=== PATIENT | male | born 1945 | race Caucasian/White ===

== ENCOUNTER → 2016-09-04 | Outpatient (CLI) | payer BC ==
[~2016-09-04] MED LIST: ALBUAER2 INH; ASCO100061 PO; ASCO500T16 PO; ASPEC81 PO; ASPI81TA28 PO; ATOR-24 PO; AZEL0.15 NAE; AZIT250T PO; CHOL200027 PO; COEN100C11 PO; EPP3/2 IM; FEXO1TAB46 PO; FEXO1TAB49 PO; FLAXPOW2 PO; LPT/40 PO; MECL1TAB40 PO; MONT1TAB5 PO; MULT-618 PO; NAPR500T3 PO; NSNN50 NAE; OMEP20CA9 PO; OXYC-57 PO; PRED10TA PO; QUIN20TA30 PO; TRMCR515 TOP; ZNTT/150 PO; [UNRECOGNIZED DRUG - CODE] PO; triamcinolone TD
--- NOTE | 2016-09-04 14:37 | DIAGNOSTIC IMAGING REPORT ---
CHEST 2 VIEWS ROUTINE CLINICAL HISTORY: COUGH dyspnea COMPARISON STUDY: No previous studies for comparison. FINDINGS: The bones soft tissues and hemidiaphragms are normal. The cardiomediastinal silhouette is normal. The lungs are clear. The pulmonary vasculature is normal. IMPRESSION: Negative chest. Electronically signed by: Vic Swartz M.D. 09/04/2016 2:35 PM Dictated Date/Time: 09/04/2016 2:35 PM
== END | disposition home or self-care (01) ==
LOC: C.RAD1850 14:21
PROVIDERS: ATTEND Physician Assistant Medical
DX: R05 Cough (principal)

== ENCOUNTER → 2016-09-27 | Outpatient (CLI) | payer BC ==
[2016-09-27 09:26] LABS: BASO % 0.1 %; BASO ABS # 0.01 K/uL (0-0.2); COMPLETE YES; HEMATOCRIT 45.2 % (42-52); IG% 0.3 %; LYMPH % 15.7 %; LYMPH ABS # 1.21 K/uL (1.2-3.4); MEAN CELL VOLUME 91.7 fL (80-100); MEAN CORPUSCULAR HEMOGLOBIN 30.2 pg (25-34); MEAN PLATELET VOLUME 10.3 fL (7.4-10.4); MONO % 3.5 %; NEUT % 80.4 %; PLATELET COUNT 262 K/uL (130-400); RED BLOOD COUNT 4.93 M/uL (4.7-6.1); WHITE BLOOD COUNT 7.73 K/uL (4.8-10.8)
[2016-09-27 09:40] LABS: URINE APPEARANCE CLOUDY (CLEAR); URINE BILIRUBIN NEG (NEG); URINE COLOR DK YELLOW; URINE EPITHELIAL CELL AUTO 20-30 /lpf (0-5); URINE NITRITE NEG (NEG); URINE PH 5.5 (4.5-7.5); URINE SPECIFIC GRAVITY 1.025 (1.000-1.030); UROBILINOGEN NEG (NEG)
[2016-09-27 09:42] LABS: MANUAL MICROSCOPIC REQUIRED? NO; REVIEW REQ? NO
[2016-09-27 09:50] LABS: ALT/SGPT 27 U/L (12-78); AST/SGOT 13 U/L (15-37); BLOOD UREA NITROGEN 16 mg/dl (7-18); BUN/CREATININE RATIO 14.5 (10-20); CARBON DIOXIDE 29 mmol/L (21-32); CHLORIDE 106 mmol/L (98-107); CHOLESTEROL 204 mg/dl (0-200); GLUCOSE 120 mg/dl (70-99); SODIUM 143 mmol/L (136-145); TRIGLYCERIDES 50 mg/dl (0-150); VERY LOW DENSITY LIPOPROT CALC 10 mg/dl
[2016-09-27 10:00] LABS: ALB/GLOB RATIO 1.2 (0.9-2); ALKALINE PHOSPHATASE 106 U/L (45-117); CHOLESTEROL/HDL RATIO 3.6; HDL CHOLESTEROL 57 mg/dl; LDL CHOLESTEROL CALCULATED 137 mg/dl; THYROID STIMULATING HORMONE 0.829 uIu/ml (0.300-4.500)
== END | disposition home or self-care (01) ==
LOC: C.LAB1850 07:45
PROVIDERS: ATTEND Internal Medicine Pulmonary Disease
DX: Z00.00 Encounter for general adult medical examination without abnormal findings (principal); J30.9 Allergic rhinitis, unspecified; M51.36 Other intervertebral disc degeneration, lumbar region; I10 Essential (primary) hypertension; J45.909 Unspecified asthma, uncomplicated; K21.9 Gastro-esophageal reflux disease without esophagitis; R05 Cough; N40.1 Benign prostatic hyperplasia with lower urinary tract symptoms

== ENCOUNTER → 2016-10-25 | Outpatient (CLI) | payer BC ==
--- NOTE | 2016-10-25 12:59 | DIAGNOSTIC IMAGING REPORT ---
BILATERAL CAROTID DOPPLER STUDY HISTORY: Carotid Doppler CAROTID BRUIT, DIZZINESS COMPARISON: None. TECHNIQUE: Real-time, grayscale, and color Doppler sonography of the carotid arteries was performed. Imaging reviewed in the transverse and longitudinal planes. All measurements were calculated based on NASCET criteria. FINDINGS: Antegrade flow is seen in the bilateral vertebral arteries. The brachial pressures are hemodynamically similar. Significant plaque formation bilaterally The peak systolic velocity within the right ICA is 218. The right systolic ratio is 1.9. The peak systolic velocity within the left ICA is 296. The left systolic ratio is 3.3. IMPRESSION: 1. 80/90% stenosis left internal carotid artery 2. 70/80% stenosis right internal carotid artery. 3. High-grade stenosis right external carotid artery. Electronically signed by: Vic Swartz M.D. 10/25/2016 12:58 PM Dictated Date/Time: 10/25/2016 12:54 PM
== END | disposition home or self-care (01) ==
LOC: C.ULTR 10:28
PROVIDERS: ATTEND Physician Assistant Medical
DX: R42 Dizziness and giddiness (principal); R09.89 Other specified symptoms and signs involving the circulatory and respiratory systems

== ENCOUNTER 2016-10-30 15:59 | Inpatient (IN) | payer BC, OTHER ==
[~2016-10-30] VITALS: Ht 177.8 cm; Wt 68.5 kg
[~2016-10-30 15:59] MED LIST changes: -ASCO100061 PO; -ASPEC81 PO; -ASPI81TA28 PO; -ATOR-24 PO; -AZEL0.15 NAE; -FEXO1TAB49 PO; -LPT/40 PO; -MECL1TAB40 PO; -OXYC-57 PO; -PRED10TA PO; -TRMCR515 TOP; -ZNTT/150 PO; -[UNRECOGNIZED DRUG - CODE] PO
[2016-10-30] MEDS ORDERED: SODIUM CHLORIDE 0.9% 1000ML 1,000 ML IV STA (18:08)
--- NOTE | 2016-10-30 18:55 | DIAGNOSTIC IMAGING REPORT ---
SINGLE VIEW CHEST CLINICAL HISTORY: Generalized weakness. FINDINGS: An AP, portable, upright chest radiograph is compared to study dated 09/04/2016. The examination is degraded by portable technique and patient rotation. The cardiomediastinal silhouette is unremarkable. Chronic interstitial thickening is unchanged. A calcified hilar lymph nodes are suspected. There is no airspace consolidation or large pleural effusion. Apical scarring is noted. No pneumothorax is seen. The skeletal structures are osteopenic. The bony thorax is grossly intact. IMPRESSION: No acute cardiopulmonary abnormality. Electronically signed by: Rony Lane M.D. 10/30/2016 6:54 PM Dictated Date/Time: 10/30/2016 6:53 PM
[2016-10-30 19:06] LABS: BASO % 0.4 %; BASO ABS # 0.02 K/uL (0-0.2); COMPLETE YES; EOS % 3.1 %; HEMATOCRIT 42.1 % (42-52); IG% 0.2 %; LYMPH % 29.6 %; LYMPH ABS # 1.33 K/uL (1.2-3.4); MEAN CELL VOLUME 90.9 fL (80-100); MEAN PLATELET VOLUME 9.9 fL (7.4-10.4); MONO % 8.9 %; NEUT % 57.8 %; PLATELET COUNT 241 K/uL (130-400); RED BLOOD COUNT 4.63 M/uL (4.7-6.1)
[2016-10-30] MEDS ORDERED: TRMCR515 TOP (19:07)
[2016-10-30] MEDS ORDERED: ASCO100061 PO (19:08)
[2016-10-30] MEDS ORDERED: ZNTT/150 PO (19:12)
[2016-10-30] MEDS ORDERED: AZEL0.15 NAE (19:13)
[2016-10-30] MEDS ORDERED: MECL1TAB40 PO (19:15)
[2016-10-30 19:17] LABS: PARTIAL THROMBOPLASTIN RATIO 1.1; PROTHROMBIN TIME (PATIENT) 10.8 SECONDS (9.0-12.0)
[2016-10-30 19:27] LABS: ALT/SGPT 28 U/L (12-78); BLOOD UREA NITROGEN 14 mg/dl (7-18); BUN/CREATININE RATIO 14.5 (10-20); CALCIUM 9.9 mg/dl (8.5-10.1); CARBON DIOXIDE 30 mmol/L (21-32); CHLORIDE 108 mmol/L (98-107); CREATININE 0.97 mg/dl (0.60-1.40); GLUCOSE 80 mg/dl (70-99); MAGNESIUM 2.3 mg/dl (1.8-2.4); POTASSIUM 3.9 mmol/L (3.5-5.1); SODIUM 144 mmol/L (136-145)
[2016-10-30 19:38] LABS: ALKALINE PHOSPHATASE 89 U/L (45-117); AST/SGOT 12 U/L (15-37); CKMB/CK RATIO 3.3 (0-3.0)
[2016-10-30 19:51] LABS: URINE APPEARANCE CLOUDY (CLEAR); URINE BILIRUBIN NEG (NEG); URINE COLOR YELLOW; URINE NITRITE NEG (NEG); URINE PH 6.5 (4.5-7.5); URINE SPECIFIC GRAVITY 1.017 (1.000-1.030); UROBILINOGEN NEG (NEG)
[2016-10-30 19:52] LABS: MANUAL MICROSCOPIC REQUIRED? NO; REVIEW REQ? YES
[2016-10-30] MEDS ORDERED: ASPIRIN 81 MG CHEW PO STA (20:54)
--- NOTE | 2016-10-30 23:28 | EMERGENCY ROOM VISIT NOTE ---
History Report prepared by Dominicibopal: Kelly Garcia Under the Supervision of: Dr. Glenn Chung M.D. First contact with patient: 18:05 Chief Complaint: REFERRED BY DOCTOR Stated Complaint: LIGHT HEADED - BLOCKED CAROTID ARTERIES History of Present Illness The patient is a 71 year old male who presents to the Emergency Room with complaints of persistent dizziness for the past 1 week. He reports he underwent an ultrasound of the carotid arteries on October 25. A blockage was seen on ultrasound, so when the patient saw Dr. Farmer at [facility] earlier today, he underwent an EKG and was referred to the ED for further evaluation. The patient admits he has not been breathing normally since July 2016, when his asthma was exacerbated while he was in [place], and his breathing has not returned to normal yet. He also notes he has been experiencing lightheadedness and blurry vision recently. Pt denies LOC, headache , fevers, chills, diaphoresis, chest pain, nausea, vomiting, abdominal pain, back pain, melena, hematochezia, urinary symptoms, numbness, weakness, lymphadenopathy, rash, or other complaints. 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 A total of ten systems were reviewed and were otherwise negative. Past Medical & Surgical Medical Problems: (1) ASTHMA, UNSPECIFIED (2) Bronchitis (3) History of repair of inguinal hernia (4) HYPERTENSION NOS (5) Pneumonia Family History Cancer Social History Smoking Status: Former Smoker Drug Use: none Marital Status: single Housing Status: lives alone Occupation Status: retired Current/Historical Medications Scheduled Ascorbic Acid (Ascorbic Acid), 1,000 MG PO DAILY Azelastine Hcl (Astepro), 2 SPRY [place] DAILY Cholecalciferol (Vitamin D-3), 2,000 UNITS PO NOON Coenzyme Q10 (Ubidecarenone) (Coq-10), 100 MG PO DAILY@NOON Epinephrine (Epipen), 0.3 MG IM UD Fexofenadine Hcl (Ramila), 180 MG PO HS Flaxseed (Linseed) (Flax Seeds), 2 TBS PO QAM Mometasone Furoate (Nasal) (Nasonex), 1 SPRAY [place] BID Montelukast Sodium (Montelukast Sodium), 10 MG PO HS Multiple Vitamins W/ Minerals (Centrum Silver Ultra Mens), 1 TAB PO NOON Omeprazole (Prilosec), 20 MG PO QAM Quinapril Hcl (Quinapril Hcl), 30 MG PO QAM Ranitidine (Zantac), 150 MG PO HS Scheduled PRN Albuterol (Ventolin), 2 PUFFS INH QID PRN for Shortness of Breath Azithromycin (Zithromax), 250 MG PO DIRECTED PRN for SINUS INFECTION Meclizine Hcl (Meclizine Hcl), 12.5 MG PO TID PRN for Dizziness or Vertigo Naproxen (Naproxen), 500 MG PO BID PRN for Pain Triamcinolone Acet (Triamcinolone Acetonide), 1 APPLN TOP BID PRN for UNDECIDED Allergies Coded Allergies: No Known Allergies (Verified , 10/12/15) Physical Exam Vital Signs Date Time Temp Pulse Resp B/P (MAP) Pulse Ox O2 Delivery O2 Flow Rate FiO2 10/30/16 23:06 52 15 96 10/30/16 23:01 164/98 10/30/16 22:51 51 19 94 10/30/16 22:36 49 15 95 10/30/16 22:31 167/72 10/30/16 22:21 53 17 94 10/30/16 22:17 53 10/30/16 22:06 54 20 95 10/30/16 22:01 147/83 10/30/16 21:51 50 17 94 10/30/16 21:46 53 153/81 97 Room Air 10/30/16 21:36 57 21 95 10/30/16 21:31 153/81 10/30/16 21:21 53 19 95 10/30/16 21:06 55 22 96 10/30/16 21:01 177/93 10/30/16 20:56 51 17 96 10/30/16 20:43 159/74 10/30/16 20:41 54 19 95 10/30/16 20:36 50 13 96 10/30/16 20:31 159/74 10/30/16 20:21 49 18 95 10/30/16 20:11 51 95 10/30/16 20:06 48 15 95 10/30/16 20:01 154/82 10/30/16 19:59 50 16 96 10/30/16 19:44 56 18 96 10/30/16 19:31 174/80 10/30/16 19:29 54 20 98 10/30/16 19:14 53 15 170/88 97 10/30/16 18:59 49 18 97 10/30/16 18:44 51 17 99 10/30/16 18:43 97 Room Air 10/30/16 18:43 97 Room Air 10/30/16 18:39 49 20 97 10/30/16 18:34 48 21 99 10/30/16 18:29 51 20 99 10/30/16 18:24 52 17 100 10/30/16 18:19 52 17 100 10/30/16 18:15 49 10/30/16 18:14 49 15 100 10/30/16 18:05 168/68 10/30/16 16:04 36.6 60 16 145/79 98 Room Air Physical Exam GENERAL: Awake, alert, well-appearing, in no distress HENT: Normocephalic, atraumatic. Oropharynx unremarkable. EYES: Normal conjunctiva. Sclera non-icteric. NECK: Faint bruit in left neck. Supple. No nuchal rigidity. FROM. No JVD. RESPIRATORY: Clear to auscultation. CARDIAC: Regular rate, normal rhythm. Extremities warm and well perfused. Pulses equal. ABDOMEN: Soft, non-distended. No tenderness to palpation. No rebound or guarding. No masses. RECTAL: Deferred. MUSCULOSKELETAL: Chest examination reveals no tenderness. The back is symmetrical on inspection without obvious abnormality. There is no CVA tenderness to palpation. No joint edema. LOWER EXTREMITIES: Calves are equal size bilaterally and non-tender. No edema. No discoloration. NEURO: Normal sensorium. No sensory or motor deficits noted. SKIN: No rash or jaundice noted. Medical Decision & Procedures ER Provider Diagnostic Interpretation: Radiology results as stated below per my review and radiologist interpretation: SINGLE VIEW CHEST CLINICAL HISTORY: Generalized weakness. FINDINGS: An AP, portable, upright chest radiograph is compared to study dated 09/04/2016. The examination is degraded by portable technique and patient rotation. The cardiomediastinal silhouette is unremarkable. Chronic interstitial thickening is unchanged. A calcified hilar lymph nodes are suspected. There is no airspace consolidation or large pleural effusion. Apical scarring is noted. No pneumothorax is seen. The skeletal structures are osteopenic. The bony thorax is grossly intact. IMPRESSION: No acute cardiopulmonary abnormality. Electronically signed by: Rony Lane M.D. 10/30/2016 6:54 PM Laboratory Results 10/30/16 18:30 Red Blood Count 4.63, Mean Corpuscular Volume 90.9, Mean Corpuscular Hemoglobin 30.0, Mean Corpuscular Hemoglobin Concent 33.0, Mean Platelet Volume 9.9, Neutrophils (%) (Auto) 57.8, Lymphocytes (%) (Auto) 29.6, Monocytes (%) (Auto) 8.9, Eosinophils (%) (Auto) 3.1, Basophils (%) (Auto) 0.4, Neutrophils # (Auto) 2.60, Lymphocytes # (Auto) 1.33, Monocytes # (Auto) 0.40, Eosinophils # (Auto) 0.14, Basophils # (Auto) 0.02 10/30/16 18:30 Test 10/30/16 18:30 10/30/16 19:30 White Blood Count 4.50 K/uL (4.8-10.8) Red Blood Count 4.63 M/uL (4.7-6.1) Hemoglobin 13.9 g/dL (14.0-18.0) Hematocrit 42.1 % (42-52) Mean Corpuscular Volume 90.9 fL (80-100) Mean Corpuscular Hemoglobin 30.0 pg (25-34) Mean Corpuscular Hemoglobin Concent 33.0 g/dl (32-36) Platelet Count 241 K/uL (130-400) Mean Platelet Volume 9.9 fL (7.4-10.4) Neutrophils (%) (Auto) 57.8 % Lymphocytes (%) (Auto) 29.6 % Monocytes (%) (Auto) 8.9 % Eosinophils (%) (Auto) 3.1 % Basophils (%) (Auto) 0.4 % Neutrophils # (Auto) 2.60 K/uL (1.4-6.5) Lymphocytes # (Auto) 1.33 K/uL (1.2-3.4) Monocytes # (Auto) 0.40 K/uL (0.11-0.59) Eosinophils # (Auto) 0.14 K/uL (0-0.5) Basophils # (Auto) 0.02 K/uL (0-0.2) RDW Standard Deviation 43.0 fL (36.4-46.3) RDW Coefficient of Variation 13.0 % (11.5-14.5) Immature Granulocyte % (Auto) 0.2 % Immature Granulocyte # (Auto) 0.01 K/uL (0.00-0.02) Prothrombin Time 10.8 SECONDS (9.0-12.0) Prothromb Time International Ratio 1.0 (0.9-1.1) Activated Partial Thromboplast Time 29.8 SECONDS (21.0-31.0) Partial Thromboplastin Ratio 1.1 Anion Gap 6.0 mmol/L (3-11) Est Creatinine Clear Calc Drug Dose 65.7 ml/min Estimated GFR () 89.4 Estimated GFR (Non- 77.1 BUN/Creatinine Ratio 14.5 (10-20) Calcium Level 9.9 mg/dl (8.5-10.1) Magnesium Level 2.3 mg/dl (1.8-2.4) Total Bilirubin 0.3 mg/dl (0.2-1) Direct Bilirubin < 0.1 mg/dl (0-0.2) Aspartate Amino Transf (AST/SGOT) 12 U/L (15-37) Alanine Aminotransferase (ALT/SGPT) 28 U/L (12-78) Alkaline Phosphatase 89 U/L (45-117) Total Creatine Kinase 58 U/L (39-308) Creatine Kinase MB 1.9 ng/ml (0.5-3.6) Creatine Kinase MB Ratio 3.3 (0-3.0) Troponin I < 0.015 ng/ml (0-0.045) Total Protein 6.6 gm/dl (6.4-8.2) Albumin 3.6 gm/dl (3.4-5.0) Thyroid Stimulating Hormone (TSH) 1.400 uIu/ml (0.300-4.500) Urine Color YELLOW Urine Appearance CLOUDY (CLEAR) Urine pH 6.5 (4.5-7.5) Urine Specific [place] 1.017 (1.000-1.030) Urine Protein NEG (NEG) Urine Glucose (UA) NEG (NEG) Urine Ketones NEG (NEG) Urine Occult Blood NEG (NEG) Urine Nitrite NEG (NEG) Urine Bilirubin NEG (NEG) Urine Urobilinogen NEG (NEG) Urine Leukocyte Esterase SMALL (NEG) Urine WBC (Auto) 1-5 /hpf (0-5) Urine RBC (Auto) 0-4 /hpf (0-4) Urine Hyaline Casts (Auto) 0 /lpf (0-5) Urine Epithelial Cells (Auto) 5-10 /lpf (0-5) Urine Bacteria (Auto) NEG (NEG) Urine Crystals CALCIUM OXALATE (NONE Laboratory results reviewed by me Medications Administered Medications (Trade) Dose Ordered Sig/Myrna Route Start Time Stop Time Status Last Admin Dose Admin Sodium Chloride 1,000 ml @ 125 mls/hr Q8H STAT IV 10/30/16 18:08 10/31/16 02:07 10/30/16 18:43 125 MLS/HR Aspirin (Aspirin Chew) 324 mg NOW STAT PO 10/30/16 20:54 10/30/16 20:55 DC 10/30/16 21:03 324 MG ECG Indication: weakness (dizziness) Rate (beats per minute): 47 Rhythm: sinus bradycardia Findings: LBBB, other (LVH) Change: no significant change (When compared to outpatient EKG, there is no significant change) ED Course 1815: The patient was evaluated in room C11. A complete history and physical exam was performed. 1819: An outpatient US of the carotid arteries showed 80% to 90% stenosis of the left internal carotid artery, 70% to 80% stenosis of the right internal carotid artery and high grade stenosis of the right external carotid. An EKG performed outpatient today showed a Sinus Rhythm, rate of 60, LBBB. A previous outpatient EKG showed Sinus Bradycardia, LVH and comparing the 2 EKG's, the LBBB is new. 1807: NSS 1000 ml @ 125 mls/hr IV. 2037: I discussed the patients case with Dr. Kellogg, [facility]. He recommends an evaluation by Cardiology. 2041: I discussed the patients case with Dr. Beaver, [facility]. He recommends an echocardiogram and close monitoring. 2053: Aspirin 324 mg PO. 2049: I discussed the patients case with Dr. Lord, [facility] Hospitalist. The patient will be further evaluated. Medical Decision Medication Reconciliation: I attest that I have personally reviewed the patient' s current medication list. Blood pressure screening: Patient was found to have an elevated blood pressure and was referred to their primary doctor for recheck and further treatment. Triage Nursing notes reviewed. The patient's presentation and history were concerning for dizziness. Etiologies such as cardiac sources, vascular issues, benign positional vertigo, tumor, infection, hypoglycemia, electrolyte abnormalities, intracerebral event , toxicologic, neurologic, as well as others were entertained. The patient was evaluated. He did have a bruit noted. Vascular ultrasound was reviewed. The patient has a left bundle branch block but the onset is not obvious. The patient has no chest pain at this time. After discussion with the patient's family and patient is noted a prior Issues with asthma. I question if he had a cardiac event at that time. The daughter does note there was one day where he looked very ill and was ashen. I did discuss his vascular findings with Dr. Kellogg who recommended a cardiac evaluation prior to intervention. I discussed the case with Dr. Beaver who recommended observation in the hospital, blood work, and an ultrasound. This was discussed with Dr. Hemal Lord who evaluated the patient for further management. Patient and family felt comfortable with the plan and were pleased with the treatment. Consults Time Called: 2034 Consulting Physician: Dr. Kellogg [facility] Returned Call: 2037 I discussed the patients case with Dr. Kellogg [facility]. He recommends an evaluation by Cardiology. Additional Consults: Time Called: 2039 Consulted Physician: [facility] Beaver [facility] Returned Call: 2041 Additional Comments: I discussed the patients case with Dr[facility] Beaver [facility]. He recommends an echocardiogram and close monitoring. Time Called: 2044 Consulted Physician: Dr. Lord [facility] Hospitalist Returned Call: 2049 Additional Comments: I discussed the patients case with Dr. Lord [facility] Hospitalist. The patient will be further evaluated. Impression Primary Impression: Dizziness Additional Impressions: Left bundle branch block (LBBB) Carotid stenosis Scribe Attestation The scribe's documentation has been prepared under my direction and personally reviewed by me in its entirety. I confirm that the note above accurately reflects all work, treatment, procedures, and medical decision making performed by me. Departure Information Dispostion Being Evaluated By Hospitalist Referrals Solic, Glenn,M.D. (PCP) Patient Instructions [facility] Problem Qualifiers
[2016-10-30] MEDS ORDERED: ALBUTEROL HFA 8 GM INHALER INH PRN (23:30)
[2016-10-30] MEDS ORDERED: POLYETHYLENE (MIRALAX) 17 GM PACK PO PRN (23:30)
[2016-10-30] MEDS ORDERED: EPINEPHRINE ADULT AUTO-INJECT 0.3 MG SYR IM PRN (23:30)
[2016-10-30] MEDS ORDERED: NITROGLYCERIN 0.4 MG SL PER TAB CHARGE SL PRN (23:30)
[2016-10-30] MEDS ORDERED: ACETAMINOPHEN 325 MG TAB PO PRN (23:30)
[2016-10-30] MEDS ORDERED: ONDANSETRON INJ 2 MG/ML 2 ML VIAL IV PRN (23:30)
--- NOTE | 2016-10-30 23:30 | History and Physical ---
History & Physical Date & Time of Service: Oct 30, 2016 at 23:30 Chief Complaint: Light Headed - Blocked Carotid Arteries Primary Care Physician: Glenn Hidalgo M.D. History of Present Illness Source: patient, family 71-year-old male with a past medical history of hypertension, asthma presented to the ER with complaints of persistent dizziness which started about a week ago. The patient had seen his PCP at that time who recommended a carotid ultrasound which was done on 10/25/2016 and was found to have bilateral carotid artery stenosis. His dizziness persisted and he went to see his PCP again today. An EKG done in the office revealed left bundle branch block which was new compared to his old EKGs and he was referred to the ER. The patient denies any chest pain, shortness of breath, palpitations but complains of intermittent dizziness on and off which started about a week ago. He thinks that dizziness is postural, worse when he stands from a seated position and also looking up extending his neck. He denied any headache, near syncope or syncopal episodes. Complains of blurriness of vision today. Denies any nausea or vomiting, numbness or tingling or motor weakness. Denies any fevers with chills, coughing, diaphoresis. Past Medical/Surgical History Medical Problems: (1) ASTHMA, UNSPECIFIED Status: Chronic (2) History of repair of inguinal hernia Status: Resolved (3) HYPERTENSION NOS Status: Chronic Family History Cancer Social History Smoking Status: Former Smoker Drug Use: none Marital Status: single Occupational Status: retired Multi-Drug Resistant Organisms History of MDRO: No Allergies Coded Allergies: No Known Allergies (Verified , 10/12/15) Home Medications Scheduled Ascorbic Acid (Ascorbic Acid), 1,000 MG PO DAILY Aspirin (Aspirin EC Low Dose), 81 MG PO QAM Atorvastatin (Lipitor), 40 MG PO DAILY Azelastine Hcl (Astepro), 2 SPRY [place] DAILY Cholecalciferol (Vitamin D-3), 2,000 UNITS PO NOON Coenzyme Q10 (Ubidecarenone) (Coq-10), 100 MG PO DAILY@NOON Epinephrine (Epipen), 0.3 MG IM UD Fexofenadine Hcl (Ramila), 180 MG PO HS Flaxseed (Linseed) (Flax Seeds), 2 TBS PO QAM Mometasone Furoate (Nasal) (Nasonex), 1 SPRAY [place] BID Montelukast Sodium (Montelukast Sodium), 10 MG PO HS Multiple Vitamins W/ Minerals (Centrum Silver Ultra Mens), 1 TAB PO NOON Omeprazole (Prilosec), 20 MG PO QAM Quinapril Hcl (Quinapril Hcl), 30 MG PO QAM Ranitidine (Zantac), 150 MG PO HS Scheduled PRN Albuterol (Ventolin), 2 PUFFS INH QID PRN for Shortness of Breath Azithromycin (Zithromax), 250 MG PO DIRECTED PRN for SINUS INFECTION Meclizine Hcl (Meclizine Hcl), 12.5 MG PO TID PRN for Dizziness or Vertigo Naproxen (Naproxen), 500 MG PO BID PRN for Pain Triamcinolone Acet (Triamcinolone Acetonide), 1 APPLN TOP BID PRN for UNDECIDED Review of Systems Constitutional: No fever, No chills, No sweats Eyes: No worsening of vision ENT: No hearing loss Respiratory: No cough, No sputum, No shortness of breath, No dyspnea on exertion Cardiovascular: No chest pain, No palpitations Abdomen: No pain, No nausea, No vomiting, No diarrhea Musculoskeletal: No joint pain Genitourinary - Male: No hematuria, No dysuria, No urinary frequency Neurologic: + problem reported (dizziness) Psychiatric: No depression symptoms Endocrine: No fatigue Hematologic / Lymphatic: No abnormal bleeding/bruising Integumentary: No rash Physical Exam Vital Signs Date Time Temp Pulse Resp B/P (MAP) Pulse Ox O2 Delivery O2 Flow Rate FiO2 10/30/16 23:06 52 15 96 10/30/16 23:01 164/98 10/30/16 22:51 51 19 94 10/30/16 22:36 49 15 95 10/30/16 22:31 167/72 10/30/16 22:21 53 17 94 10/30/16 22:17 53 10/30/16 22:06 54 20 95 10/30/16 22:01 147/83 10/30/16 21:51 50 17 94 10/30/16 21:46 53 153/81 97 Room Air 10/30/16 21:36 57 21 95 10/30/16 21:31 153/81 10/30/16 21:21 53 19 95 10/30/16 21:06 55 22 96 10/30/16 21:01 177/93 10/30/16 20:56 51 17 96 10/30/16 20:43 159/74 10/30/16 20:41 54 19 95 10/30/16 20:36 50 13 96 10/30/16 20:31 159/74 10/30/16 20:21 49 18 95 10/30/16 20:11 51 95 10/30/16 20:06 48 15 95 10/30/16 20:01 154/82 10/30/16 19:59 50 16 96 10/30/16 19:44 56 18 96 10/30/16 19:31 174/80 10/30/16 19:29 54 20 98 10/30/16 19:14 53 15 170/88 97 10/30/16 18:59 49 18 97 10/30/16 18:44 51 17 99 10/30/16 18:43 97 Room Air 10/30/16 18:43 97 Room Air 10/30/16 18:39 49 20 97 10/30/16 18:34 48 21 99 10/30/16 18:29 51 20 99 10/30/16 18:24 52 17 100 10/30/16 18:19 52 17 100 10/30/16 18:15 49 10/30/16 18:14 49 15 100 10/30/16 18:05 168/68 10/30/16 16:04 36.6 60 16 145/79 98 Room Air General Appearance: WD/WN, no apparent distress Head: normocephalic Eyes: normal inspection ENT: hearing grossly normal Neck: supple Respiratory/Chest: chest non-tender, lungs clear, normal breath sounds, no respiratory distress, no accessory muscle use Cardiovascular: regular rate, rhythm Abdomen/GI: normal bowel sounds, non tender, soft Extremities/Musculoskelatal: no pedal edema Neurologic/Psych: no motor/sensory deficits, alert, normal mood/affect, oriented x 3 Skin: normal color Diagnostics Laboratory Results Results Past 24 Hours Test 10/30/16 18:30 10/30/16 19:30 Range/Units White Blood Count 4.50 4.8-10.8 K/uL Red Blood Count 4.63 4.7-6.1 M/uL Hemoglobin 13.9 14.0-18.0 g/dL Hematocrit 42.1 42-52 % Mean Corpuscular Volume 90.9 80-100 fL Mean Corpuscular Hemoglobin 30.0 25-34 pg Mean Corpuscular Hemoglobin Concent 33.0 32-36 g/dl Platelet Count 241 130-400 K/uL Mean Platelet Volume 9.9 7.4-10.4 fL Neutrophils (%) (Auto) 57.8 % Lymphocytes (%) (Auto) 29.6 % Monocytes (%) (Auto) 8.9 % Eosinophils (%) (Auto) 3.1 % Basophils (%) (Auto) 0.4 % Neutrophils # (Auto) 2.60 1.4-6.5 K/uL Lymphocytes # (Auto) 1.33 1.2-3.4 K/uL Monocytes # (Auto) 0.40 0.11-0.59 K/uL Eosinophils # (Auto) 0.14 0-0.5 K/uL Basophils # (Auto) 0.02 0-0.2 K/uL RDW Standard Deviation 43.0 36.4-46.3 fL RDW Coefficient of Variation 13.0 11.5-14.5 % Immature Granulocyte % (Auto) 0.2 % Immature Granulocyte # (Auto) 0.01 0.00-0.02 K/uL Prothrombin Time 10.8 9.0-12.0 SECONDS Prothromb Time International Ratio 1.0 0.9-1.1 Activated Partial Thromboplast Time 29.8 21.0-31.0 SECONDS Partial Thromboplastin Ratio 1.1 Sodium Level 144 136-145 mmol/L Potassium Level 3.9 3.5-5.1 mmol/L Chloride Level 108 98-107 mmol/L Carbon Dioxide Level 30 21-32 mmol/L Anion Gap 6.0 3-11 mmol/L Blood Urea Nitrogen 14 7-18 mg/dl Creatinine 0.97 0.60-1.40 mg/dl Est Creatinine Clear Calc Drug Dose 65.7 ml/min Estimated GFR () 89.4 Estimated GFR (Non- 77.1 BUN/Creatinine Ratio 14.5 10-20 Random Glucose 80 70-99 mg/dl Calcium Level 9.9 8.5-10.1 mg/dl Magnesium Level 2.3 1.8-2.4 mg/dl Total Bilirubin 0.3 0.2-1 mg/dl Direct Bilirubin < 0.1 0-0.2 mg/dl Aspartate Amino Transf (AST/SGOT) 12 15-37 U/L Alanine Aminotransferase (ALT/SGPT) 28 12-78 U/L Alkaline Phosphatase 89 45-117 U/L Total Creatine Kinase 58 39-308 U/L Creatine Kinase MB 1.9 0.5-3.6 ng/ml Creatine Kinase MB Ratio 3.3 0-3.0 Troponin I < 0.015 0-0.045 ng/ml Total Protein 6.6 6.4-8.2 gm/dl Albumin 3.6 3.4-5.0 gm/dl Thyroid Stimulating Hormone (TSH) 1.400 0.300-4.500 uIu/ml Urine Color YELLOW Urine Appearance CLOUDY CLEAR Urine pH 6.5 4.5-7.5 Urine Specific [place] 1.017 1.000-1.030 Urine Protein NEG NEG Urine Glucose (UA) NEG NEG Urine Ketones NEG NEG Urine Occult Blood NEG NEG Urine Nitrite NEG NEG Urine Bilirubin NEG NEG Urine Urobilinogen NEG NEG Urine Leukocyte Esterase SMALL NEG Urine WBC (Auto) 1-5 0-5 /hpf Urine RBC (Auto) 0-4 0-4 /hpf Urine Hyaline Casts (Auto) 0 0-5 /lpf Urine Epithelial Cells (Auto) 5-10 0-5 /lpf Urine Bacteria (Auto) NEG NEG Urine Crystals CALCIUM OXALATE NONE PRSENT Diagnostic Radiology [~ rep ct add3]] SINGLE VIEW CHEST CLINICAL HISTORY: Generalized weakness. FINDINGS: An AP, portable, upright chest radiograph is compared to study dated 09/04/2016. The examination is degraded by portable technique and patient rotation. The cardiomediastinal silhouette is unremarkable. Chronic interstitial thickening is unchanged. A calcified hilar lymph nodes are suspected. There is no airspace consolidation or large pleural effusion. Apical scarring is noted. No pneumothorax is seen. The skeletal structures are osteopenic. The bony thorax is grossly intact. IMPRESSION: No acute cardiopulmonary abnormality. Electronically signed by: Rony Lane M.D. 10/30/2016 6:54 PM Dictated Date/Time: 10/30/2016 6:53 PM EKG Sinus bradycardia Left bundle branch block Abnormal ECG When compared with ECG of 18-SEP-2012 09:21, Left bundle branch block is now Present Impression Assessment and Plan 71-year-old male with a past medical history of hypertension, asthma presented to the ER with complaints of persistent dizziness which started about a week ago. Was recently diagnosed with bilateral carotid stenosis after ultrasound Doppler of carotids. Was referred to the ER by his PCP after his EKG in the office revealed a new left bundle branch block. He currently denies any cardiac symptoms like chest pain, shortness of breath or palpitations and only has dizziness with blurry vision. Dizziness: TIA vs Vertebrobasilar insufficiency versus orthostatic hypotension - Carotid Dopplers 10/25: 1. 80/90% stenosis left internal carotid artery 2. 70/80% stenosis right internal carotid artery. 3. High-grade stenosis right external carotid artery. - Head CT ordered to rule out hemorrhage - MRI brain, MRA head , MRA neck ordered - Received 325 mg aspirin in the ER - Continue aspirin, start atorvastatin in a.m. - Lipid profile , hemoglobin A1c in a.m. - Consult neurology - orthostatic vitals ?New onset LBBB: No h/o CAD but has vascular disease as evidenced by bilateral carotid stenosis Currently asymptomatic - EKG: Sinus bradycardia, Left bundle branch block - Initial troponin negative, trended every 8 hours - Received 324 mg of aspirin in the ER - No heparin drip per ED phone consultation with cardiology - Echo ordered - Cardiology consult - Start statin. Beta te not started considering bradycardia, continue quinapril Bilateral carotid artery stenosis: As evidenced by carotid Dopplers on 10/25 as above - Consult vascular surgery Hypertension: - Continue quinapril Asthma/allergies - Continue Ventolin when necessary - Continue other allergy medications DVT prophylaxis: SCDs DO NOT RESUSCITATE Disposition: Admitted to telemetry Level of Care Telemetry Advanced Directives Existing Power of Bead Forming Machine Set Up Operator: Yes Resuscitation Status DO NOT RESUSCITATE VTE Prophylaxis VTE Risk Assessment Done? Y/N: Yes Risk Level: Moderate Given or contraindicated: SCD's Resident Tracking Resident Involvement: Resident Care Provided Care Provided: Adult Hospital Medicine Assessment and Plan Attending Addendum: I physically seen and examined this patient, have supervised the medical residents activities, and agree with the H&P as noted above with the following exceptions: NONE The patient is awake, well-developed and adequately nourished, alert and oriented 3, normocephalic and atraumatic, lying in bed and in no acute distress. HEENT--PERRL, EOMI, mucous membranes and oropharynx dry. Neck--supple, no JVD. Bilateral carotid bruits bruits are present. Thyroid normal, trachea midline, no adenopathy. Heart--normal S1 and S2, no extra beats, no murmurs, rubs or gallops. Lungs--clear bilaterally with good air movement, no respiratory distress, no accessory muscle use. Abdomen--normal bowel sounds and soft, nontender and nondistended, no hernias or masses, no organomegaly. Extremities--no cyanosis, clubbing or edema. There are good distal pulses b/l. Dermatologic--normal skin turgor, normal color, warm and dry, no abnormal lymph nodes, no rash. Neurologic--cranial nerves II through XII grossly intact, motor and sensory examination normal. Rheumatologic--normal range of motion, nontender, muscles and joints. Psychiatric--normal affect. Assessment and Plan: 1. Dizziness--patient be referred to the emergency department due to a knowledge of bilateral carotid stenosis any concerns regarding the left bundle- branch block Carotid Dopplers on October 25 showed the following: LICA 80-90%. RUSSELL 70-80%. CT of the head in the ED is negative for acute findings. Order an MRI of the brain combo, MRA of the neck combo, an MRA head without contrast. We will not order CT angiography due to potential for cardiac catheterization. Patient did receive 324 mg of aspirin in the emergency department. Continue aspirin 81 mg by mouth every morning, start atorvastatin 80 mg by mouth every morning. Order a fasting lipid profile and hemoglobin A1c. EKG shows sinus bradycardia with left bundle branch block. Cardiology telephone consult recommended no heparin drip. Initial troponin is negative he'll follow every 8 hours. Order a 2-D echocardiogram with Dopplers. Consult both cardiology and neurology.
[2016-10-31] VITALS (7 sets, daily range): BP systolic 149–191; BP diastolic 64–86; PULSE 54–82; TEMP 36.3–36.7; O2SAT 92–99; Ht 177.8 cm; Wt 68.5 kg
[2016-10-31] MEDS ORDERED: PHARMACIST DISCHARGE MED REC CONSULT PRN (00:45)
--- NOTE | 2016-10-31 06:36 | DIAGNOSTIC IMAGING REPORT ---
HEAD CT NONCONTRAST CT DOSE: 537.48 mGy.cm HISTORY: Mental status change dizziness TECHNIQUE: Multiaxial CT images of the head were performed without the use of intravenous contrast. Comparison: None. Findings: The paranasal sinuses and mastoid air cells are clear. The calvarium and skull base are intact. The ventricles and sulci are within normal limits. There is no mass, hematoma, midline shift, or acute infarct. Mild chronic small vessel change of aging Impression: No acute intracranial abnormality. Age-related chronic small vessel change Electronically signed by: Vic Swartz M.D. 10/31/2016 6:34 AM Dictated Date/Time: 10/31/2016 6:29 AM
[2016-10-31 06:49] LABS: ESTIMATED AVERAGE GLUCOSE 120 mg/dl; HA1C FLAG Normal (Normal)
--- NOTE | 2016-10-31 08:02 | DIAGNOSTIC IMAGING REPORT ---
ORBIT RADIOGRAPHS 3 VIEWS HISTORY: Pre-MRI pre-MRI screening. COMPARISON: None. FINDINGS: There are no radiopaque foreign bodies identified within the orbits. IMPRESSION: No radiopaque foreign bodies identified within the orbits. Electronically signed by: Vic Swartz M.D. 10/31/2016 8:00 AM Dictated Date/Time: 10/31/2016 8:00 AM
[2016-10-31] MEDS ORDERED: OPTIRAY 320 IV PRN (08:45)
[2016-10-31] MEDS ORDERED: ASCORBIC ACID 500 MG TAB PO SCH (09:00)
[2016-10-31] MEDS ORDERED: ASPIRIN 81 MG ECTAB PO SCH (09:00)
[2016-10-31] MEDS ORDERED: ATORVASTATIN 40 MG TAB PO SCH (09:00)
[2016-10-31] MEDS ORDERED: PANTOprazole SOD 40 MG TAB PO SCH (09:00)
[2016-10-31] MEDS ORDERED: FLUTICASONE PROPIONATE NA SPR 16 GM BTL NAE SCH (09:00)
--- NOTE | 2016-10-31 09:11 | DIAGNOSTIC IMAGING REPORT ---
MRI OF THE BRAIN WITHOUT AND WITH IV CONTRAST CLINICAL HISTORY: Stroke mental status change COMPARISON STUDY: No previous studies for comparison. TECHNIQUE: Utilizing a 1.5 Kirstin magnet and dedicated coil, multiplanar, multiecho imaging of the brain was performed pre and postcontrast administration. IV administration of 6.8 mL of Gadavist contrast was uneventful. FINDINGS: Diffusion-weighted images show no evidence for an acute ischemic insult. Mild age-related cerebral atrophy and chronic small vessel change. No evidence for abnormal postcontrast enhancement. Ventricular system is midline. IMPRESSION: 1. No evidence for an acute ischemic insult. 2. Age-related change. 3. Otherwise negative study. Electronically signed by: Vic Swartz M.D. 10/31/2016 9:10 AM Dictated Date/Time: 10/31/2016 9:06 AM
[2016-10-31] MEDS: ENALAPRIL MALEATE 10 MG TAB PO SCH ×2 (09:37→12:22)
--- NOTE | 2016-10-31 09:54 | DIAGNOSTIC IMAGING REPORT ---
HEAD CTA HISTORY: Mental status change dizziness TECHNIQUE: Multiaxial CT images of the head were performed both before and after the intravenous administration of contrast to evaluate the major cerebral vessels. Maximum intensity projection images were also obtained. COMPARISON: None. FINDINGS: There is no mass, hematoma, midline shift, or acute infarct. Visualized intracranial internal carotid arteries, distal vertebral arteries, and basilar artery are widely patent. There is no significant stenosis, occlusion, or aneurysm seen within the bilateral ACAs, MCAs, or bush regenerator. IMPRESSION: No significant stenosis, occlusion, or aneurysm within the [place]. Negative unenhanced CT scan of the brain. Electronically signed by: Vic Swartz M.D. 10/31/2016 9:53 AM Dictated Date/Time: 10/31/2016 9:51 AM
--- NOTE | 2016-10-31 10:28 | DIAGNOSTIC IMAGING REPORT ---
CT ANGIOGRAM OF THE NECK CLINICAL HISTORY: Carotid artery stenosis. Vertebrobasilar insufficiency. COMPARISON STUDY: Carotid artery ultrasound dated 10/25/2016. TECHNIQUE: Following the IV administration of 120 of Optiray 320, CT angiogram of the neck was performed from the aortic arch to the skull base. Images are reviewed in the axial, sagittal, and coronal planes. 3-D MIPS images are created and assessed. IV contrast was administered without complication. All measurements were calculated based on NASCET criteria. CT DOSE: 1018.34 mGy.cm FINDINGS: Thoracic aorta: There is atherosclerotic calcification of the imaged thoracic aorta. Visualized portions of the thoracic aorta are normal in caliber and the arch demonstrates standard 3-vessel anatomy. Subclavian arteries: Widely patent bilaterally. Right carotid arterial system: The right common carotid artery is widely patent. There is atherosclerotic plaque and irregularity seen in the distal common carotid artery and the carotid bulb. There is approximately 50% focal stenosis at the origin of the right internal carotid artery seen on axial image #148. The remainder of the right internal carotid artery as well as the external carotid artery are widely patent. Left carotid arterial system: The left common carotid artery is patent. There is atherosclerotic plaque and irregularity seen in the distal common carotid artery with less than 50% luminal narrowing. Extensive atherosclerotic plaque is seen in the carotid bulb. There is between 50 and 75% stenosis at the origin of the left internal carotid artery. The remainder of the left internal carotid artery is widely patent. Vertebral arteries: Widely patent and codominant. Intracranial vasculature: The visualized intracranial vessels at the skull base are patent. See report of CT angiogram of the brain performed concurrently for detailed intracranial findings. Jugular veins: Widely patent bilaterally. Brain parenchyma: The visualized brain parenchyma the skull base is within normal limits. Lung apices: Emphysema is suggested. Apical lung parenchyma is otherwise clear as imaged. Soft tissues: There is abnormal soft tissue suggested at the right base of the tongue on axial image #140 which partially effaces the right piriform sinus. An 8 mm cystic structure suggested in this region on image #140. The visualized pharyngeal soft tissues are otherwise normal as visualized noting angiographic phase technique. The airway appears widely patent. The salivary and thyroid glands are normal in appearance. No cervical lymphadenopathy is seen. Skeletal structures: The skeletal structures are osteopenic. The visualized calvarium at the skull base appears intact. The imaged cervical spine appears preserved noting mild spondylosis. There is a small left mastoid effusion. The right mastoid air cells are clear. IMPRESSION: 1. Atherosclerotic plaque is identified, greatest in the distal carotid arteries and carotid bulbs. 2. There is evidence of approximately 50% stenosis at the origin of the right internal carotid artery. The remainder of the right internal carotid artery is widely patent. 3. There is between 50-75% stenosis at the origin of the left internal carotid artery. The remainder of the left internal carotid artery is widely patent. 4. The vertebral arteries are widely patent and codominant. 5. There is abnormal soft tissue questioned at the right base of the tongue with suspected effacement of the right piriform sinus, and a small cystic structure is noted. ENT consultation and correlation with direct association is recommended. Neoplasm is to be excluded. Electronically signed by: Rony Lane M.D. 10/31/2016 10:26 AM Dictated Date/Time: 10/31/2016 9:52 AM
--- NOTE | 2016-10-31 11:23 | Neurology Consultation ---
Neurology Consultation Date of Consultation: Oct 31, 2016. Attending Physician: Benito Freeman D.O. Primary Care Physician: Glenn Hidalgo M.D. Reason for Consultation: Patient is a 71-year-old, who was asked to see at the request of Drs. Davis and Pop, for neurologic consultation regarding new onset lightheadedness and blurry vision with carotid stenosis. History of Present Illness Source: patient, family, caregiver, clinic records, hospital records Patient has a history of hypertension for many years. About 10-12 years ago, he was on a roof on a hot day (likely dehydrated) and that the onset of vertigo with head movement. This resolved and he's had no real vertigo until recently. About a week ago, he noted that if he stood up he might get dizzy. That would be spinning or whirling lasting a minute or 2 and it have to sit down. The first time he had some blurry vision but he never had any nausea, vomiting, headache, or confusion. He would have no weakness or numbness of the limbs and he wouldn't pass out. The first time he had some near syncope feelings however. This would occur intermittently over the last week with some vertiginous sensations lasting seconds to a minute if he would change position or stand up. Once when he looked up at the abebe and came back down, he had the vertigo. He can get blurry vision intermittently with or without the dizziness. He denies loss of vision or double vision. He has no balance problems, incontinence, or pain. Interestingly, he had a 30 pound weight loss over the last 4 months. He is not eating well because he hasn't felt well since July. He has been having some breathing issues chest pain and was diagnosed with bronchitis and pneumonia. He is receiving steroids and antibiotics. He is breathing better now. Over the last year he's been slightly forgetful according to his daughters were present at the bedside today. He believes that his feet have been somewhat numb over the last few years. On October 25, as an outpatient, carotid ultrasound showed 80-90% stenosis in the left and 70-80% stenosis on the right. There was a high-grade right external carotid artery stenosis. On October 30, [id number] hours, blood pressure was 145/79, pulse 60 and regular, respiratory rate 16 and comfortable, temperature 36.6, and O2 saturation 98%. In the emergency room he had normal mental status, no focal signs, no real vertigo or shortness of breath. Chest x-ray was unremarkable. EKG showed left bundle branch block. CT scan of the head showed no acute changes. CBC and chem profile were unremarkable. Hemoglobin A1c was 5.8. He has not had any vertigo this morning. Overnight he did well with no new events. He has had no lightheadedness or blurry vision this morning. MRI of the brain showed a very small amount of old small vessel ischemic changes (white matter spots), slightly more on the left than the right. There is no significant atrophy and there is no enhancement with contrast. There are actually no acute changes or other abnormalities. CT angiography of the head was unremarkable with no significant stenosis. CT end her therapy the neck, preliminary report, reveals approximately 50% stenosis on the right with calcification, high up near the bifurcation. On the left, high up near the bifurcation it is very calcified an irregular with probable 75-80% stenosis. Vertebral arteries have some plaque but no significant stenosis in the basilar artery is unremarkable. Past Medical/Surgical History Medical Problems: (1) Carotid stenosis Status: Acute (2) Left bundle branch block (LBBB) Status: Acute Hypertension Benign prostatic hypertrophy History of asthma with bronchitis and pneumonia this spring. Post right carpal tunnel syndrome repair with trigger thumb repair and ganglion cyst removal by Dr. Harper in September 2013. Post left inguinal hernia repair September [address] Campos Post appendectomy, elbow cyst removal, and laser surgery of one eye. He has a history of some increased pressure of the eyes. Family History Father in his early 80s of heart disease with colon cancer in the past. Mother age 84 of renal disease and had a history of asthma and congestive heart failure Social History Patient quit cigarette smoking in his 20s. He would have a few beers several times a week in the past but he has had no alcohol the last 2 years. 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 He's been doing a lot of fishing. The patient mendoza in [place] for 6 months and [place] 6 months in the summer. He lives with his who is ill and he helps care for her. Smoking Status: Former smoker Smokeless Tobacco Use: No Alcohol Use: none Drug Use: none Marital Status: single Housing Status: lives with significant other Occupation Status: retired Allergies Coded Allergies: No Known Allergies (Verified , 10/12/15) Current Inpatient Medications Current Inpatient Medications Medications (Trade) Dose Ordered Sig/Myrna Route Start Time Stop Time Status Last Admin Dose Admin Acetaminophen (Tylenol Tab) 650 mg Q4H PRN PO 10/30/16 23:30 11/29/16 23:29 Ondansetron HCl (Zofran Inj) 4 mg Q6H PRN IV 10/30/16 23:30 11/29/16 23:29 Nitroglycerin (Nitrostat Tab) 0.4 mg UD PRN SL 10/30/16 23:30 11/29/16 23:29 Polyethylene (Miralax Powder Packet) 17 gm DAILY PRN PO 10/30/16 23:30 11/29/16 23:29 Albuterol (Ventolin Hfa Inhaler) 2 puffs QID PRN INH 10/30/16 23:30 11/29/16 23:29 Epinephrine (Epipen) 0.3 mg UD PRN IM 10/30/16 23:30 11/29/16 23:29 Fexofenadine HCl (Ramila Tab) 180 mg HS PO 10/31/16 21:00 11/30/16 20:59 Montelukast Sodium (Singulair Tab) 10 mg HS PO 10/31/16 21:00 11/30/16 20:59 Ranitidine HCl (zANTac TAB) 150 mg HS PO 10/31/16 21:00 11/30/16 20:59 Ascorbic Acid (Vitamin C Tab) 1,000 mg DAILY PO 10/31/16 09:00 11/30/16 08:59 Miscellaneous Information (Order Awaiting Action) 1 ea QS N/A 10/31/16 08:00 11/30/16 07:59 Cholecalciferol (Vitamin D Tab) 2,000 inter.unit DAILY@1200 PO 10/31/16 12:00 11/30/16 11:59 Fluticasone Propionate (Flonase Nasal [place]) 1 sprays BID [facility] 10/31/16 09:00 11/30/16 08:59 Pantoprazole Sodium (Protonix Tab) 40 mg QAM PO 10/31/16 09:00 11/30/16 08:59 Enalapril Maleate (Vasotec Tab) 30 mg QAM PO 10/31/16 09:00 11/30/16 08:59 Atorvastatin Calcium (Lipitor Tab) 40 mg QAM PO 10/31/16 09:00 11/30/16 08:59 Aspirin (Ecotrin Tab) 81 mg QAM PO 10/31/16 09:00 11/30/16 08:59 Miscellaneous Information (Pharmacist Discharge Med Rec Consult) 1 ea UD PRN N/A 10/31/16 00:45 11/30/16 00:44 Ioversol (Optiray 320) 125 ml UD PRN IV 10/31/16 08:45 11/04/16 08:44 Review of Systems Constitutional: + weight loss, + fatigue, No weakness Eyes: No worsening of vision, No diplopia ENT: No sore throat, No trouble swallowing Respiratory: No cough, No shortness of breath Cardiovascular: No chest pain, No palpitations Abdomen: No pain, No nausea Musculoskeletal: No joint pain, No muscle pain Genitourinary - Male: No dysuria, No urinary incontinence Neurologic: + memory loss, No weakness, No numbness/tingling, No vertigo, No balance problems Psychiatric: No depression symptoms, No anxiety Endocrine: No fatigue Hematologic / Lymphatic: No abnormal bleeding/bruising Integumentary: No rash Allergic / Immunologic: No hives Physical Exam Vital Signs (Past 24 Hrs): Date Time Temp Pulse Resp B/P (MAP) Pulse Ox O2 Delivery O2 Flow Rate FiO2 10/31/16 08:00 Room Air 10/31/16 07:42 36.5 54 16 152/75 (100) 97 Room Air 10/31/16 04:00 Room Air 10/31/16 01:09 36.3 56 16 168/66 Room Air 10/31/16 00:56 49 12 137/72 92 10/31/16 00:46 49 16 91 10/30/16 23:36 48 15 10/30/16 23:31 180/82 10/30/16 23:26 49 18 10/30/16 23:11 73 16 10/30/16 23:06 52 15 96 10/30/16 23:01 164/98 10/30/16 22:51 51 19 94 10/30/16 22:36 49 15 95 10/30/16 22:31 167/72 10/30/16 22:21 53 17 94 10/30/16 22:17 53 10/30/16 22:06 54 20 95 10/30/16 22:01 147/83 10/30/16 21:51 50 17 94 10/30/16 21:46 53 153/81 97 Room Air 10/30/16 21:36 57 21 95 10/30/16 21:31 153/81 10/30/16 21:21 53 19 95 10/30/16 21:06 55 22 96 10/30/16 21:01 177/93 10/30/16 20:56 51 17 96 10/30/16 20:43 159/74 10/30/16 20:41 54 19 95 10/30/16 20:36 50 13 96 10/30/16 20:31 159/74 10/30/16 20:21 49 18 95 10/30/16 20:11 51 95 10/30/16 20:06 48 15 95 10/30/16 20:01 154/82 10/30/16 19:59 50 16 96 10/30/16 19:44 56 18 96 10/30/16 19:31 174/80 10/30/16 19:29 54 20 98 10/30/16 19:14 53 15 170/88 97 10/30/16 18:59 49 18 97 10/30/16 18:44 51 17 99 10/30/16 18:43 97 Room Air 10/30/16 18:43 97 Room Air 10/30/16 18:39 49 20 97 10/30/16 18:34 48 21 99 10/30/16 18:29 51 20 99 10/30/16 18:24 52 17 100 10/30/16 18:19 52 17 100 10/30/16 18:15 49 10/30/16 18:14 49 15 100 10/30/16 18:05 168/68 10/30/16 16:04 36.6 60 16 145/79 98 Room Air Patient is right-handed. The patient is awake and alert. Speech is normal without aphasia or dysarthria. Mentation and thought processes are intact with orientation and normal fund of knowledge. Mood and affect are normal and appropriate. Appearance and grooming are normal. The discs are sharp with positive venous pulsations. There are no exudates, hemorrhages, or blood vessel changes seen. Pupils are 3mm bilaterally and reactive to light. Extraocular eye muscles are intact without nystagmus. Visual acuity and visual yen seem normal grossly to confrontation. There are no deficits to sensation of the face bilaterally. Corneal reflexes are positive bilaterally. Facial strength and symmetry is normal bilaterally. Hearing seems intact grossly to voice and finger rub. Palate moves well without asymmetry. There is normal sternocleidomastoid and trapezius strength bilaterally. Tongue is midline with good strength bilaterally. Neck is with full range of motion without discomfort. There are no cervical bruits. There are no cranial or ocular bruits. Heart is without murmur. Cervical, thoracic, and lumbar spine are nontender to palpation. Gait is normal. There is good are swing, turn, stance, and balance. Stance is normal eyes open or closed. With outstretched arms there is no drift. There are no resting, postural, or action tremors. There is no ataxia with [id number] testing. There is good facility in the hands. There are no abnormal involuntary movements noted. Motor strength is 5/5 diffusely in the arms bilaterally including deltoids, biceps, brachioradialis, wrist flexors and extensors, web development manager, and intrinsic hand muscles. Motor strength is 5/5 diffusely in the legs bilaterally including hip flexors, quadriceps, hamstring, gastrocnemius, tibialis anterior, tibialis posterior, and peroneii muscles bilaterally. Toe extensors are normal and there is good bulk in the extensor digitorum brevis muscle bilaterally. The limbs have good tone without rigidity or spasticity, and there is no atrophy noted. Muscle bulk is normal, there is no tenderness, no myotonia noted to percussion, and no fasciculations seen. Sensory examination is intact to pin and touch throughout all four limbs, although there may be some decreased sensation to pin and touch in the feet bilaterally. Reflexes are 2/4 in the biceps, triceps, brachioradialis, quadriceps, and Achilles tendons bilaterally. Toes are downgoing with plantar stimulation bilaterally. Peripheral pulses are present and of normal quality distally in all four limbs. There is no peripheral edema noted. Laboratory Results Past 24 Hours: 10/30/16 18:30 Red Blood Count 4.63, Mean Corpuscular Volume 90.9, Mean Corpuscular Hemoglobin 30.0, Mean Corpuscular Hemoglobin Concent 33.0, Mean Platelet Volume 9.9, Neutrophils (%) (Auto) 57.8, Lymphocytes (%) (Auto) 29.6, Monocytes (%) (Auto) 8.9, Eosinophils (%) (Auto) 3.1, Basophils (%) (Auto) 0.4, Neutrophils # (Auto) 2.60, Lymphocytes # (Auto) 1.33, Monocytes # (Auto) 0.40, Eosinophils # (Auto) 0.14, Basophils # (Auto) 0.02 10/30/16 18:30 Test 10/30/16 18:30 10/30/16 19:30 10/31/16 05:23 White Blood Count 4.50 K/uL (4.8-10.8) Red Blood Count 4.63 M/uL (4.7-6.1) Hemoglobin 13.9 g/dL (14.0-18.0) Hematocrit 42.1 % (42-52) Mean Corpuscular Volume 90.9 fL (80-100) Mean Corpuscular Hemoglobin 30.0 pg (25-34) Mean Corpuscular Hemoglobin Concent 33.0 g/dl (32-36) Platelet Count 241 K/uL (130-400) Mean Platelet Volume 9.9 fL (7.4-10.4) Neutrophils (%) (Auto) 57.8 % Lymphocytes (%) (Auto) 29.6 % Monocytes (%) (Auto) 8.9 % Eosinophils (%) (Auto) 3.1 % Basophils (%) (Auto) 0.4 % Neutrophils # (Auto) 2.60 K/uL (1.4-6.5) Lymphocytes # (Auto) 1.33 K/uL (1.2-3.4) Monocytes # (Auto) 0.40 K/uL (0.11-0.59) Eosinophils # (Auto) 0.14 K/uL (0-0.5) Basophils # (Auto) 0.02 K/uL (0-0.2) RDW Standard Deviation 43.0 fL (36.4-46.3) RDW Coefficient of Variation 13.0 % (11.5-14.5) Immature Granulocyte % (Auto) 0.2 % Immature Granulocyte # (Auto) 0.01 K/uL (0.00-0.02) Prothrombin Time 10.8 SECONDS (9.0-12.0) Prothromb Time International Ratio 1.0 (0.9-1.1) Activated Partial Thromboplast Time 29.8 SECONDS (21.0-31.0) Partial Thromboplastin Ratio 1.1 Anion Gap 6.0 mmol/L (3-11) Est Creatinine Clear Calc Drug Dose 65.7 ml/min Estimated GFR () 89.4 Estimated GFR (Non- 77.1 BUN/Creatinine Ratio 14.5 (10-20) Estimated Average Glucose 120 mg/dl Hemoglobin A1c 5.8 % (4.5-5.6) Calcium Level 9.9 mg/dl (8.5-10.1) Magnesium Level 2.3 mg/dl (1.8-2.4) Total Bilirubin 0.3 mg/dl (0.2-1) Direct Bilirubin < 0.1 mg/dl (0-0.2) Aspartate Amino Transf (AST/SGOT) 12 U/L (15-37) Alanine Aminotransferase (ALT/SGPT) 28 U/L (12-78) Alkaline Phosphatase 89 U/L (45-117) Total Creatine Kinase 58 U/L (39-308) Creatine Kinase MB 1.9 ng/ml (0.5-3.6) Creatine Kinase MB Ratio 3.3 (0-3.0) Total Protein 6.6 gm/dl (6.4-8.2) Albumin 3.6 gm/dl (3.4-5.0) Thyroid Stimulating Hormone (TSH) 1.400 uIu/ml (0.300-4.500) Urine Color YELLOW Urine Appearance CLOUDY (CLEAR) Urine pH 6.5 (4.5-7.5) Urine Specific [place] 1.017 (1.000-1.030) Urine Protein NEG (NEG) Urine Glucose (UA) NEG (NEG) Urine Ketones NEG (NEG) Urine Occult Blood NEG (NEG) Urine Nitrite NEG (NEG) Urine Bilirubin NEG (NEG) Urine Urobilinogen NEG (NEG) Urine Leukocyte Esterase SMALL (NEG) Urine WBC (Auto) 1-5 /hpf (0-5) Urine RBC (Auto) 0-4 /hpf (0-4) Urine Hyaline Casts (Auto) 0 /lpf (0-5) Urine Epithelial Cells (Auto) 5-10 /lpf (0-5) Urine Bacteria (Auto) NEG (NEG) Urine Crystals CALCIUM OXALATE (NONE Troponin I 0.018 ng/ml (0-0.045) Imaging MRI OF THE BRAIN WITHOUT AND WITH IV CONTRAST CLINICAL HISTORY: Stroke mental status change COMPARISON STUDY: No previous studies for comparison. TECHNIQUE: Utilizing a 1.5 Kirstin magnet and dedicated coil, multiplanar, multiecho imaging of the brain was performed pre and postcontrast administration. IV administration of 6.8 mL of Gadavist contrast was uneventful. FINDINGS: Diffusion-weighted images show no evidence for an acute ischemic insult. Mild age-related cerebral atrophy and chronic small vessel change. No evidence for abnormal postcontrast enhancement. Ventricular system is midline. IMPRESSION: 1. No evidence for an acute ischemic insult. 2. Age-related change. 3. Otherwise negative study. Electronically signed by: Vic Swartz Impression 1. New onset lightheadedness and vertigo. This may be inner ear in origin, but there really are no neurologic deficits on examination including no nystagmus and does not have any vertiginous symptoms with head turned, change position, or any other maneuvers. I suspect this is more of a lightheadedness/vertebrobasilar insufficiency related to position change, dehydration, etc. Although he has no vertebrobasilar stenosis I CT angiography, he does have carotid stenosis left greater than right side. There is no evidence of stroke and the symptoms do not represent a TIA today. MRI of the brain shows no acute or other significant findings, although there is some mild left greater than right old small vessel ischemic changes. Clinically, he is symptoms seem resolved and he has no lightheadedness or vertiginous symptomatology today even with position change and maneuvers to elicit symptoms. 2. Bilateral, left greater than right carotid stenosis. CT angiography reveals approximately 50% stenosis higher up on the right and 75- 80% stenosis higher up on the left. They're heavily calcified particularly on the left. There is increased. Vertebrobasilar system seems unremarkable. Currently this is a preliminary report and final report is pending. 3. Chronic cerebral ischemia, mild 4. Hypertension, fairly well controlled 5. Thirty pound weight loss over 4 months, of uncertain etiology Plan 1. Awaiting final CTA neck results 2. Depending on the results, I may recommend surgery on the left, however, I am not convinced that surgery is inevitable. I do not believe that the right requires surgery 3. Recommend 81 mg aspirin otherwise, for carotid stenosis and small vessel ischemic disease prevention. I see no reason for clopidogrel. 4. Increase activity. consider outpatient physical therapy for conditioning 5. Investigate weight loss. I spoke with Dr. Irby in our regarding this case including differential diagnosis and treatment options. I can follow-up as an outpatient depending on clinical decision making of surgery versus antiplatelet medication
[2016-10-31] MEDS ORDERED: CHOLECALCIFEROL 1000 INTER.UNIT TAB PO SCH (12:00)
--- NOTE | 2016-10-31 14:39 | Cardiology Consultation ---
Cardiology Consultation Date of Consultation: Oct 31, 2016. Requesting Physician: Dr. Davis Attending Physician: Dr. Freeman Reason for Consultation: LBBB Pt evaluation today including: conversation w/ patient, conversation w/ family , physical exam, chart review, lab review, review of studies, review of inpatient medication list, conversation w/ attending History of Present Illness Mr. Salamanca is a very pleasant 71-year-old gentleman who was admitted to the [facility] with lightheadedness and carotid artery stenosis. He also has a history of hypertension, dyslipidemia, and hyperglycemia. Approximately 2 weeks ago he had 1 episode of dizziness that lasted only a few minutes. It occurred 1-2 hours after receiving his medications in the morning. It spontaneously resolved and he felt well again until yesterday when he had lightheadedness/dizziness when he went from a seated to standing position at approximately 6:00 a.m.. It apparently intermittently occur throughout the day and appeared to be worse with any change in movement. Once walking however , he stated that he felt rather well. He has described the symptoms as a spinning sensation at times, and also a lightheadedness/wooziness. The symptoms can be worsened by looking upward with his head. He was found have carotid artery stenosis on ultrasound done as an outpatient on 10/25/2016 by when he had an ECG done that his PCPs office yesterday he was found have a left bundle-branch block which was reportedly new. He was sent to the emergency department for further evaluation, and was later admitted. He denies chest pain at any time. He denies shortness of breath, syncope, palpitations, edema, or bleeding. He denies current fever, chills, nausea, vomiting, abdominal pain. He does not participate in any dedicated exercise and overall has been less active over the last few months after being treated for pneumonia a few months ago. While here, he has intermittently had a left bundle-branch block noted on telemetry and ECG. Consultations have been placed for neurology and vascular surgery by the primary service. Neurology has recommended anti-platelet therapy in the form of aspirin 81 mg daily. Review of systems: As above. Review of systems otherwise unremarkable. Family History Cancer Family history of CAD and CHF. Social History Smoking Status: Never Smoker History of Alcohol Use: No No alcohol. He is . He is accompanied at the bedside by his , daughters, and other family. Allergies Coded Allergies: No Known Allergies (Verified , 10/12/15) Medications Current Inpatient Medications Medications (Trade) Dose Ordered Sig/Myrna Route Start Time Stop Time Status Last Admin Dose Admin Acetaminophen (Tylenol Tab) 650 mg Q4H PRN PO 10/30/16 23:30 11/29/16 23:29 Ondansetron HCl (Zofran Inj) 4 mg Q6H PRN IV 10/30/16 23:30 11/29/16 23:29 Nitroglycerin (Nitrostat Tab) 0.4 mg UD PRN SL 10/30/16 23:30 11/29/16 23:29 Polyethylene (Miralax Powder Packet) 17 gm DAILY PRN PO 10/30/16 23:30 11/29/16 23:29 Albuterol (Ventolin Hfa Inhaler) 2 puffs QID PRN INH 10/30/16 23:30 11/29/16 23:29 Epinephrine (Epipen) 0.3 mg UD PRN IM 10/30/16 23:30 11/29/16 23:29 Fexofenadine HCl (Ramila Tab) 180 mg HS PO 10/31/16 21:00 11/30/16 20:59 Montelukast Sodium (Singulair Tab) 10 mg HS PO 10/31/16 21:00 11/30/16 20:59 Ranitidine HCl (zANTac TAB) 150 mg HS PO 10/31/16 21:00 11/30/16 20:59 Ascorbic Acid (Vitamin C Tab) 1,000 mg DAILY PO 10/31/16 09:00 11/30/16 08:59 Miscellaneous Information (Order Awaiting Action) 1 ea QS N/A 10/31/16 08:00 11/30/16 07:59 Cholecalciferol (Vitamin D Tab) 2,000 inter.unit DAILY@1200 PO 10/31/16 12:00 11/30/16 11:59 10/31/16 12:20 2,000 INTER.UNIT Fluticasone Propionate (Flonase Nasal [place]) 1 sprays BID [place] 10/31/16 09:00 11/30/16 08:59 Pantoprazole Sodium (Protonix Tab) 40 mg QAM PO 10/31/16 09:00 11/30/16 08:59 Enalapril Maleate (Vasotec Tab) 30 mg QAM PO 10/31/16 09:00 11/30/16 08:59 10/31/16 12:22 30 MG Atorvastatin Calcium (Lipitor Tab) 40 mg QAM PO 10/31/16 09:00 11/30/16 08:59 Aspirin (Ecotrin Tab) 81 mg QAM PO 10/31/16 09:00 11/30/16 08:59 Miscellaneous Information (Pharmacist Discharge Med Rec Consult) 1 ea UD PRN N/A 10/31/16 00:45 11/30/16 00:44 Ioversol (Optiray 320) 125 ml UD PRN IV 10/31/16 08:45 11/04/16 08:44 Physical Exam Vital Signs Past 12 Hours Date Time Temp Pulse Resp B/P (MAP) Pulse Ox O2 Delivery O2 Flow Rate FiO2 10/31/16 13:15 191/78 (115) 189/64 (105) 160/69 (99) 10/31/16 12:00 Room Air 10/31/16 11:27 36.6 60 16 149/78 (101) 99 Room Air 10/31/16 08:00 Room Air 10/31/16 07:42 36.5 54 16 152/75 (100) 97 Room Air 10/31/16 04:00 Room Air Gen.: No acute distress. Alert. HEENT: Anicteric sclera. Neck: No JVD. Bilateral carotid bruits. Normal carotid upstrokes bilaterally. Cardiac: PMI was nondisplaced. No ventricular heave. Regular rate and rhythm. Normal S1-S2. 2/6 systolic murmur best heard at the left lower sternal border. No rubs, or gallops. Pulmonary: Decreased breath sounds bilaterally, otherwise clear to auscultation bilaterally without wheezes, rales, or rhonchi. Abdomen: Soft, nontender, nondistended, with normoactive bowel sounds. No bruits noted. Extremities: 2+ radial pulses bilaterally. 2+ posterior tibialis pulses bilaterally. No edema or cyanosis. Psychiatric: Affect appears appropriate. Data Laboratory Results: Last 24 Hours Test 10/30/16 18:30 10/30/16 19:30 10/31/16 05:23 10/31/16 13:23 White Blood Count 4.50 K/uL Red Blood Count 4.63 M/uL Hemoglobin 13.9 g/dL Hematocrit 42.1 % Mean Corpuscular Volume 90.9 fL Mean Corpuscular Hemoglobin 30.0 pg Mean Corpuscular Hemoglobin Concent 33.0 g/dl Platelet Count 241 K/uL Mean Platelet Volume 9.9 fL Neutrophils (%) (Auto) 57.8 % Lymphocytes (%) (Auto) 29.6 % Monocytes (%) (Auto) 8.9 % Eosinophils (%) (Auto) 3.1 % Basophils (%) (Auto) 0.4 % Neutrophils # (Auto) 2.60 K/uL Lymphocytes # (Auto) 1.33 K/uL Monocytes # (Auto) 0.40 K/uL Eosinophils # (Auto) 0.14 K/uL Basophils # (Auto) 0.02 K/uL RDW Standard Deviation 43.0 fL RDW Coefficient of Variation 13.0 % Immature Granulocyte % (Auto) 0.2 % Immature Granulocyte # (Auto) 0.01 K/uL Prothrombin Time 10.8 SECONDS Prothromb Time International Ratio 1.0 Activated Partial Thromboplast Time 29.8 SECONDS Partial Thromboplastin Ratio 1.1 Sodium Level 144 mmol/L Potassium Level 3.9 mmol/L Chloride Level 108 mmol/L Carbon Dioxide Level 30 mmol/L Anion Gap 6.0 mmol/L Blood Urea Nitrogen 14 mg/dl Creatinine 0.97 mg/dl Est Creatinine Clear Calc Drug Dose 65.7 ml/min Estimated GFR () 89.4 Estimated GFR (Non- 77.1 BUN/Creatinine Ratio 14.5 Random Glucose 80 mg/dl Estimated Average Glucose 120 mg/dl Hemoglobin A1c 5.8 % Calcium Level 9.9 mg/dl Magnesium Level 2.3 mg/dl Total Bilirubin 0.3 mg/dl Direct Bilirubin < 0.1 mg/dl Aspartate Amino Transf (AST/SGOT) 12 U/L Alanine Aminotransferase (ALT/SGPT) 28 U/L Alkaline Phosphatase 89 U/L Total Creatine Kinase 58 U/L Creatine Kinase MB 1.9 ng/ml Creatine Kinase MB Ratio 3.3 Troponin I < 0.015 ng/ml 0.018 ng/ml Total Protein 6.6 gm/dl Albumin 3.6 gm/dl Thyroid Stimulating Hormone (TSH) 1.400 uIu/ml Urine Color YELLOW Urine Appearance CLOUDY Urine pH 6.5 Urine Specific Ramona 1.017 Urine Protein NEG Urine Glucose (UA) NEG Urine Ketones NEG Urine Occult Blood NEG Urine Nitrite NEG Urine Bilirubin NEG Urine Urobilinogen NEG Urine Leukocyte Esterase SMALL Urine WBC (Auto) 1-5 /hpf Urine RBC (Auto) 0-4 /hpf Urine Hyaline Casts (Auto) 0 /lpf Urine Epithelial Cells (Auto) 5-10 /lpf Urine Bacteria (Auto) NEG Urine Crystals CALCIUM OXALATE Imaging: CT angiogram neck 10/31/2016: Origin right ICA 50%. Origin left ICA 50-75%. Vertebral artery is widely patent and codominant. ENT consultation recommended by Radiology for abnormal soft tissue at the right base of the tongue. ECGs personally reviewed. ECG 10/31/2016 at 7:05 a.m.: Sinus bradycardia 48 bpm. Narrow complex QRS. ECG 10/30/2016 at 6:38 p.m.: Sinus bradycardia 47 bpm. LBBB. Telemetry reviewed: No arrhythmia or high grade block. Sinus rhythm. Intermittent left bundle-branch block, which appears to be rate related at times. Assessment & Plan ASSESSMENT/PLAN: 1. Left bundle-branch block: We discussed the diagnosis. It appears to be transient, sometimes it appears rate-related on telemetry but ECGs it occurred independent of rate. Recommend outpatient 30 day event monitor to see if there is any transient heart block which could account for his symptoms of lightheadedness/dizziness, however it is not clear that the symptoms are cardiac in etiology. Echocardiogram ordered and pending to evaluate for structural heart disease. A myocardial perfusion study has been recommended by another provider, which can be done as an outpatient. He does not have any angina, but does have some vague symptoms as noted and has been less active with decreased exercise tolerance since his pneumonia. 2. Carotid artery stenosis: This is being evaluated further by Neurology. They recommended anti-platelet therapy. Recommend high-intensity statin therapy if no contraindications. 3. Lightheadedness/dizziness: Etiology uncertain. Event monitor ordered. Orthostatics were ordered and he was found to be orthostatic, but not hypotensive. Change positions slowly. Consider support stockings. Echo pending. 4. Hypertension: He has been hypertensive throughout most of this hospitalization. Will defer treatment to primary service. Certainly he could be symptomatic with severely hypertensive but also was found to be orthostatic and therefore would adjust medications slowly. 5. Disposition: Echocardiogram is pending today. Other cardiac evaluation can be done as an outpatient if no significant findings throughout remainder of his hospitalization. Patient care has been discussed with primary service, Dr. Freeman. Thank you for allowing me to participate in the care of your patient. Please call for any other questions or concerns. Sincerely, Sanchez Awan M.D.
--- NOTE | 2016-10-31 15:37 | Surgery Consultation ---
Consultation Date of Service Oct 31, 2016. Chief Complaint bilateral ICA stenosis History of Present Illness The patient is a 71 year old male with hx of asthma, HTN, admitted d/t dizziness , seen in consultation for BL ICA stenosis noted on US. Pt recently had severe case of thrush which caused edema of his neck/throat and still has residual area of swelling R side of neck. Pt denies any hx of previous CVA. Denies amaurosis, unilateral weakness numbness or tingling, facial droop, difficulty speaking or swallowing, [place]. Denies fever, chills, chest pain, SOB, abd pain, N/ V, rest pain, claudication, other complaints. Previous smoker, quit in his 20' s. US demonstrated R ICA stenosis 60-70% and LICA 80%. CTA demonstrates approx 50% stenosis R ICA and 75-80% L ICA with ulcerative plaque. Vitals Vital Signs Past 12 Hours Date Time Temp Pulse Resp B/P (MAP) Pulse Ox O2 Delivery O2 Flow Rate FiO2 10/31/16 13:15 191/78 (115) 189/64 (105) 160/69 (99) 10/31/16 12:00 Room Air 10/31/16 11:27 36.6 60 16 149/78 (101) 99 Room Air 10/31/16 08:00 Room Air 10/31/16 07:42 36.5 54 16 152/75 (100) 97 Room Air 10/31/16 04:00 Room Air Allergies Coded Allergies: No Known Allergies (Verified , 10/12/15) Home Medications Scheduled Ascorbic Acid (Ascorbic Acid), 1,000 MG PO DAILY Azelastine Hcl (Astepro), 2 SPRY [place] DAILY Cholecalciferol (Vitamin D-3), 2,000 UNITS PO NOON Coenzyme Q10 (Ubidecarenone) (Coq-10), 100 MG PO DAILY@NOON Epinephrine (Epipen), 0.3 MG IM UD Fexofenadine Hcl (Ramila), 180 MG PO HS Flaxseed (Linseed) (Flax Seeds), 2 TBS PO QAM Mometasone Furoate (Nasal) (Nasonex), 1 SPRAY [place] BID Montelukast Sodium (Montelukast Sodium), 10 MG PO HS Multiple Vitamins W/ Minerals (Centrum Silver Ultra Mens), 1 TAB PO NOON Omeprazole (Prilosec), 20 MG PO QAM Quinapril Hcl (Quinapril Hcl), 30 MG PO QAM Ranitidine (Zantac), 150 MG PO HS Scheduled PRN Albuterol (Ventolin), 2 PUFFS INH QID PRN for Shortness of Breath Azithromycin (Zithromax), 250 MG PO DIRECTED PRN for SINUS INFECTION Meclizine Hcl (Meclizine Hcl), 12.5 MG PO TID PRN for Dizziness or Vertigo Naproxen (Naproxen), 500 MG PO BID PRN for Pain Triamcinolone Acet (Triamcinolone Acetonide), 1 APPLN TOP BID PRN for UNDECIDED Problem List Medical Problems: (1) ASTHMA, UNSPECIFIED (2) Bronchitis (3) Dizziness (4) History of repair of inguinal hernia (5) HYPERTENSION NOS (6) LBBB (left bundle branch block) (7) Pneumonia Surgical / Medical History Hx Cardiac Surgery: No Hx Abdominal Surgery: No Hx Cancer Surgery: No Hx Thoracic Surgery: No Hx Orthopedic: No Hx Urinary Tract Surgery: No HX Other Surgery: Yes Past Medical/Surgical History: Asthma, Hypertension Family History Cancer Social History Smoking Status: Never Smoker Hx Tobacco Use In Past Year?: No Hx Alcohol Use - Type & Amnt: No Hx Substance Use -Type & Amnt: No Review of Systems Constitutional: No chills, No fever, No malaise Skin: No change in color Eyes: No visual changes ENMT: No sore throat Respiratory: No cough, No MALONE, No hemoptysis, No short of breath Cardiovascular: No chest pain, No syncope, No edema, No intermittent claudication Gastrointestinal: No abdominal pain, No nausea, No vomiting Neurologic: + dizziness (resolved today), No lethargy, No numbness, No tingling Physical Exam Constitutional: General Apperance: heathly-appearing, well-nourished Level of Distress: NAD Psychiatric: Mental Status: active & alert, normal mood, normal affect Orientation: oriented except where noted, to time, to place, to person Memory: recent memory normal, remote memory normal Head: normocephalic, atraumatic Eyes: EOM: EOMI ENMT: normal ENT inspection, hearing grossly normal Neck: trachea midline, pertinent finding (R neck with soft, moveable mass, nontender) Lungs: Respiratory effort: no dyspnea Auscultation: no rales/crackles, no rhonchi Cardiovascular: Apical Impulse: not displaced Heart Auscultation: RRR, no rubs, no gallops Peripheral Pulses: Pulses: full and equal, in all extremities except if noted Bruits: none appreciated Carotid Pulse: normal on the left, normal on the right Brachial Pulses: normal on the left, normal on the right Radial Pulse: normal on the left, normal on the right Femoral Pulse: normal on the left, normal on the right Posterior Tibialis Pulse: decreased on the left, decreased on the right Dorsalis Pedis Pulse: decreased on the left, decreased on the right Abdomen: Bowel Sounds: normal Inspection & Palpation: soft, non-distended, no tenderness, guarding & rebound Musculoskeletal: normal strength (5/5 throughout), normal tone Extremities: Upper Right: no cyanosis, no edema, no varicosities Upper Left: no cyanosis, no edema, no varicosities Lower Right: no cyanosis, no edema, no varicosities Lower Left: no cyanosis, no edema, no varicosities Neurologic: Cranial Nerves: grossly intact Sensation: grossly intact Assessment and Plan ASSESSMENT and PLAN: LICAS 75-80% asymptomatic RICAS 50%Asymptomatic Pt's CTA reviewed by Dr Nickerson, does not recommend urgent vascular intervention at this time. ICA stenosis not contributing to pt's dizziness. Pt is asymptomatic and already scheduled to see Dr Nickerson as outpt in 2-3 weeks, advised to keep that appt to discuss options. Family present, also agreeable. Please call if needed.
[2016-10-31] MEDS ORDERED: ASPEC81 PO (17:53)
--- NOTE | 2016-10-31 18:12 | Discharge Instructions ---
Discharge Instructions Date of Service Oct 31, 2016. Admission Reason for Admission: Dizziness, Lbbb Discharge Discharge Diagnosis / Problem: Carotid artery stenosis Discharge Goals Goal(s): Improve disease control, Prevent Disease Progression Activity Recommendations Activity Limitations: per Instructions/Follow-up section . Instructions / Follow-Up Instructions / Follow-Up During this visit, you were investigated for dizziness. You were found to have a partial blockage in two of the arteries that travel from your body to your head. Your physicians did not believe it is necessary to perform a surgical intervention on these plaques at this time. You should remain on a daily Aspirin tablet, 81mg, once daily. Keep your appointment with Dr. Kellogg as an outpatient in 2-3 weeks. You were also found to have changes to your heart function, which is called "left bundle branch block." Your physicians have discussed the diagnosis with you. They recommend a 30 day event monitor to see if this could be causing your dizziness. A myocardial perfusion study has also been recommended. All of the above tests can be done as an outpatient and should be discussed with your PCP or other provider. An echocardiogram has been ordered, and is still being analyzed, to evaluate for any structural heart disease. A letter with the details of these tests will also be sent to your PCP You have also been started on a new medication, atorvastatin, 40 mg, to prevent complications from your plaques. Take this once daily. Take care when you change positions so as not to bring on the dizziness. Consider support stockings. Your blood pressure will need to be lowered with guidance from your PCP. A letter will be sent to your PCP discussing this. Continue to check your blood pressure at home a few times per day prior to your visit with your PCP. You should try to increase your activity as you are able; consider physical therapy for conditioning if your PCP agrees. Discuss your recent weight loss with your PCP as well. You were also found to have a lesion under your tongue. You should follow up with ENT (Ear/Nose/Throat) doctors to further evaluate and treat. Please see your PCP within 1 week of being discharged. If you continue to have symptoms or if your symptoms worsen, please return to the ED. Current Hospital Diet Patient's current hospital diet: AHA Diet (Heart Healthy) Discharge Diet Recommended Diet: AHA Diet (Heart Healthy) Pending Studies Studies pending at discharge: no Laboratory Results Hemoglobin A1c Test 10/30/16 18:30 Range/Units Estimated Average Glucose 120 mg/dl Hemoglobin A1c 5.8 H 4.5-5.6 % Lipid Panel Test 09/27/16 07:50 Range/Units Triglycerides Level 50 0-150 mg/dl Cholesterol Level 204 H 0-200 mg/dl HDL Cholesterol 57 mg/dl Cholesterol/HDL Ratio 3.6 LDL Cholesterol, Calculated 137 mg/dl Medical Emergencies . Who to Call and When: Medical Emergencies: If at any time you feel your situation is an emergency, please call 911 immediately. . Non-Emergent Contact Non-Emergency issues call your: Primary Care Provider . . "Provider Documentation" section prepared by Shikha Mccarthy. . VTE Core Measure Inpt VTE Proph given/why not?: SCD's
[2016-10-31] MEDS ORDERED: ATOR-24 PO (18:18)
[2016-10-31] MEDS ORDERED: LPT/40 PO (18:38)
--- NOTE | 2016-10-31 19:21 | ECHOCARDIOGRAM REPORT ---
*NOTICE TO RECEIVING REPUBLICAN AGENCY This information is strictly Confidential and protected under [place] law. [place] law prohibits you from making any further disclosure of this information unless further disclosure is expressly permitted by the written consent of the person to whom it pertains or is authorized by law. A general authorization for the release of medical or other information is not sufficient for this purpose. Hospital accepts no responsibility if the information is made available to any other person, INCLUDING THE PATIENT. Interpretation Summary * Name: JERAMIE ANTOINE Study Date: 10/31/2016 02:23 PM BP: 160/69 mmHg * Patient Location: [facility] HR: 64 * : 1945 (M/d/yyyy) Gender: Male Height: 69 in * Age: 71 yrs Ethnicity: CA Weight: 151 lb * Ordering Physician: Evie Davis * Referring Physician: Chris Farmer * Performed By: Greer Russell RCS * * Reason For Study: DIZZINESS / CAROTID STENOSIS / LBBB * BSA: 1.8 m2 * -- Conclusions -- * 1. Normal left ventricular size and systolic function. EF 55-60%. Severely hypokinetic to akinetic inferior base and septal base. Mild concentric left ventricular hypertrophy. Septal motion consistent with bundle-branch block. Type 1 diastolic dysfunction. * 2. Aortic valve sclerosis moderate, without significant aortic valvular stenosis. * 3. There is mild mitral regurgitation. * 4. Rhythm was sinus with intermittent bundle-branch block. * 5. No prior study available for comparison. Procedure Details * A complete two-dimensional transthoracic echocardiogram was performed (2D, M-mode, Doppler and color flow Doppler). Left Ventricle * Normal left ventricular size and systolic function. EF 55-60%. Severely hypokinetic to akinetic inferior base and septal base. Mild concentric left ventricular hypertrophy. Septal motion consistent with bundle-branch block. Type 1 diastolic dysfunction. Right Ventricle * The right ventricle is normal in size and function. * The right ventricular systolic function is normal as assessed by tricuspid annular plane systolic excursion (TAPSE) (normal >1.5 cm). Atria * The left atrial size is normal. * Right atrial size is normal. * There is no evidence of atrial septal defect, but resolution does not allow assessment for a patent foramen ovale. Mitral Valve * The mitral valve is grossly normal. * There is no mitral valve stenosis. * There is mild mitral regurgitation. Tricuspid Valve * The tricuspid valve is not well visualized, but is grossly normal. * There is no tricuspid stenosis. * There is trace tricuspid regurgitation. Aortic Valve * The aortic valve is trileaflet. * Aortic valve sclerosis moderate, without significant aortic valvular stenosis. * No aortic regurgitation is present. Pulmonic Valve * The pulmonary valve is inadequately visualized, but the Doppler data is adequate for interpretation. * There is no pulmonic valvular stenosis. * There is no significant pulmonary regurgitation. Great Vessels * The aortic root is normal size. Pericardium/Pleural * There is no pericardial effusion. Great Vessels * Normal inferior vena cava size and collapsability with sniff indicates a normal right atrial pressure of 3 mmHg MMode 2D Measurements and Calculations IVSd 1.3 cm IVSs 1.8 cm LVIDd 3.6 cm LVIDs 2.5 cm LVPWd 1.3 cm LVPWs 1.6 cm IVS/LVPW 0.98 FS 31.5 % EDV(Teich) 55.7 ml ESV(Teich) 22.1 ml EF(Teich) 60.3 % EDV(cubed) 48.0 ml ESV(cubed) 15.4 ml EF(cubed) 67.8 % % IVS thick 40.5 % % LVPW thick 23.5 % LV mass(C)d 155.5 grams LV mass(C)dI 84.8 grams/m\S\2 LV mass(C)s 152.4 grams LV mass(C)sI 83.1 grams/m\S\2 SV(Teich) 33.6 ml SI(Teich) 18.3 ml/m\S\2 SV(cubed) 32.6 ml SI(cubed) 17.8 ml/m\S\2 Ao root diam 3.2 cm Ao root area 8.0 cm\S\2 ACS 1.6 cm LA dimension 3.2 cm LA/Ao 1.0 LVOT diam 2.0 cm LVOT area 3.0 cm\S\2 Doppler Measurements and Calculations MV E max reyna 41.0 cm/sec MV A max reyna 101.4 cm/sec MV E/A 0.40 Ao V2 max 116.8 cm/sec Ao max PG 5.5 mmHg Ao max PG (full) 1.8 mmHg DEVENDRA(V,A) 2.5 cm\S\2 DEVENDRA(V,D) 2.5 cm\S\2 LV V1 max PG 3.6 mmHg LV V1 max 95.4 cm/sec MR max reyna 623.1 cm/sec MR max PG 155.3 mmHg PA V2 max 146.0 cm/sec PA max PG 8.5 mmHg
--- NOTE | 2016-10-31 19:25 | Discharge Summary ---
Discharge Summary Date of Service Oct 31, 2016. (Shikha Mccarthy M.D.) Discharge Summary Admission Date: Oct 30, 2016 at 23:29 Discharge Date: Oct 31, 2016 Discharge Disposition: Home Principal Diagnosis: Carotid artery stenosis Problems/Secondary Diagnoses: Left Bundle branch block, HTN Procedures: MRI of the brain Very small amount of old small vessel ischemic changes (white matter spots), slightly more on the left than the right. There is no significant atrophy and there is no enhancement with contrast. There are actually no acute changes or other abnormalities. CT angiography of the head was unremarkable with no significant stenosis. CT end her therapy the neck, preliminary report, reveals approximately 50% stenosis on the right with calcification, high up near the bifurcation. On the left, high up near the bifurcation it is very calcified an irregular with probable 75-80% stenosis. Vertebral arteries have some plaque but no significant stenosis in the basilar artery is unremarkable. Echocardiogram-- * 1. Normal left ventricular size and systolic function. EF 55-60%. Severely hypokinetic to akinetic inferior base and septal base. Mild concentric left ventricular hypertrophy. Septal motion consistent with bundle-branch block. Type 1 diastolic dysfunction. * 2. Aortic valve sclerosis moderate, without significant aortic valvular stenosis. * 3. There is mild mitral regurgitation. * 4. Rhythm was sinus with intermittent bundle-branch block. Consultations: Cardiology, Neurology, Vascular Surgery (Shikha Mccarthy M.D.) Medication Reconciliation New Medications: Atorvastatin (Lipitor) 40 Mg Tab 40 MG PO DAILY for 30 Days, #30 TAB Aspirin (Aspirin EC Low Dose) 81 Mg Ectab 81 MG PO QAM for 30 Days Continued Medications: Albuterol (Ventolin) Inh 2 PUFFS INH QID PRN for Shortness of Breath, INHALER Ascorbic Acid (Ascorbic Acid) 1,000 Mg Tab 1000 MG PO DAILY Azelastine Hcl (Astepro) 0.15 % Spr 2 SPRY [place] DAILY, ML Azithromycin (Zithromax) 250 Mg Tab 250 MG PO DIRECTED PRN for SINUS INFECTION, #4 TAB TAKES WHEN SINUSES INFECTED Cholecalciferol (Vitamin D-3) 2,000 Unit Tab 2000 UNITS PO NOON Coenzyme Q10 (Ubidecarenone) (Coq-10) 100 Mg Cap 100 MG PO DAILY@NOON Epinephrine (Epipen) 0.3 Mg/0.3 Ml Inj 0.3 MG IM UD, INJ Fexofenadine Hcl (Ramila) 180 Mg Tab 180 MG PO HS, TAB Flaxseed (Linseed) (Flax Seeds) 1 Pow Pow 2 TBS PO QAM Meclizine Hcl (Meclizine Hcl) 12.5 Mg Tab 12.5 MG PO TID PRN for Dizziness or Vertigo Mometasone Furoate (Nasal) (Nasonex) 50 Mcg/ Spr 1 SPRAY [place] BID, BTL Montelukast Sodium (Montelukast Sodium) 10 Mg Tab 10 MG PO HS Multiple Vitamins W/ Minerals (Centrum Silver Ultra Mens) 1 Tab Tab 1 TAB PO NOON Naproxen (Naproxen) 500 Mg Tab 500 MG PO BID PRN for Pain Omeprazole (Prilosec) 20 Mg Cap 20 MG PO QAM, CAP Quinapril Hcl (Quinapril Hcl) 20 Mg Tab 30 MG PO QAM Ranitidine (Zantac) 150 Mg Tab 150 MG PO HS, TAB Triamcinolone Acet (Triamcinolone Acetonide) 45 Appln/15 Gm Cr 1 APPLN TOP BID PRN for UNDECIDED, GM Discharge Exam Review of Systems: Constitutional: + weakness, + fatigue, No fever, No chills, No sweats, No weight loss, No problem reported Eyes: No worsening of vision, No eye pain, No redness, No discharge, No diplopia, No problem reported ENT: No hearing loss, No unusual epistaxis, No nasal symptoms, No sore throat, No tinnitus, No dental problems, No trouble swallowing, No problem reported Respiratory: No cough, No sputum, No wheezing, No shortness of breath, No dyspnea on exertion, No dyspnea at rest, No hemoptysis, No problem reported Cardiovascular: No chest pain, No orthopnea, No PND, No edema, No claudication, No palpitations, No problem reported Abdomen: No pain, No nausea, No vomiting, No diarrhea, No constipation, No GI bleeding, No problem reported Musculoskeletal: No joint pain, No muscle pain, No swelling, No calf pain, No problem reported Genitourinary - Male: No hematuria, No dysuria, No urinary frequency, No urinary urgency, No urinary hesitancy, No urinary retention, No urinary incontinence, No penile discharge, No lesions, No impotence, No problem reported Neurologic: No memory loss, No paralysis, No weakness, No numbness/tingling , No vertigo, No balance problems, No problem reported Psychiatric: No depression symptoms, No anhedonism, No anxiety, No insomnia , No substance abuse, No problem reported Endocrine: No fatigue, No excessive thirst, No excessive urination, No problem reported Hematologic / Lymphatic: No abnormal bleeding/bruising, No clotting problems , No swollen lymph nodes, No night sweats, No problem reported Integumentary: No rash, No itch, No new/changing skin lesions, No color change, No bleeding, No problem reported Physical Exam: General Appearance: WD/WN, no apparent distress Eyes: normal inspection, PERRL, EOMI ENT: normal ENT inspection, hearing grossly normal, pharynx normal Neck: supple, no JVD Respiratory/Chest: chest non-tender, no respiratory distress, no accessory muscle use, + decreased breath sounds, + wheezing Cardiovascular: regular rate, rhythm, no edema, normal peripheral pulses Abdomen / GI: normal bowel sounds, non tender, soft Extremities: normal inspection, no pedal edema Neurologic/Psychiatric: alert, oriented x 3 Skin: normal color (Shikha Mccarthy M.D.) Hospital Course HPI Mr. Salamanca is a very pleasant 71-year-old gentleman who was [facility] with lightheadedness/dizziness and carotid artery stenosis. Approximately 2 weeks ago he had 1 episode of dizziness that lasted only a few minutes. It occurred 1-2 hours after receiving his medications in the morning. It spontaneously resolved and he felt well again until day prior to admission when he had lightheadedness/dizziness when he went from a seated to standing position at approximately 6:00 a.m. Hospital course: Bilateral ICA stenosis --noted on US, R ICA stenosis 60-70% and LICA 80%. --CTA demonstrates approx 50% stenosis R ICA and 75-80% L ICA with ulcerative plaque. --There was a high-grade right external carotid artery stenosis. ---Consults have recommended aspirin 81 mg daily and atorvastatin 40mg daily. ---Patient has appointment with vascular surgery, Dr. Lane, in 2-3 weeks. Dizziness/Lightheadedness --intermittently occurred throughout the day and appeared to be worse with any change in movement. --Once walking however, he stated that he felt rather well. --He has described the symptoms as a spinning sensation at times, and also a lightheadedness/wooziness. --Symptoms can be worsened by looking upward with his head. --Consider PT for conditioning. --Discussed need for care when rising too quickly; use of compression stockings. Left Bundle Branch Block --ECG done at his PCPs office prior to admission, he was found have a left bundle-branch block which was reportedly new. --While here, he has intermittently had a left bundle-branch block noted on telemetry and ECG. --Cardiology recommends myocardial perfusion study as an outpatient. --Echo results seen above under "procedures" Hypertension --Has had for many years --Unsure if related to inpatient visit/stress. --Orthostatic on lying to standing (190-->160 systolic), so did not want to exacerbate by titrating therapy. --Patient told to record BP prior to visit; please titrate meds accordingly. Unintentional weight loss --30 pound weight loss over the last 4 months. --He is not eating well because he hasn't felt well since July. --He has been having some breathing issues chest pain and was diagnosed with bronchitis and pneumonia. --He is receiving steroids and antibiotics. Tongue Lesion --Small lesion found underneath the tongue --Patient has follow up appointment with ENT in November. Total Time Spent: Less than 30 minutes This includes examination of the patient, discharge planning, medication reconciliation, and communication with other providers. (Shikha Mccarthy M.D.) Resident Physician Supervision Note: I interviewed and examined the patient. Discussed with Dr. Mccarthy and agree with findings and plan as documented in the note. Any exceptions or clarifications are listed here: None Documented By: Benito Freeman feeling better suspect dizzy was dehydration maybe with carotid disease causing lower flow state too. tongue lesion discussed with pt and family extensively - for ENT w/u next. BP discussed extensively - asymptomatic and stress of situation may be contributing. with dizzy as reason for presentation, as well as age and comorbidities, high risk for iatrogenesis treating asymptomatic inpatient (possibly provoked) BP -- to monitor closely at home and f/u with PCP later this week. vitals noted nad fatigued but no other distress breathing unlabored no pallor or icterus dizzy - as above uncontrolled HTN - as above, monitor closely titrate meds if still up once home (via PCP) tongue lesion - ENT eval scheduled weight loss - ?related to tongue lesion. if this w/u low yield would need to evaluate elsewhere for possible malignancy as well carotid disease - asa, ongoing vascular f/u otherwise as above Total Time Spent: Greater than 30 minutes (Benito Freeman D.O.) Discharge Instructions Please refer to the electronic Patient Visit Report (Discharge Instructions) for additional information. (Shikha Mccarthy M.D.) Additional Copies To Chris Farmer MD; Glenn Hidalgo M.D. Resident Tracking Resident Involvement: Resident Care Provided Care Provided: Adult Hospital Medicine (Shikha Mccarthy M.D.)
[2016-10-31] MEDS ORDERED: FEXOFENADINE HCL 180 MG TAB PO SCH (21:00)
[2016-10-31] MEDS ORDERED: RANITIDINE HCL 150 MG TAB PO SCH (21:00)
[2016-10-31] MEDS ORDERED: MONTELUKAST SOD 10 MG TAB PO SCH (21:00)
[2016-11-01] MEDS ORDERED: ASPIRIN 81 MG ECTAB PO SCH (09:00)
[2016-11-27] MEDS ORDERED: ATOR-24 PO (10:21)
[2016-11-27] MEDS ORDERED: FEXO1TAB49 PO (10:21)
[2016-11-27] MEDS ORDERED: MECL1TAB40 PO (10:21)
[2016-11-27] MEDS ORDERED: ASPI81TA28 PO (10:21)
[2016-12-22] MEDS ORDERED: OXYC-57 PO (15:55)
[2016-12-22] MEDS ORDERED: PRED10TA PO (15:55)
[2016-12-22] MEDS ORDERED: [UNRECOGNIZED DRUG - CODE] PO (15:55)
== END 2016-10-31 19:29 | disposition home or self-care (01) | DRG 68 ==
LOC: C.EDB 16:01 → C.MED 23:29 → ENRESERV 23:47
PROVIDERS: ADMIT Family Medicine; ATTEND Family Medicine
DX: I65.23 Occlusion and stenosis of bilateral carotid arteries (principal); I44.7 Left bundle-branch block, unspecified; J45.909 Unspecified asthma, uncomplicated; I10 Essential (primary) hypertension; R42 Dizziness and giddiness; R63.4 Abnormal weight loss; K14.8 Other diseases of tongue; Z66 Do not resuscitate; Z79.82 Long term (current) use of aspirin; Z79.899 Other long term (current) drug therapy; Z87.891 Personal history of nicotine dependence

== ENCOUNTER → 2016-12-05 | Outpatient (CLI) | payer BC, OTHER ==
[~2016-12-05] MED LIST changes: -ASCO500T16 PO; +ASPI81TA28 PO; +ATOR-24 PO; +AZEL0.15 NAE; -AZIT250T PO; -CHOL200027 PO; -EPP3/2 IM; -FEXO1TAB46 PO; +FEXO1TAB49 PO; +MECL1TAB40 PO; -NSNN50 NAE; -OMEP20CA9 PO; +OXYC-57 PO; +PRED10TA PO; +REGADENOSON 0.4 MG/5 ML SYR ONE; +ZNTT/150 PO; +[UNRECOGNIZED DRUG - CODE] PO; -triamcinolone TD
--- NOTE | 2016-12-05 23:24 | Myocardial Perfusion Study ---
Myocardial Perfusion Study Rpt Myocardial Perfusion Study Rpt Date of Service 12/05/16 Myocardial Perfusion Study Rpt Procedure: 1. Myocardial perfusion study performed in multiple views/images 2. Lexiscan pharmacologic stress ECG Indications: 1. LBBB 2. Abnormal echo Consent: Informed written consent was obtained prior to the procedure. Ordering physician: Dr. Awan Procedural details: For the stress portion of the study, Lexiscan 0.4 mg was intravenously administered followed by a saline flush. This was followed by 34.2 mCi of technetium 99m Cardiolite, injected at 9:20 a.m. on 12/05/2016. 30 minutes following the injection, imaging of the heart was performed in multiple projections. For the rest portion of the study, 11 mCi technetium 99m Cardiolite was injected intravenously at 7:30 a.m. on 12/05/2016. 1 hour following the injection, imaging of the heart was performed in the same projections. Lexiscan stress ECG: Resting ECG demonstrated: Sinus bradycardia at 47 bpm. LVH. Cannot rule out septal infarct. Maximum heart rate: 81 bpm Resting blood pressure: 147/63 mmHg Maximum blood pressure: 147/63 mmHg Maximal, age-predicted heart rate: 55 % Significant ST changes: None Arrhythmia: No arrhythmia noted, but there was development of left bundle- branch block with faster heart rates, appearing to be a rate-related bundle- branch block. Symptoms: Abdominal discomfort Findings: Rotating raw imaging demonstrated no significant lung uptake. There is no significant motion artifact. Heart size appeared normal. Myocardial perfusion demonstrated a large area of mildly to moderately reduced uptake involving the base to apical segments of the anteroseptum, septum, inferior septum, and inferior ramos. There is no significant reversibility as these defects appear to be fixed and post stress and rest imaging. Ejection fraction: 58 % Wall motion: Normal. No significant transient ischemic dilation. Impression: 1. No significant ischemic changes noted. 2. Large fixed defect involving basal to apical segments of the anterior septum , septum, inferoseptal, and inferior wall segments, which may be due to attenuation artifact given normal wall. 3. Normal LV systolic function with calculated EF 58%. 4. Normal wall motion. 5. No arrhythmia but left bundle-branch block developed with faster heart rates , likely a rate-related bundle. 6. Indeterminate Lexiscan ECG. 7. Lexiscan induced abdominal pain.
--- NOTE | 2016-12-11 10:24 | CODING QUERY MEDICAL NECESSITY ---
SUPPORTING DIAGNOSIS NEEDED Dr. Awan, A supporting diagnosis is required for the test/procedure performed on this patient in order for us to be reimbursed by the patient's insurance. Please provide a supporting diagnosis for the following test/procedure listed below next to the test name along with your signature. *If there is no additional diagnosis for this patient that would support the following test/procedure please document that below next to the test/procedure. Test(s)/Procedure(s) that require a supporting diagnosis: * ([id number]) MYOCARDIAL PERF IMG (TC) SD DIAGNOSIS: DATE OF SERVICE: 12/05/16 Provider Signature: Date: Thank you Vineet Galvez Health Information Management Once completed, please kindly fax back to [phone] For questions please call [phone]
== END | disposition home or self-care (01) ==
LOC: C.NUCL 06:45
PROVIDERS: ATTEND Internal Medicine Cardiovascular Disease
DX: I44.7 Left bundle-branch block, unspecified (principal); R42 Dizziness and giddiness; R93.1 Abnormal findings on diagnostic imaging of heart and coronary circulation

== ENCOUNTER 2016-12-20 05:03 | Inpatient (IN) | payer BC, OTHER ==
[2016-11-27 10:22] VITALS: BMI 21.0
[~2016-12-20] VITALS: Ht 177.8 cm; Wt 69.1 kg
[2016-12-20] VITALS (20 sets, daily range): BP systolic 90–124; BP diastolic 40–63; PULSE 45–59; TEMP 36.7; O2SAT 94–100; Ht 177.8 cm; Wt 69.1 kg
[~2016-12-20 05:03] MED LIST changes: -OXYC-57 PO; -PRED10TA PO; -REGADENOSON 0.4 MG/5 ML SYR ONE; -[UNRECOGNIZED DRUG - CODE] PO
[2016-12-20] MEDS ORDERED: CEFAZOLIN 1000MG/55 ML D5W 55 ML IV SCH (06:00)
[2016-12-20] MEDS ORDERED: LACTATED RINGER'S 1000ML 1,000 ML IV SCH (06:00)
[2016-12-20] MEDS ORDERED: SODIUM CHLORIDE 0.9% 1000ML 1,000 ML IV SCH (06:00)
--- NOTE | 2016-12-20 06:12 | History and Physical ---
History & Physical Date of Service Dec 20, 2016. History & Physical Chief Complaint Left ICA stenosis History of Present Illness The patient is a 71 year old male with hx of asthma, HTN, who was admitted d/t dizziness, seen in consultation for BL ICA stenosis noted on US. Pt recently had severe case of thrush which caused edema of his neck/throat and still has residual area of swelling R side of neck. Pt denies any hx of previous CVA. Denies amaurosis, unilateral weakness numbness or tingling, facial droop, difficulty speaking or swallowing, [place]. Denies fever, chills, chest pain, SOB, abd pain, N/V, rest pain, claudication, other complaints. Previous smoker, quit in his 20's. US demonstrated R ICA stenosis 60-70% and LICA 80%. CTA demonstrates approx 50% stenosis R ICA and 75-80% L ICA with ulcerative plaque. IMAGING: Upon review of the patient's ultrasound and a recent CTA of his neck, it does appear that the patient has 80-90% stenosis of his left internal carotid artery with what appears to be an irregular-appearing plaque. Allergies Coded Allergies: No Known Allergies (Verified , 10/12/15) Home Medications Scheduled Ascorbic Acid (Ascorbic Acid), 1,000 MG PO DAILY Azelastine Hcl (Astepro), 2 SPRY [place] DAILY Cholecalciferol (Vitamin D-3), 2,000 UNITS PO NOON Coenzyme Q10 (Ubidecarenone) (Coq-10), 100 MG PO DAILY@NOON Epinephrine (Epipen), 0.3 MG IM UD Fexofenadine Hcl (Ramila), 180 MG PO HS Flaxseed (Linseed) (Flax Seeds), 2 TBS PO QAM Mometasone Furoate (Nasal) (Nasonex), 1 SPRAY [place] BID Montelukast Sodium (Montelukast Sodium), 10 MG PO HS Multiple Vitamins W/ Minerals (Centrum Silver Ultra Mens), 1 TAB PO NOON Omeprazole (Prilosec), 20 MG PO QAM Quinapril Hcl (Quinapril Hcl), 30 MG PO QAM Ranitidine (Zantac), 150 MG PO HS Scheduled PRN Albuterol (Ventolin), 2 PUFFS INH QID PRN for Shortness of Breath Azithromycin (Zithromax), 250 MG PO DIRECTED PRN for SINUS INFECTION Meclizine Hcl (Meclizine Hcl), 12.5 MG PO TID PRN for Dizziness or Vertigo Naproxen (Naproxen), 500 MG PO BID PRN for Pain Triamcinolone Acet (Triamcinolone Acetonide), 1 APPLN TOP BID PRN for UNDECIDED Problem List Medical Problems: (1) ASTHMA, UNSPECIFIED (2) Bronchitis (3) Dizziness (4) History of repair of inguinal hernia (5) HYPERTENSION NOS (6) LBBB (left bundle branch block) (7) Pneumonia Surgical / Medical History Hx Cardiac Surgery: No Hx Abdominal Surgery: No Hx Cancer Surgery: No Hx Thoracic Surgery: No Hx Orthopedic: No Hx Urinary Tract Surgery: No HX Other Surgery: Yes Past Medical/Surgical History: Asthma, Hypertension Family History Cancer Social History Smoking Status: Never Smoker Hx Tobacco Use In Past Year?: No Hx Alcohol Use - Type & Amnt: No Hx Substance Use -Type & Amnt: No Review of Systems Constitutional: No chills, No fever, No malaise Skin: No change in color Eyes: No visual changes ENMT: No sore throat Respiratory: No cough, No MALONE, No hemoptysis, No short of breath Cardiovascular: No chest pain, No syncope, No edema, No intermittent claudication Gastrointestinal: No abdominal pain, No nausea, No vomiting Neurologic: + dizziness (resolved today), No lethargy, No numbness, No tingling Physical Exam Constitutional: General Apperance: heathly-appearing, well-nourished Level of Distress: NAD Psychiatric: Mental Status: active & alert, normal mood, normal affect Orientation: oriented except where noted, to time, to place, to person Memory: recent memory normal, remote memory normal Head: normocephalic, atraumatic Eyes: EOM: EOMI ENMT: normal ENT inspection, hearing grossly normal Neck: trachea midline, pertinent finding (R neck with soft, moveable mass, nontender) Lungs: Respiratory effort: no dyspnea Auscultation: no rales/crackles, no rhonchi Cardiovascular: Apical Impulse: not displaced Heart Auscultation: RRR, no rubs, no gallops Peripheral Pulses: Pulses: full and equal, in all extremities except if noted Bruits: none appreciated Carotid Pulse: normal on the left, normal on the right Brachial Pulses: normal on the left, normal on the right Radial Pulse: normal on the left, normal on the right Femoral Pulse: normal on the left, normal on the right Posterior Tibialis Pulse: decreased on the left, decreased on the right Dorsalis Pedis Pulse: decreased on the left, decreased on the right Abdomen: Bowel Sounds: normal Inspection & Palpation: soft, non-distended, no tenderness, guarding & rebound Musculoskeletal: normal strength (5/5 throughout), normal tone Extremities: Upper Right: no cyanosis, no edema, no varicosities Upper Left: no cyanosis, no edema, no varicosities Lower Right: no cyanosis, no edema, no varicosities Lower Left: no cyanosis, no edema, no varicosities Neurologic: Cranial Nerves: grossly intact Sensation: grossly intact Assessment and Plan ASSESSMENT and PLAN: LICAS , severe, asymptomatic RICAS 50%Asymptomatic Plan: Patient admitted for a left CEA. He is tu underdo laryngoscopy prior. I have discussed the risks options and benefits of the procedure with the patient. The patient understands the risks options and benefits and agrees to the procedure.
--- NOTE | 2016-12-20 06:31 | History & Physical Bridge Note ---
H&P Re-Evaluation Bridge Note: I have examined the patient, reviewed the History & Physical and in the interval since the performance of the History & Physical I have noted the following changes of clinical significance: No changes noted
[2016-12-20 06:40] LABS: BUN/CREATININE RATIO 15.1 (10-20); CALCIUM 9.6 mg/dl (8.5-10.1); POTASSIUM 3.8 mmol/L (3.5-5.1)
[2016-12-20] MEDS ORDERED: ROCURONIUM BROMIDE 10 MG/ML 5 ML VIAL IV ONE (06:49)
[2016-12-20] MEDS ORDERED: PROPOFOL IV EMULSION 10 MG/ML 20 ML VIAL IV ONE ×2 (06:49→09:57)
[2016-12-20] MEDS ORDERED: FENTANYL CITRATE INJ 50 MCG/1 ML 2 ML VIAL ONE (06:50)
[2016-12-20] MEDS ORDERED: LIDOCAINE HCL 2% 2 ML VIAL (20MG/ML) ONE ×2 (07:04→10:08)
[2016-12-20] MEDS ORDERED: THROMBIN FOR SOLN 20000 UNIT KIT ONE (07:06)
[2016-12-20] MEDS ORDERED: GELATIN SPONGE 12-7MM ONE (07:06)
[2016-12-20] MEDS ORDERED: HEPARIN SOD (PORCINE) 1000 UNIT/ML 10 ML VIAL ONE ×2 (07:07→09:58)
[2016-12-20] MEDS ORDERED: LIDOCAINE HCL 1% 20 ML VIAL ONE (07:07)
[2016-12-20] MEDS ORDERED: CEFAZOLIN SOD 1 GM VIAL ONE ×2 (07:07→10:10)
[2016-12-20] MEDS ORDERED: BUPIVACAINE/EPINEPHRINE 0.5% MPF 1:200,000 10 ML VIAL ONE (07:08)
[2016-12-20] MEDS ORDERED: LIDOCAINE/EPINEPHRINE 1% 20 ML VIAL ONE (07:10)
[2016-12-20] MEDS: EpINEphrine INJ 1MG/ML AMP 1 MG/ML AMP ONE ×2 (07:38→08:22)
[2016-12-20] MEDS ORDERED: EpINEphrine HCL INJ 1 MG/ML 5ML SYRINGE ONE (07:40)
--- NOTE | 2016-12-20 08:43 | [facility] Operative Report ---
Operative Report Operative Date Dec 20, 2016. Pre-Operative Diagnosis RIGHT BASE OF TONGUE LESION Post-Operative Diagnosis SAME Procedure(s) Performed DIRECT LARYNGOSCOPY WITH BIOPSY Surgeon KIKI Dial Marker Surgeon(s) NONE Estimated Blood Loss 5ML Findings CYSTIC MASS WITHIN RIGHT BASE OF TONGUE/VALLECULAR REGION WITH MILD PURULENCE WITHIN THE CYSTIC NATURE OF THE MASS Specimens RIGHT BASE OF TONGUE FOR PERMANENT AND FROZEN SECTIONS I attest to the content of the Intraoperative Record and any orders documented therein. Any exceptions are noted below.
--- NOTE | 2016-12-20 09:13 | OPERATIVE REPORT ---
DATE OF OPERATION: 12/20/2016 PREOPERATIVE DIAGNOSIS: Right base of tongue lesion. POSTOPERATIVE DIAGNOSIS: Same. PROCEDURE: Direct laryngoscopy with biopsy. SURGEON: Dr. Case. ANESTHESIA: General endotracheal. ESTIMATED BLOOD LOSS: 5 mL FINDINGS: Cystic mass involving the right base of tongue/vallecular region with mild purulence within the cystic component of the lesion. SPECIMENS: Right base of tongue lesion for both permanent and frozen section diagnoses. COMPLICATIONS: None. INDICATIONS: The patient is a very pleasant 71-year-old male who I saw in my office for evaluation of a right base of tongue lesion that was found on CT angiogram to work up carotid artery stenosis. He is to undergo a left carotid endarterectomy by Dr. Kellogg after my procedure, assuming that the frozen section diagnosis comes back benign, which I anticipate that it will. The patient denies any symptoms referable to this base of tongue lesion. On the CT angiogram, it filled the right base of tongue and vallecula and extended to near the piriform sinus. In the office on fiberoptic laryngoscopy, there was a cystic mass with a yellowish discoloration in the base of tongue and vallecular region with no mass seen within the piriform sinus. It looked like a mucocele versus mucopyocele on my examination. He presents for the above-mentioned procedure on an inpatient elective basis. DETAILS OF PROCEDURE: After informed consent had been obtained from the patient, the patient was wheeled to the operating room and placed on the operating table in the supine position. Monitors were placed. After induction of general endotracheal anesthesia, the table was turned 90 degrees and the patient was placed in the sniffing position. A tooth guard was placed over the maxillary dentition and the operating microscope was used to inspect the oral cavity, oropharynx, hypopharynx, and larynx. The intraoperative findings were of a cystic mass involving the right base of tongue/vallecula that was soft on palpation. Cup forceps were used to take 4 biopsies from this area and with the first biopsy, there was a mild amount of purulence that was within the cystic nature of this mass. Three of the specimens were sent for permanent pathological assessment and one specimen sent for frozen section diagnosis to rule out malignancy prior to Dr. Kellogg performing the left carotid endarterectomy. Topical 1:1000 epinephrine pledgets were placed over the base of tongue and allowed to sit for approximately 2 minutes. These were removed and hemostasis was confirmed. The laryngoscope and tooth guard were then removed. The oral cavity and oropharynx were suctioned. This marked the end of the case. The patient tolerated the procedure well. There were no apparent complications. The patient went on to the left carotid endarterectomy portion of the procedure with Dr. Kellogg in stable condition. I attest to the content of the Intraoperative Record and any orders documented therein. Any exception s are noted below.
[2016-12-20] MEDS ORDERED: HYDROmorphone INJ 2 MG/ML SYR/VIAL IV PRN (09:15)
[2016-12-20] MEDS ORDERED: ATROPINE SULFATE 0.1 MG/ML 5ML SYR IV PRN (09:15)
[2016-12-20] MEDS ORDERED: EpHEDrine SULFATE INJ 50 MG/ML AMP IV PRN (09:15)
[2016-12-20] MEDS ORDERED: ONDANSETRON INJ 2 MG/ML 2 ML VIAL IV PRN ×2 (09:15→10:30)
[2016-12-20] MEDS ORDERED: PHENYLEPHRINE HCL INJ 10 MG/ML VIAL ONE (09:58)
[2016-12-20] MEDS ORDERED: ATROPINE SULFATE 0.4 MG/ML 1 ML VIAL ONE (09:58)
[2016-12-20] MEDS ORDERED: DEXAMETHASONE SOD INJ 4 MG/ML VIAL ONE (09:59)
[2016-12-20] MEDS ORDERED: ONDANSETRON INJ 2 MG/ML 2 ML VIAL ONE (09:59)
[2016-12-20] MEDS ORDERED: LABETALOL HCL IV 5 MG/ML 20ML IV ONE (09:59)
[2016-12-20] MEDS ORDERED: SUCCINYLCHOLINE 100MG/5ML SYR IV ONE (10:00)
[2016-12-20] MEDS ORDERED: GLYCOPYRROLATE INJ 0.2 MG/ML VIAL ONE (10:08)
[2016-12-20] MEDS ORDERED: NEOSTIGMINE METHYLSULFATE 5 MG/5 ML SYR ONE (10:08)
--- NOTE | 2016-12-20 10:19 | [facility] Post Operative Brief Note ---
Immediate Operative Summary Operative Date Dec 20, 2016. Pre-Operative Diagnosis Right base of tongue lesion and left internal carotid artery stenosis Post-Operative Diagnosis same as pre-operative Procedure(s) Performed Direct Laryngoscopy with Biopsy - Dr. Case and Left Carotid Endarterectomy - Dr. Kellogg Surgeon nino CASE Pediatric Psychiatrist Surgeon(s) Parminder Sepulveda Estimated Blood Loss 50ml Findings severe stenosis left int carotid artery Specimens RIGHT BASE OF TONGUE FOR PERMANENT AND FROZEN SECTIONS Anesthesia Gen Complication(s) None Disposition Recovery Room / PACU
[2016-12-20] MEDS ORDERED: SODIUM NITROPRUSSIDE SOLN INJ 50 MG in DEXTROSE 5% 500ML 500 ML IV PRN (10:20)
[2016-12-20] MEDS ORDERED: NITROGLYCERIN/D5W 100 MCG/ML 250 ML IV PRN (10:20)
[2016-12-20] MEDS ORDERED: MECLIZINE HCL 12.5 MG TAB PO PRN (10:30)
[2016-12-20] MEDS ORDERED: NON-FORMULARY MEDICATION (Coenzyme Q10 (Ubidecarenone) (Coq-10) 100 MG) PO SCH (10:30)
[2016-12-20] MEDS ORDERED: NAPROXEN 250 MG TAB PO PRN (10:30)
[2016-12-20] MEDS ORDERED: ACETAMINOPHEN 325 MG TAB PO PRN (10:30)
[2016-12-20] MEDS ORDERED: MoRPHine SULFATE 4 MG/ML 1 ML CARP\\VIAL IV PRN (10:30)
[2016-12-20] MEDS ORDERED: ALBUTEROL HFA 8 GM INHALER INH PRN (10:30)
[2016-12-20] MEDS ORDERED: OXYCODONE/ACETAMINOPHEN 5-325 TAB PO PRN (10:30)
[2016-12-20] MEDS ORDERED: METOPROLOL TARTRATE 1 MG/ML VIAL IV PRN (10:30)
--- NOTE | 2016-12-20 10:44 | [facility] Operative Report ---
Operative Report Operative Date Dec 20, 2016. Pre-Operative Diagnosis Right base of tongue lesion and left internal carotid artery stenosis Post-Operative Diagnosis same as pre-operative Procedure(s) Performed Direct Laryngoscopy with Biopsy - Dr. Case and Left Carotid Endarterectomy - Dr. Kellogg Surgeon nino CASE [employer] Surgeon(s) Parminder Sepulveda Estimated Blood Loss 50ml Findings The plaque was heavily calcified, ulcerated, and nearly occlusive. A shunt was then inserted into the into the internal carotid artery and revealed good backbleeding. Specimens FROZEN from Direct Laryngscopy with biopsies: Right base of tongue lesion sent to lab at 0830 Specimen from Direct Laryngscopy with biopsies: A: Right base of tongue lesion Specimen from Left carotid endarterectomy: A: Left Carotid Artery Plaque Anesthesia Gen Complication(s) None Disposition Recovery Room / PACU Indications 71 year old male with hx of asthma, HTN, who was admitted d/t dizziness, seen in consultation for BL ICA stenosis noted on US. Pt recently had severe case of thrush which caused edema of his neck/throat and still has residual area of swelling R side of neck. Pt denies any hx of previous CVA. Denies amaurosis, unilateral weakness numbness or tingling, facial droop, difficulty speaking or swallowing, [place]. Denies fever, chills, chest pain, SOB, abd pain, N/V, rest pain , claudication, other complaints. Previous smoker, quit in his 20's. US demonstrated R ICA stenosis 60-70% and LICA 80%. CTA demonstrates approx 50% stenosis R ICA and 75-80% L ICA with ulcerative plaque. Description of Procedure The patient was brought to the operating room, where an arterial line was placed and general anesthesia was secured. The left neck was prepped and sterilely draped. An oblique incision was made along the anterior border of the right sternocleidomastoid muscle. The platysma was divided and dissection was carried down to the carotid sheath. The facial vein was doubly ligated and divided exposing the carotid bifurcation. The vagus nerve and XII nerve were identified and kept free from dissection and retraction. The internal, external , and common carotid arteries were dissected free proximally and distally. 7000 U of Heparin was given intravenously. The external carotid as well as superior thyroid vessels were encircled with vessel loops. Once the heparin was allowed to circulate for approximately 5 minutes, clamps were placed starting with the internal carotid and common carotid and external carotid. An anterior arteriotomy was made on the common carotid artery using an 11 blade. Barlow scissors was used to extend the arteriotomy through the plaque on to the distal soft internal carotid artery. The plaque was heavily calcified, ulcerated, and nearly occlusive. A shunt was then inserted into the into the internal carotid artery and revealed good backbleeding. The proximal end of the shunt was then inserted into the common carotid artery and secured in place. The Doppler attached to the shunt was turned on and revealed good flow through the shunt. A Walnut elevator was used to create an endarterectomy plane. The proximal endpoint was created using Barlow scissors as well as a distal endpoint was created with the Barlow scissors. The plaque was freed out of the external carotid artery.With downward retraction on the plaque, a smooth distal endpoint was created. All debris was meticulously debrided from the inside of the lumen and confirmed with instillation of heparinized saline. 1 tacking suture was placed the proximal end of the internal carotid artery to contact down the intima. Once endarterectomy was completed, an Aquacel patch was then cut to the appropriate size and sewn into internal carotid artery using a PTFE 6-0 sutures starting at the internal carotid artery corner of the arteriotomy. Before the patch was completed, the shunt was pulled and all the arteries were backbleed extruding any air and debris. The patch was then completed. The external carotid clamp was removed first, followed by the common carotid artery clamp, and finally the internal carotid artery clamp, restoring blood flow to the brain. Patient did have some oozing and multiple 6-0 Prolene sutures were used to achieve hemostasis as well as thrombin soaked gel foam and Surgicel. Meticulous hemostasis was secured. The wound was then closed in multiple layers using 3-0 Vicryl suture then a 4-0 Vicryl subcutaneous layer closing the skin. Dermabond was applied over the incision. The patient tolerated the procedure well and was extubated on table. The patient was moving all four extremities to command prior to and upon transfer to the recovery room. I, Dr. Kellogg was present and scrubbed for the entire procedure. I attest to the content of the Intraoperative Record and any orders documented therein. Any exceptions are noted below.
[2016-12-20] MEDS: PHENYLEPHRINE 100MCG/ML 5ML SYR IV PRN ×4 (11:26→12:12)
[2016-12-20] MEDS ORDERED: NURSING VERBAL MED ORDER ONE ×3 (12:08→23:30)
[2016-12-20] MEDS ORDERED: PHENYLEPHRINE HCL INJ 20 MG in DEXTROSE 5% 500ML 500 ML IV PRN ×2 (12:15→12:30)
--- NOTE | 2016-12-20 13:12 | Anesthesiology Progress Note ---
Anesthesia Post Op Note Date & Time Dec 20, 2016 at 13:08 Vital Signs Pain Intensity: 4 Vital Signs Past 12 Hours Date Time Temp Pulse Resp B/P (MAP) Pulse Ox O2 Delivery O2 Flow Rate FiO2 12/20/16 12:40 47 16 130/50 100 Nasal Cannula 4 12/20/16 12:30 44 16 121/57 100 Nasal Cannula 4 12/20/16 12:20 36.1 44 16 118/49 100 Nasal Cannula 4 12/20/16 12:10 48 16 104/51 100 Nasal Cannula 4 12/20/16 12:00 47 16 110/50 100 Nasal Cannula 4 12/20/16 11:50 49 16 121/57 100 Nasal Cannula 4 12/20/16 11:40 37 16 120/53 100 Oxymask 10 12/20/16 11:30 42 16 116/46 99 Oxymask 10 12/20/16 11:21 36.2 48 16 108/41 98 Oxymask 10 12/20/16 05:36 94 Room Air Notes The patient's heart rate dropped into the 30s and he was given atropine 0.5 mg which stabilized it at 48. He was discharged to the ICU on a phenylephrine drip with systolic pressures in the 120s to 130s. Report was given to the icu personnel.
--- NOTE | 2016-12-20 17:39 | Critical Care Consultation ---
Critical Care Consultation Date of Consultation: Dec 20, 2016. Attending Physician: Tawanda Kellogg M.D. Reason for Consultation: Consultation s/p LEFT CEA, RIGHT Tongue Biopsy History of Present Illness Patient is a 71-year-old male who was admitted to the ICU status post LEFT CEA with RIGHT tongue biopsy. The patient has a significant past medical history of hypertension, asthma, GERD, dyslipidemia, and left bundle-branch block. The patient was recently admitted to this facility with positional dizziness. He was felt to have vertiginous symptoms initially. CTA of the neck was concerning for LEFT greater than right carotid stenosis. He was worked up in the outpatient setting and was felt best that the patient undergo LEFT CEA. The patient was also found to have a cystic lesion in the RIGHT sided tongue base. It was felt best the patient undergo biopsy of this lesion with direct laryngoscopy. Each procedure was performed today in the OR. The patient tolerated his procedure well and had an estimated blood loss of 50 mL per record. The patient was found to be extremely bradycardic in the postoperative unit and was provided 2 separate doses of atropine followed by a Jason-Synephrine drip. Patient is awake and eating his dinner while evaluated. He reports that he does have a sore throat with swallowing. He describes some mild discomfort to the LEFT-sided neck at the site of incision. The patient also complains of some LEFT-sided reproducible shoulder pain. He offers no significant complaints otherwise. 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 Daughter does feel that it is somewhat worse this time, but has improved since she initially saw him postoperatively. Patient rates his current discomfort as a 4/10. He denies any current headaches, dizziness, lightheadedness, chest pain, palpitations, short of breath, numbness/ weakness to extremities, nausea, vomiting, abdominal pain, cough, or weakness. Past Medical/Surgical History Allergic rhinitis Asthma Carotid artery stenosis Dyslipidemia GERD Hypertension Hyperglycemia Left bundle darwin block Family History Cancer Social History Smoking Status: Former Smoker Smokeless Tobacco Use: No Drug Use: none Marital Status: single Housing Status: lives with significant other Occupation Status: retired Allergies Coded Allergies: Animal Dander (Verified Allergy, Mild, ASTHMA, 12/20/16) Dust (Verified Allergy, Mild, ASTHMA, 12/20/16) NO KNOWN DRUG ALLERGIES (Verified Allergy, Mild, ., 12/20/16) POLLEN (Verified Allergy, Mild, ASTHMA, 12/20/16) Home Medications Scheduled Aspirin (Aspirin Ec), 81 MG PO HS Atorvastatin (Lipitor), 40 MG PO QAM Azelastine Hcl (Astepro), 2 SPRY [place] DAILY Coenzyme Q10 (Ubidecarenone) (Coq-10), 100 MG PO DAILY@NOON Fexofenadine Hcl (Ramila Allergy), 1 TAB PO QAM Flaxseed (Linseed) (Flax Seeds), 2 TBS PO QAM Montelukast Sodium (Montelukast Sodium), 10 MG PO HS Multiple Vitamins W/ Minerals (Centrum Silver Ultra Mens), 1 TAB PO NOON Quinapril Hcl (Quinapril Hcl), 30 MG PO QAM Ranitidine (Zantac), 150 MG PO HS Scheduled PRN Albuterol (Ventolin), 2 PUFFS INH QID PRN for Shortness of Breath Meclizine HCl (Meclizine HCl), 1 TAB PO BID PRN for DIZZY Naproxen (Naproxen), 500 MG PO BID PRN for Pain Current Inpatient Medications Current Inpatient Medications Medications (Trade) Dose Ordered Sig/Myrna Route Start Time Stop Time Status Last Admin Dose Admin Cefazolin Sodium 55 ml @ 100 mls/hr PREOP IV 12/20/16 06:00 12/20/16 18:00 12/20/16 08:02 100 MLS/HR Sodium Chloride 1,000 ml @ 80 mls/hr [id number] IV 12/20/16 06:00 12/20/16 18:29 Lactated Ringer's 1,000 ml @ 15 mls/hr Q24H IV 12/20/16 06:00 12/21/16 05:59 12/20/16 06:23 15 MLS/HR Acetaminophen (Tylenol Tab) 650 mg Q4H PRN PO 12/20/16 10:30 01/19/17 10:29 Oxycodone/ Acetaminophen (Percocet 5-325mg Tab) FOR MODERATE PAIN ... Q4H PRN PO 12/20/16 10:30 01/03/17 10:29 Morphine Sulfate (MoRPHine SULFATE INJ) 4 mg Q4H PRN IV 12/20/16 10:30 01/03/17 10:29 Ondansetron HCl (Zofran Inj) 4 mg Q6H PRN IV 12/20/16 10:30 01/19/17 10:29 Cefazolin Sodium 1000 mg/Dextrose 55 ml @ 100 mls/hr Q8H IV 12/20/16 18:00 12/21/16 02:32 Metoprolol Tartrate (Lopressor Iv) 5 mg Q10M PRN IV 12/20/16 10:30 01/19/17 10:29 Nitroglycerin/ Dextrose 250 ml @ 0 mls/hr Q0M PRN IV 12/20/16 10:20 01/19/17 10:19 Sodium Nitroprusside 50 mg/Dextrose 502 ml @ 0 mls/hr Q0M PRN IV 12/20/16 10:20 01/19/17 10:19 Dextrose/Sodium Chloride 1,000 ml @ 125 mls/hr Q8H IV 12/20/16 10:20 01/19/17 10:19 Phenylephrine HCl 20 mg/Dextrose 502 ml @ 0 mls/hr Q0M PRN IV 12/20/16 12:30 01/19/17 12:29 12/20/16 12:25 49 MLS/HR Enoxaparin Sodium (Lovenox Inj) 30 mg Q12H SQ 12/21/16 08:00 01/20/17 07:59 Albuterol (Ventolin Hfa Inhaler) 2 puffs QID PRN INH 12/20/16 10:30 01/19/17 10:29 Aspirin (Ecotrin Tab) 81 mg HS PO 12/20/16 21:00 01/19/17 20:59 Atorvastatin Calcium (Lipitor Tab) 40 mg QAM PO 12/21/16 09:00 01/20/17 08:59 Fexofenadine HCl (Ramila Tab) 180 mg QAM PO 12/21/16 09:00 01/20/17 08:59 Montelukast Sodium (Singulair Tab) 10 mg HS PO 12/20/16 21:00 01/19/17 20:59 Multivitamins/ Minerals (Multivitamin W/ Minerals Tab) 1 tab DAILY PO 12/21/16 09:00 01/20/17 08:59 Ranitidine HCl (zANTac TAB) 150 mg HS PO 12/20/16 21:00 01/19/17 20:59 Miscellaneous Information (Order Awaiting Action) 1 ea QS N/A 12/20/16 16:00 01/19/17 15:59 Meclizine HCl (Antivert Tab) 12.5 mg BID PRN PO 12/20/16 10:30 01/19/17 10:29 Naproxen (Naprosyn Tab) 500 mg BID PRN PO 12/20/16 10:30 01/19/17 10:29 Enalapril Maleate (Vasotec Tab) 30 mg QAM PO 12/21/16 09:00 01/20/17 08:59 Review of Systems A complete 10-point Review of Systems was discussed with the patient, with pertinent positives and negatives listed in the History of Present Illness. All remaining Review of Systems questions can be considered negative unless otherwise specified. Physical Exam Date Time Temp Pulse Resp B/P (MAP) Pulse Ox O2 Delivery O2 Flow Rate FiO2 12/20/16 14:00 59 18 105/53 (70) 97 Nasal Cannula 4.0 12/20/16 13:48 36.7 51 18 102/48 (66) 100 Nasal Cannula 4.0 103/62 (76) 12/20/16 12:40 47 16 130/50 100 Nasal Cannula 4 12/20/16 12:30 44 16 121/57 100 Nasal Cannula 4 12/20/16 12:20 36.1 44 16 118/49 100 Nasal Cannula 4 12/20/16 12:10 48 16 104/51 100 Nasal Cannula 4 12/20/16 12:00 47 16 110/50 100 Nasal Cannula 4 12/20/16 11:50 49 16 121/57 100 Nasal Cannula 4 12/20/16 11:40 37 16 120/53 100 Oxymask 10 12/20/16 11:30 42 16 116/46 99 Oxymask 10 12/20/16 11:21 36.2 48 16 108/41 98 Oxymask 10 12/20/16 05:36 94 Room Air VITAL SIGNS - Vital signs and nursing notes were reviewed. GENERAL - 71-year-old male appearing his stated age who is in no acute distress. Communicates well with provider and answers questions appropriately. HEAD - Normocephalic, Atraumatic. No Putnam's Sign or Raccoon's Eyes. No depressed skull fractures palpable. EYES - PERRL with EOMI bilaterally. Sclera anicteric. Palpebral conjunctiva pink and moist with no injection noted. EARS - No deformities of external structures noted on gross examination bilaterally. No pain elicited with palpation of the tragus bilaterally. External auditory canals without discharge or otorrhea. Tympanic membranes pearly sauer without retraction or bulging. NOSE - Midline and without cyanosis. No epistaxis or purulent drainage noted. Septum midline without deviation or septal hematoma noted. MOUTH/OROPHARYNX - Without perioral cyanosis. Mild LEFT-sided lateral mouth droop noted. Buccal mucosa pink and moist and without leukoplakia. Tongue midline with equal elevation of palate bilaterally. Excision site noted to the RIGHT-sided base. NECK - Incision site noted to the LEFT-sided neck with surrounding ecchymosis. No edema. No discharge or drainage noted. Neck with FROM. Supple to palpation. LUNGS - Chest wall symmetric without accessory muscle use, intercostals retractions, or central cyanosis. Normal vesicular breath sounds CTA B/L. No wheezes, rales, or rhonchi appreciated. CARDIAC - RRR with S1/S2. No murmur, rubs, or gallops appreciated. ABDOMEN - Abdominal contour flat and without pulsations or visible masses. BS normoactive all four quadrants. No tenderness, palpable masses, hepatosplenomegaly, or ascites noted. EXTREMITIES - No pretibial edema present. +2/5 radial pulses palpated throughout. +5/5 strength noted in UE/LE bilaterally. Reproducible tenderness to palpation noted to the bicipital groove of the LEFT sided arm. Full range of motion appreciated. NEUROLOGIC - Cranial nerves II through XII grossly intact. Residual LEFT-sided lateral mouth droop. Sensory intact to light touch throughout. Patient able to perform rapid alternating movements appropriately. Negative Pronator Drift. PSYCH - A&Ox3 and cooperates fully with examiner. Pt is very pleasant and interacts well with examiner. Laboratory Results Last 24 Hours Test 12/20/16 05:50 Sodium Level 146 mmol/L Potassium Level 3.8 mmol/L Chloride Level 111 mmol/L Carbon Dioxide Level 30 mmol/L Anion Gap 5.0 mmol/L Blood Urea Nitrogen 15 mg/dl Creatinine 1.00 mg/dl Est Creatinine Clear Calc Drug Dose 61.3 ml/min Estimated GFR () 86.2 Estimated GFR (Non- 74.3 BUN/Creatinine Ratio 15.1 Random Glucose 95 mg/dl Calcium Level 9.6 mg/dl Assessment & Plan Reason Critically Ill: 71-year-old male status post LEFT CEA and RIGHT-sided tongue biopsy. Neuro - * [facility] ICU: NEGATIVE * Pain meds PRN per surgeon. * Neuro Checks per Surgeon's orders. Cardiac - * Postoperative Bradycardia. * History of bradycardia at baseline. * Continue Jason-Synephrine drip. Titrate as tolerated. * Hypertension. * Restart home Rx as BP allows. * Would be cautious in this patient for hyperperfusion syndrome given his reported significant hypertension the outpatient setting and recent CEA. * LBBB: * Found on EKG during previous visit. No known history of OH. Has underwent echo and nuclear stress test. * ECHO: EF of 55-60%. Severely hypokinetic and akinetic inferior base and septal base. Mild concentric left ventricular hypertrophy. Septal motion consistent with bundle branch block. Type I systolic dysfunction. Aortic valve sclerosis moderate, without aortic valve stenosis. * Will monitor on telemetry. Respiratory - * History of asthma. * Home Rx as prescribed. * Supplemental O2 as needed. Titrate to room air as tolerated. GI - * GERD * Continue home meds. RENAL/LYTES - * Fluids per surgeon. * Monitor Lytes - replace appropriately. - * History of BPH - straight cath if necessary. ENDO - * BSGs per protocol. * ISS per nurse driven protocol. HEME - * H&H during 10/30 admission - 13.9/42.1. * Watch for any hemodynamic changes or signs of bleeding. ID - * No signs of infection at this time. * Will monitor fever curve. MUSCULOSKELETAL - * Complain of some reproducible LEFT-sided shoulder pain. Will monitor overnight. No need for imaging studies at this point as the patient is point tender. Will reevaluate need for imaging studies if necessary. LINES/IV ACCESS - * PIVs intact. * LEFT Radial Art Line DVT PROPHYLAXIS - * Lovenox * SCDs Thank you for this consultation allow us to be part of this patient's care. Please refer to my attending physician's documentation for any further recommendations. I have personally evaluated and examined this patient. I agree with assessment and plan of Lindsay Pereira PA-C. requiring vasoactive for pressure support out of OR, will continue to attempt to wean.
[2016-12-20] MEDS: CEFAZOLIN IV 1,000 MG in DEXTROSE 5% 50ML 50 ML IV SCH (18:37)
[2016-12-20] MEDS: D5W AND 1/2NSS 1,000 ML IV SCH ×2 (19:31→20:49)
[2016-12-20] MEDS: MONTELUKAST SOD 10 MG TAB PO SCH (20:49)
[2016-12-20] MEDS: ASPIRIN 81 MG ECTAB PO SCH (20:49)
[2016-12-20] MEDS: RANITIDINE HCL 150 MG TAB PO SCH (20:49)
[2016-12-20] MEDS ORDERED: PHENYLEPHRINE HCL INJ 20 MG in SODIUM CHLORIDE 0.9% 500ML 500 ML IV PRN (23:30)
[2016-12-21] VITALS (43 sets, daily range): BP systolic 89–140; BP diastolic 35–62; PULSE 34–53; TEMP 36.6–36.9; O2SAT 87–100
[2016-12-21] MEDS: CEFAZOLIN IV 1,000 MG in DEXTROSE 5% 50ML 50 ML IV SCH (01:23)
[2016-12-21 05:39] LABS: PROTHROMBIN TIME (PATIENT) 10.8 SECONDS (9.0-12.0)
[2016-12-21] MEDS: FEXOFENADINE HCL 180 MG TAB PO SCH (07:55)
[2016-12-21] MEDS: ENOXAPARIN 30 MG/0.3 ML SYR SQ SCH ×2 (07:55→20:31)
[2016-12-21] MEDS: ATORVASTATIN 20 MG TAB PO SCH (07:56)
[2016-12-21] MEDS: CEROVITE ADV FORMULA TAB PO SCH (07:56)
[2016-12-21] MEDS: ENALAPRIL MALEATE 10 MG TAB PO SCH (07:57)
[2016-12-21] MEDS ORDERED: FLAXSEED PO SCH (09:00)
[2016-12-21 09:25] LABS: BASO % 0.1 %; BASO ABS # 0.01 K/uL (0-0.2); COMPLETE YES; EOS % 0.1 %; HEMATOCRIT 34.4 % (42-52); IG% 0.3 %; LYMPH % 10.3 %; LYMPH ABS # 1.54 K/uL (1.2-3.4); MEAN CORPUSCULAR HEMOGLOBIN 30.8 pg (25-34); MEAN CORPUSCULAR HGB CONC 33.1 g/dl (32-36); MEAN PLATELET VOLUME 10.3 fL (7.4-10.4); MONO % 6.4 %; NEUT % 82.8 %; PLATELET COUNT 207 K/uL (130-400); WHITE BLOOD COUNT 15.02 K/uL (4.8-10.8)
[2016-12-21] MEDS ORDERED: HYDROCORTISONE IV 100 MG in SYRINGE 0 ML IV ONE (12:00)
--- NOTE | 2016-12-21 12:22 | ECHOCARDIOGRAM REPORT ---
*NOTICE TO RECEIVING CONSTITUTION PARTY AGENCY This information is strictly Confidential and protected under [place] law. [place] law prohibits you from making any further disclosure of this information unless further disclosure is expressly permitted by the written consent of the person to whom it pertains or is authorized by law. A general authorization for the release of medical or other information is not sufficient for this purpose. Hospital accepts no responsibility if the information is made available to any other person, INCLUDING THE PATIENT. Interpretation Summary * Name: JERAMIE ANTOINE Study Date: 12/21/2016 10:10 AM BP: 115/48 mmHg * [facility] HR: 48 * : 1945 (M/d/yyy) Gender: Male Height: 70 in * Age: 71 yrs Ethnicity: [place] Weight: 149 lb * Ordering Physician: Alfredo Pereira * Referring Physician: Tawanda Kellogg * Performed By: Isaias Domingo RCS * * Reason For Study: Bradycardia,Hypotension, Eval LVFX * BSA: 1.8 m2 * -- Conclusions -- * Limited views were obtained. * Left ventricular systolic function is normal. * The left ventricular wall motion is normal. * No regional wall motion abnormalities noted. * There is mild mitral regurgitation. * Compared to an exam performed on 10/31/2016, there is no change in left ventricular function. Procedure Details * A two-dimensional transthoracic echocardiogram was performed. * Limited views were obtained. Left Ventricle * The left ventricle is normal in size. * There is normal left ventricular wall thickness. * Ejection Fraction = 65-70%. * Left ventricular systolic function is normal. * The left ventricular wall motion is normal. * No regional wall motion abnormalities noted. Mitral Valve * The mitral valve is grossly normal. * There is mild mitral regurgitation. Tricuspid Valve * The tricuspid valve is not well visualized, but is grossly normal. * There is mild tricuspid regurgitation. MMode 2D Measurements and Calculations IVSd 1.0 cm IVSs 1.3 cm LVIDd 4.5 cm LVIDs 2.8 cm LVPWd 0.97 cm LVPWs 1.1 cm IVS/LVPW 1.1 FS 36.9 % EDV(Teich) 90.7 ml ESV(Teich) 30.0 ml EF(Teich) 66.9 % EDV(cubed) 88.9 ml ESV(cubed) 22.4 ml EF(cubed) 74.8 % % IVS thick 25.1 % % LVPW thick 16.3 % LV mass(C)d 151.6 grams LV mass(C)dI 82.3 grams/m\S\2 LV mass(C)s 101.6 grams LV mass(C)sI 55.2 grams/m\S\2 CO(Teich) 2.6 l/min CI(Teich) 1.4 l/min/m\S\2 SV(Teich) 60.7 ml SI(Teich) 32.9 ml/m\S\2 CO(cubed) 2.9 l/min CI(cubed) 1.6 l/min/m\S\2 SV(cubed) 66.5 ml SI(cubed) 36.1 ml/m\S\2 LVAd ap4 33.2 cm\S\2 LVLd ap4 8.8 cm EDV(MOD-sp4) 103.0 ml LVAs ap4 16.4 cm\S\2 LVLs ap4 7.0 cm ESV(MOD-sp4) 32.0 ml EF(MOD-sp4) 68.9 % LVAd ap2 37.6 cm\S\2 LVLd ap2 9.0 cm EDV(MOD-sp2) 135.0 ml LVAs ap2 15.0 cm\S\2 LVLs ap2 6.2 cm ESV(MOD-sp2) 32.0 ml EF(MOD-sp2) 76.3 % CO(MOD-sp4) 3.1 l/min CI(MOD-sp4) 1.7 l/min/m\S\2 SV(MOD-sp4) 71.0 ml SI(MOD-sp4) 38.5 ml/m\S\2 CO(MOD-sp2) 4.4 l/min CI(MOD-sp2) 2.4 l/min/m\S\2 SV(MOD-sp2) 103.0 ml SI(MOD-sp2) 55.9 ml/m\S\2
--- NOTE | 2016-12-21 12:59 | Critical Care Progress Note ---
Critical Care Progress Note Date of Service Dec 21, 2016. ICU Day ICU Day Number: [address] Garnica Subjective Patient is a 71-year-old male admitted to the ICU status post LEFT-sided CEA and RIGHT-sided tongue biopsy. He was re-to cardiac status post intervention requiring atropine as well as Jason-Synephrine drip which has persisted throughout the night. It was reported by nursing staff a concern of facial droop which was reportedly addressed by attending surgeon. In addition, the patient was found to be relatively hyperglycemic. His D5 fluids were stopped as were any dextrose containing infusions. This has seemed to help. On evaluation today, the patient had just completed his breakfast. He reports feeling well, but reportedly has not had a bowel movement. He offers no complaints this time. He denies any headaches, dizziness, lightheadedness, chest pain, palpitations, shortness of breath, nausea, vomiting, or abdominal pain. Objective VITAL SIGNS - Vital signs and nursing notes were reviewed. GENERAL - 71-year-old male appearing his stated age who is in no acute distress. Communicates well with provider and answers questions appropriately. HEAD - Normocephalic, Atraumatic. EYES - PERRL with EOMI bilaterally. Sclera anicteric. NOSE - Midline and without cyanosis. MOUTH/OROPHARYNX - Without perioral cyanosis. Mild LEFT-sided lateral mouth droop noted. NECK - Incision site noted to the LEFT-sided neck with surrounding ecchymosis. No edema. No discharge or drainage noted. Neck with FROM. Supple to palpation. LUNGS - Chest wall symmetric without accessory muscle use, intercostals retractions, or central cyanosis. Normal vesicular breath sounds CTA B/L. No wheezes, rales, or rhonchi appreciated. CARDIAC - RRR with S1/S2. No murmur, rubs, or gallops appreciated. ABDOMEN - Abdominal contour flat and without pulsations or visible masses. BS normoactive all four quadrants. No tenderness, palpable masses, hepatosplenomegaly, or ascites noted. EXTREMITIES - No pretibial edema present. +5/5 strength noted in UE/LE bilaterally. NEUROLOGIC - Cranial nerves II through XII grossly intact. Residual LEFT-sided lateral mouth droop. Sensory intact to light touch throughout. Patient able to perform rapid alternating movements appropriately. PSYCH - A&Ox3 and cooperates fully with examiner. Pt is very pleasant and interacts well with examiner. Current SOFA Score SOFA Score Response (Comments) Value Platelets (x10) > 150 0 Bilirubin (mg/dL) < 1.2 0 [place] Coma Score 15 0 Level of Hypotension Dopamine < 5 mcq / dobutamine 2 Creatinine (mg/dL) < 1.2 0 Total 2 Assessment & Plan (1) Stenosis of left carotid artery greater than 50% (2) LBBB (left bundle branch block) (3) ASTHMA, UNSPECIFIED (4) HYPERTENSION NOS Reason Critically Ill: 71-year-old male status post LEFT CEA and RIGHT-sided tongue biopsy. Neuro - * CAM ICU: NEGATIVE * Pain meds PRN per surgeon. * Neuro Checks per Surgeon's orders. * No neurological changes appreciated today when compared to exam yesterday. Cardiac - * Postoperative Bradycardia. * Continues with bradycardia. Remains on Jason-Synephrine. * Will check EKG for any changes. * Will add Echo to evaluate for any changes in myocardial function. * Hypertension. * In conversation with this patient, he has been profoundly hypertensive with SBPs in the 190s since the age of 17. He has never undergone formal Hypertensive workup (i.e. Renal Artery Doppler, Urine Metanephrines, etc.). This certainly can be evaluated in the outpatient setting and will definitely recommend the patient following up. His HTN does not appear to present in the typical Pheochromocytoma fashion, but certainly remains on the DDx. * Will hold home BP medications at this time given hypotension. * Would be cautious in this patient for hyperperfusion syndrome given his reported significant hypertension the outpatient setting and recent CEA. * LBBB: * On review, appears to wax and wane from NSR and LBBB. * Will monitor on telemetry. Respiratory - * History of asthma. * Home Rx as prescribed. * Supplemental O2 as needed. Titrate to room air as tolerated. GI - * GERD * Continue home meds. RENAL/LYTES - * Fluids per surgeon. * Monitor Lytes - replace appropriately. - * History of BPH. * Placed Garcia Catheter yesterday. Remove as patient tolerates. ENDO - * BSGs per protocol. * ISS per nurse driven protocol. * Checked Random Cortisol and TSH. * Random Cortisol found to be critically low. Had discussion with Dr. Kellogg regarding intervention. At this point, he would rather the patient undergo outpatient workup. He agrees with Urmila at this time. Will taper doses. * Will add Sudafed per Dr. Kellogg recommendation. HEME - * Stable H&H. ID - * No signs of infection at this time. * Will monitor fever curve. MUSCULOSKELETAL - * Initially complain of some reproducible LEFT-sided shoulder pain. Resolved at this point. * LINES/IV ACCESS - * PIVs intact. * LEFT Radial Art Line DVT PROPHYLAXIS - * Lovenox * SCDs Thank you for this consultation allow us to be part of this patient's care. Please refer to my attending physician's documentation for any further recommendations. Patient had hypotension refractory to vasoactive's, this is found to be secondary to acute adrenal insufficiency. At this time we will treat the adrenal insufficiency and have the patient follow-up as an outpatient for formal testing. There is no prior history nor family history of Franklin's disease. He has not been on steroids in several months, and does not take chronic steroids. I have personally spent 35 minutes of critical care time in the direct management of this patient. This is a life/limb threatening event. This includes time spent evaluating patient, direct bedside care, chart review, placing orders, interpretation of diagnostic studies, discussion with consultants, patient, and family members, as well as other required patient management activities. This time is exclusive of all separately billable procedures, and teaching time and separate from and in addition to any other critical care service time. Consults & Procedures Consultants: Attending - Dr. Kellogg Procedures: LEFT Radial Arterial Line Data Medications: Current Inpatient Medications Medications (Trade) Dose Ordered Sig/Myrna Route Start Time Stop Time Status Last Admin Dose Admin Acetaminophen (Tylenol Tab) 650 mg Q4H PRN PO 12/20/16 10:30 01/19/17 10:29 Oxycodone/ Acetaminophen (Percocet 5-325mg Tab) FOR MODERATE PAIN ... Q4H PRN PO 12/20/16 10:30 01/03/17 10:29 Morphine Sulfate (MoRPHine SULFATE INJ) 4 mg Q4H PRN IV 12/20/16 10:30 01/03/17 10:29 Ondansetron HCl (Zofran Inj) 4 mg Q6H PRN IV 12/20/16 10:30 01/19/17 10:29 Metoprolol Tartrate (Lopressor Iv) 5 mg Q10M PRN IV 12/20/16 10:30 01/19/17 10:29 Nitroglycerin/ Dextrose 250 ml @ 0 mls/hr Q0M PRN IV 12/20/16 10:20 01/19/17 10:19 Sodium Nitroprusside 50 mg/Dextrose 502 ml @ 0 mls/hr Q0M PRN IV 12/20/16 10:20 01/19/17 10:19 Enoxaparin Sodium (Lovenox Inj) 30 mg Q12H SQ 12/21/16 08:00 01/20/17 07:59 12/21/16 07:55 30 MG Albuterol (Ventolin Hfa Inhaler) 2 puffs QID PRN INH 12/20/16 10:30 01/19/17 10:29 Aspirin (Ecotrin Tab) 81 mg HS PO 12/20/16 21:00 01/19/17 20:59 12/20/16 20:49 81 MG Atorvastatin Calcium (Lipitor Tab) 40 mg QAM PO 12/21/16 09:00 01/20/17 08:59 12/21/16 07:56 40 MG Fexofenadine HCl (Ramila Tab) 180 mg QAM PO 12/21/16 09:00 01/20/17 08:59 12/21/16 07:55 180 MG Montelukast Sodium (Singulair Tab) 10 mg HS PO 12/20/16 21:00 01/19/17 20:59 12/20/16 20:49 10 MG Multivitamins/ Minerals (Multivitamin W/ Minerals Tab) 1 tab DAILY PO 12/21/16 09:00 01/20/17 08:59 12/21/16 07:56 1 TAB Ranitidine HCl (zANTac TAB) 150 mg HS PO 12/20/16 21:00 01/19/17 20:59 12/20/16 20:49 150 MG Miscellaneous Information (Order Awaiting Action) 1 ea QS N/A 12/20/16 16:00 01/19/17 15:59 Meclizine HCl (Antivert Tab) 12.5 mg BID PRN PO 12/20/16 10:30 01/19/17 10:29 Naproxen (Naprosyn Tab) 500 mg BID PRN PO 12/20/16 10:30 01/19/17 10:29 Enalapril Maleate (Vasotec Tab) 30 mg QAM PO 12/21/16 09:00 01/20/17 08:59 12/21/16 07:57 30 MG Phenylephrine HCl 20 mg/Sodium Chloride 502 ml @ 0 mls/hr Q0M PRN IV 12/20/16 23:30 01/19/17 23:29 12/20/16 23:37 19.8 MLS/HR Hydrocortisone Sodium Succinate 100 mg/Syringe 2 ml @ 4 mls/min NOW ONCE IV 12/21/16 12:00 12/21/16 12:01 Vital Signs: Date Time Temp Pulse Resp B/P (MAP) Pulse Ox O2 Delivery O2 Flow Rate FiO2 12/21/16 11:00 41 15 95 12/21/16 10:01 40 13 131/49 (67) 12/21/16 10:00 38 15 12/21/16 09:30 38 16 97 12/21/16 09:01 37 15 109/49 (68) 12/21/16 09:01 37 15 109/49 (68) 12/21/16 09:00 34 9 97 12/21/16 09:00 34 9 97 12/21/16 08:09 39 19 115/41 (63) 100 12/21/16 08:00 97 Room Air 12/21/16 08:00 44 16 93 12/21/16 07:01 37 3 99/46 (65) 95 12/21/16 07:00 40 12 99 12/21/16 06:13 48 17 115/48 (68) 95 12/21/16 06:01 50 20 89/45 (55) 92 12/21/16 05:01 38 15 112/45 (81) 95 12/21/16 04:01 35 13 98/43 (69) 95 12/21/16 04:00 94 Room Air 12/21/16 04:00 36.9 12/21/16 04:00 37 12 108/38 (61) 95 Room Air 12/21/16 03:30 35 17 110/40 (63) 96 Room Air 12/21/16 03:01 48 13 107/47 (67) 97 12/21/16 03:00 44 16 114/43 (66) 96 12/21/16 02:30 37 15 100/36 (57) 95 Room Air 12/21/16 02:01 36 13 97/43 (59) 96 12/21/16 01:57 44 18 112/41 (64) 94 Room Air 12/21/16 01:00 43 14 103/39 (60) 94 Room Air 94/46 (62) 12/21/16 00:01 43 20 105/41 (62) 95 Room Air 92/47 (62) 12/20/16 23:59 95 Room Air 12/20/16 23:59 36.7 12/20/16 23:30 46 17 94/41 (58) 94 Room Air 12/20/16 23:00 46 15 99/40 (59) 94 Room Air 95/42 (59) 12/20/16 22:30 115/49 (71) 12/20/16 22:01 50 20 90/45 (54) 95 12/20/16 22:00 103/44 (63) 12/20/16 21:30 103/45 (64) 12/20/16 21:14 55 23 105/53 (66) 97 12/20/16 21:00 124/63 (83) 12/20/16 20:30 113/50 (71) 12/20/16 20:01 51 18 106/50 (61) 96 12/20/16 20:00 99 Room Air 3.0 12/20/16 20:00 36.7 12/20/16 20:00 106/47 (66) 12/20/16 19:30 109/48 (68) 12/20/16 19:01 48 20 106/50 (74) 97 12/20/16 19:00 114/50 (71) 12/20/16 18:00 36.7 45 18 108/47 (67) 99 Room Air 109/48 (68) 12/20/16 16:00 97 Nasal Cannula 4.0 12/20/16 16:00 36.7 53 19 104/51 (68) 97 Room Air 108/54 (72) 12/20/16 14:00 59 18 105/53 (70) 97 Nasal Cannula 4.0 12/20/16 13:48 36.7 51 18 102/48 (66) 100 Nasal Cannula 4.0 103/62 (76) 12/20/16 12:40 47 16 130/50 100 Nasal Cannula 4 12/20/16 12:30 44 16 121/57 100 Nasal Cannula 4 12/20/16 12:20 36.1 44 16 118/49 100 Nasal Cannula 4 12/20/16 12:10 48 16 104/51 100 Nasal Cannula 4 12/20/16 12:00 47 16 110/50 100 Nasal Cannula 4 Laboratory Results: Last 24 Hours Test 12/20/16 23:11 12/21/16 05:15 12/21/16 05:18 12/21/16 09:05 Bedside Glucose 245 mg/dl 121 mg/dl Prothrombin Time 10.8 SECONDS Prothromb Time International Ratio 1.0 Thyroid Stimulating Hormone (TSH) 0.541 uIu/ml Random Cortisol 0.76 mcg/dl Test 12/21/16 09:16 White Blood Count 15.02 K/uL Red Blood Count 3.70 M/uL Hemoglobin 11.4 g/dL Hematocrit 34.4 % Mean Corpuscular Volume 93.0 fL Mean Corpuscular Hemoglobin 30.8 pg Mean Corpuscular Hemoglobin Concent 33.1 g/dl Platelet Count 207 K/uL Mean Platelet Volume 10.3 fL Neutrophils (%) (Auto) 82.8 % Lymphocytes (%) (Auto) 10.3 % Monocytes (%) (Auto) 6.4 % Eosinophils (%) (Auto) 0.1 % Basophils (%) (Auto) 0.1 % Neutrophils # (Auto) 12.46 K/uL Lymphocytes # (Auto) 1.54 K/uL Monocytes # (Auto) 0.96 K/uL Eosinophils # (Auto) 0.01 K/uL Basophils # (Auto) 0.01 K/uL RDW Standard Deviation 44.3 fL RDW Coefficient of Variation 13.1 % Immature Granulocyte % (Auto) 0.3 % Immature Granulocyte # (Auto) 0.04 K/uL
[2016-12-21] MEDS ORDERED: PSEUDOEPHEDRINE HCL 30 MG TAB PO PRN (13:00)
--- NOTE | 2016-12-21 14:16 | Progress Note ---
Progress Note Date of Service: Dec 21, 2016. Subjective No complaints other than sore throat Problem List Medical Problems: (1) Carotid stenosis Status: Acute (2) Left bundle branch block (LBBB) Status: Acute Objective Vital Signs Vital Signs Past 12 Hours Date Time Temp Pulse Resp B/P (MAP) Pulse Ox O2 Delivery O2 Flow Rate FiO2 12/21/16 13:01 49 19 115/40 (70) 12/21/16 13:00 37 13 12/21/16 12:30 38 16 12/21/16 12:01 43 16 127/56 (86) 12/21/16 12:00 43 22 94 12/21/16 12:00 Room Air 12/21/16 11:30 49 17 87 12/21/16 11:01 39 16 124/48 (76) 96 12/21/16 11:00 41 15 95 12/21/16 11:00 41 15 95 12/21/16 10:01 40 13 131/49 (67) 12/21/16 10:00 38 15 12/21/16 09:30 38 16 97 12/21/16 09:01 37 15 109/49 (68) 12/21/16 09:01 37 15 109/49 (68) 12/21/16 09:00 34 9 97 12/21/16 09:00 34 9 97 12/21/16 08:09 39 19 115/41 (63) 100 12/21/16 08:00 97 Room Air 12/21/16 08:00 44 16 93 12/21/16 07:01 37 3 99/46 (65) 95 12/21/16 07:00 40 12 99 12/21/16 06:13 48 17 115/48 (68) 95 12/21/16 06:01 50 20 89/45 (55) 92 12/21/16 05:01 38 15 112/45 (81) 95 12/21/16 04:01 35 13 98/43 (69) 95 12/21/16 04:00 94 Room Air 12/21/16 04:00 36.9 12/21/16 04:00 37 12 108/38 (61) 95 Room Air 12/21/16 03:30 35 17 110/40 (63) 96 Room Air 12/21/16 03:01 48 13 107/47 (67) 97 12/21/16 03:00 44 16 114/43 (66) 96 12/21/16 02:30 37 15 100/36 (57) 95 Room Air Exam Awake alert VSS Afebrile Incison dry and clean No neuro deficits but does have a very minor left lip dyssymmetry BP now 147/51 with a hr of 48 Not symptomatic Laboratory and Microbiology Results Past 24 Hours Test 12/20/16 23:11 12/21/16 05:15 12/21/16 05:18 12/21/16 09:05 Range/Units Bedside Glucose 245 121 70-99 mg/dl Prothrombin Time 10.8 9.0-12.0 SECONDS Prothromb Time International Ratio 1.0 0.9-1.1 Thyroid Stimulating Hormone (TSH) 0.541 0.300-4.500 uIu/ml Random Cortisol 0.76 mcg/dl Test 12/21/16 09:16 Range/Units White Blood Count 15.02 4.8-10.8 K/uL Red Blood Count 3.70 4.7-6.1 M/uL Hemoglobin 11.4 14.0-18.0 g/dL Hematocrit 34.4 42-52 % Mean Corpuscular Volume 93.0 80-100 fL Mean Corpuscular Hemoglobin 30.8 25-34 pg Mean Corpuscular Hemoglobin Concent 33.1 32-36 g/dl Platelet Count 207 130-400 K/uL Mean Platelet Volume 10.3 7.4-10.4 fL Neutrophils (%) (Auto) 82.8 % Lymphocytes (%) (Auto) 10.3 % Monocytes (%) (Auto) 6.4 % Eosinophils (%) (Auto) 0.1 % Basophils (%) (Auto) 0.1 % Neutrophils # (Auto) 12.46 1.4-6.5 K/uL Lymphocytes # (Auto) 1.54 1.2-3.4 K/uL Monocytes # (Auto) 0.96 0.11-0.59 K/uL Eosinophils # (Auto) 0.01 0-0.5 K/uL Basophils # (Auto) 0.01 0-0.2 K/uL RDW Standard Deviation 44.3 36.4-46.3 fL RDW Coefficient of Variation 13.1 11.5-14.5 % Immature Granulocyte % (Auto) 0.3 % Immature Granulocyte # (Auto) 0.04 0.00-0.02 K/uL Imp: Post CEA Post op bradycardia and hypotension Adrenal insufficiency Plan: Appreciate ICU input. Will consult to co manage. Still on socorro. Started on sudafed and steriods. Continue to observe.
[2016-12-21] MEDS ORDERED: BISACODYL 10 MG SUPP PR PRN (14:30)
[2016-12-21] MEDS: ASPIRIN 81 MG ECTAB PO SCH (20:30)
[2016-12-21] MEDS: MONTELUKAST SOD 10 MG TAB PO SCH (20:30)
[2016-12-21] MEDS: RANITIDINE HCL 150 MG TAB PO SCH (20:30)
[2016-12-21] MEDS: PSEUDOEPHEDRINE HCL 30 MG TAB PO SCH (20:31)
[2016-12-21] MEDS: DOCUSATE SODIUM 100 MG CAP PO SCH (20:31)
[2016-12-21] MEDS: HYDROCORTISONE IV 50 MG in SYRINGE 0 ML IV SCH (20:31)
[2016-12-22] VITALS (18 sets, daily range): BP systolic 92–155; BP diastolic 31–69; PULSE 39–59; TEMP 36.7–36.8; O2SAT 92–97
[2016-12-22] MEDS: PSEUDOEPHEDRINE HCL 30 MG TAB PO SCH ×2 (01:59→08:02)
[2016-12-22] MEDS: HYDROCORTISONE IV 50 MG in SYRINGE 0 ML IV SCH ×2 (03:51→12:38)
[2016-12-22 05:55] LABS: BASO % 0.1 %; BASO ABS # 0.01 K/uL (0-0.2); COMPLETE YES; EOS % 0.1 %; IG% 0.3 %; LYMPH % 9.5 %; LYMPH ABS # 1.05 K/uL (1.2-3.4); MEAN CELL VOLUME 92.5 fL (80-100); MEAN CORPUSCULAR HEMOGLOBIN 31.8 pg (25-34); MEAN CORPUSCULAR HGB CONC 34.4 g/dl (32-36); MEAN PLATELET VOLUME 10.2 fL (7.4-10.4); MONO % 5.8 %; NEUT % 84.2 %; PLATELET COUNT 157 K/uL (130-400); RED BLOOD COUNT 3.46 M/uL (4.7-6.1)
[2016-12-22 06:29] LABS: BUN/CREATININE RATIO 22.3 (10-20); CALCIUM 9.1 mg/dl (8.5-10.1); CREATININE 0.9 mg/dl (0.60-1.40); POTASSIUM 4.1 mmol/L (3.5-5.1)
[2016-12-22 06:59] LABS: MAGNESIUM 2.1 mg/dl (1.8-2.4); PHOSPHORUS 2.2 mg/dl (2.5-4.9)
--- NOTE | 2016-12-22 08:00 | Critical Care Progress Note ---
Critical Care Progress Note Date of Service Dec 22, 2016. ICU Day ICU Day Number: [address] Garnica Subjective Patient is a 71-year-old male who is postop day 3 status post LEFT CEA and RIGHT -sided tongue biopsy. The patient has had persistent bradycardia and hypotension. Last evening, the patient was taken off the Jason-Synephrine drip last evening. He maintained his blood pressure and heart rate throughout the night. He has been asymptomatic. 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 He was treated with hydrocortisone and Sudafed. The patient is a breakfast on evaluation. He offers no complaint this point. He reports feeling much better at this time. Objective VITAL SIGNS - Vital signs and nursing notes were reviewed. GENERAL - 71-year-old male appearing his stated age who is in no acute distress. Communicates well with provider and answers questions appropriately. HEAD - Normocephalic, Atraumatic. EYES - PERRL with EOMI bilaterally. Sclera anicteric. NOSE - Midline and without cyanosis. MOUTH/OROPHARYNX - Without perioral cyanosis. Mild LEFT-sided lateral mouth droop noted. NECK - Incision site noted to the LEFT-sided neck with surrounding ecchymosis. No edema. No discharge or drainage noted. Neck with FROM. Supple to palpation. LUNGS - Chest wall symmetric without accessory muscle use, intercostals retractions, or central cyanosis. Normal vesicular breath sounds CTA B/L. No wheezes, rales, or rhonchi appreciated. CARDIAC - RRR with S1/S2. No murmur, rubs, or gallops appreciated. ABDOMEN - Abdominal contour flat and without pulsations or visible masses. BS normoactive all four quadrants. No tenderness, palpable masses, hepatosplenomegaly, or ascites noted. NEUROLOGIC - Cranial nerves II through XII grossly intact. Residual LEFT-sided lateral mouth droop. Sensory intact to light touch throughout. PSYCH - A&Ox3 and cooperates fully with examiner. Pt is very pleasant and interacts well with examiner. Current SOFA Score SOFA Score Response (Comments) Value Platelets (x10) > 150 0 Bilirubin (mg/dL) < 1.2 0 Sebastian Coma Score 15 0 Level of Hypotension No Hypotension 0 Creatinine (mg/dL) < 1.2 0 Total 0 Previous SOFA Scores 1 Assessment & Plan (1) Stenosis of left carotid artery greater than 50% (2) LBBB (left bundle branch block) (3) ASTHMA, UNSPECIFIED (4) HYPERTENSION NOS Reason Critically Ill: 71-year-old male status post LEFT CEA and RIGHT-sided tongue biopsy. Neuro - * CAM ICU: NEGATIVE * Neuro Checks per Surgeon's orders. * No neurological changes appreciated. Cardiac - * Postoperative Bradycardia. * Jason-Synephrine discontinued overnight. * EKG Unchanged. * Postoperative Hypotension. * Improving off of pressors. * Can reinstitute home antihypertensive Rx today as BP tolerates. * ECHO: * -- Conclusions -- * Limited views were obtained. * Left ventricular systolic function is normal. * The left ventricular wall motion is normal. * No regional wall motion abnormalities noted. * There is mild mitral regurgitation. * Compared to an exam performed on 10/31/2016, there is no change in left ventricular function. Procedure Details * Hypertension. * In conversation with this patient, he has been profoundly hypertensive with SBPs in the 190s since the age of 17. He has never undergone formal Hypertensive workup (i.e. Renal Artery Doppler, Urine Metanephrines, etc.). This certainly can be evaluated in the outpatient setting and will definitely recommend the patient following up. His HTN does not appear to present in the typical Pheochromocytoma fashion, but certainly remains on the DDx. * Will restart antihypertensive Rx today as blood pressure improves. * Would be cautious in this patient for hyperperfusion syndrome given his reported significant hypertension the outpatient setting and recent CEA. * LBBB: * On review, appears to wax and wane from NSR and LBBB. * Will monitor on telemetry. Respiratory - * History of asthma. * Home Rx as prescribed. * Supplemental O2 as needed. Titrate to room air as tolerated. GI - * GERD * Continue home meds. * Diet as tolerated. RENAL/LYTES - * Tolerating PO food/fluids. * Monitor Lytes - replace appropriately. - * Plan to d/c Garcia today - if does poorly, would recommend placing the Garcia again temporarily while the patient remains bradycardic to prevent from over vagal stimulation and worsening bradycardia. * My warrant Flomax with this symptoms. Will defer to PCP/Primary team for this. ENDO - * BSGs per protocol. * ISS per nurse driven protocol. * Checked Random Cortisol and TSH. * Random Cortisol found to be critically low. Had discussion with Dr. Kellogg regarding intervention. At this point, he would rather the patient undergo outpatient workup. He agrees with Urmila at this time. Will taper doses. * Would recommend 10 mg Hydrocortisone orally (per Pharmacy) in the outpatient setting for his ?adrenal insufficiency. Could certainly be in the setting of stress of surgery, but is certainly something that may can reevaluated in the outpatient setting. * Will stop Sudafed as BP has responded appropriately. * Patient tolerating Rx therapy well. Likely returning to his baseline. HEME - * Stable H&H. ID - * No signs of infection at this time. * Will monitor fever curve. MUSCULOSKELETAL - * Initially complain of some reproducible LEFT-sided shoulder pain. Resolved at this point. * LINES/IV ACCESS - * PIVs intact. * Discontinue Arterial Line. DVT PROPHYLAXIS - * Lovenox * SCDs Spoke with Dr. Hidalgo in regards to continued outpatient followup. Daughter was requesting that we continue with outpatient care. He will followup with Endocrinology per Dr. Hidalgo. Thank you for this consultation allow us to be part of this patient's care. Please refer to my attending physician's documentation for any further recommendations. I have personally evaluated and examined this patient. I agree with assessment and plan of Lindsay Pereira PA-C. Patient significantly improved after glucocorticoid administration. We've been able to wean off the vasoactive medication and currently the patient is symptom- free. We have discussed the patient's follow-up plan with his daughter and have contacted his primary care doctor's office to arrange further evaluation and testing. Consults & Procedures Consultants: Attending - Dr. Kellogg Procedures: LEFT Radial Arterial Line Data Medications: Current Inpatient Medications Medications (Trade) Dose Ordered Sig/Myrna Route Start Time Stop Time Status Last Admin Dose Admin Acetaminophen (Tylenol Tab) 650 mg Q4H PRN PO 12/20/16 10:30 01/19/17 10:29 Oxycodone/ Acetaminophen (Percocet 5-325mg Tab) FOR MODERATE PAIN ... Q4H PRN PO 12/20/16 10:30 01/03/17 10:29 Morphine Sulfate (MoRPHine SULFATE INJ) 4 mg Q4H PRN IV 12/20/16 10:30 01/03/17 10:29 Ondansetron HCl (Zofran Inj) 4 mg Q6H PRN IV 12/20/16 10:30 01/19/17 10:29 Metoprolol Tartrate (Lopressor Iv) 5 mg Q10M PRN IV 12/20/16 10:30 01/19/17 10:29 Nitroglycerin/ Dextrose 250 ml @ 0 mls/hr Q0M PRN IV 12/20/16 10:20 01/19/17 10:19 Sodium Nitroprusside 50 mg/Dextrose 502 ml @ 0 mls/hr Q0M PRN IV 12/20/16 10:20 01/19/17 10:19 Enoxaparin Sodium (Lovenox Inj) 30 mg Q12H SQ 12/21/16 08:00 01/20/17 07:59 12/21/16 20:31 30 MG Albuterol (Ventolin Hfa Inhaler) 2 puffs QID PRN INH 12/20/16 10:30 01/19/17 10:29 Aspirin (Ecotrin Tab) 81 mg HS PO 12/20/16 21:00 01/19/17 20:59 12/21/16 20:30 81 MG Atorvastatin Calcium (Lipitor Tab) 40 mg QAM PO 12/21/16 09:00 01/20/17 08:59 12/21/16 07:56 40 MG Fexofenadine HCl (Ramila Tab) 180 mg QAM PO 12/21/16 09:00 01/20/17 08:59 12/21/16 07:55 180 MG Montelukast Sodium (Singulair Tab) 10 mg HS PO 12/20/16 21:00 01/19/17 20:59 12/21/16 20:30 10 MG Multivitamins/ Minerals (Multivitamin W/ Minerals Tab) 1 tab DAILY PO 12/21/16 09:00 01/20/17 08:59 12/21/16 07:56 1 TAB Ranitidine HCl (zANTac TAB) 150 mg HS PO 12/20/16 21:00 01/19/17 20:59 12/21/16 20:30 150 MG Miscellaneous Information (Order Awaiting Action) 1 ea QS N/A 12/20/16 16:00 01/19/17 15:59 Meclizine HCl (Antivert Tab) 12.5 mg BID PRN PO 12/20/16 10:30 01/19/17 10:29 Naproxen (Naprosyn Tab) 500 mg BID PRN PO 12/20/16 10:30 01/19/17 10:29 Enalapril Maleate (Vasotec Tab) 30 mg QAM PO 12/21/16 09:00 01/20/17 08:59 12/21/16 07:57 30 MG Phenylephrine HCl 20 mg/Sodium Chloride 502 ml @ 0 mls/hr Q0M PRN IV 12/20/16 23:30 01/19/17 23:29 12/20/16 23:37 19.8 MLS/HR Docusate Sodium (coLACE CAP) 100 mg BID PO 12/21/16 21:00 01/20/17 20:59 12/21/16 20:31 100 MG Bisacodyl (Dulcolax Supp) 10 mg DAILY PRN SC 12/21/16 14:30 01/20/17 14:29 Hydrocortisone Sodium Succinate 50 mg/Syringe 1 ml @ 4 mls/min Q8H IV 12/21/16 20:00 12/22/16 12:01 12/22/16 03:51 4 MLS/MIN Pseudoephedrine HCl (Sudafed Tab) 30 mg Q6H PO 12/21/16 20:00 01/20/17 12:59 12/22/16 01:59 30 MG Hydrocortisone Sodium Succinate 50 mg/Syringe 1 ml @ 4 mls/min Q12H IV 12/23/16 00:00 12/24/16 12:01 Hydrocortisone Sodium Succinate 50 mg/Syringe 1 ml @ 4 mls/min Q24H IV 12/25/16 07:00 01/24/17 06:59 Vital Signs: Date Time Temp Pulse Resp B/P (MAP) Pulse Ox O2 Delivery O2 Flow Rate FiO2 12/22/16 06:01 50 18 147/69 (87) 94 153/55 (90) 12/22/16 05:30 53 15 122/41 (66) 94 12/22/16 05:01 48 15 146/58 (72) 93 129/45 (75) 12/22/16 04:30 50 18 135/46 (74) 95 12/22/16 04:01 46 16 128/57 (57) 92 108/36 12/22/16 04:00 36.7 12/22/16 04:00 92 Room Air 12/22/16 03:30 48 19 110/37 (58) 93 12/22/16 03:01 45 17 110/45 (52) 93 105/33 12/22/16 02:30 49 13 108/37 (58) 93 12/22/16 02:01 44 18 122/49 (58) 92 105/37 (55) 12/22/16 02:00 48 19 (55) 94 99/36 12/22/16 01:30 45 16 97/33 (51) 92 12/22/16 01:01 39 15 98/46 (56) 95 104/38 (51) 12/22/16 00:30 42 14 92/31 (47) 94 12/22/16 00:01 43 18 109/53 (57) 95 112/36 (58) 12/21/16 23:59 96 Room Air 12/21/16 23:59 36.7 12/21/16 23:30 44 14 121/40 (63) 94 12/21/16 23:01 39 16 112/52 (55) 95 109/35 (50) 12/21/16 22:01 46 15 111/55 (64) 96 124/44 12/21/16 21:01 49 19 130/62 (79) 96 140/53 12/21/16 20:01 46 20 119/49 (70) 97 129/50 12/21/16 20:00 Room Air 12/21/16 20:00 36.6 12/21/16 19:01 44 18 113/42 (68) 96 122/49 12/21/16 18:01 50 21 119/42 (76) 90 126/61 12/21/16 17:01 53 18 113/56 (63) 97 113/44 12/21/16 16:01 48 22 99/42 (49) 94 92/35 12/21/16 16:00 Room Air 12/21/16 16:00 36.8 12/21/16 15:01 49 16 103/61 (73) 95 12/21/16 13:01 49 19 115/40 (70) 12/21/16 13:00 37 13 12/21/16 12:30 38 16 12/21/16 12:01 43 16 127/56 (86) 12/21/16 12:00 43 22 94 12/21/16 12:00 Room Air 12/21/16 11:30 49 17 87 12/21/16 11:01 39 16 124/48 (76) 96 12/21/16 11:00 41 15 95 12/21/16 11:00 41 15 95 12/21/16 10:01 40 13 131/49 (67) 12/21/16 10:00 38 15 12/21/16 09:30 38 16 97 12/21/16 09:01 37 15 109/49 (68) 12/21/16 09:01 37 15 109/49 (68) 12/21/16 09:00 34 9 97 12/21/16 09:00 34 9 97 12/21/16 08:09 39 19 115/41 (63) 100 12/21/16 08:00 97 Room Air 12/21/16 08:00 44 16 93 Laboratory Results: Last 24 Hours Test 12/21/16 09:05 12/21/16 09:16 12/21/16 16:13 12/21/16 21:01 Thyroid Stimulating Hormone (TSH) 0.541 uIu/ml Random Cortisol 0.76 mcg/dl White Blood Count 15.02 K/uL Red Blood Count 3.70 M/uL Hemoglobin 11.4 g/dL Hematocrit 34.4 % Mean Corpuscular Volume 93.0 fL Mean Corpuscular Hemoglobin 30.8 pg Mean Corpuscular Hemoglobin Concent 33.1 g/dl Platelet Count 207 K/uL Mean Platelet Volume 10.3 fL Neutrophils (%) (Auto) 82.8 % Lymphocytes (%) (Auto) 10.3 % Monocytes (%) (Auto) 6.4 % Eosinophils (%) (Auto) 0.1 % Basophils (%) (Auto) 0.1 % Neutrophils # (Auto) 12.46 K/uL Lymphocytes # (Auto) 1.54 K/uL Monocytes # (Auto) 0.96 K/uL Eosinophils # (Auto) 0.01 K/uL Basophils # (Auto) 0.01 K/uL RDW Standard Deviation 44.3 fL RDW Coefficient of Variation 13.1 % Immature Granulocyte % (Auto) 0.3 % Immature Granulocyte # (Auto) 0.04 K/uL Bedside Glucose 171 mg/dl 172 mg/dl Test 12/21/16 23:07 12/22/16 05:44 12/22/16 05:49 Bedside Glucose 136 mg/dl 136 mg/dl White Blood Count 11.10 K/uL Red Blood Count 3.46 M/uL Hemoglobin 11.0 g/dL Hematocrit 32.0 % Mean Corpuscular Volume 92.5 fL Mean Corpuscular Hemoglobin 31.8 pg Mean Corpuscular Hemoglobin Concent 34.4 g/dl Platelet Count 157 K/uL Mean Platelet Volume 10.2 fL Neutrophils (%) (Auto) 84.2 % Lymphocytes (%) (Auto) 9.5 % Monocytes (%) (Auto) 5.8 % Eosinophils (%) (Auto) 0.1 % Basophils (%) (Auto) 0.1 % Neutrophils # (Auto) 9.36 K/uL Lymphocytes # (Auto) 1.05 K/uL Monocytes # (Auto) 0.64 K/uL Eosinophils # (Auto) 0.01 K/uL Basophils # (Auto) 0.01 K/uL RDW Standard Deviation 44.8 fL RDW Coefficient of Variation 13.2 % Immature Granulocyte % (Auto) 0.3 % Immature Granulocyte # (Auto) 0.03 K/uL Sodium Level 144 mmol/L Potassium Level 4.1 mmol/L Chloride Level 114 mmol/L Carbon Dioxide Level 25 mmol/L Anion Gap 5.0 mmol/L Blood Urea Nitrogen 20 mg/dl Creatinine 0.90 mg/dl Est Creatinine Clear Calc Drug Dose 71.4 ml/min Estimated GFR () 97.9 Estimated GFR (Non- 84.4 BUN/Creatinine Ratio 22.3 Random Glucose 135 mg/dl Calcium Level 9.1 mg/dl Phosphorus Level 2.2 mg/dl Magnesium Level 2.1 mg/dl Total Bilirubin 0.4 mg/dl Aspartate Amino Transf (AST/SGOT) 11 U/L Alanine Aminotransferase (ALT/SGPT) 18 U/L Alkaline Phosphatase 95 U/L Total Protein 5.4 gm/dl Albumin 2.7 gm/dl Globulin 2.7 gm/dl Albumin/Globulin Ratio 1.0
[2016-12-22] MEDS: ENOXAPARIN 30 MG/0.3 ML SYR SQ SCH (08:03)
[2016-12-22] MEDS: FEXOFENADINE HCL 180 MG TAB PO SCH (08:03)
[2016-12-22] MEDS: DOCUSATE SODIUM 100 MG CAP PO SCH (08:04)
[2016-12-22] MEDS: ATORVASTATIN 20 MG TAB PO SCH (08:04)
[2016-12-22] MEDS: CEROVITE ADV FORMULA TAB PO SCH (08:04)
[2016-12-22] MEDS: ENALAPRIL MALEATE 10 MG TAB PO SCH (08:05)
--- NOTE | 2016-12-22 15:48 | Progress Note ---
Progress Note Date of Service: Dec 22, 2016. Subjective No complaints Problem List Medical Problems: (1) Carotid stenosis Status: Acute (2) Left bundle branch block (LBBB) Status: Acute Objective Vital Signs Vital Signs Past 12 Hours Date Time Temp Pulse Resp B/P (MAP) Pulse Ox O2 Delivery O2 Flow Rate FiO2 12/22/16 12:00 53 18 116/50 (72) 97 Room Air 12/22/16 12:00 97 Room Air 12/22/16 08:00 97 Room Air 12/22/16 08:00 36.8 59 18 125/59 (81) 97 Room Air 155/51 (85) 12/22/16 06:01 50 18 147/69 (87) 94 153/55 (90) 12/22/16 05:30 53 15 122/41 (66) 94 12/22/16 05:01 48 15 146/58 (72) 93 129/45 (75) 12/22/16 04:30 50 18 135/46 (74) 95 12/22/16 04:01 46 16 128/57 (57) 92 108/36 12/22/16 04:00 36.7 12/22/16 04:00 92 Room Air Exam Incision dry and clean No neuro deficits BP better on steroids. Intake & Output 8-Hour Column 12/22/16 12/23/16 12/23/16 16:00 00:00 08:00 Intake Total 240 ml Output Total 400 ml Balance -160 ml 24-Hour Column 12/23/16 08:00 Intake Total 240 ml Output Total 400 ml Balance -160 ml Laboratory and Microbiology Results Past 24 Hours Test 12/21/16 16:13 12/21/16 21:01 12/21/16 23:07 12/22/16 05:44 Range/Units Bedside Glucose 171 172 136 70-99 mg/dl White Blood Count 11.10 4.8-10.8 K/uL Red Blood Count 3.46 4.7-6.1 M/uL Hemoglobin 11.0 14.0-18.0 g/dL Hematocrit 32.0 42-52 % Mean Corpuscular Volume 92.5 80-100 fL Mean Corpuscular Hemoglobin 31.8 25-34 pg Mean Corpuscular Hemoglobin Concent 34.4 32-36 g/dl Platelet Count 157 130-400 K/uL Mean Platelet Volume 10.2 7.4-10.4 fL Neutrophils (%) (Auto) 84.2 % Lymphocytes (%) (Auto) 9.5 % Monocytes (%) (Auto) 5.8 % Eosinophils (%) (Auto) 0.1 % Basophils (%) (Auto) 0.1 % Neutrophils # (Auto) 9.36 1.4-6.5 K/uL Lymphocytes # (Auto) 1.05 1.2-3.4 K/uL Monocytes # (Auto) 0.64 0.11-0.59 K/uL Eosinophils # (Auto) 0.01 0-0.5 K/uL Basophils # (Auto) 0.01 0-0.2 K/uL RDW Standard Deviation 44.8 36.4-46.3 fL RDW Coefficient of Variation 13.2 11.5-14.5 % Immature Granulocyte % (Auto) 0.3 % Immature Granulocyte # (Auto) 0.03 0.00-0.02 K/uL Sodium Level 144 136-145 mmol/L Potassium Level 4.1 3.5-5.1 mmol/L Chloride Level 114 98-107 mmol/L Carbon Dioxide Level 25 21-32 mmol/L Anion Gap 5.0 3-11 mmol/L Blood Urea Nitrogen 20 7-18 mg/dl Creatinine 0.90 0.60-1.40 mg/dl Est Creatinine Clear Calc Drug Dose 71.4 ml/min Estimated GFR () 97.9 Estimated GFR (Non- 84.4 BUN/Creatinine Ratio 22.3 10-20 Random Glucose 135 70-99 mg/dl Calcium Level 9.1 8.5-10.1 mg/dl Phosphorus Level 2.2 2.5-4.9 mg/dl Magnesium Level 2.1 1.8-2.4 mg/dl Total Bilirubin 0.4 0.2-1 mg/dl Aspartate Amino Transf (AST/SGOT) 11 15-37 U/L Alanine Aminotransferase (ALT/SGPT) 18 12-78 U/L Alkaline Phosphatase 95 45-117 U/L Total Protein 5.4 6.4-8.2 gm/dl Albumin 2.7 3.4-5.0 gm/dl Globulin 2.7 2.5-4.0 gm/dl Albumin/Globulin Ratio 1.0 0.9-2 Test /05/09 05:49 Range/Units Bedside Glucose 136 70-99 mg/dl Imp: Post CEA Adrenal insufficiency Plan: Doing well Will D/C today
[2016-12-22] MEDS ORDERED: OXYC-57 PO (15:55)
[2016-12-22] MEDS ORDERED: [UNRECOGNIZED DRUG - CODE] PO (15:55)
[2016-12-22] MEDS ORDERED: PRED10TA PO (15:55)
--- NOTE | 2016-12-22 15:58 | Discharge Instructions ---
Discharge Instructions Date of Service Dec 22, 2016. Admission Reason for Admission: Lt Internal Carotid Artery Stenosis, Hypopharyngea Discharge Discharge Diagnosis / Problem: Left caroitd stensis with carotid endarterectomy Discharge Goals Goal(s): Therapeutic intervention Activity Recommendations Activity Limitations: per Instructions/Follow-up section . Instructions / Follow-Up Instructions / Follow-Up Call [phone] to schedule a follow up appointment if one not already scheduled. Call Dr. Hidalgo for an appointment this coming week SPECIAL CARE INSTRUCTIONS: Medications: * Continue to take Aspirin as directed. Incision Care: * You may shower, but do not rub incision. You may let the warm soapy water run over it. Be sure to dry the incision well after bathing. * Do not shave directly over the incision until it is healed. * DO NOT IMMERSE THE INCISION IN A TUB/POOL/etc. UNTIL HEALED. Restrictions: * Do not drive for at least one week or if you are still taking any narcotic pain medication. * Do not lift anything heavier than a gallon of milk for one week after going home. Possible Complications: * Numbness - It is normal to have some numbness around the incision. Numbness can extend beyond the incision to areas of the neck, ear and face. The numbness is due to bruising of nerves during the surgery and will gradually improve over a period of months. * Hoarseness/Difficulty Speaking and Swallowing - The bruising of nerves in the neck can also cause a hoarse voice, difficulty speaking or swallowing. This may improve over time, HOWEVER, if it continues for more than a few days please contact our office ([phone]). * Excessive Swelling - There will be some swelling immediately after surgery which usually resolves within one week. If you notice that the swelling is getting worse, notify your surgeon ([phone]). * Drainage/Bleeding - If there is any drainage or bleeding, it should be a very small amount (less than a teaspoon per day). If you have excessive bleeding or drainage from the incision, call your surgeon ([phone]) right away. ACTIVATION OF EMERGENCY MEDICAL SYSTEM: Call [phone], immediately, if you experience any of the following: Warning Signs and Symptoms of Stroke: * Sudden numbness or weakness of the face, arm or leg, especially on one side of the body * Sudden confusion, trouble speaking or understanding * Sudden trouble seeing in one or both eyes * Sudden trouble walking, dizziness, loss of balance or coordination * Sudden severe headache with no cause Do not delay calling 911 if you experience any warning signs or symptoms of a stroke. Delay in seeking medical attention may affect what treatments can be given to you. Risk Factors for Stroke: You can reduce your chances of stroke by working with your medical provider to adopt a healthy lifestyle. Some specific ways to lower your chance of stroke are: * If you are a smoker, now is the time to stop smoking cigarettes * If you are diabetic, improve the control of your blood sugars * Avoid excessive amounts of alcohol * Control high blood pressure * Lose weight if you are overweight * Be sure to lead an active lifestyle * Eat a healthy diet low in salt, cholesterol and fat You should know about other risk factors for stroke that you are unable to control. These include: * Age 55 years or older * Male gender * Certain racial groups: , or / * Family History of Stroke, Mini stroke or Heart Attack * Sickle Cell Disease You will be receiving a call from the Vascular Surgery Nurse after you are discharged. FOLLOW UP VISIT: It is important for you to keep your follow up appointments with your medical provider. Keep any scheduled doctor appointments. Current Hospital Diet Patient's current hospital diet: AHA Diet (Heart Healthy) Discharge Diet Recommended Diet: AHA Diet (Heart Healthy) Procedures Procedures Performed: Direct Laryngoscopy with Biopsy - Dr. Case and Left Carotid Endarterectomy - Dr. Kellogg Pending Studies Studies pending at discharge: no Laboratory Results Hemoglobin A1c Test 10/30/16 18:30 Range/Units Estimated Average Glucose 120 mg/dl Hemoglobin A1c 5.8 H 4.5-5.6 % Lipid Panel Test 09/27/16 07:50 Range/Units Triglycerides Level 50 0-150 mg/dl Cholesterol Level 204 H 0-200 mg/dl HDL Cholesterol 57 mg/dl Cholesterol/HDL Ratio 3.6 LDL Cholesterol, Calculated 137 mg/dl Medical Emergencies . Who to Call and When: Medical Emergencies: If at any time you feel your situation is an emergency, please call 911 immediately. . Non-Emergent Contact Non-Emergency issues call your: Surgeon . "Provider Documentation" section prepared by Tawanda Kellogg. . VTE Core Measure Inpt VTE Proph given/why not?: Enoxaparin (Lovenox)SQ, SCD's [place] Drug Monitoring Program Search Results: no issues identified
[2016-12-23] MEDS ORDERED: HYDROCORTISONE IV 50 MG in SYRINGE 0 ML IV SCH
[2016-12-25] MEDS ORDERED: HYDROCORTISONE IV 50 MG in SYRINGE 0 ML IV SCH (07:00)
--- NOTE | 2016-12-26 10:39 | DISCHARGE SUMMARY ---
ADMISSION DIAGNOSES: 1. Severe left internal carotid artery stenosis. 2. Right base of tongue lesion. DISCHARGE DIAGNOSES: 1. Status post left internal carotid artery endarterectomy with patch. 2. Left internal carotid artery stenosis. 3. Status post direct laryngoscopy with biopsy by Dr. Case. 4. Right base of tongue lesion. 5. Adrenal insufficiency. DISCHARGE CONDITION: Stable. CONSULTATIONS IN THE HOSPITAL: Included critical care. PROCEDURES IN THE HOSPITAL: Included: 1. Direct laryngoscopy with biopsy of right tongue lesion by Dr. Natan Case on 12/20/2016 without any significant complication. 2. Left carotid endarterectomy performed by Dr. Tawanda Kellogg on 12/20/2016 without significant complications. He did have an EBL of 50 mL. HISTORY OF PRESENT ILLNESS: Mr. Salamanca is a 71-year-old male with very few chronic medical problems who was initially seen by Dr. Kellogg after an incidental finding of a severe left internal carotid artery stenosis during a workup for a dizzy spell. It was decided that since his carotid lesion was asymptomatic he could be seen in the office and worked up electively. Imaging performed during hospital stay also indicated a lesion in the base of his right tongue for which he was to see an ENT specialist. After being seen in the office and reviewing the patient's imaging it was recommended the patient consider undergoing elective left internal carotid artery endarterectomy to reduce his risk of stroke. He was also seen by Dr. Natan Case who recommended that the patient undergo direct laryngoscopy with biopsy of that base of tongue lesion. In an attempt to minimize the patient's visits to the hospital both procedures were scheduled to be performed at the same time. The procedure, risks, benefits, and alternatives of the endarterectomy were discussed with the patient and his family present. The patient expressed understanding and agreement to proceed. HOSPITAL COURSE: The patient was admitted 12/20/2016 after undergoing his laryngoscopy with biopsy as well as his left carotid endarterectomy. The patient did essentially well postoperatively, although he did have some difficulty maintaining blood pressure and heart rate during a workup for possible causes. He was discovered to have some adrenal insufficiency. His symptoms and vital signs improved significantly with glucocorticoid administration and he was felt to be stable enough for discharge with outpatient workup for his adrenal insufficiency on 12/22/2016. PHYSICAL EXAMINATION: VITAL SIGNS: On day of discharge, his vital signs were as follows: Blood pressure of 116/50, heart rate of 53, respiratory rate of 18, temperature of 36.8 and pulse oximetry of 97% on room air. CONSTITUTIONAL: The patient is a thin, but generally healthy appearing, well-nourished, well-developed elderly male in no acute distress. He ambulated without assistance and is active, alert and oriented x4 with no focal neurological deficits at this time. HEAD: Normocephalic and atraumatic. EYES: EOMI. NECK: Left-sided neck surgical incision was well approximated and healing appropriately. There is some mild ecchymosis, edema and tenderness. There is no erythema or drainage noted. His trachea was midline. HEART: Demonstrated a regular rate and rhythm without any significant murmurs. LUNGS: Decreased but clear. ABDOMEN: Soft, nontender. He had pulses palpable in his brachial, radial, femoral and distal pulses. He moves all extremities equally. His abdomen was soft, nontender with normoactive bowel sounds in all 4 quadrants without guarding or rebound. There was no sign of ischemia. DIET UPON DISCHARGE: Should be a low-cholesterol AHA diet. MEDICATIONS: Reconciled on the chart and are as per his discharge instructions. FOLLOWUP: Should be with Dr. Kellogg or his PA Tanja King within 2 weeks for reevaluation and patient will also follow up with Dr. Natan Case regarding his biopsy results and he should follow up with his primary care practitioner for further workup regarding his adrenal insufficiency. He was advised to call the office with any other questions. Thank you for allowing us to participate in the care of this patient.
== END 2016-12-22 16:30 | disposition home or self-care (01) | DRG 38 ==
LOC: C.ACU 05:03 → ENRESERV 12:37 → C.MSICU 12:37
PROVIDERS: ADMIT Surgery Vascular Surgery; ATTEND Surgery Vascular Surgery
PROC: 0CB70ZX Excision of Tongue, Open Approach, Diagnostic (ICD-10-PCS; principal; 2016-12-20 07:30)
PROC: 03CL0ZZ Extirpation of Matter from Left Internal Carotid Artery, Open Approach (ICD-10-PCS; 2016-12-20 07:30)
DX: I65.22 Occlusion and stenosis of left carotid artery (principal); E27.40 Unspecified adrenocortical insufficiency; G97.82 Other postprocedural complications and disorders of nervous system; I10 Essential (primary) hypertension; J45.909 Unspecified asthma, uncomplicated; I44.7 Left bundle-branch block, unspecified; Z87.01 Personal history of pneumonia (recurrent); Z80.9 Family history of malignant neoplasm, unspecified

== ENCOUNTER → 2016-12-29 | Outpatient (CLI) | payer BC ==
[~2016-12-29] MED LIST changes: +OXYC-57 PO; +PRED10TA PO; +[UNRECOGNIZED DRUG - CODE] PO
[2016-12-29 17:33] LABS: URINE APPEARANCE CLOUDY (CLEAR); URINE BILIRUBIN NEG (NEG); URINE COLOR YELLOW; URINE NITRITE NEG (NEG); URINE SPECIFIC GRAVITY 1.021 (1.000-1.030); UROBILINOGEN NEG (NEG)
[2016-12-29 17:34] LABS: MANUAL MICROSCOPIC REQUIRED? NO; REVIEW REQ? NO
== END | disposition home or self-care (01) ==
LOC: C.LAB1850 16:12
PROVIDERS: ATTEND Physician Assistant Medical
DX: R30.0 Dysuria (principal)

== ENCOUNTER → 2017-01-09 | Outpatient (CLI) | payer BC ==
[2017-01-09 12:53] LABS: ALT/SGPT 26 U/L (12-78); BLOOD UREA NITROGEN 16 mg/dl (7-18); BUN/CREATININE RATIO 16.3 (10-20); CALCIUM 10.2 mg/dl (8.5-10.1); CARBON DIOXIDE 30 mmol/L (21-32); CHLORIDE 109 mmol/L (98-107); CREATININE 0.95 mg/dl (0.60-1.40); GLUCOSE 114 mg/dl (70-99); POTASSIUM 4.2 mmol/L (3.5-5.1); SODIUM 142 mmol/L (136-145); URIC ACID 5.3 mg/dl (2.6-7.2)
[2017-01-09 12:56] LABS: ALB/GLOB RATIO 1.2 (0.9-2); ALKALINE PHOSPHATASE 112 U/L (45-117); AST/SGOT 16 U/L (15-37)
--- NOTE | 2017-01-09 13:23 | DIAGNOSTIC IMAGING REPORT ---
LEFT THUMB 3 VIEWS CLINICAL HISTORY: M79.040 left thumb pain COMPARISON: None. DISCUSSION: No acute fractures are visualized. There are advanced osteoarthritic changes present at the level the first carpal metacarpal joint. There is minimal subluxation at the level the first carpal metacarpal joint. IMPRESSION: 1. No acute fractures 2. Advanced arthritic changes at the level of the first carpal metacarpal joint. Electronically signed by: Jose De Leon M.D. 01/09/2017 1:22 PM Dictated Date/Time: 01/09/2017 1:21 PM
== END | disposition home or self-care (01) ==
LOC: C.RAD1850 10:31
PROVIDERS: ATTEND Physician Assistant Medical
DX: M79.645 Pain in left finger(s) (principal); M19.042 Primary osteoarthritis, left hand

== ENCOUNTER → 2017-01-11 | Outpatient (CLI) | payer BC | END | disposition home or self-care (01) | LOC: C.PATHSPEC 17:44 | PROVIDERS: ATTEND Urology | DX: N40.1 Benign prostatic hyperplasia with lower urinary tract symptoms (principal); N30.21 Other chronic cystitis with hematuria ==

== ENCOUNTER → 2017-02-06 | Day surgery (SDC) | payer BC ==
[~2017-02-06] VITALS: Ht 179.1 cm; Wt 70.0 kg
[~2017-02-06] MED LIST changes: +COSYNTROPIN INJ 1 MCG in SYRINGE 0 ML IV SCH
[2017-02-06 08:00] VITALS: BP 184/81; PULSE 54; TEMP 36.2; O2SAT 98; Ht 179.1 cm; Wt 70.0 kg
[2017-02-06 08:47] VITALS: BP 197/84; PULSE 59; O2SAT 97
[2017-02-06 09:17] VITALS: BP 186/67; PULSE 54; O2SAT 98
[2017-02-06 09:50] VITALS: BP 191/92; PULSE 51; TEMP 36.6; O2SAT 100
== END | disposition home or self-care (01) ==
LOC: C.MTU 07:53
PROVIDERS: ATTEND Internal Medicine Endocrinology, Diabetes & Metabolism
DX: E27.40 Unspecified adrenocortical insufficiency (principal)

== ENCOUNTER 2023-10-02 05:49 | Inpatient (IN) ==
--- NOTE | 2023-09-19 10:44 | PAT Medication Instructions ---
Medication Instructions Date of Service September 19, 2023 Home Medications aspirin 81 mg tablet 81 mg PO HS albuterol sulfate 90 mcg/actuation aerosol inhaler 2 inh inhalation BID atorvastatin 40 mg tablet 40 mg PO QAM azelastine 137 mcg (0.1 %) nasal spray aerosol 2 spray intranasal QPM clopidogrel 75 mg tablet (Plavix) 75 mg PO QAM coenzyme Q10 100 mg capsule (Co Q-10) 100 mg PO QPM famotidine 20 mg tablet 20 mg PO BID fexofenadine 180 mg tablet 180 mg PO QAM lisinopril 20 mg tablet 20 mg PO BID mometasone 50 mcg/actuation nasal spray 2 spray intranasal QAM montelukast 10 mg tablet 10 mg PO HS multivitamin with minerals-folic acid 80 mcg chewable tablet (Centrum Adult 50 Plus) 1 tab PO QPM naproxen 500 mg tablet 500 mg PO Q12H PRN polyethylene glycol 3350 17 gram/dose oral powder (Miralax) 17 g PO DAILY PRN ASK your surgeon for instructions naproxen 500 mg tablet 500 mg PO Q12H PRN ASK your prescriber and surgeon aspirin 81 mg tablet 81 mg PO HS clopidogrel 75 mg tablet (Plavix) 75 mg PO QAM STOP taking 2 weeks before surgery (or as soon as possible if surgery is within 2 weeks) coenzyme Q10 100 mg capsule (Co Q-10) 100 mg PO QPM DO NOT take the morning of surgery fexofenadine 180 mg tablet 180 mg PO QAM lisinopril 20 mg tablet 20 mg PO BID polyethylene glycol 3350 17 gram/dose oral powder (Miralax) 17 g PO DAILY PRN Take morning of surgery With a small sip of water, OTHERWISE NOTHING TO EAT OR DRINK AFTER MIDNIGHT: albuterol sulfate 90 mcg/actuation aerosol inhaler 2 inh inhalation BID atorvastatin 40 mg tablet 40 mg PO QAM famotidine 20 mg tablet 20 mg PO BID mometasone 50 mcg/actuation nasal spray 2 spray intranasal QAM Take evening before surgery albuterol sulfate 90 mcg/actuation aerosol inhaler 2 inh inhalation BID azelastine 137 mcg (0.1 %) nasal spray aerosol 2 spray intranasal QPM famotidine 20 mg tablet 20 mg PO BID lisinopril 20 mg tablet 20 mg PO BID montelukast 10 mg tablet 10 mg PO HS multivitamin with minerals-folic acid 80 mcg chewable tablet (Centrum Adult 50 Plus) 1 tab PO QPM Other Notes If you have any questions please call us at [phone] or [phone] or [phone] or [phone]
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
[2023-10-02] MEDS: LACTATED RINGER'S 1,000 ML BAG IV SCH (06:41)
[2023-10-02] MEDS ORDERED: DEXAMETHASONE SOD INJ 4 MG/ML VIAL ONE (06:53)
[2023-10-02] MEDS ORDERED: LIDOCAINE 2% 2 ML VIAL/AMP(20MG/ML) INFIL ONE (06:53)
[2023-10-02] MEDS ORDERED: MIDAZOLAM HCL 1 MG/ML 2ML VIAL ONE (06:53)
[2023-10-02] MEDS ORDERED: PROPOFOL IV EMULSION 10 MG/ML 20 ML VIAL IV ONE (06:53)
[2023-10-02] MEDS ORDERED: ROCURONIUM BROMIDE 10 MG/ML 5 ML VIAL IV ONE (06:53)
[2023-10-02] MEDS ORDERED: fentaNYL citrate PF 100 MCG/2 ML VIAL ONE (06:53)
[2023-10-02] MEDS ORDERED: GLYCOPYRROLATE 0.2 MG/ML VIAL ONE (06:53)
[2023-10-02] MEDS ORDERED: ONDANSETRON INJ 2 MG/ML 2 ML VIAL ONE (06:53)
[2023-10-02] MEDS ORDERED: LABETALOL HCL IV 5 MG/ML 20ML IV PRN (06:54)
[2023-10-02] MEDS ORDERED: ATROPINE SULFATE 0.1 MG/ML 10ML SYR IV PRN (06:54)
[2023-10-02] MEDS ORDERED: KETOROLAC 30 MG/ML VIAL IV PRN (06:54)
[2023-10-02] MEDS ORDERED: ALBUTEROL 0.083% NEBU SOLN 3 ML VIAL INH PRN (06:54)
[2023-10-02] MEDS ORDERED: fentaNYL citrate PF 100 MCG/2 ML VIAL IV PRN (06:54)
[2023-10-02] MEDS ORDERED: SUGAMMADEX SODIUM 200 MG/2 ML VIAL IV ONE (06:54)
[2023-10-02] MEDS ORDERED: ONDANSETRON INJ 2 MG/ML 2 ML VIAL IV PRN (06:54)
[2023-10-02] MEDS: ASPIRIN 81 MG ECTAB PO STA (06:55)
[2023-10-02] MEDS: CLOPIDOGREL BISULFATE 75 MG TAB PO ONE (06:55)
[2023-10-02] MEDS ORDERED: HEPARIN SOD (PORCINE) 1000 UNIT/ML ONE (06:56)
[2023-10-02] MEDS: HYDROCORTISONE SOD SUCCINATE 100 MG/2 ML VIAL IV SCH (07:37)
--- NOTE | 2023-10-02 07:38 | History & Physical Bridge Note ---
Date of Service October 02, 2023 History & Physical Bridge Note I have examined the patient, reviewed the History & Physical and in the interval since the performance of the History & Physical I have noted the following changes of clinical significance: no changes noted
[2023-10-02] MEDS: CEFAZOLIN 2,000 MG/15 ML SYR IV SCH (08:00)
[2023-10-02] MEDS ORDERED: PHENYLEPHRINE HCL 25 MG/250 ML NSS IV ONE (08:27)
[2023-10-02] MEDS ORDERED: PHENYLEPHRINE 100MCG/ML 10ML SYR IV ONE (08:27)
[2023-10-02] MEDS ORDERED: PROTAMINE SULFATE 10 MG/ML 5 ML VIAL IV ONE (09:06)
[2023-10-02] MEDS: GELATIN SPONGE SZ 100 ONE (09:22)
[2023-10-02] MEDS: THROMBIN FOR SOLN 20000 UNIT KIT ONE (09:23)
[2023-10-02] MEDS: VISIPAQUE IV PRN (09:23)
[2023-10-02] MEDS: SURGICEL ABSORB HEMOSTAT 2IN X 14IN TOP ONE (09:23)
[2023-10-02] MEDS: BUPIVACAINE/EPINEPHRINE 0.5% MPF 1:200,000 30 ML VIAL ONE (09:37)
[2023-10-02] MEDS: ceFAZolin 330 MG/ML 1 GM VIAL ONE (09:38)
--- NOTE | 2023-10-02 09:50 | Procedure Note ---
Angiogram Post Procedure Fluoroscopy Time (minutes): 4.1 Radiation (mGy): 31.31 Contrast: 15 Post Operative Report Pre & Post Diagnosis Operation Date: 10/02/23 08:00 Pre-Op Diagnosis: Right Internal Carotid Stenosis Post-Op Diagnosis: Right Internal Carotid Stenosis I identified the patient and participated in the time-out.: Yes Procedure Operation Date: 10/02/23 08:00 Actual Procedures p Right Transcarotid Artery Revascularization, Ultrasound Left Common Femoral Vein(Right) - Tawanda Kellogg MD Surgeon Tawanda Kellogg MD Prepress Technician none Estimated Blood Loss 150 Findings Consistent with Post-Op Diagnosis Specimens none Anesthesia Type General Complications none Disposition Accompanied Patient To Recovery: No Disposition: Recovery Room Indications This is an 78-year-old gentleman who was found to have a severe stenosis of his right internal carotid artery. Endarterectomy versus TCAR were discussed with the patient. He elected to go ahead with a TCAR procedure. I have discussed the risks options and benefits of the procedure with the patient. The patient understands the risks options and benefits and agrees to the procedure. Description of Procedure The patient was taken to the operating room and placed in supine position. After general anesthesia was accomplished the groins and right side of the neck and chest were prepped and draped in a sterile manner. Timeout was performed and the patient was identified. A transverse incision was made just above the clavicle between the heads of the sternocleidomastoid. This is carried down to where the common carotid artery was identified. It was isolated. It was slung with umbilical tape. Next the U stitch was placed in the common carotid artery with a 5-0 Prolene suture. Patient was given 8000 heparin at that time. Ultrasound was then used to localize the left common femoral vein. The vein was patent and compressed easily. Under ultrasound guidance the left common femoral vein was punctured and the venous sheath was inserted. This was aspirated and flushed with heparinized saline. ACT at that time was 275. Using micropuncture technique the common carotid artery was punctured. The micro sheath was inserted to 3 cm. Injection was then done showing the bifurcation. There was a significant lesion seen at the origin of the internal carotid artery on the right side. We then inserted the J-wire left and short of the lesion. The micro sheath was removed and the TCAR sheath was inserted. Once it was in place and held against the artery it was sutured to the chest wall and the incision edge. We then flushed the tubing appropriately. The venous return to was clamped onto the TCAR sheath. It was flushed through and then attached to the venous inflow sheath in the left groin. Sheath was checked for flow. The saline cleared nicely. The common carotid artery was then clamped. There is bleeding noted from the Rosanna tourniquet occlusion site. We therefore placed a profunda clamp proximal to distal crossclamped the carotid. Flow reversal was instituted. We inserted a 5 x 25 balloon backloaded on the wire. The wire was passed through the lesion into the petrous portion of the internal carotid. The 5 balloon was then advanced to the lesion. Lesion was then predilated with a 5 mm balloon. Balloon was removed. We then inserted the 9 - 7 x 40 stent. This was deployed across the lesion without difficulty. The catheter was removed. The carotid was allowed to go 2 minutes with flow reversal. There was still a waist seen in the stent. We then inserted a 6 x 25 balloon and did a postdilatation of this area. We then allowed the flow reversal to continue for 2 minutes prior to doing an angiogram. Completion angiogram was done at that time which showed a widely patent carotid stent. At that point the common carotid artery was unclamped. There was bleeding seen from the proximal portion just before the puncture site. This controlled with direct pressure. The venous return tubing was clamped and removed from the TCAR sheath. The blood was allowed to flow back into the venous system. Once this was completed the sheath was pulled from the groin and pressure was applied. The TCAR sheath was then removed and the 5-0 Prolene suture securely tied. We then used a 5-0 Prolene to repair a small tear in the common carotid artery at its origin which most likely was caused from the Rosanna tourniquet. We then gave 25 mg of protamine. Hemostasis was noted of the puncture site and the repair site. Wound was irrigated with Ancef solution. Adequate hemostasis was obtained of the wound. Once this was noted the wound was closed in usual fashion using a 3- 0 Vicryl suture for the subcutaneous layer and a 4-0 subcuticular Vicryl suture for the skin edges. Dermabond was used for dressing.The patient left the operation room in satisfactory condition and tolerated the procedure well. All needle and sponge counts were correct at the end of the procedure. I attest to the content of the Intraoperative Record and any orders documented therein. Any exceptions are noted below.
[2023-10-02] MEDS ORDERED: PHENYLEPHRINE 100MCG/ML 5ML SYR IV PRN (10:08)
[2023-10-02] MEDS: ePHEDrine sulfate 50 MG/ML AMP IV PRN (10:15)
--- NOTE | 2023-10-02 11:50 | Anesthesiology Progress Note ---
Date of Service October 02, 2023 Anesthesia Post Procedure Vital Signs Vital Signs: Temp Pulse Resp BP BP BP Pulse Ox 10/02/23 11:15 16 139/50 L 99 10/02/23 11:05 16 139/54 L 99 10/02/23 10:55 16 137/46 L 98 10/02/23 10:45 36.1 C L 17 132/56 L 98 10/02/23 10:35 19 123/48 L 100 10/02/23 10:32 109/43 L 10/02/23 10:25 18 97/37 L 99 10/02/23 10:15 16 101/45 L 99 10/02/23 10:05 17 82/40 L 100 10/02/23 09:55 36.0 C L 17 107/53 L 100 10/02/23 06:20 36.6 C 80 18 197/90 H 186/100 H 99 O2 Del Method O2 Flow Rate 10/02/23 11:15 Room Air 10/02/23 11:05 Room Air 10/02/23 10:55 Room Air 10/02/23 10:45 Room Air 10/02/23 10:35 Room Air 10/02/23 10:32 10/02/23 10:25 Oxymask 5 10/02/23 10:15 Oxymask 5 10/02/23 10:05 Oxymask 5 10/02/23 09:55 Oxymask 5 10/02/23 06:20 Room Air Transfer of Care Handoff Completed per policy Notes Mental Status: alert / awake / arousable Patient Amnestic to Procedure: Yes Nausea / Vomiting: adequately controlled Pain: adequately controlled Airway Patency, RR, SpO2: stable & adequate BP & HR: stable & adequate Hydration State: stable & adequate Anesthetic Complications: no major complications apparent
[2023-10-02] MEDS ORDERED: NAPROXEN 250 MG TAB PO PRN (11:59)
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
--- OUTSIDE RECORDS SUMMARY | 2023-10-02 12:21 | External Medical Summary | Continuity of Care Document ---
Author Name Unknown Organization [facility] [address] Address [address] [place], [place] [id number] Care Team Providers Care Milieu Counselor Name Role Phone Glenn Hidalgo Primary Care Physician [phone] Encounter [facility] FINNBR [id number] Date(s): 09/25/23 - 09/25/23 [facility] [address] [facility] [address] [facility], [facility] 1 [place], [place] [phone] Encounter Diagnosis Occlusion and stenosis of bilateral carotid arteries(Final) - Discharge Disposition: Home or Self Care Attending Physician: MD Kellogg Eugene J Referring Physician: MD Kellogg Eugene J Allergies, Adverse Reactions, Alerts Substance Criticality Severity Reaction Reaction Severity Status IVP dye Rash Active Animal dander Nasal congestion Active Dust Nasal congestion Act ok Pollen Nasal congestion Act ok Medications Albuterol (Eqv-ProAir HFA) 90 mcg/inh inhalation aerosol Start: 04/17/22 1:57:00 PM EST Start Date: 04/17/22 Status: Ordered Ramila Start: 04/17/22 1:57:00 PM EST, 180 mg =, PO, Daily Start Date: 04/17/22 Status: Ordered aspirin 81 mg oral delayed release tablet Start: 04/17/22 1:57:00 PM EST, 1 tab, PO, Daily Start Date: 04/17/22 Status: Ordered atorvastatin 40 mg oral tablet Start: 04/17/22 1:57:00 PM EST, 1 tab, PO, Daily Start Date: 04/17/22 Status: Ordered azelastine 137 mcg/inh (0.1%) nasal spray Start: 01/22/23 2:46:00 PM EDT, 2 spray, each nostril, bid, PRN: as needed for allergy symptoms Start Date: 01/22/23 Status: Ordered CoQ10 Start: 04/17/22 1:58:00 PM EST, 100 mg =, PO, Daily Start Date: 04/17/22 Status: Ordered docusate sodium 100 mg oral capsule Start: 01/22/23 2:46:00 PM EDT, 1 cap, PO, Daily, PRN: as needed for constipation Start Date: 01/22/23 Status: Ordered famotidine Start: 04/17/22 1:58:00 PM EST, 20 mg =, PO, Daily Start Date: 04/17/22 Status: Ordered lisinopril 20 mg oral tablet Start: 07/17/22 2:22:00 PM EDT, 1 tab, PO, bid Start Date: 07/17/22 Status: Ordered mometasone 50 mcg/inh nasal spray Start: 07/17/22 2:24:00 PM EDT, 1 spray, each nostril, Daily, PRN: as needed for allergy symptoms Start Date: 07/17/22 Status: Ordered montelukast Start: 04/17/22 1:59:00 PM EST, 10 mg =, PO, Daily Start Date: 04/17/22 Status: Ordered multivitamin Start: 04/17/22 1:59:00 PM EST, 1 tab, PO, Daily Start Date: 04/17/22 Status: Ordered naproxen Start: 04/17/22 1:59:00 PM EST Start Date: 04/17/22 Status: Ordered Plavix 75 mg oral tablet Start: 09/03/23 3:52:00 PM EDT, 1 tab, PO, Daily, Disp# 30 tab, Refills: 11, Pharmacy: [facility]/pharmacy #[id number] Start Date: 09/03/23 Status: Ordered Problem List Condition Confirmation Course Effective Dates Status H ealt Status Informant ACTINIC KERATOSIS Confirmed Active Asthma Confirmed Active Benign nevus Confirmed Active BPH (benign prostatic hypertrophy) with urinary obstruction Confirmed Active Carotid stenosis, bilateral Confirmed Active Bunion Confirmed Active Carotid stenosis Confirmed Active Carpal tunnel syndrome Confirmed Active Cervical disc disorder Confirmed Active Changing skin lesion Confirmed Active Disc degeneration, lumbar Confirmed Active Diverticulosis Confirmed Active Dysuria Confirmed Active Environmental allergy Confirmed Active Wrist fracture, right Confirmed Active Distal radius fracture, right Confirmed Active Gross hematuria Confirmed Active Palmar wrist ganglion Confirmed Active Esophageal reflux disease Confirmed Active Hx of eczema Confirmed Active S/p carotid endarterectomy Confirmed Active History of basal cell carcinoma of skin Confirmed Active Hyperglycemia Confirmed Active Hypertension Confirmed Active Urinary frequency Confirmed Active Inflamed seborrheic keratosis Confirmed Active Hemorrhoids, internal Confirmed Active Hernia, inguinal, left Confirmed Active Lipoma Confirmed Active Melanocytic nevus of trunk Confirmed Active Notalgia paresthetica Confirmed Active Olecranon bursitis Confirmed Active Onychomycosis Confirmed Active Osteoarthritis of CMC joint of thumb Confirmed Active Thumb pain Confirmed Active PERSONAL HISTORY OF OTHER MALIGNANT NEOPLASM OF SKIN 1 Confirmed Active Pincer nail deformity Confirmed Active Seborrheic keratosis 2 Confirmed Active Seborrheic keratoses Confirmed Active Seborrheic keratoses Confirmed Active Swelling of right hand Confirmed Active Triggering of digit Confirmed Active 1BCC - nose and ears 2benign Procedures Procedure Date Related Diagnosis Body Site Status Shave biopsy and cauterization of skin 11/15/21 Completed Shave biopsy and cauterization of skin 06/23/20 Completed Left CEA - Carotid endarterectomy 12/20/16 Completed Cardiac echo 1 10/30/16 Completed CXR - Chest X-ray 2 10/30/16 Compl eted Carpal tunnel release 09/2013 Com pleted Ganglion cyst 09/2013 Completed Trigger finger 09/2013 Completed Hernia repair 09/2012 Completed Shave biopsy of skin 08/26/12 Comp leted Shave biopsy of skin 08/31/11 Comp leted Appendectomy Completed Colonoscopy Completed elbow surgery Completed eye surgery Completed Hand 3 Completed Neuroplasty of median nerve at carpal tunnel Completed Tonsillectomy Completed 11. normal left ventricular size and systolic function ER 55-60% Severely hypokenetic to akinectic inferior base and septal base. Mild concentric left ventricular hypertrophy. Septal motion consisten with bundle-branch block. Type 1 dystolic dysfunction 2. aortic valve sclerosis moderate, without significant aortic valvular stenosis 3. there is mild mitral regurgitationi 4. rhythm was sinus with intermittent bundle branch block 5. no prior sutdy available for comparison 2No acute cardiopulmonary abnormality 3right Results Laboratory List Name Date Platelet Function (P2Y12 Receptor) (PLT FUNCTION P2Y12) 09/25/23 Most recent to oldest [Reference Range]: 1 P2Y12 Platelet Function [194-418 PRU] 12 5 PRU 1 *LOW* (09/25/23 10:18 AM) 1Result Comment: PRU reference range is 194-418 (healthy adults, no drug treatment). Post Drug Results: Lower PRU levels are expected following treatment with antiplatelet drugs. Post-treatment values are usually below the stated reference range above. The post-drug PRU values reported in the Ver[employer]NOW P2Y12 package insert are 18-435. This broader range reflects the variability in drug response and is consistent with significant numbers of patients with decreased sensitivity to P2Y12 receptor antagonists (prasugrel or clopidogrel). Clinical studies suggest an on-treatment PRU>230 indicates less than optimal response to therapy, and PRU<208 at 12-24 hours after percutaneous intervention or during follow-up is associated with a lower risk of cardiovascular events (1). (1).Standard-vs high-dose clopidogrel based on platelet function testing after percutaneouscoronary intervention: the GRAVITAS randomized trial. Allen, et al. ZAC. 2010July 06; 305(11): 9980-2156. 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
--- OUTSIDE RECORDS SUMMARY | 2023-10-02 12:21 | External Medical Summary | Continuity of Care Document ---
Author Name Unknown Organization [facility] [address] Address [address] [place], [place] [id number] Care Team Providers Care Machine Maintenance Mechanic Name Role Phone Glenn Hidalgo Primary Care Physician [phone] Encounter [facility] FINNBR [id number] Date(s): 09/25/23 - 09/25/23 [facility] [address] [facility] [address] [facility], [facility] 1 [place], [place] [phone] Encounter Diagnosis Occlusion and stenosis of bilateral carotid arteries(Final) - Discharge Disposition: Home or Self Care Attending Physician: MD Kellogg Eugene J Referring Physician: MD Kellogg Eugene J Allergies, Adverse Reactions, Alerts Substance Criticality Severity Reaction Reaction Severity Status Animal dander Nasal congestion Active Dust Nasal congestion Act ok Pollen Nasal congestion Act ok IVP dye Rash Active Medications Albuterol (Eqv-ProAir HFA) 90 mcg/inh inhalation [...] Daily, Disp# 30 tab, Refills: 11, Pharmacy: [facility]/pharmacy #[id number] Start Date: 09/03/23 Status: Ordered Problem [...] Allen, et al. ZAC. 2010July 06; 305(11): 1143-9566. doi: 10.1001/zac.2011.290 Social History Social History Type Response Tobacco Former smoker Smoking Status Never smoked cigaret ayde Sex Male Patient Care team information Care Team Personnel Name: PHILIP King [place] Position: Physician [place] Machine Operator Exempt - Vasc Surg Member Role: Lifetime Relationship Address: Address: [address] [place] [id number] [place] Name: MD Hidalgo John J Position: Referring DIRECT Member Role: Primary Care Provider Address: Address: [facility] [address] [facility] [address] [place] [address] Care Team Related Persons Name: DREA SURESH Address: home [address] [facility] [place] [id number]
[2023-10-02] MEDS: PHENYLEPHRINE/NSS 25 MG/250 ML BAG IV PRN (12:22)
[2023-10-02] MEDS: LACTATED RINGER'S 1,000 ML IV SCH (12:25)
[2023-10-02] MEDS: ePHEDrine sulfate 50 MG/ML AMP ONE (12:52)
[2023-10-02] MEDS: oxyCODONE/ACETAMINOPHEN 5mg/325mg TAB PO PRN (12:53)
[2023-10-02] MEDS: POLYETHYLENE (MIRALAX) 17 GM PACK PO PRN (12:53)
[2023-10-02] MEDS: LACTATED RINGER'S 250 ML IV ONE (12:53)
[2023-10-02] MEDS: MONTELUKAST SODIUM 10 MG TABLET PO SCH (13:07)
[2023-10-02] MEDS: ATORVASTATIN 40 MG TAB PO SCH (13:07)
[2023-10-02] MEDS: ceFAZolin 2000MG 2,000 MG/15 ML SYR IV SCH (17:00)
[2023-10-02] MEDS: FAMOTIDINE 20 MG TAB PO SCH (20:10)
[2023-10-02] MEDS: CEROVITE ADV FORMULA TAB PO SCH (20:10)
[2023-10-02] MEDS: ASPIRIN 81 MG ECTAB PO SCH (20:10)
[2023-10-02] MEDS: AZELASTINE HCL 0.1% NASAL 200 SPRAYS/27,400 MCG BTL SCH (20:10)
[2023-10-02] MEDS: ALBUTEROL HFA 8 GM INHALER INH SCH (20:13)
[2023-10-02] MEDS ORDERED: NON-FORMULARY MEDICATION (Coenzyme Q10 [Co Q-10] 100 mg Capsule) PO SCH (21:00)
[2023-10-02] MEDS ORDERED: lisinopril 20 MG TAB PO SCH (21:00)
[2023-10-03 05:21] LABS: Basophils # (auto) 0.01 K/uL (0.00-0.20); Basophils % (auto) 0.1 %; Hematocrit (blood only) 30.3 % (42.0-52.0); Hemoglobin 10.4 g/dl (14.0-18.0); Immature Granulocytes # (auto) 0.08 K/uL (0.01-0.20); Immature Granulocytes % (auto) 0.6 %; Lymphocytes # (auto) 1.06 K/uL (1.20-3.40); Lymphocytes % (auto) 7.9 %; Mean Corpuscular Hemoglobin 31.2 pg (25.0-34.0); Mean Corpuscular Hgb Conc 34.3 g/dL (32.0-36.0); Mean Platelet Volume 10.6 fL (9.4-12.4); Monocytes # (auto) 0.91 K/uL (0.11-0.59); Monocytes % (auto) 6.8 %; Neutrophils # (auto) 11.41 K/uL (1.40-6.50); Neutrophils % (auto) 84.6 %; Platelet Count 181 K/uL (130-400); RDW Coefficient of Variation 12.5 % (11.5-14.5); RDW Standard Deviation 41.2 fL (36.4-46.3); Red Blood Count 3.33 M/uL (4.70-6.10); White Blood Count 13.47 K/ul (4.8-10.8)
--- NOTE | 2023-10-03 07:17 | Critical Care Progress Note ---
Date of Service October 03, 2023 Assessment & Plan (1) Hypotension: (2) Carotid artery stenosis: (3) Asthma: (4) Hypertension: Plan --Right internal carotid artery stenosis S/p TCAR 10/02/[address] Kellogg Continue with neurochecks Monitor for signs of bleeding --Hypotension Likely secondary to postprocedure Vasopressor support to keep systolic blood pressure greater than 110 -- Bradycardia Has baseline bradycardia to begin with Cardiology has been consulted -- History of asthma Does not seem to be in exacerbation Takes only albuterol at home on an as-needed basis -- History of hypertension/dyslipidemia Hold blood pressure medications right now Continue with atorvastatin -- Normocytic anemia Monitor H&H --Prophylaxis VTE: IPC GI: Famotidine Lines: Left radial, peripheral Diet: Cardiac Plan: In/out: +3 L, urine output 1770 There has been some drop in hemoglobin which could be dilutional given that the patient is +3 L, monitor H&H, surgical site looks clean Cardiology has been consulted for bradycardia Strict in and out. Plan is to start the patient on Sudafed to see if they are able to get him off of phenylephrine Please note the above document was generated using voice recognition software. It may contain grammatical, syntax or spelling errors.Any formal questions or concerns about the content, text or information contained within the body of this dictation should be directly addressed to the provider for clarification. Admission and Anticipated Discharge Date Admission Date: October 02, 2023 Subjective Patient seen and examined at bedside. No acute distress Overnight patient's heart rate went into the high 20s. He was still on phenylephrine at that time. Did not complain of any dizziness. As per the daughter patient usually is bradycardic in the 40s and in the 50s. Sore throat is improved. Fair appetite, no nausea vomiting Denied any chest pain, no shortness of breath Was on 0.1 of phenylephrine at the time of examination with systolic in the 120s Review of Systems 2 Review of Systems: All systems reviewed & are unremarkable except as noted in Subjective Physical Exam 2 Physical Exam: Constitutional: No acute distress HEENT: EOMI, PERRLA Respiratory system: Good air entry bilaterally, no wheeze, no rhonchi, no crackles CVS: S1-S2 positive, +2 out of systolic murmur appreciated best at aorta Abdomen: Soft, nontender, nondistended, positive bowel sounds x4 Extremities: +2 pulses bilaterally radialis/ dorsalis pedis, no cyanosis, no edema Neuro: Awake alert oriented x3 Psych: Normal mood and affect Skin: no rashes, warm and dry Lymphatic: no cervical or axillary lymphadenopathy Results & Data Results & Data Vital Signs (Past 12 Hours) Vital Signs Temp Pulse Pulse Resp BP BP BP 10/03/23 06:00 56 L 20 134/61 10/03/23 05:42 54 L 17 10/03/23 05:38 112/40 L 107/53 L 10/03/23 05:18 51 L 12 107/53 L 10/03/23 05:03 52 L 15 10/03/23 04:58 36.6 C 10/03/23 04:30 55 L 11 L 10/03/23 04:00 125/57 L 10/03/23 04:00 125/57 L 10/03/23 04:00 58 L 17 10/03/23 03:42 61 18 10/03/23 03:06 57 L 21 10/03/23 02:30 133 H 21 10/03/23 02:00 66 19 148/90 H 10/03/23 01:33 17 10/03/23 01:03 61 17 10/03/23 00:03 63 22 10/03/23 00:00 58 L 10/02/23 23:39 36.8 C 10/02/23 23:03 70 21 10/02/23 22:33 67 21 10/02/23 22:21 143/74 H 10/02/23 22:00 61 20 10/02/23 21:22 60 16 10/02/23 21:00 30 H 136/54 L 10/02/23 20:06 68 18 119/80 10/02/23 19:31 10/02/23 19:30 36.9 C 56 L 18 113/49 L 114/76 Pulse Ox O2 Del Method 10/03/23 06:00 98 10/03/23 05:42 95 10/03/23 05:38 10/03/23 05:18 96 10/03/23 05:03 96 10/03/23 04:58 10/03/23 04:30 96 10/03/23 04:00 10/03/23 04:00 10/03/23 04:00 99 06/12/24 03:42 94 10/03/23 03:06 94 10/03/23 02:30 96 10/03/23 02:00 98 10/03/23 01:33 76 L 10/03/23 01:03 95 10/03/23 00:03 95 10/03/23 00:00 10/02/23 23:39 10/02/23 23:03 94 10/02/23 22:33 95 10/02/23 22:21 10/02/23 22:00 95 10/02/23 21:22 96 Room Air 10/02/23 21:00 95 10/02/23 20:06 10/02/23 19:31 Room Air 10/02/23 19:30 Laboratory Results 10/03/23 04:56 Coding Level of Care Code 69277 SUB INP/OBS CARE 3/50MIN Diagnoses Hypotension I95.9 Carotid artery stenosis I65.29 Asthma J45.909 Hypertension I10
[2023-10-03] MEDS: CLOPIDOGREL BISULFATE 75 MG TAB PO SCH (08:15)
[2023-10-03] MEDS: FLUTICASONE PROPIONATE NA SPR 16 GM BTL SCH (08:15)
[2023-10-03] MEDS: FEXOFENADINE HCL 180 MG TAB PO SCH (08:15)
[2023-10-03] MEDS: FIRST - Mouthwash BLM 119 ML PO PRN (08:17)
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
[2023-10-03] MEDS: PSEUDOEPHEDRINE HCL 30 MG TAB PO SCH (13:26)
--- NOTE | 2023-10-03 17:42 | Electrocardiogram Report ---
Test Reason : Blood Pressure : / mmHG Vent. Rate : 048 BPM Atrial Rate : 048 BPM P-R Int : 162 ms QRS Dur : 148 ms QT Int : 476 ms P-R-T Axes : 039 011 188 degrees QTc Int : 425 ms Poor data quality, interpretation may be adversely affected Sinus bradycardia Left bundle branch block Abnormal ECG When compared with ECG of 26-SEP-2023 14:27, Vent. rate has decreased BY 38 BPM T wave amplitude has decreased in Anterior leads T wave inversion less evident in Lateral leads Confirmed by Chris Beaver ([id number]) on 10/03/2023 5:42:11 PM Referred By: Tawanda Kellogg Confirmed By:German Beaver
[2023-10-03] MEDS: ATROPINE SULFATE 0.1 MG/ML 10ML SYR IV ONE (19:46)
[2023-10-04 06:11] LABS: Basophils # (auto) 0.04 K/uL (0.00-0.20); Basophils % (auto) 0.6 %; Eosinophils # (auto) 0.17 K/uL (0.00-0.50); Eosinophils % (auto) 2.4 %; Hematocrit (blood only) 28.1 % (42.0-52.0); Hemoglobin 9.5 g/dl (14.0-18.0); Immature Granulocytes # (auto) 0.02 K/uL (0.01-0.20); Immature Granulocytes % (auto) 0.3 %; Mean Corpuscular Hemoglobin 31.1 pg (25.0-34.0); Mean Corpuscular Hgb Conc 33.8 g/dL (32.0-36.0); Mean Corpuscular Volume 92.1 fL (80.0-100.0); Mean Platelet Volume 10.8 fL (9.4-12.4); Monocytes # (auto) 0.53 K/uL (0.11-0.59); Monocytes % (auto) 7.6 %; Neutrophils # (auto) 4.85 K/uL (1.40-6.50); Neutrophils % (auto) 69.1 %; Platelet Count 150 K/uL (130-400); RDW Standard Deviation 43.3 fL (36.4-46.3); Red Blood Count 3.05 M/uL (4.70-6.10); White Blood Count 7.01 K/ul (4.8-10.8)
[2023-10-04 06:29] LABS: BUN Creatinine Ratio 26.9 (10-20); Calcium 9.4 mg/dl (8.6-10.3); Creatinine Clr Calc Pharmacy 46.8 ml/min; Est GFR (African American) 59.7 ml/min; Est GFR (Non-African American) 51.5 ml/min; Potassium 4.2 mmol/L (3.5-5.1)
--- NOTE | 2023-10-04 07:46 | Critical Care Progress Note ---
Date of Service October 04, 2023 Assessment & Plan (1) Hypotension: (2) Carotid artery stenosis: (3) Asthma: (4) Hypertension: Plan --Right internal carotid artery stenosis S/p TCAR 10/02/[address] Kellogg Continue with neurochecks Monitor for signs of bleeding -- S/p hypotension Likely secondary to postprocedure Vasopressor support to keep systolic blood pressure greater than 110 Random cortisol was low but cortisol a.m. was 7.36 which is within normal limit but on the low-normal side -- Bradycardia Has baseline bradycardia to begin with Cardiology has been consulted -- History of asthma Does not seem to be in exacerbation Takes only albuterol at home on an as-needed basis -- History of hypertension/dyslipidemia Hold blood pressure medications right now Continue with atorvastatin -- Normocytic anemia Monitor H&H --Prophylaxis VTE: IPC GI: Famotidine Lines: Left radial, peripheral Diet: Cardiac Plan: In/out: -1.2 L, urine output 2950 DC A-line. DC Garcia to give a trial of void H&H is stable Patient's heart rate is also stable. He has been started on Sudafed but his blood pressure even without it looks decent. Will try to hold it unless it drops and we can give it to him. Disposition as per vascular surgery Please note the above document was generated using voice recognition software. It may contain grammatical, syntax or spelling errors.Any formal questions or concerns about the content, text or information contained within the body of this dictation should be directly addressed to the provider for clarification. Admission and Anticipated Discharge Date Admission Date: October 02, 2023 Subjective Patient seen and examined at bedside. No acute distress, notable since overnight He has been off of phenylephrine as of 5 AM today. His systolic blood pressure was in the 140s when I saw him. His heart rate was in the high 50s to low 60s. Denies any chest pain. No difficulty swallowing, no sore throat. No dizziness, no blurry vision Denies any shortness of breath Review of Systems 2 Review of Systems: All systems reviewed & are unremarkable except as noted in Subjective Physical Exam 2 Physical Exam: Constitutional: No acute distress HEENT: EOMI, PERRLA, right subclavicular incision clean Respiratory system: Good air entry bilaterally, no wheeze, no rhonchi, no crackles CVS: S1-S2 positive, +2 out of systolic murmur appreciated best at aorta Abdomen: Soft, nontender, nondistended, positive bowel sounds x4 Extremities: +2 pulses bilaterally radialis/ dorsalis pedis, no cyanosis, no edema Neuro: Awake alert oriented x3 Psych: Normal mood and affect Skin: no rashes, warm and dry Lymphatic: no cervical or axillary lymphadenopathy Results & Data Results & Data Vital Signs (Past 12 Hours) Vital Signs Temp Pulse Pulse Pulse Resp BP BP 10/04/23 07:38 61 16 10/04/23 06:00 45 L 16 120/37 L 105/48 L 10/04/23 05:00 36.3 C L 47 L 17 118/42 L 128/50 L 10/04/23 04:00 15 110/40 L 112/52 L 10/04/23 03:00 36.5 C 45 L 17 102/37 L 97/42 L 10/04/23 02:00 45 L 18 105/37 L 123/52 L 10/04/23 01:00 47 L 16 119/47 L 118/46 L 10/04/23 00:00 50 L 18 110/47 L 120/48 L 10/03/23 23:56 46 L 10/03/23 23:00 42 L 14 119/41 L 130/42 L 10/03/23 22:00 36.5 C 42 L 14 101/38 L 103/46 L 10/03/23 21:00 40 L 17 120/41 L 114/45 L 10/03/23 20:52 48 L 10/03/23 20:35 47 L 18 113/41 L 124/44 L 10/03/23 19:58 36.3 C L 43 L 16 99/31 L 92/45 L 10/03/23 19:55 18 Pulse Ox O2 Del Method 10/04/23 07:38 96 Room Air 10/04/23 06:00 97 Room Air 10/04/23 05:00 95 Room Air 10/04/23 04:00 95 Room Air 10/04/23 03:00 94 Room Air 10/04/23 02:00 95 Room Air 10/04/23 01:00 97 Room Air 10/04/23 00:00 96 Room Air 10/03/23 23:56 10/03/23 23:00 95 Room Air 10/03/23 22:00 96 Room Air 10/03/23 21:00 97 Room Air 10/03/23 20:52 10/03/23 20:35 97 Room Air 10/03/23 19:58 95 Room Air 10/03/23 19:55 95 Room Air Laboratory Results 10/04/23 05:29 10/04/23 05:29 Coding Level of Care Code 72440 SUB INP/OBS CARE 2/35MIN Diagnoses Hypotension I95.9 Carotid artery stenosis I65.29 Asthma J45.909 Hypertension I10
[2023-10-04 13:44] VITALS: TEMP 98.1; O2SAT 97
--- NOTE | 2023-10-04 16:06 | Surgery Progress Note ---
Date of Service October 04, 2023 Assessment & Plan (1) Carotid artery stenosis: Plan: Patient is postoperative day 2 from a right TCAR. His blood pressure is controlled with Sudafed. He is not on vasopressors any longer. He will be discharged today self-care at home. (2) Postoperative urinary retention: Plan: He does have postoperative urinary retention requiring a Garcia catheter. He does see a urologist. They were contacted and they will see him in the office after discharge. He will be discharged with a Garcia and a leg bag. Admission and Anticipated Discharge Date Admission Date: October 02, 2023 Subjective Patient is postoperative day 2 after a right TCAR. He is doing well his blood pressure is better controlled he is awake alert with no complaints. Physical Exam Constitutional: WD/WN, vitals as above Respiratory: normal respiratory effort; no respiratory distress Cardiovascular: RRR, no murmur, no edema Musculoskeletal: Extremities: strength 5/5 throughout Skin: + incision (Incision is dry and clean) Neurologic: CN's II-XI intact bilaterally and moves all extremities Psychiatric: Orientation: alert and oriented x 3 Results & Data Vital Signs (Past 12 Hours) Vital Signs Temp Pulse Pulse Resp BP BP BP 10/04/23 13:43 36.7 C 55 L 18 125/49 L 10/04/23 13:15 84 29 H 10/04/23 12:30 62 21 10/04/23 12:24 49 L 18 10/04/23 12:03 159/56 H 10/04/23 11:54 57 L 23 10/04/23 11:31 144/50 H 10/04/23 11:24 53 L 20 10/04/23 11:03 46 L 21 10/04/23 10:33 57 L 25 H 10/04/23 10:31 123/45 L 10/04/23 10:27 55 L 18 10/04/23 10:03 62 21 10/04/23 09:30 48 L 21 10/04/23 09:06 49 L 19 10/04/23 09:00 118/68 10/04/23 09:00 118/68 10/04/23 08:57 49 L 20 10/04/23 08:48 59 L 19 10/04/23 08:48 114/52 L 10/04/23 08:42 36.4 C L 10/04/23 08:39 64 22 10/04/23 08:31 114/53 L 10/04/23 08:30 65 17 10/04/23 08:06 71 23 10/04/23 08:00 75 10/04/23 07:38 61 16 10/04/23 07:24 54 L 20 10/04/23 06:45 44 L 15 10/04/23 06:00 45 L 16 120/37 L 105/48 L 10/04/23 05:00 36.3 C L 47 L 17 118/42 L 128/50 L Pulse Ox O2 Del Method 10/04/23 13:43 97 Room Air 10/04/23 13:15 10/04/23 12:30 10/04/23 12:24 10/04/23 12:03 10/04/23 11:54 10/04/23 11:31 10/04/23 11:24 10/04/23 11:03 10/04/23 10:33 10/04/23 10:31 10/04/23 10:27 10/04/23 10:03 10/04/23 09:30 10/04/23 09:06 98 10/04/23 09:00 10/04/23 09:00 10/04/23 08:57 97 10/04/23 08:48 97 10/04/23 08:48 10/04/23 08:42 10/04/23 08:39 97 10/04/23 08:31 10/04/23 08:30 87 L 10/04/23 08:06 97 10/04/23 08:00 10/04/23 07:38 96 Room Air 10/04/23 07:24 97 10/04/23 06:45 93 10/04/23 06:00 97 Room Air 10/04/23 05:00 95 Room Air
--- NOTE | 2023-10-04 16:08 | Discharge Summary ---
Date of Service October 04, 2023 Admission HPI Per Admitting Provider Name: JERAMIE ANTOINE Patient Number: [id number] : 1945 Date of Service: 09/03/2023 Chief Complaint: Right carotid artery stenosis and prior left CEA 7 years ago HPI: This is an 78-year-old male with prior left CEA as well as right carotid artery stenosis. He denies symptoms of dysarthria, hemiparesthesia vs hemiparesis or amaurosis fugax. He recently underwent CTA of the neck and [facility] and is here to discuss the results of this and next steps. Current Home Meds: (Last Updated 09/02 16:17) albuterol (Albuterol (Eqv-ProAir HFA) 90 mcg/inh inhalation aerosol) aspirin (aspirin 81 mg oral delayed release tablet) 81 mg PO Daily atorvastatin (atorvastatin 40 mg oral tablet) 40 mg PO Daily azelastine nasal (azelastine 137 mcg/inh (0.1%) nasal spray) 2 spray each nostril bid PRN: as needed for allergy symptoms clopidogrel (Plavix 75 mg oral tablet) 75 mg PO Daily docusate (docusate sodium 100 mg oral capsule) 100 mg PO Daily PRN: as needed for constipation famotidine 20 mg PO Daily fexofenadine (Ramila) 180 mg PO Daily lisinopril (lisinopril 20 mg oral tablet) 20 mg PO bid mometasone nasal (mometasone 50 mcg/inh nasal spray) 1 spray each nostril Daily PRN: as needed for allergy symptoms montelukast 10 mg PO Daily multivitamin 1 tab PO Daily naproxen ubiquinone (CoQ10) 100 mg PO Daily Allergies and Sensitivities: IVP dye(Rash) Animal dander(Nasal congestion) Pollen(Nasal congestion) Dust(Nasal congestion) Past Medical History: Problems: Thumb pain Osteoarthritis of CMC joint of thumb Onychomycosis Bunion Pincer nail deformity Notalgia paresthetica Carotid stenosis, bilateral Distal radius fracture, right Wrist fracture, right Lipoma Inflamed seborrheic keratosis Changing skin lesion Seborrheic keratoses Melanocytic nevus of trunk History of basal cell carcinoma of skin S/p carotid endarterectomy Carotid stenosis Urinary frequency Hernia, inguinal, left Hemorrhoids, internal Hyperglycemia Esophageal reflux disease Gross hematuria Dysuria Disc degeneration, lumbar BPH (benign prostatic hypertrophy) with urinary obstruction Asthma Diverticulosis Swelling of right hand Palmar wrist ganglion Olecranon bursitis Hx of eczema Seborrheic keratoses Triggering of digit Cervical disc disorder Carpal tunnel syndrome ACTINIC KERATOSIS Hypertension PERSONAL HISTORY OF OTHER MALIGNANT NEOPLASM OF SKIN Benign nevus Environmental allergy Seborrheic keratosis OBJECTIVE Vitals: Last Updated 09/03/23 15:27 Date Temp BP Location Pulse RR SpO2 Pain 09/03/23 0 09/03/23 158/72 Right Arm 60 97 08/06/23 188/102 Left Arm 80 98 Vital Signs are the last 3 documented. No Orthostatic Data Available Height and Weight: Last Updated 12/11/22 08:49 Date BMI Wt(kg) Wt(lb) Method Ht(cm) (ft-in) Method 12/11/22 23.39 70 154 Standing Scale 173 5-8 04/17/22 24.92 75 165 Standing Scale 173.5 5-8 07/19/21 75.1 165 Standing Scale Heights and Weights are the last 3 documented. Physical Exam General: No acute distress HEENT: Normocephalic, mucous membranes moist Neck: Supple, trachea midline CV: Regular rate and rhythm, no murmurs Pulses: palpable bilateral radial pulses Pulm: Clear to auscultation bilaterally, no wheezes Abd: Soft, nontender, nondistended Extremities: Warm, well-perfused, no edema Neuro: Moving all extremities, no focal deficits, alert and appropriate, CN II- XII grossly intact Skin: No rashes or lesions 30 Day Labs: No 30 Day Lab Data. ASSESSMENT: This is an 78-year-old male with prior left CEA 7 years ago and right carotid artery stenosis that is asymptomatic PLAN: -Carotid artery disease: The left CEA on duplex and CTA imaging remains patent and without significant any restenosis. The patient's right carotid artery disease has high grade stenosis on CTA and we wound recommend performing a surgical intervention. Risks and benefits of CEA and TCAR were discussed with the patient and the patient is aware that both have similar [place] and stoke risk and TCAR has lower risk of nerve damage. Patient and his family have agreed to proceed with right TCAR and patient signed consent in the office. He will start plavix and we will schedule a P2Y12 level test soon. We will contact him regarding scheduling of the right TCAR procedure. Thank you for allowing us to participate in the care of this patient and please contact our office with any questions. I saw and evaluated the patient. Discussed with the resident and agree with the resident's findings and plan as documented in the resident's note. I have personally spent__25___ minutes performing [id number] and [id number] activities on this date of service. Activities Include: _x_ review of the medical record _x_ obtaining a history _x_ physical exam/evaluation __ review labs __ review radiology reports _x_ counseling/educating patient/family/caregiver __ discussion/referral to other healthcare professional __x documenting care in the medical record __ independent interpretation of results __ communication of results to patient/family/caregiver __ coordination of care Signature Line Electronic Signature on File Electronically Reviewed/Signed by: Rudy Johnson MD Author Signature Dt/Tm:09/03/2023 05:15 PM Resident Division of Vascular Surgery Electronically Reviewed/Signed by: Tawanda Kellogg MD Cosigner Signature Dt/Tm: 09/06/2023 07:35 AM Printing Sales Representative [place] Montoya [facility] [place], [address] [place] [address] LW Result Type: Vascular Surgery Outpt Note Date of Service: September 03, 2023 16:23 EDT Authorization Status: Final Author or Import Date: MD Johnson Loughlin on September 03, 2023 17:15 EDT Verified By: MD Kellogg Eugene J on September 06, 2023 07:35 EDT Encounter info: [id number], [place] [address], [facility], 09/03/2023 - 09/03/2023 Admission Exam Per Admitting Provider General: No acute distress HEENT: Normocephalic, mucous membranes moist Neck: Supple, trachea midline CV: Regular rate and rhythm, no murmurs Pulses: palpable bilateral radial pulses Pulm: Clear to auscultation bilaterally, no wheezes Abd: Soft, nontender, nondistended Extremities: Warm, well-perfused, no edema Neuro: Moving all extremities, no focal deficits, alert and appropriate, CN II- XII grossly intact Skin: No rashes or lesions Principal Diagnosis Right internal carotid artery stenosis Discharge Exam Constitutional WD/WN, vitals as above Respiratory normal respiratory effort; no respiratory distress Cardiovascular RRR, no murmur, no edema Musculoskeletal Extremities: strength 5/5 throughout Skin + incision (Incision is dry and clean) Neurologic CN's II-XI intact bilaterally and moves all extremities Psychiatric Orientation: alert and oriented x 3 Discharge Data Allergies Allergy/AdvReac Type Severity Reaction Status Date / Time No Known Drug Allergies Allergy Mild . 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 His blood pressure is controlled with Sudafed. He is not on vasopressors any longer. He will be discharged today self-care at home. (2) Postoperative urinary retention: He does have postoperative urinary retention requiring a Garcia catheter. He does see a urologist. They were contacted and they will see him in the office after discharge. He will be discharged with a Garcia and a leg bag. Total Time Total Time Spent Total Time Spent (In Minutes): 0 Discharge Plan Discharge Items Patient Disposition: Home - Self-Care Reason For Visit: Right Internal Carotid Stenosis Discharge Diagnosis: RIGHT INTERNAL CAROTID STENOSIS Activity: Per Instructions section Non-emergency contact: Surgeon Call non-emergency contact if: your temperature is above 101.5, your wound has increased redness, your wound has increased drainage and your wound pain has increased Follow-up/Referrals: Glenn Hidalgo MD [Primary Care Provider] - Antione Oseguera MD [Physician] - (post op urinary retention) Diet: Heart Healthy Addtl Attending Provider Instructions: SPECIAL CARE INSTRUCTIONS: Medications: * Continue to take Aspirin, plavix and statin as directed. Take blood pressure three times daily. If less than 100systolic take one sudafed Incision Care: * You may shower, but do not rub incision. You may let the warm soapy water run over it. Be sure to dry the incision well after bathing. * Do not shave directly over the incision until it is healed. * DO NOT IMMERSE THE INCISION IN A TUB/POOL/etc. UNTIL HEALED. Restrictions: * Do not drive for at least one week or if you are still taking any narcotic pain medication. * Do not lift anything heavier than a gallon of milk for one week after going home. Possible Complications: * Numbness - It is normal to have some numbness around the incision. Numbness can extend beyond the incision to areas of the neck, ear and face. The numbness is due to bruising of nerves during the surgery and will gradually improve over a period of months. * Hoarseness/Difficulty Speaking and Swallowing - The bruising of nerves in the neck can also cause a hoarse voice, difficulty speaking or swallowing. This may improve over time, HOWEVER, if it continues for more than a few days please contact our office ([phone]). * Excessive Swelling - There will be some swelling immediately after surgery which usually resolves within one week. If you notice that the swelling is getting worse, notify your surgeon ([phone]). * Drainage/Bleeding - If there is any drainage or bleeding, it should be a very small amount (less than a teaspoon per day). If you have excessive bleeding or drainage from the incision, call your surgeon ([phone]) right away. ACTIVATION OF EMERGENCY MEDICAL SYSTEM: Call 911, immediately, if you experience any of the following: Warning Signs and Symptoms of Stroke: * Sudden numbness or weakness of the face, arm or leg, especially on one side of the body * Sudden confusion, trouble speaking or understanding * Sudden trouble seeing in one or both eyes * Sudden trouble walking, dizziness, loss of balance or coordination * Sudden severe headache with no cause Do not delay calling 911 if you experience any warning signs or symptoms of a stroke. Delay in seeking medical attention may affect what treatments can be given to you. Risk Factors for Stroke: You can reduce your chances of stroke by working with your medical provider to adopt a healthy lifestyle. Some specific ways to lower your chance of stroke are: * If you are a smoker, now is the time to stop smoking cigarettes * If you are diabetic, improve the control of your blood sugars * Avoid excessive amounts of alcohol * Control high blood pressure * Lose weight if you are overweight * Be sure to lead an active lifestyle * Eat a healthy diet low in salt, cholesterol and fat You should know about other risk factors for stroke that you are unable to control. These include: * Age 55 years or older * Male gender * Certain racial groups: , or / * Family History of Stroke, Mini stroke or Heart Attack * Sickle Cell Disease You will be receiving a call from the Vascular Surgery Nurse after you are discharged. FOLLOW UP VISIT: It is important for you to keep your follow up appointments with your medical provider. Keep any scheduled doctor appointments. Call [phone] to schedule a follow up appointment if one not already scheduled. Pending Studies at Discharge: No Stand-Alone Forms: My [facility], Smoking Cessation Medications and DC Order Prescriptions: New pseudoephedrine HCl [Sudafed] 30 mg tablet 30 mg PO TID PRN (Reason: nasal congestion) Qty: 20 0RF Rx Instructions: Take one tab if systolic blood pressure less than 100 oxycodone-acetaminophen [Percocet] 5-325 mg tablet 1 tab PO Q6H PRN (Reason: pain) Qty: 7 0RF Continued montelukast 10 mg tablet See Rx Instructions .ROUTE .COMPLEX Qty: 100 3RF Dose Instruction: TAKE 1 TABLET DAILY Rx Instructions: TAKE 1 TABLET DAILY atorvastatin 40 mg tablet See Rx Instructions .ROUTE .COMPLEX Qty: 100 3RF Dose Instruction: TAKE 1 TABLET DAILY Rx Instructions: TAKE 1 TABLET DAILY aspirin 81 mg tablet 81 mg PO HS clopidogrel [Plavix] 75 mg Tablet 75 mg PO QAM polyethylene glycol 3350 [Miralax] 17 gram/dose Powder 17 g PO DAILY PRN (Reason: Constipation) coenzyme Q10 [Co Q-10] 100 mg Capsule 100 mg PO QPM Patient Comments: lunch Centrum Adult 50 Plus 80 mcg Tablet,Chewable 1 tab PO QPM lisinopril 20 mg tablet 20 mg PO BID Rx Instructions: TAKE 1 TABLET TWICE A DAY fexofenadine 180 mg tablet 180 mg PO QAM famotidine 20 mg tablet 20 mg PO BID Rx Instructions: TAKE 1 TABLET TWICE A DAY mometasone 50 mcg/actuation spray,non-aerosol 2 spray intranasal QAM Rx Instructions: USE 2 SPRAYS NASALLY DAILY azelastine 137 mcg (0.1 %) aerosol,spray 2 spray intranasal QPM Patient Comments: w/lunch Rx Instructions: administer into each nostril albuterol sulfate 90 mcg/actuation HFA aerosol inhaler 2 inh inhalation BID Rx Instructions: USE 2 INHALATIONS EVERY 4 HOURS NEEDED FOR BRONCHOSPASM naproxen 500 mg tablet 500 mg PO Q12H PRN (Reason: Pain) Rx Instructions: TAKE 1 TABLET EVERY 12 HOURS NEEDED FOR PAIN Discharge Orders: Discharge Order (Routine); Ordered 10/04/23 Ordered By: Tawanda Kellogg Admission Data Admit Date/Time: 10/02/23 07:38 Attending Provider: Tawanda Kellogg Admit Provider: Tawanda Kellogg Primary Care Provider: Glenn Hidalgo Other Providers: Rasta Garnica; Alfredo Pereira; Tyler Urbina; Sunny Zhang; Parminder Boggs; Greta Rodrigues; Rudy Delarosa; Denisha Lucas; Mar Haynes; Enrico Ochoa John J; Ivonne Ramirez; Ghanshyam Nino; Feliz Slater; Yaya Santana; Abdias Marie; Bryan Rodriguez; Sundeep Rocha Jr; Nick Awan; Holly Jernigan; Salome Jimenez; Chris Ballard; Chris Beaver; Brad Real; Rochelle Redman; Natan Kaplan; Mylene James; Melo Costa.; Herve Stinson; Dmitriy Krause.; Lam Torres
[2023-10-04 16:16] VITALS: RESP 16
[2023-10-04 16:18] VITALS: BP 125/49; PULSE 55
== END 2023-10-04 17:58 | disposition home or self-care (01) | DRG 36 ==
LOC: ASU 05:49 → 1E 07:38
PROC: EV.TCAR (2023-10-02 08:00)

== ENCOUNTER 2023-10-14 18:31 | Inpatient (IN) ==
--- NOTE | 2023-10-14 18:39 | ED Triage Note ---
Date of Service October 14, 2023 Provider in Triage Author: Wander Pimentel History of Present Illness This patient was briefly evaluated while in triage. An abbreviated physical exam was performed. This patient is a 78-year-old Male who presents to the ED for evaluation of unable to urinate since last night. Catheter taken out morning after TCAR surgery, went home with the catheter for a few days. Abdominal pressure and bloating. Daughter says he was feeling warm at home, but not sure if he had a fever. No back pain. No blood in urine. Physical Exam CONSTITUTIONAL: No acute distress. Well appearing. RESPIRATORY: Clear to auscultation bilaterally. Equal expansion bilaterally. CARDIOVASCULAR: Irregular rate and rhythm. Normal peripheral perfusion. GASTROINTESTINAL: Soft, distended. Nontender. No CVAT. INTEGUMENTARY: Surgical scar on right anterior chest/neck, no signs of infection or active bleeding. NEUROLOGIC: Alert and oriented X 4 with normal affect. Normal speech. Initial orders for labs and / or imaging were placed and patient was placed in the waiting area until a bed is available. Please see further documentation for the full ED course.
--- NOTE | 2023-10-14 19:38 | XRay Report ---
SINGLE VIEW CHEST CLINICAL HISTORY: Fever FINDINGS: A PA chest radiograph is compared to study dated 09/26/2023. The heart is enlarged top normal for projection noting atherosclerotic calcification of the thoracic aorta. The pulmonary vasculature is noncongested. The lungs and pleural spaces are clear. No pneumothorax is seen. The skeletal struc tures are osteopenic. The bony thorax is grossly intact. IMPRESSION: No active disease in the chest. ACT 112: Negative or not required by law. Electronically signed by: Rony Lane M.D. 10/14/2023 7:36 PM
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
[2023-10-14 20:54] LABS: Appearance Urine Clear (Clear); Bacteria Urine Automated 2+ (None Seen); Bilirubin Urine Negative (Negative); Blood Urine Negative (Negative); Cast Urine Automated 0-2 /lpf (0-2); Color Urine Yellow; Epithelial Cell Urine Auto 0-2 /hpf (0-2); Glucose Urine UA 1+ (Negative); Ketones Urine Negative (Negative); Leukocyte Esterase Urine Trace (Negative); Nitrite Urine Negative (Negative); Protein Urine Trace (Negative); Urobilinogen Urine Negative (Negative)
[2023-10-14 21:00] LABS: Basophils # (auto) 0.02 K/uL (0.00-0.20); Basophils % (auto) 0.2 %; Eosinophils # (auto) 0.02 K/uL (0.00-0.50); Eosinophils % (auto) 0.2 %; Hemoglobin 12.6 g/dl (14.0-18.0); Immature Granulocytes # (auto) 0.04 K/uL (0.01-0.20); Immature Granulocytes % (auto) 0.4 %; Lymphocytes # (auto) 0.68 K/uL (1.20-3.40); Lymphocytes % (auto) 6.7 %; Mean Corpuscular Hemoglobin 31.5 pg (25.0-34.0); Mean Corpuscular Hgb Conc 34.1 g/dL (32.0-36.0); Mean Corpuscular Volume 92.5 fL (80.0-100.0); Mean Platelet Volume 10.3 fL (9.4-12.4); Monocytes # (auto) 0.77 K/uL (0.11-0.59); Monocytes % (auto) 7.6 %; Neutrophils # (auto) 8.57 K/uL (1.40-6.50); Neutrophils % (auto) 84.9 %; Platelet Count 246 K/uL (130-400); RDW Coefficient of Variation 12.6 % (11.5-14.5); RDW Standard Deviation 43.1 fL (36.4-46.3)
[2023-10-14 21:09] LABS: Albumin Level 4.2 gm/dl (3.4-5.0); Anion Gap 6 (3-11); Bilirubin,Total 0.6 mg/dl (0.2-1.0); Calcium 10.1 mg/dl (8.6-10.3); Carbon Dioxide 24 mmol/L (21-32); Chloride 105 mmol/L (98-107); Potassium 4.2 mmol/L (3.5-5.1); Sodium 135 mmol/L (136-145)
[2023-10-14 21:15] LABS: Alanine Aminotransferase 12 U/L (7-52); Albumin Globulin Ratio 1.6 (0.9-2); Alkaline Phosphatase 139 U/L (34-104); Aspartate Aminotransferase 13 U/L (13-39); BUN Creatinine Ratio 18.5 (10-20); Blood Urea Nitrogen 22 mg/dl (6-23); Est GFR (African American) 66.5 ml/min; Est GFR (Non-African American) 57.3 ml/min; Globulin 2.6 gm/dl (2.5-4.0); Glucose 105 mg/dl (70-99(Fasting)); Total Protein 6.8 gm/dl (6.0-8.3)
--- NOTE | 2023-10-14 21:37 | CT Scan Report ---
Exam(s): CT HEAD Without Contrast EXAM: CT Head Without Intravenous Contrast CLINICAL HISTORY: Reason for exam: headache; changes in vision. TECHNIQUE: Axial computed tomography images of the head/brain without intravenous contrast. CTDI is 35 mGy and DLP is 1001 mGy-cm. Automated exposure control was utilized for the study. A dose lowering technique was utilized adhering to the principles of ALARA. COMPARISON: CT head 04/15/2022.. FINDINGS: Study is limited by patient motion. Brain: Age-appropriate generalized atrophy. No acute stroke. Moderate diffuse supratentorial periventricular and subcortical white matter changes. No acute hemorrhage or abnormal extra-axial fluid collection. Ventricles: No hydrocephalus. No midline shift. Bones/joints: Unremarkable. No acute fracture. Soft tissues: Unremarkable. Sinuses: Unremarkable as visualized. No acute sinusitis. IMPRESSION: No acute abnormality. Electronically signed by: Natan Marroquin M.D. 10/14/23 21:35 PM
[2023-10-14] MEDS: cefTRIAXone SODIUM 2,000 MG/50 ML BAG IV STA (21:47)
--- NOTE | 2023-10-14 21:49 | CT Scan Report ---
Exam(s): CT ABDOMEN + PELVIS Without Contrast EXAM: CT Abdomen and Pelvis Without Intravenous Contrast CLINICAL HISTORY: Reason for exam: lower abdominal pressure; unable to void. TECHNIQUE: Axial computed tomography images of the abdomen and pelvis without intravenous contrast. CTDI is 35 mGy and DLP is 1001 mGy-cm. Automated exposure control was utilized for the study. A dose lowering technique was utilized adhering to the principles of ALARA. COMPARISON: No relevant prior studies available. FINDINGS: Lung bases: Unremarkable. No mass. No consolidation. ABDOMEN: Liver: Unremarkable. Gallbladder and bile ducts: 2 cm cyst of the right lobe of liver. No calcified stones. No ductal dilation. Pancreas: Unremarkable. No ductal dilation. Spleen: Unremarkable. No splenomegaly. Adrenals: Unremarkable. No mass. Kidneys and ureters: Bilateral renal cysts, largest upper pole right kidney 4.9 cm diameter. No obstructive uropathy. No obstructing renal or ureteral calculi. No hydronephrosis or hydroureter. Stomach and bowel: Small hiatal hernia. No obstruction or ileus. Sigmoid colon diverticulosis without evidence for diverticulitis. PELVIS: Appendix: No findings to suggest acute appendicitis. Bladder: Garcia catheter within the contracted urinary bladder with diffuse wall thickening and hyperdense contents. No stones. Reproductive: Prominent 4.7 x 3.9 cm prostate gland. ABDOMEN and PELVIS: Intraperitoneal space: No free air. No free fluid. 6 Bones/joints: No acute fracture. Chronic appearing slight superior endplate depression of the L1 and L2 vertebral bodies. Degenerative changes of the spine. Soft tissues: Unremarkable. Vasculature: Diffuse atherosclerotic vascular calcification. Infrarenal abdominal aortic aneurysm 3.1 cm diameter. Lymph nodes: Unremarkable. No enlarged lymph nodes. IMPRESSION: Garcia catheter within the contracted urinary bladder with diffuse wall thickening and hyperdense contents. Considerations included cystitis with hemorrhage or complex fluid/pus within the urinary bladder. No obstructive uropathy. Bilateral renal cysts. Mildly prominent prostate gland. Atherosclerotic vascular calcifications. Infrarenal abdominal aortic aneurysm. Small hiatal hernia. No bowel obstruction or ileus. Senescent changes. Electronically signed by: Natan Marroquin M.D. 10/14/23 21:48 PM
[2023-10-14] MEDS ORDERED: ARTIFICIAL TEARS OPB PRN (22:51)
[2023-10-14] MEDS ORDERED: ONDANSETRON INJ 2 MG/ML 2 ML VIAL IV PRN (22:54)
[2023-10-14] MEDS ORDERED: ACETAMINOPHEN 1,000 MG/100 ML VIAL IV PRN (22:55)
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
[2023-10-14] MEDS: TAMSULOSIN HCL 0.4 MG CAP PO ONE (23:57)
[2023-10-14] MEDS: SODIUM CHLORIDE 0.9% 1,000 ML IV SCH (23:57)
[2023-10-14] MEDS: PANTOprazole 40 MG in SYRINGE 0 ML IV STA (23:57)
[2023-10-15] MEDS: Patient's HEIGHT &/or WEIGHT Needed STA (00:03)
[2023-10-15 04:35] LABS: Basophils # (auto) 0.02 K/uL (0.00-0.20); Basophils % (auto) 0.2 %; Hematocrit (blood only) 34.3 % (42.0-52.0); Hemoglobin 11.8 g/dl (14.0-18.0); Immature Granulocytes # (auto) 0.04 K/uL (0.01-0.20); Immature Granulocytes % (auto) 0.4 %; Lymphocytes # (auto) 0.68 K/uL (1.20-3.40); Lymphocytes % (auto) 6.2 %; Mean Corpuscular Hgb Conc 34.4 g/dL (32.0-36.0); Mean Platelet Volume 10.4 fL (9.4-12.4); Monocytes # (auto) 0.77 K/uL (0.11-0.59); Neutrophils # (auto) 9.52 K/uL (1.40-6.50); Neutrophils % (auto) 86.2 %; Platelet Count 216 K/uL (130-400); RDW Coefficient of Variation 12.6 % (11.5-14.5); Red Blood Count 3.69 M/uL (4.70-6.10); White Blood Count 11.03 K/ul (4.8-10.8)
[2023-10-15 04:43] LABS: Albumin Level 3.6 gm/dl (3.4-5.0); BUN Creatinine Ratio 15.3 (10-20); Calcium 9.7 mg/dl (8.6-10.3); Est GFR (African American) 59.2 ml/min; Est GFR (Non-African American) 51.1 ml/min; Magnesium 1.8 mg/dl (1.7-2.4); Phosphorus 2.5 mg/dl (2.5-4.9); Potassium 4.4 mmol/L (3.5-5.1)
[2023-10-15] MEDS: CEFEPIME 2,000 MG in SYRINGE 0 ML IV SCH (06:35)
[2023-10-15] MEDS: ALBUTEROL HFA 8 GM INHALER INH SCH (07:44)
--- NOTE | 2023-10-15 08:05 | Electrocardiogram Report ---
Test Reason : Blood Pressure : / mmHG Vent. Rate : 089 BPM Atrial Rate : 089 BPM P-R Int : 160 ms QRS Dur : 150 ms QT Int : 380 ms P-R-T Axes : 032 -10 126 degrees QTc Int : 462 ms Sinus rhythm with occasional Premature ventricular complexes Left atrial enlargement Left bundle branch block Abnormal ECG When compared with ECG of 03-OCT-2023 09:47, Premature ventricular complexes are now Present Vent. rate has increased BY 41 BPM Confirmed by Feliz Slater ([id number]) on 10/15/2023 8:05:05 AM Referred By: Confirmed By:Feliz Slater
[2023-10-15] MEDS: CLOPIDOGREL BISULFATE 75 MG TAB PO SCH (09:14)
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
[2023-10-15] MEDS: TAMSULOSIN HCL 0.4 MG CAP PO SCH (11:33)
[2023-10-15] MEDS: PANTOprazole 40 MG in SYRINGE 0 ML IV SCH (11:33)
[2023-10-15] MEDS: lisinopril 10 MG TAB PO SCH (11:33)
--- NOTE | 2023-10-15 11:33 | Hospitalist Progress Note ---
Date of Service October 15, 2023 Assessment & Plan (1) Acute urinary retention: Plan: Following patients procedure on 10/01, he developed urinary retention and had harris catheter placed. This was removed on 10/11/2023. He then presented back to the ED on 10/13 with complaints of not being able to void, however he only had a little over 200mL of urine in bladder. Suspect symptoms more related to bladder spasm from UTI. Harris placed in ER -Etiology multifactorial including BPH, recent procedure, and UTI. -Hypertensive, tachycardic, temp of 37.9C -tylenol prn for fevers or pain -Harris intact and draining appropriately. Urine color yellow -Reviewed labs 10/14: WBC 11.03, hgb 11.8, procal 0.09, creatinine 1.31 -Urine culture prelims revealed pinpoint growth, await final results -Blood cultures pending -Patient started on Cefepime and switched to Ceftriaxone 10/14. Will tailor based on culture results. -Urology consulted, reviewed recommendations -No acute intervention warranted -Harris catheter 7-10 days for bladder rest and decompression -Continue Tamsulosin -Discussion of outpatient cystoscopy. He is to follow up in office -1L of LR given 10/14. AM CBC and BMP. (2) Sepsis: Plan: With tachycardia, tachypnea, fever, mild leukocytosis, and UTI as source treatment as above Present on Admission?: Yes (3) Complicated urinary tract infection: Plan: see plan above. (4) Carotid artery stenosis: Plan: Patient had recent right TCAR on 10/02/[address] Kellogg. Upon presentation to ED on 10/13, patient was complaining of blurry vision and on 10/14 complaining of feeling like his head is "bloated". -Continue Aspirin and Plavix -Reviewed CT of head from 10/13: negative for acute pathology -MRI was cleared by Dr. Kellogg given recent stent placement. -Reviewed brain MRI 10/14: central midbrain focus of restricted diffusion is nonspecific and can be seen in subacute CVA or osmotic demyelination -Consulted neurology, appreciate recommendations. Plan PT/OT consulted. Chronic conditions: Asthma: albuterol inhaler q6h prn Hyperlipidemia: Atorvastatin 40mg daily Hypertension:resume lisinopril 10mg BID DVT prophylaxis: Lovenox Diet: heart healthy Code status: full code disposition: tele Admission and Anticipated Discharge Date Admission Date: October 14, 2023 Supervising Physician Co-Signing Physician Notes PA Supervision Note: I did not personally see or examine the patient today, but I verified all [place] points of ANA Pichardo's assessment and plan with the following exceptions/additions: None Subjective Patient was seen and examined at bedside this morning. He reports to be doing okay today. He states he believes his blurry vision was due to the fact he had no water to drink and this has improved. He is feeling like his head is "bloated". He denied abdominal pain, shortness of breath, or chest pain. He was tachycardic and hypertensive at time of encounter. Physical Exam 2 Constitutional: WD/WN, vitals as above Respiratory: normal respiratory effort, lungs clear to auscultation Cardiovascular: Rate/Rhythm: regular rhythm and + tachycardic Gastrointestinal (Abdomen): normal bowel sounds, soft, nontender, no hepatosplenomegaly Skin: no rashes, warm and dry Neurologic: PERRL, EOMI, accommodation nl, no face palsy, no dysarthria Psychiatric: A+Ox3, euthymic affect Results & Data Results & Data Vital Signs (Past 12 Hours) Vital Signs Temp Pulse Pulse Resp BP Pulse Ox O2 Del Method 10/15/23 09:12 37.2 C 97 H 22 150/70 H 98 Room Air 10/15/23 08:42 91 H 10/15/23 07:59 100 H 18 96 Room Air 10/15/23 03:44 36.4 C L 99 H 19 157/81 H 98 Room Air 10/15/23 02:23 92 H 18 157/81 H 98 Room Air Laboratory Results 10/15/23 03:51 10/15/23 03:51 Diagnostic Findings Chest X-Ray 10/14/23 18:39 IMPRESSION: No active disease in the chest. Electronically signed by: Rony Lane M.D. 10/14/2023 7:36 PM Abdomen/Pelvis CT 10/14/23 19:44 IMPRESSION: Harris catheter within the contracted urinary bladder with diffuse wall thickening and hyperdense contents. Considerations included cystitis with hemorrhage or complex fluid/pus within the urinary bladder. No obstructive uropathy. Bilateral renal cysts. Mildly prominent prostate gland. Atherosclerotic vascular calcifications. Infrarenal abdominal aortic aneurysm. Small hiatal hernia. No bowel obstruction or ileus. Senescent changes. Electronically signed by: Natan Marroquin M.D. 10/14/23 21:[address] 10/14/23 19:44 IMPRESSION: No acute abnormality. Electronically signed by: Natan Marroquin M.D. 10/14/23 21:35 PM PG Care Time/CCT Total # of Minutes Spent Total Time Spent with Patient: Total time spent is greater than 50% in coordination of care (as documented) at patient's floor/unit and/or counseling patient: Coding Level of Care Code 14227 SUB INP/OBS CARE 3/50MIN Diagnoses Acute urinary retention R33.8 Sepsis A41.9 Complicated urinary tract infection N39.0 Stenosis of right carotid artery I65.21 Laterality: right (4) Carotid artery stenosis Laterality: right Qualified Code(s): I65.21 - Occlusion and stenosis of right carotid artery
[2023-10-15] MEDS: GADOBUTROL 65ML VIAL IV ONE (14:00)
[2023-10-15] MEDS: cefTRIAXone SODIUM 1,000 MG/50 ML BAG IV SCH (14:55)
--- NOTE | 2023-10-15 15:23 | Magnetic Resonance Report ---
MR brain wo/w con CLINICAL HISTORY: blurry vision TECHNIQUE: Multiplanar and multisequence MR images of the brain were obtained prior to and following administration of gadolinium contrast. Comparison: Comparison is made to MRI brain 10/31/[address] head 10/14/2023 FINDINGS: Possible increased DWI signal in the central mid brain. There is minimal T1 hyperintensity and T2 hyp ointensity. Foci of T2 and FLAIR hyperintensity are noted in the paraventricular areas consistent wit h chronic small vessel ischemic disease. Ex vacuo ventriculomegaly and sulcal enlargement is noted co mpatible with diffuse volume loss. There is no mass effect or midline shift. There is no evidence of acute intraparenchymal hemorrhage. No extra axial fluid collections are seen. The corpus callosum, p ituitary gland, and cerebellar tonsils appear grossly unremarkable. Flow voids of the major intracranial arterial vessels are identified. The imaged portions of the para nasal sinuses, mastoid air cells, and orbits are unremarkable. IMPRESSION: Central midbrain focus of restricted diffusion is nonspecific, and can be seen in subacute CVA or osm otic demyelination. ACT 112: Negative or not required by law. Electronically signed by: Saud Goodwin M.D. 10/15/2023 3:22 PM
[2023-10-15] MEDS: LACTATED RINGER'S 1,000 ML IV SCH (15:40)
[2023-10-15] MEDS: ACETAMINOPHEN 325 MG TAB PO ONE (16:25)
[2023-10-15] MEDS: ENOXAPARIN INJ 40 MG/0.4 ML SYR SQ SCH (18:25)
[2023-10-15 19:23] LABS: A calco-baum cmplx NotReported Not Detected (NotDetected); Bact fragilis Not Reported Not Detected (NotDetected); Blood Culture Id Panel See PCR Comment (NotDetected); C auris Not Reported Not Detected (NotDetected); Calbicans Not Reported Not Detected (NotDetected); Candida glabrata Not Reported Not Detected (NotDetected); Candida krusei Not Reported Not Detected (NotDetected); Cneoformans/gatti Not Reported Not Detected (NotDetected); Cparapsilosis Not Reported Not Detected (NotDetected); E cloacae compx Not Reported Not Detected (NotDetected); Efaecalis Not Reported Not Detected (NotDetected); Efaecium Not Reported Not Detected (NotDetected); Enterobacterales Not Reported Not Detected (NotDetected); Escherichia coli Not Reported Not Detected (NotDetected); H influenzae Not Reported Not Detected (NotDetected); K aerogenes Not Reported Not Detected (NotDetected); Koxytoca Not Reported Not Detected (NotDetected); Kpneumoniae grp Not Reported Not Detected (NotDetected); Lmonocyt Not Reported Not Detected (NotDetected); N meningitidis Not Reported Not Detected (NotDetected); P aeruginosa Not Reported Not Detected (NotDetected); Proteus spp Not Reported Not Detected (NotDetected); Salmonella spp Not Reported Not Detected (NotDetected); Smarcescens Not Reported Not Detected (NotDetected); Staph lugdunensis Not Reported Not Detected (NotDetected); Staph spp. Not Reported DETECTED (NotDetected); Staphaureus Not Reported Not Detected (NotDetected); Staphepi Not Reported Not Detected (NotDetected); Stenmaltophilia Not Reported Not Detected (NotDetected); Strep agal(GrpB) Not Reported Not Detected (NotDetected); Strep pneum Not Reported Not Detected (NotDetected); Strep pyog (GrpA) Not Reported Not Detected (NotDetected); Strep spp Not Reported Not Detected (NotDetected)
[2023-10-15 19:42] LABS: Staphylococcus spp. DETECTED (NotDetected)
[2023-10-15] MEDS: ALBUTEROL HFA 8 GM INHALER INH PRN (19:52)
[2023-10-15] MEDS: ASPIRIN 81 MG ECTAB PO SCH (20:52)
[2023-10-16 07:23] LABS: Basophils # (auto) 0.02 K/uL (0.00-0.20); Basophils % (auto) 0.3 %; Eosinophils # (auto) 0.09 K/uL (0.00-0.50); Eosinophils % (auto) 1.3 %; Hematocrit (blood only) 31.5 % (42.0-52.0); Hemoglobin 10.6 g/dl (14.0-18.0); Immature Granulocytes # (auto) 0.01 K/uL (0.01-0.20); Immature Granulocytes % (auto) 0.1 %; Lymphocytes # (auto) 1.16 K/uL (1.20-3.40); Lymphocytes % (auto) 17.3 %; Mean Corpuscular Hemoglobin 31.3 pg (25.0-34.0); Mean Corpuscular Hgb Conc 33.7 g/dL (32.0-36.0); Mean Corpuscular Volume 92.9 fL (80.0-100.0); Mean Platelet Volume 10.4 fL (9.4-12.4); Monocytes # (auto) 0.85 K/uL (0.11-0.59); Monocytes % (auto) 12.6 %; Neutrophils # (auto) 4.59 K/uL (1.40-6.50); Neutrophils % (auto) 68.4 %; Platelet Count 169 K/uL (130-400); RDW Coefficient of Variation 12.5 % (11.5-14.5); RDW Standard Deviation 42.7 fL (36.4-46.3); Red Blood Count 3.39 M/uL (4.70-6.10); White Blood Count 6.72 K/ul (4.8-10.8)
[2023-10-16 07:37] LABS: Albumin Level 3.1 gm/dl (3.4-5.0); BUN Creatinine Ratio 16.5 (10-20); Calcium 9.1 mg/dl (8.6-10.3); Creatinine Clr Calc Pharmacy 42.4 ml/min; Est GFR (African American) 55.1 ml/min; Est GFR (Non-African American) 47.5 ml/min; Magnesium 1.9 mg/dl (1.7-2.4); Potassium 4.1 mmol/L (3.5-5.1)
--- NOTE | 2023-10-16 09:16 | Urology Progress Note ---
Date of Service October 16, 2023 Assessment & Plan (1) Acute urinary retention: (2) BPH (benign prostatic hyperplasia): (3) Complicated urinary tract infection: Plan 78yo/M who is admitted with urinary retention and suspected UTI. CT abd pelvis on arrival demonstrated a Garcia catheter within the bladder with diffuse wall thickening and hyperdense contents, No obstructing stone or hydronephrosis, and Mildly prominent prostate gland. - Afebrile, hemodynamically stable. - Labs - WBC 6.72, Hemoglobin 10.6, Creatinine 1.39. - Urine culture pending; Blood cultures prelim gram positive cocci clusters - No acute intervention warranted - Continue antibiotics and tailor as culture data becomes available. - Maintain Garcia catheter to allow for bladder rest/decompression while treating infection. - Continue tamsulosin. - We discussed outpatient cystoscopy to further evaluate the bladder and prostate. Patient/daughter agreeable. - Will arrange outpatient follow-up with our service for voiding trial and continued care. - Urology will follow peripherally. Please call with any questions or concerns. Admission and Anticipated Discharge Date Admission Date: October 14, 2023 Subjective Pt seen at bedside this AM Awake, resting in bed on arrival No acute distress No reported pain at present Denies f/c/n/v Garcia draining clear yellow urine Review of Systems Constitutional: as per Subjective / HPI Gastrointestinal: as per Subjective / HPI Genitourinary: + as per Subjective / HPI Physical Exam Constitutional: no acute distress Respiratory: no respiratory distress and no labored breathing Neurologic: awake Psychiatric: A+Ox3, euthymic affect Genitourinary: Garcia intact Results & Data Vital Signs (Past 12 Hours) Vital Signs Temp Pulse Pulse Resp BP Pulse Ox O2 Del Method 10/16/23 07:41 17 97 Room Air 10/16/23 07:19 36.6 C 51 L 18 152/65 H 94 Room Air 10/16/23 03:33 36.9 C 76 22 144/70 H 97 Room Air 10/15/23 22:37 36.7 C 71 18 150/67 H 95 Room Air 10/15/23 21:52 81 PG Care Time/CCT Total # of Minutes Spent Total Time Spent with Patient: Total time spent is greater than 50% in coordination of care (as documented) at patient's floor/unit and/or counseling patient: Coding Level of Care Code 66437 SUB INP/OBS CARE 235MIN Diagnoses Acute urinary retention R33.8 BPH (benign prostatic hyperplasia) N40.0 Complicated urinary tract infection N39.0
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
[2023-10-16] MEDS ORDERED: VANCOMYCIN CONSULT ACTIVE PRN (09:52)
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
[2023-10-16] MEDS: VANCOMYCIN HCL 1,500 MG in SODIUM CHLORIDE 0.9% 500 ML IV ONE (10:38)
--- NOTE | 2023-10-16 11:17 | Hospitalist Progress Note ---
Date of Service October 16, 2023 Assessment & Plan (1) Acute urinary retention: Plan: Following patients procedure on 10/01, he developed urinary retention and had harris catheter placed. This was removed on 10/11/2023. He then presented back to the ED on 10/13 with complaints of not being able to void, however he only had a little over 200mL of urine in bladder. Suspect symptoms more related to bladder spasm from UTI. Harris placed in ER -Etiology multifactorial including BPH, recent procedure, and UTI. -Hypertensive, tachycardic, temp of 37.9C on 10/14 -tylenol prn for fevers or pain -fever free almost 24 hours -Harris intact and draining appropriately. Urine color yellow -procal 10/14: 0.09 -Reviewed labs 10/15: WBC 6.72, hgb 10.6,creatinine 1.39 -Urine culture prelims revealed staphylococcus species -Blood cultures revealed gram + cocci clusters -ID consulted 10/15, reviewed recommendations -repeat blood cultures -TTE -vancomycin pharmacy dosed protocol -Continue on Ceftriaxone -Urology consulted, reviewed recommendations -No acute intervention warranted -maintain harris cath to allow for bladder rest/decompression while active infection -Continue Tamsulosin -Discussion of outpatient cystoscopy. He is to follow up in office -1L of LR given 10/14. AM CBC and BMP. (2) Sepsis: Plan: -UTI source -treatment as above (3) Complicated urinary tract infection: Plan: see plan above. (4) Carotid artery stenosis: Plan: Patient had recent right TCAR on 10/02/[address] Kellogg. Upon presentation to ED on 10/13, patient was complaining of blurry vision and on 10/14 complaining of feeling like his head is "bloated". -Continue Aspirin and Plavix -Reviewed CT of head from 10/13: negative for acute pathology -MRI was cleared by Dr. Kellogg given recent stent placement. -Reviewed brain MRI 10/14: central midbrain focus of restricted diffusion is nonspecific and can be seen in subacute CVA or osmotic demyelination -Reviewed neurology recommendations from 10/15: -likely metabolic changes related lesion and appears benign (no further workup) -DAPT for carotid artery stenosis & avoid hyponatremia Plan PT/OT consulted. appreciate recommendations Chronic conditions: Asthma: albuterol inhaler q6h prn Hyperlipidemia: Atorvastatin 40mg daily Hypertension:resume lisinopril 10mg BID DVT prophylaxis: Lovenox Diet: heart healthy Code status: full code disposition: tele Updated daughter at bedside on 10/15. All questions answered. Admission and Anticipated Discharge Date Admission Date: October 14, 2023 Subjective Patient was seen and examined this morning at bedside. He reports to be feeling well today. No fevers documented overnight. He denies chest pain, shortness of breath, or abdominal pain. He has not had a BM since he was admitting to hospital. He is tolerating his diet well. Physical Exam 2 Constitutional: WD/WN, vitals as above Eyes: PERRL, conjunctivae normal, anicteric sclerae Respiratory: normal respiratory effort, lungs clear to auscultation Cardiovascular: RRR, no murmur, no edema Gastrointestinal (Abdomen): normal bowel sounds, soft, nontender, no hepatosplenomegaly Skin: no rashes, warm and dry Psychiatric: A+Ox3, euthymic affect Results & Data Results & Data Vital Signs (Past 12 Hours) Vital Signs Temp Pulse Resp BP Pulse Ox O2 Del Method 10/16/23 07:41 17 97 Room Air 10/16/23 07:19 36.6 C 51 L 18 152/65 H 94 Room Air 10/16/23 03:33 36.9 C 76 22 144/70 H 97 Room Air Laboratory Results 10/16/23 07:00 10/16/23 07:00 Diagnostic Findings Brain MRI 10/15/23 12:13 IMPRESSION: Central midbrain focus of restricted diffusion is nonspecific, and can be seen in subacute CVA or osmotic demyelination. Electronically signed by: Saud Goodwin M.D. 10/15/2023 3:22 PM PG Care Time/CCT Total # of Minutes Spent Total Time Spent with Patient: Total time spent is greater than 50% in coordination of care (as documented) at patient's floor/unit and/or counseling patient: Coding Level of Care Code 17756 SUB INP/OBS CARE 3/50MIN Diagnoses Acute urinary retention R33.8 Sepsis without acute organ dysfunction, due to unspecified organism A41.9 Sepsis type: sepsis due to unspecified organism Sepsis acute organ dysfunction status: without acute organ dysfunction Complicated urinary tract infection N39.0 Stenosis of right carotid artery I65.21 Laterality: right (2) Sepsis Sepsis type: sepsis due to unspecified organism Sepsis acute organ dysfunction status: without acute organ dysfunction Qualified Code(s): A41.9 - Sepsis, unspecified organism (4) Carotid artery stenosis Laterality: right Qualified Code(s): I65.21 - Occlusion and stenosis of right carotid artery
--- NOTE | 2023-10-16 11:41 | Pharmacy Report ---
Pharmacy PK ABX Note - Date of Service October 16, 2023 - Assessment and Plan Assessment 78 year old M receiving vancomycin for treatment of bacteremia- likely urinary source. Pertinent microbiologic data includes: blood cultures with GPCs (2/4 aerobic bottles) BCID2 staph species. Urine culture growing staph species as well (final identification and sensitivities pending). Repeat blood cultures today pending. ID following. Day # 1 of vancomycin therapy. Plan Vancomycin * Loading dose: 1500 mg IV x 1 * Maintenance dose: 1250 mg IV every 24 hours starting 10/15 @ 2200. * Regimen is predicted to achieve target AUC/LOW of 400-600 mg/L.hr * Random level ordered for: 10/19/23 @ 1200 Pharmacy will continue to follow and will adjust dose/frequency as necessary. Thank you. Pharmacy has transitioned to AUC monitoring for vancomycin. AUC/LOW is the pr eferred PK/PD target and is associated with decreased risk of nephrotoxicity compared to traditional trough targets.
[2023-10-16] MEDS: POLYETHYLENE (MIRALAX) 17 GM PACK PO SCH (18:52)
[2023-10-16] MEDS: VANCOMYCIN HCL 1,250 MG in SODIUM CHLORIDE 0.9% 250 ML IV SCH (21:31)
[2023-10-17 06:04] LABS: Basophils # (auto) 0.02 K/uL (0.00-0.20); Basophils % (auto) 0.3 %; Eosinophils % (auto) 3.5 %; Hemoglobin 10.5 g/dl (14.0-18.0); Immature Granulocytes # (auto) 0.03 K/uL (0.01-0.20); Immature Granulocytes % (auto) 0.5 %; Lymphocytes # (auto) 0.94 K/uL (1.20-3.40); Lymphocytes % (auto) 16.4 %; Mean Corpuscular Hemoglobin 31.2 pg (25.0-34.0); Mean Corpuscular Hgb Conc 33.9 g/dL (32.0-36.0); Mean Platelet Volume 10.7 fL (9.4-12.4); Monocytes # (auto) 0.64 K/uL (0.11-0.59); Monocytes % (auto) 11.2 %; Neutrophils # (auto) 3.89 K/uL (1.40-6.50); Neutrophils % (auto) 68.1 %; Platelet Count 169 K/uL (130-400); RDW Coefficient of Variation 12.6 % (11.5-14.5); RDW Standard Deviation 42.6 fL (36.4-46.3); Red Blood Count 3.37 M/uL (4.70-6.10); White Blood Count 5.72 K/ul (4.8-10.8)
[2023-10-17 06:05] LABS: BUN Creatinine Ratio 17.6 (10-20); Est GFR (African American) 59.2 ml/min; Est GFR (Non-African American) 51.1 ml/min; Magnesium 1.9 mg/dl (1.7-2.4); Potassium 4.2 mmol/L (3.5-5.1)
--- NOTE | 2023-10-17 10:08 | Pharmacy Report ---
Pharmacy PK ABX Note - Date of Service October 17, 2023 - Assessment and Plan Assessment 10/16: Day 2 Vancomycin + Ceftriaxone. 10/13 blood and urine cultures growing staph sp. Blood cultures repeated 10/15 pending. 10/15:78 year old M receiving vancomycin for treatment of bacteremia- likely urinary source. Pertinent microbiologic data includes: blood cultures with GPCs (2/4 aerobic bottles) BCID2 staph species. Urine culture growing staph species as well (final identification and sensitivities pending). Repeat blood cultures today pending. ID following. Day # 1 of vancomycin therapy. Plan Vancomycin * Current regimen: 1250 mg IV every 24 hours * Random level obtained 10/17/23 resulted as 18.3 mcg/mL. This is predicted to achieve target AUC/LOW of 400-600 mg/L.hr * Predicted AUC at steady state: 497 mg/L.hr * Continue Vancomycin 1250 mg IV every 24 hours * Will repeat level in the next 48-72 hours if therapy is continued and/or change in patient clinical status Ceftriaxone 1g IV q24h Pharmacy will continue to follow and will adjust dose/frequency as necessary. Thank you. Pharmacy has transitioned to AUC monitoring for vancomycin. AUC/LOW is the preferred PK/PD target and is associated with decreased risk of nephrotoxicity compared to traditional trough targets.
--- NOTE | 2023-10-17 11:11 | XCELERA ---
[id number]
--- NOTE | 2023-10-17 12:36 | Hospitalist Progress Note ---
Date of Service October 17, 2023 Assessment & Plan (1) Acute urinary retention: Plan: Following patients procedure on 10/01, he developed urinary retention and had harris catheter placed. This was removed on 10/11/2023. He then presented back to the ED on 10/13 with complaints of not being able to void, however he only had a little over 200mL of urine in bladder. Suspect symptoms more related to bladder spasm from UTI. Harris placed in ER -Etiology multifactorial including BPH, recent procedure, and UTI. -Hypertensive, tachycardic, temp of 37.9C on 10/14 -tylenol prn for fevers or pain -Harris intact and draining appropriately. Urine color yellow -procal 10/15: 0.25 -Reviewed labs 10/16: WBC 5.72, hgb 10.5 -Urine culture prelims revealed staphylococcus species -Blood cultures 10/13 revealed gram + cocci clusters, sensitivities pending -Repeat blood cultures 10/15 negative at 24h florentino, will follow up at 48h florentino -ID consulted 10/15, reviewed recommendations -Reviewed TTE 10/16: LVEF 45-50%, mild global hypokinesis of LV, moderate sized area of inferobasal akinesis, mild aortic regurgitation, mod-severe mitral regurgitation -vancomycin pharmacy dosed protocol -Continue on Ceftriaxone -Urology consulted, reviewed recommendations -No acute intervention warranted -maintain harris cath to allow for bladder rest/decompression while active infection -Continue Tamsulosin -Discussion of outpatient cystoscopy. He is to follow up in office -Did discuss w/ urology 10/16, can consider inpatient void trial prior to discharge. -1L of LR given 10/14. AM CBC and BMP. (2) Sepsis: Plan: -UTI source -treatment as above (3) Complicated urinary tract infection: Plan: see plan above. (4) Carotid artery stenosis: Plan: Patient had recent right TCAR on 10/02/[address] Kellogg. Upon presentation to ED on 10/13, patient was complaining of blurry vision and on 10/14 complaining of feeling like his head is "bloated". -Continue Aspirin and Plavix -Reviewed CT of head from 10/13: negative for acute pathology -MRI was cleared by Dr. Kellogg given recent stent placement. -Reviewed brain MRI 10/14: central midbrain focus of restricted diffusion is nonspecific and can be seen in subacute CVA or osmotic demyelination -Reviewed neurology recommendations from 10/15: -likely metabolic changes related lesion and appears benign (no further workup) -DAPT for carotid artery stenosis & avoid hyponatremia Plan -PT/OT consulted. Both recommending inpatient rehab prior to discharge to home. -Patient and daughter are to discuss options regarding discharge 10/16 (inpatient rehab vs home healthvs SNF etc.) Chronic conditions: Asthma: albuterol inhaler q6h prn Hyperlipidemia: Atorvastatin 40mg daily Hypertension:resume lisinopril 10mg BID DVT prophylaxis: Lovenox Diet: heart healthy Code status: full code disposition: tele Called and spoke with daughter 10/16 regarding patient's condition. All questions were answered at end of call. Admission and Anticipated Discharge Date Admission Date: October 14, 2023 Subjective Patient was seen and examined this morning. Patient reports to be feeling better than yesterday. He was able to ambulate today and was sitting at his chair when I examined him. He reports no urinary symptoms. He denies chest pain or sh ortness of breath. He was able to have a BM yesterday evening following a dose of Miralax. he reports he takes that daily at home. I also spoke to patient's daughter via phone today. They both would like to have catheter removed if possible prior to d/c as they have concerns of caring for it at home. Physical Exam Constitutional: WD/WN, vitals as above Eyes: PERRL, conjunctivae normal, anicteric sclerae Respiratory: normal respiratory effort, lungs clear to auscultation Cardiovascular: RRR, no murmur, no edema Neurologic: PERRL, EOMI, accommodation nl, no face palsy, no dysarthria Psychiatric: A+Ox3, euthymic affect Results & Data Results & Data Vital Signs (Past 12 Hours) Vital Signs Temp Pulse Resp BP Pulse Ox O2 Del Method 10/17/23 10:28 36.6 C 89 18 130/63 96 Room Air 10/17/23 07:15 68 16 96 Room Air 10/17/23 07:04 36.5 C 66 18 156/70 H 94 Room Air 10/17/23 02:50 36.4 C L 69 20 118/67 97 Room Air PG Care Time/CCT Total # of Minutes Spent Total Time Spent with Patient: Total time spent is greater than 50% in coordination of care (as documented) at patient's floor/unit and/or counseling patient: Coding Level of Care Code 52253 SUB INP/OBS CARE 3/50MIN Diagnoses Acute urinary retention R33.8 Sepsis without acute organ dysfunction, due to unspecified organism A41.9 Sepsis acute organ dysfunction status: without acute organ dysfunction Sepsis type: sepsis due to unspecified organism Complicated urinary tract infection N39.0 Stenosis of right carotid artery I65.21 Laterality: right (2) Sepsis Sepsis acute organ dysfunction status: without acute organ dysfunction Sepsis type: sepsis due to unspecified organism Qualified Code(s): A41.9 - Sepsis, unspecified organism (4) Carotid artery stenosis Laterality: right Qualified Code(s): I65.21 - Occlusion and stenosis of right carotid artery
[2023-10-18 07:12] LABS: Hematocrit (blood only) 30.5 % (42.0-52.0); Hemoglobin 10.5 g/dl (14.0-18.0); Mean Corpuscular Hemoglobin 31.5 pg (25.0-34.0); Mean Corpuscular Hgb Conc 34.4 g/dL (32.0-36.0); Mean Corpuscular Volume 91.6 fL (80.0-100.0); Mean Platelet Volume 10.6 fL (9.4-12.4); Platelet Count 193 K/uL (130-400); RDW Coefficient of Variation 12.3 % (11.5-14.5); RDW Standard Deviation 41.4 fL (36.4-46.3); Red Blood Count 3.33 M/uL (4.70-6.10); White Blood Count 5.49 K/ul (4.8-10.8)
[2023-10-18 07:33] LABS: Creatinine Clr Calc Pharmacy 49.1 ml/min; Est GFR (African American) 65.8 ml/min; Est GFR (Non-African American) 56.8 ml/min; Potassium 3.9 mmol/L (3.5-5.1)
--- NOTE | 2023-10-18 08:22 | Infectious Disease Progress Nt ---
Date of Service October 18, 2023 Assessment & Plan (1) Coagulase negative Staphylococcus bacteremia: (2) Complicated urinary tract infection: (3) Acute urinary retention: (4) BPH (benign prostatic hyperplasia): Plan 78yo M with h/o carotid stenosis s/p left CEA 7yrs ago and right TCAR on 10/02/23 with post-procedure urinary retention s/p harris, allergic rhinitis, GERD, HTN, HLD who presented on 10/13 with inability to void x 1d after harris was removed on 10/10. Noted dysuria. Here he has been afebrile, vss. WBC 10, Cr 1.19, LFT wnl. PCT 0.09.UA with 6-10 WBC. CXR negative. CTAP with harris within urinary bladder with diffuse wall thickening and hyperdense contents, considerations included cystitis with hemorrhage or complex fluid/pus within the bladder, no obstructive uropathy, bl renal cysts, mildly prominent prostate. CTH neg. MRI brin with midbrain focus of restricted diffusion, can be subacute CVA or osmotic demyelination. He was started on CTX for UTI. BCX returned with Staph spp. UCX with CONS. ID consulted 10/15. Vanc added. TTE with severe mitral regurgitation, mild AR, no vegetations seen. CONS on blood cultures likely related to UTI in the setting of recent harris. Cultures noted to be methicillin resistant. Given bacteremia, he will need IV antibiotics for a duration of 2 weeks, which can be done with daptomycin. # CONS bacteremia # UTI 2/2 CONS # Urinary retention s/p harris # BPH - Layla stopped CTX - Layla changed vancomycin to daptomycin 600mg IV q24h (8-10mg/kg, BMI < 30, wt 74.6kg, CrCl > 30, CPK 59) - no statins while on daptomycin - continue abx for 14 days (start from first negative BCX on 10/15, end through 10/28) - monitor weekly CBC w diff, CMP, and CPK while on IV abx - can follow up with PCP ID will discontinue active follow up at this time. Please do not hesitate to reconsult the Infectious Diseases service as needed. Blessing Dolan MD [facility], Division of Infectious Diseases [facility]: [phone] Admission and Anticipated Discharge Date Admission Date: October 14, 2023 Subjective Subsequent visit was provided via telemedicine using two-way real-time interactive telecommunication between the patient and the telemedicine provider. For the duration of the visit, the provider was performing the assessment from a different facility than the patient. This includesuse of bluetooth stethoscope forauscultationperformed by the telepresenter that the telemedicine provider can hear if described in the physical exam. Payable Processor contact information: Please call [facility] Call Center . (Phone Number For Physician Use Only) After establishing a telemedicine visit, patient was: Patient was verified with two unique identifiers, Patient/authorized rep acknowledged consent and understanding and Gave permission to continue telehealth session Time Spent with Patient: Subsequent => 55 min Patient reports feeling well. No abdominal pain, vomiting, diarrhea. No urinary discomfort. Physical Exam Physical Exam: General: Awake, alert, no acute distress HEENT: NC/AT, EOMI, mmm Neck: supple Abdomen: soft, NT/ND Ext: no LE edema Skin: no rash : harris with clear yellow urine Neuro: moving all extremities Results & Data Vital Signs (Past 12 Hours) Vital Signs Temp Pulse Resp BP Pulse Ox O2 Del Method 10/18/23 07:11 36.5 C 75 18 149/71 H 93 Room Air Laboratory Results Labs reviewed. Diagnostic Findings Imaging reviewed.
--- NOTE | 2023-10-18 09:24 | Pharmacy Report ---
Pharmacy PK ABX Note - Date of Service October 18, 2023 - Assessment and Plan Assessment 10/17: Blood cultures 10/15 negative at 24 hours. Ceftriaxone discontinued. 10/13 cultures coag negative staph (oxacillin resistant). Urine culture- coag negative staph (oxacillin resistant). 10/16: Day 2 Vancomycin + Ceftriaxone. 10/13 blood and urine cultures growing staph sp. Blood cultures repeated 10/15 pending. 10/15:78 year old M receiving vancomycin for treatment of bacteremia- likely urin shellie source. Pertinent microbiologic data includes: blood cultures with GPCs (2/4 aerobic bottles) BCID2 staph species. Urine culture growing staph species as well (final identification and sensitivities pending). Repeat blood cultures today pending. ID following. Day # 1 of vancomycin therapy. Plan Vancomycin * Current regimen: 1250 mg IV every 24 hours * Predicted AUC at steady state: 472 mg/L.hr with 80% probability- given bacteremia will adjust dose to target higher achievement probability/mid-upper goal range * Change to Vancomycin 1500 mg IV every 24 hours * Will repeat level 10/19 @ 1200 Pharmacy will continue to follow and will adjust dose/frequency as necessary. Thank you. Pharmacy has transitioned to AUC monitoring for vancomycin. AUC/LOW is the preferred PK/PD target and is associated with decreased risk of nephrotoxicity compared to traditional trough targets.
[2023-10-18] MEDS: DAPTOmycin 600 MG in SYRINGE 0 ML IV SCH (10:36)
--- NOTE | 2023-10-18 14:19 | Hospitalist Progress Note ---
Date of Service October 18, 2023 Assessment & Plan (1) Acute urinary retention: Plan: Following patients procedure on 10/01, he developed urinary retention and had harris catheter placed. This was removed on 10/11/2023. He then presented back to the ED on 10/13 with complaints of not being able to void, however he only had a little over 200mL of urine in bladder. Suspect symptoms more related to bladder spasm from UTI. Harris placed in ER -Etiology multifactorial including BPH, recent procedure, and UTI. -Hypertensive, tachycardic, temp of 37.9C on 10/14 -tylenol prn for fevers or pain -Harris intact and draining appropriately. Urine color yellow -procal 10/15: 0.25 -Reviewed labs 10/17: WBC 5.49, hgb 10.5, CPK 59 -Urine culture positive for staphylococcus species -Blood cultures 10/13 revealed gram + cocci clusters, sensitivities reviewed 10/17 and discussed with ID -Repeat blood cultures 10/15 negative at 48 hour florentino -ID consulted 10/15, reviewed updated recommendations 10/17 -Discontinue ceftriaxone -Vancomycin was switched to daptomycin 600mg IV q 24h -Avoid statins on daptomycin -Continue Antibiotic for 14 days (from 1st negative blood culture on 10/15, end through 10/28) -Weekly CBC w/ Diff, CMP, CPK on IV abx. -Reviewed TTE 10/16: LVEF 45-50%, mild global hypokinesis of LV, moderate sized area of inferobasal akinesis, mild aortic regurgitation, mod-severe mitral regurgitation -Urology consulted, reviewed recommendations -No acute intervention warranted -maintain harris cath to allow for bladder rest/decompression while active infection -Continue Tamsulosin -Discussion of outpatient cystoscopy. -plan for patient to be discharged home and follow up in outpatient urology office on 10/23 for void trial. -1L of LR given 10/14. AM CBC and BMP. (2) Sepsis: Plan: -UTI source -treatment as above (3) Complicated urinary tract infection: Plan: see plan above. (4) Carotid artery stenosis: Plan: Patient had recent right TCAR on 10/02/[address] Kellogg. Upon presentation to ED on 10/13, patient was complaining of blurry vision and on 10/14 complaining of feeling like his head is "bloated". -Continue Aspirin and Plavix -Reviewed CT of head from 10/13: negative for acute pathology -MRI was cleared by Dr. Kellogg given recent stent placement. -Reviewed brain MRI 10/14: central midbrain focus of restricted diffusion is nonspecific and can be seen in subacute CVA or osmotic demyelination -Reviewed neurology recommendations from 10/15: -likely metabolic changes related lesion and appears benign (no further workup) -DAPT for carotid artery stenosis & avoid hyponatremia Plan -PT/OT consulted. Both recommending inpatient rehab prior to discharge to home. Chronic conditions: Asthma: albuterol inhaler q6h prn Hyperlipidemia: Holding atorvastatin while on dapto Hypertension:resume lisinopril 10mg BID DVT prophylaxis: Lovenox Diet: heart healthy Code status: full code disposition: med/surg -Awaiting approval for home healthy agency prior to discharge. Called and spoke with daughter 10/17 regarding patient's condition. All questions were answered at end of call. Admission and Anticipated Discharge Date Admission Date: October 14, 2023 Subjective Patient seen and examined this morning at bedside. Patient reports to be feeling well today. He denies any complaints and he is looking forward to returning home. Did also call and speak with daughter who would like home health set up to help with harris catheter and IV line. Physical Exam 2 Constitutional: WD/WN, vitals as above Eyes: PERRL, conjunctivae normal, anicteric sclerae Respiratory: normal respiratory effort, lungs clear to auscultation Cardiovascular: RRR, no murmur, no edema Psychiatric: A+Ox3, euthymic affect Results & Data Results & Data Vital Signs (Past 12 Hours) Vital Signs Temp Pulse Resp BP Pulse Ox O2 Del Method 10/18/23 07:35 Room Air 10/18/23 07:11 36.5 C 75 18 149/71 H 93 Room Air Laboratory Results 10/18/23 06:45 10/18/23 06:45 PG Care Time/CCT Total # of Minutes Spent Total Time Spent with Patient: Total time spent is greater than 50% in coordination of care (as documented) at patient's floor/unit and/or counseling patient: Coding Level of Care Code 47051 SUB INP/OBS CARE 3/50MIN Diagnoses Acute urinary retention R33.8 Sepsis without acute organ dysfunction, due to unspecified organism A41.9 Sepsis acute organ dysfunction status: without acute organ dysfunction Sepsis type: sepsis due to unspecified organism Complicated urinary tract infection N39.0 Stenosis of right carotid artery I65.21 Laterality: right (2) Sepsis Sepsis acute organ dysfunction status: without acute organ dysfunction Sepsis type: sepsis due to unspecified organism Qualified Code(s): A41.9 - Sepsis, unspecified organism (4) Carotid artery stenosis Laterality: right Qualified Code(s): I65.21 - Occlusion and stenosis of right carotid artery
--- NOTE | 2023-10-18 17:01 | Discharge Summary ---
Date of Service October 18, 2023 Admission HPI Per Admitting Provider The patient is an 78-year-old male with a past medical history including hypertension, carotid stenosis, hyperlipidemia, GERD, allergic rhinitis. He underwent a right transcarotid artery revascularization by Dr. Kellogg on 10/02/2023, had difficulty with urination postprocedure, and had had a Harris catheter reinserted at that time. Patient was seen by urology in the outpatient setting on 10/11/2023, had Harris catheter removed in office, and was warned that if he had symptoms of inability to urinate, he was to call their office or come to the ED for assessment. His daughter found out that the patient had not urinated since 10:30 PM on 10/13/2023, and he was brought to the emergency department this evening for assessment. The patient has had decreased oral intake over the past 2 days, and notes intermittent blurring of vision in both eyes. Principal Diagnosis urinary tract infection, sepsis Discharge Exam Constitutional WD/WN, vitals as above Eyes PERRL, conjunctivae normal, anicteric sclerae Respiratory normal respiratory effort, lungs clear to auscultation Cardiovascular RRR, no murmur, no edema Psychiatric A+Ox3, euthymic affect Discharge Data Allergies Allergy/AdvReac Type Severity Reaction Status Date / Time No Known Drug Allergies Allergy Mild . Verified 10/14/23 23:49 pollen extracts Allergy Mild Asthma Verified 10/14/23 23:49 Iodinated Contrast Media Allergy Rash Verified 10/14/23 23:49 shellfish derived Allergy Anaphylaxis Verified 10/14/23 23:49 Dust Allergy Mild Asthma Uncoded 10/14/23 23:49 Animal dander - Cats Allergy Unknown Uncoded 10/14/23 23:49 Animal dander - Dogs Allergy Unknown Uncoded 10/14/23 23:49 Consultations 10/14/23 22:06 ED Decision to Admit Stat 10/15/23 02:11 Consult Urology Routine 10/15/23 16:00 Consult Neurology Routine 10/16/23 09:05 Consult Infectious Diseases Routine Ordered Studies 10/18/23 06:45 10/18/23 06:45 Vital Signs Temp 37.0 C 10/18/23 15:07 Pulse 87 10/18/23 15:07 Resp 18 10/18/23 15:07 BP 116/73 10/18/23 15:07 Pulse Ox 95 10/18/23 15:07 O2 Del Method Room Air 10/18/23 15:07 Chest X-Ray 10/14/23 18:39 IMPRESSION: No active disease in the chest. Electronically signed by: Rony Lane M.D. 10/14/2023 7:36 PM Abdomen/Pelvis CT 10/14/23 19:44 IMPRESSION: Harris catheter within the contracted urinary bladder with diffuse wall thickening and hyperdense contents. Considerations included cystitis with hemorrhage or complex fluid/pus within the urinary bladder. No obstructive uropathy. Bilateral renal cysts. Mildly prominent prostate gland. Atherosclerotic vascular calcifications. Infrarenal abdominal aortic aneurysm. Small hiatal hernia. No bowel obstruction or ileus. Senescent changes. Electronically signed by: Natan Marroquin M.D. 10/14/23 21:[address] 10/14/23 19:44 IMPRESSION: No acute abnormality. Electronically signed by: Natan Marroquin M.D. 10/14/23 21:35 PM Brain MRI 10/15/23 12:13 IMPRESSION: Central midbrain focus of restricted diffusion is nonspecific, and can be seen in subacute CVA or osmotic demyelination. Electronically signed by: Saud Goodwin M.D. 10/15/2023 3:22 PM Hospital Course (1) Acute urinary retention: Following patient's carotid artery procedure on 10/01, he developed urinary retention from anesthesia and had harris catheter placed. This was then removed on 10/11/2023. He then presented back to the ED on 10/14/2023 with complaints of not being able to avoid. Bladder scan revealed he only had a littler over 200mL of urine in his bladder. His symptoms were more likely associated with bladder spasms from UTI vs urinary retention. Harris was placed in the ER. On 10/14, patient was hypertensive, tachycardic, and had a temp of 37.9. He was given tylenol and fever resolved. His harris was intact and draining appropriately with clear yellow urine. His procal from 10/15 was 0.25. Lbas on 10/17 revealed WNL WBC and hgb of 10.5. His blood and urine culture from 10/13 were positive for staphylococcus species and ID was consulted. He was originally placed on vancomycin and ceftriaxone. Sensitives returned on 10/17 and ID recommended 12 additional days of daptomycin and discontinued Ceftriaxone. His follow up cultures on 10/15 were negative at 48 hour florentino. ID also recommended a TTE that was completed on 10/16. This revealed LVEF 40-50%, mild global hypokinesis of LV, moderate sized area of inferobasal akinesis, mild aortic regurgitation, and moderate-severe mitral regurgitation. Urology was consulted during his stay and they had recommended no acute intervention. They recommended to keep harris in while infection is treated. He is to follow up at their outpatient clinic on 10/23 for void trial. (2) Sepsis: plan as above (3) Complicated urinary tract infection: plan as above (4) Carotid artery stenosis: Patient had recent right TCAR on 10/[address] Kellogg. Upon presentation to the ED he complained of blurry vision and his head feeling like it was "bloated. He was continued on aspirin and plavix. He had a head CT that was negative. His MRI revealed central midbrain focus of restricted diffusion that was nonspecific and could be seen in subacute CVA or osmotic demyelination. Neurology was consulted. Their recommendations were that it was likely metabolic related changes and appeared benign. They recommended no further workup and to avoid hyponatremia. Plan Patient was evaluated by PT/OT that did recommend given his weakness, inpatient rehab. Patient did walk 300ft while inpatient and given those results, it was highly unlikely rehab would be covered by insurance. After discussion with patient and daughter, they elected for home health therapy. This is set up to begin 10/18 at 11 am. He is to receive his daptomycin once daily for the next 12 days and obtain weekly CBC, CMP, CPK while on abx. He is also to hold his statin while on abx. For his chronic conditions he can continue DAPT, albuterol inhaler, and lisinopril. All questions were answered at time of discharge. He can follow with his PCP in 1-2 weeks. Total Time Total Time Spent Total Time Spent (In Minutes): 45 Discharge Plan Discharge Items Patient Disposition: Home - Home Health Services Reason For Visit: UTI, URINARY RETENTION, DEHYDRATION Discharge Diagnosis: Urinary Tract infection, Sepsis Activity: As commented below Activity Comment: gradually resume previous activity Non-emergency contact: Primary Care Provider and Urologist Call non-emergency contact if: you have any medication questions, your symptoms worsen and you have a fever Follow-up/Referrals: Glenn Hidalgo MD [Primary Care Provider] - 10/24/23 3:30 pm (w/ Mirna gabriel ) Antione Oseguera MD [Physician] - 11/05/23 2:40 pm [facility],Nurse [FAKE FOR SCHEDULES] - 10/24/23 10:00 am Diet: Heart Healthy Addtl Attending Provider Instructions: Mr. Salamanca, You were hospitalized for difficult urinating. Upon admission, you were found to have an urinary tract infection that migrated into your blood and you became septic. You also had an MRI of your brain and were evaluated by neurology which stated that the abnormalities of restricted diffusion found were benign and required no further workup. Please see further recommendations below regarding your discharge. -You will be set up with home health. They will be at your home to see you 10/18 at 11:00 am. -You will receive IV antibiotics (daptomycin) once a day at home for the next 12 days. Your next dose is 10/18. -While on this medication, please do not take your atorvastatin. Please talk about resuming this medication with your PCP. -You will also be getting weekly lab work to make sure you have no abnormalities in your lab while on this antibiotic. This is set up with home health. -You will be going home with a Harris catheter. Please follow up with the urology office on 10/23 regarding this. -Please follow up with Dr. Kellogg as scheduled. -Please follow up with your PCP within 1-2 weeks of discharge. -For your chronic conditions: -Continue Aspirin and Plavix for your carotid artery stenosis. -Continue your inhaler for asthma -Continue your lisinopril for your high blood pressure. -If you develop any worsening symptoms including fever, chills, chest pain, shortness of breath, inability to produce urine please report back to the ER immediately. Sincerely, Lisha Pichardo PA-C Pending Studies at Discharge: No Stand-Alone Forms: My [employer], Smoking Cessation Medications and DC Order Prescriptions: Continued montelukast 10 mg tablet See Rx Instructions .ROUTE .COMPLEX Qty: 100 3RF Dose Instruction: TAKE 1 TABLET DAILY Rx Instructions: TAKE 1 TABLET DAILY clopidogrel [Plavix] 75 mg Tablet 75 mg PO QAM polyethylene glycol 3350 [Miralax] 17 gram/dose Powder 17 g PO Q OTHER DAY PRN (Reason: Constipation) coenzyme Q10 [Co Q-10] 100 mg Capsule 100 mg PO QPM Patient Comments: lunch Centrum Adult 50 Plus 80 mcg Tablet,Chewable 1 tab PO QPM lisinopril 20 mg tablet 10 mg PO BID Rx Instructions: TAKE 1 TABLET TWICE A DAY fexofenadine 180 mg tablet 180 mg PO QAM famotidine 20 mg tablet 20 mg PO BID Rx Instructions: TAKE 1 TABLET TWICE A DAY mometasone 50 mcg/actuation spray,non-aerosol 2 spray intranasal QAM Rx Instructions: USE 2 SPRAYS NASALLY DAILY azelastine 137 mcg (0.1 %) aerosol,spray 2 spray intranasal QPM Patient Comments: w/lunch Rx Instructions: administer into each nostril albuterol sulfate 90 mcg/actuation HFA aerosol inhaler 2 inh inhalation BID Rx Instructions: USE 2 INHALATIONS EVERY 4 HOURS NEEDED FOR BRONCHOSPASM naproxen 500 mg tablet 500 mg PO Q12H PRN (Reason: Pain) Rx Instructions: TAKE 1 TABLET EVERY 12 HOURS NEEDED FOR PAIN pseudoephedrine HCl [Sudafed] 30 mg tablet 30 mg PO TID PRN (Reason: nasal congestion) Qty: 20 0RF Rx Instructions: Take one tab if systolic blood pressure less than 100 aspirin 81 mg Tablet,Delayed Release (Dr/Ec) 81 mg PO DAILY Held atorvastatin 40 mg tablet See Rx Instructions .ROUTE .COMPLEX Qty: 100 3RF Hold Instructions: Resume on 11/17/23. until seen by PCP Dose Instruction: TAKE 1 TABLET DAILY Rx Instructions: TAKE 1 TABLET DAILY Discharge Orders: Discharge Order (Routine); Ordered 10/18/23 Ordered By: Lisha Monroy/Other Patient Handouts: UTIs Admission Data Admit Date/Time: 10/14/23 22:56 Attending Provider: Kraig Montes Admit Provider: Hemal Lord Primary Care Provider: Glenn Hidalgo Other Providers: Hemal Lord; Chris Mcdonald; Rasta Ortiz; Jackie Souza Victoria D.; Lucy Peralta; Cady Hein; Glenn Hilario; Stephany Small; Carmencita Carmenan,Blessing; Jimi Arce; Mirna Marr; Any Ballard; Clark,Fax; [facility]; [facility] Other Interventions: Discharge Summary Assessment (RN) Last Done: 10/18/23 16:41 Supervising Physician Co-Signing Physician Notes During face to face encounter, I obtained a brief physical examination, discussed hospital stay with patient and discharge instructions with patient. I discussed discharge plan of care with TIM Pichardo. I reviewed above note and agree with it except for the following: Patient treated with a urinary retention. Patient placed with harris catheter. Will be discharged on daptomycin. Coding Level of Care Code 74101 INP/OBS DISCH >30 MIN Diagnoses Acute urinary retention R33.8 Sepsis without acute organ dysfunction, due to unspecified organism A41.9 Sepsis acute organ dysfunction status: without acute organ dysfunction Sepsis type: sepsis due to unspecified organism Complicated urinary tract infection N39.0 Stenosis of right carotid artery I65.21 Laterality: right
[2023-10-18] MEDS ORDERED: VANCOMYCIN HCL 1,500 MG in SODIUM CHLORIDE 0.9% 500 ML IV SCH (22:00)
== END 2023-10-18 18:38 | disposition home health service (06) | DRG 872 ==
LOC: ED 18:31 → EDINP 22:56 → SUATTDRO 22:56 → 2S 23:35 → 3W 10-17 18:14
DX: Z79.899 Other long term (current) drug therapy; N39.0 Urinary tract infection, site not specified; N40.1 Benign prostatic hyperplasia with lower urinary tract symptoms; R33.8 Other retention of urine; Z79.82 Long term (current) use of aspirin; Z86.16 Personal history of COVID-19; Z86.79 Personal history of other diseases of the circulatory system; J45.909 Unspecified asthma, uncomplicated; E86.0 Dehydration; I10 Essential (primary) hypertension; K21.9 Gastro-esophageal reflux disease without esophagitis; A41.1 Sepsis due to other specified staphylococcus; E78.5 Hyperlipidemia, unspecified

== ENCOUNTER 2023-10-20 15:35 | Inpatient (IN) ==
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
[2023-10-20] MEDS: SODIUM CHLORIDE 0.9% 1,000 ML IV SCH (16:24)
[2023-10-20 16:36] LABS: Basophils # (auto) 0.04 K/uL (0.00-0.20); Basophils % (auto) 0.5 %; Eosinophils # (auto) 0.05 K/uL (0.00-0.50); Eosinophils % (auto) 0.6 %; Hematocrit (blood only) 32.6 % (42.0-52.0); Hemoglobin 11.2 g/dl (14.0-18.0); Immature Granulocytes # (auto) 0.03 K/uL (0.01-0.20); Immature Granulocytes % (auto) 0.4 %; Lymphocytes # (auto) 0.73 K/uL (1.20-3.40); Lymphocytes % (auto) 9.3 %; Mean Corpuscular Hemoglobin 31.2 pg (25.0-34.0); Mean Corpuscular Hgb Conc 34.4 g/dL (32.0-36.0); Mean Corpuscular Volume 90.8 fL (80.0-100.0); Mean Platelet Volume 10.4 fL (9.4-12.4); Monocytes # (auto) 0.66 K/uL (0.11-0.59); Monocytes % (auto) 8.4 %; Neutrophils # (auto) 6.34 K/uL (1.40-6.50); Neutrophils % (auto) 80.8 %; Platelet Count 267 K/uL (130-400); RDW Coefficient of Variation 12.3 % (11.5-14.5); Red Blood Count 3.59 M/uL (4.70-6.10); White Blood Count 7.85 K/ul (4.8-10.8)
[2023-10-20 16:44] LABS: Appearance Urine Clear (Clear); Bacteria Urine Automated None Seen (None Seen); Bilirubin Urine Negative (Negative); Blood Urine 2+ (Negative); Calcium Oxalate Crystals Urine Present (None Prsent); Cast Urine Automated 0-2 /lpf (0-2); Color Urine Dark Yellow; Epithelial Cell Urine Auto 0-2 /hpf (0-2); Glucose Urine UA Negative (Negative); Ketones Urine Negative (Negative); Leukocyte Esterase Urine 1+ (Negative); Nitrite Urine Negative (Negative); Protein Urine 2+ (Negative); Specific Gravity Urine 1.021 (1.000-1.030); Urobilinogen Urine Negative (Negative); pH Urine 5.5 (4.5-7.5)
[2023-10-20 16:55] LABS: Albumin Level 3.4 gm/dl (3.4-5.0); BUN Creatinine Ratio 22.3 (10-20); Bilirubin Direct 0.1 mg/dl (0-0.2); Bilirubin,Total 0.6 mg/dl (0.2-1.0); Calcium 9.9 mg/dl (8.6-10.3); Creatinine Clr Calc Pharmacy 54.9 ml/min; Est GFR (African American) 79.1 ml/min; Est GFR (Non-African American) 68.3 ml/min; Total Protein 6.5 gm/dl (6.0-8.3)
[2023-10-20 17:01] LABS: Troponin I High Sensitivity 27.2 pg/ml (0-20)
--- NOTE | 2023-10-20 17:05 | XRay Report ---
XR chest 1V portable CLINICAL HISTORY: Sepsis COMPARISON STUDY: Chest radiograph October 14, 2023. FINDINGS: Lung volumes are normal. Lungs are clear. There is no pneumothorax or pleural effusion. Car diac size is stable. Mediastinal contours are normal. There is no evidence for pulmonary edema. Mild interstitial thickening is unchanged. This is chronic. IMPRESSION: No acute cardiopulmonary findings. No change in appearance of the chest. ACT 112: Negative or not required by law. Electronically signed by: Wiliam Romero M.D. 10/20/2023 5:03 PM
[2023-10-20 17:07] LABS: INR 1.1 (0.9-1.1); Partial Thromboplastin Time 27 Seconds (21-31); Prothrombin Time 11.4 Seconds (9.0-12.0)
[2023-10-20 17:22] LABS: Adenovirus PCR Not Detected (NotDetected); Bordetella parapertussis PCR Not Detected (NotDetected); Bordetella pertussis PCR Not Detected (NotDetected); Chlamydia pneumoniae PCR Not Detected (NotDetected); Coronavirus 229E PCR Not Detected (NotDetected); Coronavirus CoV-2 (COVID19)PCR Not Detected (NotDetected); Coronavirus HKU1 PCR Not Detected (NotDetected); Coronavirus NL63 PCR Not Detected (NotDetected); Coronavirus OC43PCR Not Detected (NotDetected); Human Metapneumovirus PCR Not Detected (NotDetected); Influenza A PCR Not Detected (NotDetected); Influenza B PCR Not Detected (NotDetected); Mycoplasma pneumoniae PCR Not Detected (NotDetected); Parainfluenza Virus 1 PCR Not Detected (NotDetected); Parainfluenza Virus 2 PCR Not Detected (NotDetected); Parainfluenza Virus 3 PCR Not Detected (NotDetected); Parainfluenza Virus 4 PCR Not Detected (NotDetected); Respiratory Syncytial VirusPCR Not Detected (NotDetected); Rhinovirus/Enterovirus PCR Not Detected (NotDetected)
--- NOTE | 2023-10-20 17:27 | Ultrasound Report ---
RIGHT LOWER EXTREMITY VENOUS DOPPLER CLINICAL HISTORY: swelling COMPARISON STUDY: No previous studies for comparison. TECHNIQUE: Sonography of the deep venous system of the right lower extremity was performed. Compress ion and augmentation were evaluated. FINDINGS: The right common femoral, superficial femoral and popliteal veins were compressible. Augme ntation was normal. Flow was shown within the deep calf vessels. IMPRESSION: No evidence of deep venous thrombus within the right lower extremity. ACT 112: Negative or not required by law. Electronically signed by: Wiliam Romero M.D. 10/20/2023 5:24 PM
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
[2023-10-20 18:39] LABS: Phosphorus 2.9 mg/dl (2.5-4.9)
[2023-10-20 18:47] LABS: Troponin I High Sensitivity 28.6 pg/ml (0-20)
[2023-10-20] MEDS: LIDOCAINE 5% 1 PATCH TD STA (19:05)
--- NOTE | 2023-10-20 19:15 | XRay Report ---
XR knee RT 1 or 2V routine CLINICAL HISTORY: Right knee pain. COMPARISON: None FINDINGS: Alignment of the knee is anatomic. There is no acute fracture. There is no osseous lesion. There is no joint effusion. Chondrocalcinosis within the menisci is noted. There is suprapatellar ch ondrocalcinosis. Moderate right knee osteophytosis. IMPRESSION: 1. No fractures within the right knee. No right knee joint effusion. 2. Chondrocalcinosis within the right knee, as described above. Mild right knee osteoarthritis. ACT 112: Negative or not required by law. Electronically signed by: Wiliam Romero M.D. 10/20/2023 7:14 PM
--- NOTE | 2023-10-20 19:17 | XRay Report ---
XR tibia fibula RT 2V CLINICAL HISTORY: Right leg pain. COMPARISON: None FINDINGS: There is no fracture within the right tibia or fibula. Distal right tibia and fibula are d epicted on the right ankle radiographs which will be reported separately. There is extensive vascular calcification. Chondrocalcinosis within the menisci of the right knee. IMPRESSION: 1. No fractures within the right tibia or fibula. 2. Extensive vascular calcification. ACT 112: Negative or not required by law. Electronically signed by: Wiliam Romero M.D. 10/20/2023 7:15 PM
--- NOTE | 2023-10-20 19:18 | XRay Report ---
XR hip RT 2V w pelvis CLINICAL HISTORY: right hip/LE pain COMPARISON: CT of the abdomen and pelvis October 14, 2023. FINDINGS: Sacroiliac joints and symphysis pubis are intact. There are no acute fractures within the pelvis or hips. There is moderate bilateral hip osteoarthritis. IMPRESSION: 1. No fractures within the pelvis or hips. 2. Moderate bilateral hip osteoarthritis. ACT 112: Negative or not required by law. Electronically signed by: Wiliam Romero M.D. 10/20/2023 7:16 PM
--- NOTE | 2023-10-20 19:19 | XRay Report ---
XR ankle RT 2V CLINICAL HISTORY: RLE pain COMPARISON: None FINDINGS: Alignment of the right ankle is anatomic. There is no acute fracture. Soft tissue swelling is noted. There is extensive vascular calcification. There is right ankle chondrocalcinosis within m ild degenerative changes. IMPRESSION: 1. No fracture or dislocation within the right ankle. 2. Right ankle soft tissue swelling. 3. Right ankle chondrocalcinosis with mild degenerative changes. ACT 112: Negative or not required by law. Electronically signed by: Wiliam Romero M.D. 10/20/2023 7:18 PM
--- NOTE | 2023-10-20 19:33 | CT Scan Report ---
CT OF THE HEAD WITHOUT CONTRAST CLINICAL HISTORY: RLE weakness, recent endarterectomy COMPARISON STUDY: Head CT October 14, 2023 and MRI of the brain October 15, 2023. CT DOSE: 547.75 mGy.cm TECHNIQUE: Helical axial images of the head were obtained without IV contrast. Automated exposure con trol was utilized for the study. A dose lowering technique was utilized adhering to the principles o f ALARA. FINDINGS: No acute intracranial hemorrhage, midline shift or mass effect is present. White matter hyp odensities are unchanged and favor small vessel disease. The ventricular system is unremarkable. The basal cisterns are patent. No extra-axial collections are present. There are no findings to suggest a cute dural sinus thrombosis or acute territorial infarct. No significant calvarial abnormalities are present. Visualized portions of the sinuses and mastoid air cells are clear. IMPRESSION: No acute intracranial findings. ACT 112: Negative or not required by law. Electronically signed by: Wiliam Romero M.D. 10/20/2023 7:31 PM
[2023-10-20] MEDS ORDERED: POLYETHYLENE (MIRALAX) 17 GM PACK PO PRN (20:28)
[2023-10-20] MEDS: NYSTATIN POWDER 15GM BTL EXT SCH (20:31)
[2023-10-20] MEDS: VANCOMYCIN HCL 1,500 MG in SODIUM CHLORIDE 0.9% 500 ML IV ONE (21:32)
[2023-10-20] MEDS: FAMOTIDINE 20 MG TAB PO SCH (21:34)
[2023-10-20] MEDS: ENOXAPARIN INJ 40 MG/0.4 ML SYR SQ SCH (21:35)
[2023-10-20] MEDS: lisinopril 10 MG TAB PO SCH (21:35)
[2023-10-20] MEDS: VANCOMYCIN HCL 1,500 MG in SODIUM CHLORIDE 0.9% 500 ML IV SCH (21:38)
[2023-10-20] MEDS: ALBUTEROL HFA 8 GM INHALER INH SCH (22:11)
[2023-10-21 07:34] LABS: BUN Creatinine Ratio 18.3 (10-20); Calcium 9.2 mg/dl (8.6-10.3); Creatinine Clr Calc Pharmacy 45.8 ml/min; Est GFR (Non-African American) 53.5 ml/min; Magnesium 1.9 mg/dl (1.7-2.4)
--- NOTE | 2023-10-21 07:42 | Electrocardiogram Report ---
Test Reason : Blood Pressure : / mmHG Vent. Rate : 087 BPM Atrial Rate : 087 BPM P-R Int : 142 ms QRS Dur : 146 ms QT Int : 386 ms P-R-T Axes : 028 -20 114 degrees QTc Int : 464 ms Sinus rhythm with occasional Premature ventricular complexes Left bundle branch block Abnormal ECG When compared with ECG of 14-OCT-2023 19:17, No significant change was found Confirmed by Nick Awan ([id number]) on 10/21/2023 7:41:43 AM Referred By: Confirmed By:Nick Awan
[2023-10-21 07:45] LABS: Basophils # (auto) 0.03 K/uL (0.00-0.20); Basophils % (auto) 0.5 %; Eosinophils # (auto) 0.13 K/uL (0.00-0.50); Eosinophils % (auto) 2.1 %; Hematocrit (blood only) 28.6 % (42.0-52.0); Hemoglobin 9.5 g/dl (14.0-18.0); Immature Granulocytes # (auto) 0.01 K/uL (0.01-0.20); Immature Granulocytes % (auto) 0.2 %; Lymphocytes # (auto) 0.82 K/uL (1.20-3.40); Lymphocytes % (auto) 13.2 %; Mean Corpuscular Hemoglobin 30.7 pg (25.0-34.0); Mean Corpuscular Hgb Conc 33.2 g/dL (32.0-36.0); Mean Corpuscular Volume 92.6 fL (80.0-100.0); Mean Platelet Volume 10.7 fL (9.4-12.4); Monocytes # (auto) 0.67 K/uL (0.11-0.59); Monocytes % (auto) 10.8 %; Neutrophils # (auto) 4.53 K/uL (1.40-6.50); Neutrophils % (auto) 73.2 %; Platelet Count 244 K/uL (130-400); RDW Coefficient of Variation 12.4 % (11.5-14.5); RDW Standard Deviation 41.7 fL (36.4-46.3); Red Blood Count 3.09 M/uL (4.70-6.10); White Blood Count 6.19 K/ul (4.8-10.8)
[2023-10-21 07:47] LABS: INR 1.1 (0.9-1.1); Prothrombin Time 11.8 Seconds (9.0-12.0)
[2023-10-21] MEDS ORDERED: VANCOMYCIN CONSULT ACTIVE PRN (08:00)
[2023-10-21] MEDS ORDERED: VANCOMYCIN HCL 1,000 MG in SODIUM CHLORIDE 0.9% 250 ML IV SCH (09:00)
[2023-10-21 09:15] LABS: Troponin I High Sensitivity 29.5 pg/ml (0-20)
[2023-10-21] MEDS: ASPIRIN 81 MG ECTAB PO SCH (09:25)
[2023-10-21] MEDS: CLOPIDOGREL BISULFATE 75 MG TAB PO SCH (09:25)
--- NOTE | 2023-10-21 09:26 | Hospitalist Progress Note ---
Date of Service October 21, 2023 Assessment & Plan (1) Generalized weakness: Plan: Patient was recently discharged from [facility] 10/17 following hospital stay for sepsis from UTI. Upon discharge, patient was to return home to his daughter's house to continue to improve his strength. Home health orders were placed and they were to help with PT/OT, IV daptomycin, and harris catheter use. He presented back to the ED 10/19 due to complaints of pain and swelling in right leg from foot to knee, fatigue, uncontrolled tremors. He has had no recent falls but was requiring up to 2 people to safely ambulate at daughter's home. -Reviewed CBC and BMP 10/20: WBC 6.19, hgb 9.5, electrolytes WNL. -procal 0.44 -Biofire respiratory panel negative -C diff negative, GI panel pending -Prelim urine culture negative, blood cultures pending -Head CT w/o contrast reviewed 10/19: negative -PT/OT consulted, appreciate recommendations. AM CBC, BMP (2) Muscle spasm: Plan: Patient and his family report that the patient has been experiencing involuntary muscle spasms and right leg pain normally when he is trying to ambulate or with intentional movements since discharge. -Potential adverse effect from daptomycin, will switch back to vancomycin to completed abx for UTI/sepsis (end date: 10/28) -Reviewed CMP, K, Mg, CK, phos- WNL -Continue to hold atorvastatin -Reviewed Doppler US 10/19: negative for DVT -Reviewed tib/fib, knee, hip/pelvis XR of right extremity 10/19: chondrocalcinosis of right knee/ankle, osteoarthritis in hip, vascular calcifications tib/fib -unsure whether findings acute vs chronic due to no prior imaging studies -will start ibuprofen to see if this provides relief -PPI BID added for GI prophylaxis -Gordon hose -Tylenol and lidocaine patch prn (3) Elevated troponin: Plan: Patient denies chest pain or shortness of breath. Likely due to demand 10/19 Initial high-sensitivity troponin was elevated at -repeat 10/20: 29.5 -Reviewed EKG 10/19: no acute ST segment/T wave changes. LBBB -CK WNL -BNP reviewed 10/19: 142 -cardiology consulted 10/19, reviewed recommendations -weakness noncardiac in nature -cardiomyopathy not significantly changed since 2022. -mitral regurgitation nonsevere on examination & appears similar to 2021 -LBBB - does not account for presentation/symptoms -troponin not trending in pattern suggestive of ACS. ischemic eval not necessary. -Recheck troponin in AM.. (4) Coagulase negative Staphylococcus bacteremia: Plan: Diagnosed during last admission from 10/14/2023 - 10/18/2023 See discharge summary from 10/18/2023 for full details - Continue Vancomycin until 10/28 - follow up repeat blood cultures, if positive consider ID consult (5) BPH (benign prostatic hyperplasia): Plan: Continue Harris catheter for now as recommended by urology until they see him outpatient on 10/24/2023 for outpatient void trial Harris care has ordered -Consider urology consultation inpatient to reassess for voiding trial (6) Carotid artery stenosis: Plan: Status post right TCAR with Dr. Kellogg on 10/02/2023 Surgical site appears intact and clean today, no signs of infection or drainage Continue aspirin and Plavix Plan Hypertension: continue lisinopril hyperlipidemia: hold statin Asthma: albuterol inhaler GERD: famotidine, added Protonix Code status: full DVT prophylaxis: Lovenox Diet: heart healthy w/ 2g sodium and 2 L fluid restriction Disposition: tele Updated daughter Oxana via phone. Results of labs and imaging reviewed with her. All questions answered at end of call. Admission and Anticipated Discharge Date Admission Date: October 20, 2023 Subjective Patient was seen and examined this morning at bedside. He reports that his leg pain has minimally improved since presenting to the hospital. When he returned home following last admission, he was found to be weak. He states he was also not drinking much fluids prior to coming to the ED either. He was experiencing muscle spasms and right leg pain. He did not try anything for these symptoms at home. Spoke with daughter, Oxana via phone this afternoon. She reports patient has been having some issues remembering as well and has had some confusion. She would like to be updated with all changes during his hospital stay. Physical Exam 2 Constitutional: WD/WN, vitals as above Eyes: PERRL, conjunctivae normal, anicteric sclerae Respiratory: normal respiratory effort, lungs clear to auscultation Cardiovascular: RRR, no murmur, no edema Gastrointestinal (Abdomen): normal bowel sounds, soft, nontender, no hepatosplenomegaly Skin: no rashes, warm and dry Psychiatric: A+Ox3, euthymic affect Results & Data Results & Data Vital Signs (Past 12 Hours) Vital Signs Temp Pulse Pulse Resp BP Pulse Ox O2 Del Method 10/21/23 08:25 36.9 C 86 20 151/72 H 97 Room Air 10/21/23 08:00 73 10/21/23 07:10 72 16 97 Room Air 10/21/23 04:16 36.4 C L 78 18 134/70 97 Room Air 10/20/23 23:00 82 10/20/23 22:31 78 16 97 Room Air 10/20/23 21:42 36.8 C 85 16 158/77 H 98 Room Air 10/20/23 21:30 85 Laboratory Results 10/21/23 06:15 10/21/23 06:15 Diagnostic Findings Chest X-Ray 10/20/23 16:09 IMPRESSION: No acute cardiopulmonary findings. No change in appearance of the chest. Electronically signed by: Wiliam Romero M.D. 10/20/2023 5:03 PM Venous Doppler Study 10/20/23 16:09 IMPRESSION: No evidence of deep venous thrombus within the right lower extremity. Electronically signed by: Wiliam Romero M.D. 10/20/2023 5:24 PM Ankle X-Ray 10/20/23 18:07 IMPRESSION: 1. No fracture or dislocation within the right ankle. 2. Right ankle soft tissue swelling. 3. Right ankle chondrocalcinosis with mild degenerative changes. Electronically signed by: Wiliam Romero M.D. 10/20/2023 7:18 PM Hip/Pelvis X-Ray 10/20/23 18:07 IMPRESSION: 1. No fractures within the pelvis or hips. 2. Moderate bilateral hip osteoarthritis. Electronically signed by: Wiliam Romero M.D. 10/20/2023 7:16 PM Knee X-Ray 10/20/23 18:07 IMPRESSION: 1. No fractures within the right knee. No right knee joint effusion. 2. Chondrocalcinosis within the right knee, as described above. Mild right knee osteoarthritis. Electronically signed by: Wiliam Romero M.D. 10/20/2023 7:14 PM Tibia/Fibula X-Ray 10/20/23 18:07 IMPRESSION: 1. No fractures within the right tibia or fibula. 2. Extensive vascular calcification. Electronically signed by: Wiliam Romero M.D. 10/20/2023 7:[address] 10/20/23 19:02 IMPRESSION: No acute intracranial findings. Electronically signed by: Wiliam Romero M.D. 10/20/2023 7:31 PM PG Care Time/CCT Total # of Minutes Spent Total Time Spent with Patient: Total time spent is greater than 50% in coordination of care (as documented) at patient's floor/unit and/or counseling patient: Coding Level of Care Code 17708 SUB INP/OBS CARE 3/50MIN Diagnoses Generalized weakness R53.1 Muscle spasm M62.838 Elevated troponin R79.89 Coagulase negative Staphylococcus bacteremia R78.81; B95.7 Benign prostatic hyperplasia without lower urinary tract symptoms N40.0 Lower urinary tract symptom presence: symptoms absent Stenosis of right carotid artery I65.21 Laterality: right (5) BPH (benign prostatic hyperplasia) Lower urinary tract symptom presence: symptoms absent Qualified Code(s): N 40.0 - Benign prostatic hyperplasia without lower urinary tract symptoms (6) Carotid artery stenosis Laterality: right Qualified Code(s): I65.21 - Occlusion and stenosis of right carotid artery
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
--- NOTE | 2023-10-21 14:22 | Pharmacy Report ---
Pharmacy PK ABX Note - Date of Service October 21, 2023 - Assessment and Plan Assessment 78 year old M receiving vancomycin for the continued treatment of coag negative staphylococcus bacteremia. Being treated at home with daptomycin for the bacteremia, admitted with weakness. Daptomycin switched to vancomycin due to concern daptomycin is contributing to weakness. Treatment for 14 days per [facility] ID recommendation ending 10/28. Pertinent microbiologic data includes: blood cultures 10/14/23 CoNS not lugdunensis 3/ bottles, urine culture 10/14/23 coNS, blood culture 10/15 NGx5 days, blood and urine cultures 10/19 pending. Day # 1 of vancomycin therapy (Day 5 bacteremia treatment ending 10/28). Plan Vancomycin * Loading dose: 1500 mg IV x 1 * Maintenance dose: 1500 mg IV every 24 hours (previously therapeutic last admission) * Regimen is predicted to achieve target AUC/LOW of 400-600 mg/L.hr * Random level ordered for: 24 AM, theraDoc predicting slightly supratherapeutic, previously therapeutic dosing last admission, will use early level to guide decision making. Pharmacy will continue to follow and will adjust dose/frequency as necessary. Thank you. Pharmacy has transitioned to AUC monitoring for vancomycin. AUC/LOW is the preferred PK/PD target and is associated with decreased risk of nephrotoxicity compared to traditional trough targets.
[2023-10-21 14:45] LABS: Adenovirus F 40/41 PCR Not Detected (NotDetected); Astrovirus PCR Not Detected (NotDetected); Campylobacter PCR Not Detected (NotDetected); Cryptosporidium PCR Not Detected (NotDetected); Cyclospora cayetanensis PCR Not Detected (NotDetected); Entamoeba histolytica PCR Not Detected (NotDetected); Enteroaggregative E.coli(EAEC) Not Detected (NotDetected); Enteropathogenic E.coli (EPEC) Not Detected (NotDetected); Enterotoxigenic E.coli (ETEC) Not Detected (NotDetected); Giardia lamblia PCR Not Detected (NotDetected); Norovirus GI/GII PCR Not Detected (NotDetected); Plesiomonas shigelloides PCR Not Detected (NotDetected); Rotavirus A PCR Not Detected (NotDetected); Salmonella PCR Not Detected (NotDetected); Sapovirus PCR Not Detected (NotDetected); Shiga-like Toxin E.coli (STEC) Not Detected (NotDetected); Shigella/Enteroinvasive E.coli Not Detected (NotDetected); Vibrio cholerae PCR Not Detected (NotDetected); Vibrio species PCR Not Detected (NotDetected); Yersinia enterocolitica PCR Not Detected (NotDetected)
[2023-10-21] MEDS: IBUPROFEN 600 MG TAB PO SCH (15:09)
[2023-10-21] MEDS: PANTOprazole 40 MG TAB PO SCH (21:53)
[2023-10-22 06:39] LABS: Basophils # (auto) 0.04 K/uL (0.00-0.20); Basophils % (auto) 0.7 %; Eosinophils # (auto) 0.23 K/uL (0.00-0.50); Hematocrit (blood only) 29.9 % (42.0-52.0); Immature Granulocytes # (auto) 0.01 K/uL (0.01-0.20); Immature Granulocytes % (auto) 0.2 %; Lymphocytes # (auto) 0.85 K/uL (1.20-3.40); Lymphocytes % (auto) 14.8 %; Mean Corpuscular Hgb Conc 33.4 g/dL (32.0-36.0); Mean Corpuscular Volume 92.6 fL (80.0-100.0); Mean Platelet Volume 10.4 fL (9.4-12.4); Monocytes # (auto) 0.57 K/uL (0.11-0.59); Monocytes % (auto) 9.9 %; Neutrophils # (auto) 4.05 K/uL (1.40-6.50); Neutrophils % (auto) 70.4 %; Platelet Count 278 K/uL (130-400); RDW Coefficient of Variation 12.2 % (11.5-14.5); RDW Standard Deviation 41.8 fL (36.4-46.3); Red Blood Count 3.23 M/uL (4.70-6.10); White Blood Count 5.75 K/ul (4.8-10.8)
[2023-10-22 07:41] LABS: INR 1.1 (0.9-1.1); Prothrombin Time 11.6 Seconds (9.0-12.0)
[2023-10-22 10:21] LABS: Calcium 9.7 mg/dl (8.6-10.3); Magnesium 2.1 mg/dl (1.7-2.4); Potassium 4.3 mmol/L (3.5-5.1)
--- NOTE | 2023-10-22 10:24 | Hospitalist Progress Note ---
Date of Service October 22, 2023 Assessment & Plan (1) Generalized weakness: Plan: Patient was recently discharged from [facility] 10/17 following hospital stay for sepsis from UTI. Upon discharge, patient was to return home to his daughter's house to continue to improve his strength. Home health orders were placed and they were to help with PT/OT, IV daptomycin, and harris catheter use. He presented back to the ED 10/19 due to complaints of pain and swelling in right leg from foot to knee, fatigue, uncontrolled tremors. He has had no recent falls but was requiring up to 2 people to safely ambulate at daughter's home. -Head CT w/o contrast: no acute findings -WBC wnl, afebrile -procal 0.44 -Biofire respiratory panel negative -C diff negative, GI panel negative -Blood cultures: no growth 24 hours - Urine culture: filipe albicans - pt asymptomatic, will not treat -PT/OT consulted, recommend rehab - case management following AM CBC, BMP (2) Acute kidney injury: Plan: Creatinine 1.26--> 1.85 -vancomycin dosing per pharmacy - hold lisinopril, hold ibuprofen - 500cc NSS Bolus given - flomax started , Harris has been in place AM BMP (3) Muscle spasm: Plan: Patient and his family report that the patient has been experiencing involuntary muscle spasms and right leg pain normally when he is trying to ambulate or with intentional movements since discharge. -Potential adverse effect from daptomycin, will switch back to vancomycin to completed abx for UTI/sepsis (end date: 10/28) -Continue to hold atorvastatin -Doppler: negative for DVT -Reviewed tib/fib, knee, hip/pelvis XR of right extremity 10/19: chondrocalcinosis of right knee/ankle, osteoarthritis in hip, vascular calcifications tib/fib -unsure whether findings acute vs chronic due to no prior imaging studies -hold ibuprofen with LASHON - ice and voltaren gel for pain control -PPI BID added for GI prophylaxis -Gordon hose -Tylenol and lidocaine patch prn (4) Elevated troponin: Plan: Patient denies chest pain or shortness of breath. Likely due to demand - troponin --> 28 --> --> repeat ordered for AM -EKG: no acute ST segment/T wave changes. LBBB -BNP: 142 -cardiology consulted -weakness noncardiac in nature -cardiomyopathy not significantly changed since 2021. -mitral regurgitation nonsevere on examination & appears similar to 202 -LBBB - does not account for presentation/symptoms -troponin not trending in pattern suggestive of ACS. ischemic eval not necessary. 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 Staphylococcus bacteremia: Plan: Diagnosed during last admission from 10/14/2023 - 10/18/2023 See discharge summary from 10/18/2023 for full details - Continue Vancomycin until 10/28 - follow up repeat blood cultures, if positive consider ID consult (6) BPH (benign prostatic hyperplasia): Plan: Continue Harris catheter for now as recommended by urology, scheduled outpatient on 10/24/2023 for outpatient void trial - flomax was to be continued per last urology note, restarted 10/21 monitoring BMP, plan to reach out to urology tomorrow as family has already cancelled appointment for 10/23 (7) Carotid artery stenosis: Plan: Status post right TCAR with Dr. Kellogg on 10/02/2023 Surgical site appears intact and clean today, no signs of infection or drainage Continue aspirin and Plavix Plan Hypertension: lisinopril on hold hyperlipidemia: hold statin Asthma: albuterol inhaler GERD: famotidine, added Protonix DVT prophylaxis: Lovenox Dispo: continued inpatient stay, monitoring kidney function Updated daughter Oxana via phone 10/20 and 10/21 Admission and Anticipated Discharge Date Admission Date: October 20, 2023 Supervising Physician Co-Signing Physician Notes PA Supervision Note: I did not personally see or examine the patient today, but I verified all upt[place] points of ANA Bell's assessment and plan with the following exceptions/additions: Can resume statin tomorrow now that off Daptomycin Subjective Patient seen sitting up in the chair this morning - reports pain in the right knee. Happy to be up to the chair. Moving bowels. Good appetite. Tele - SR IVCD 56-70s Review of Systems Review of Systems: All systems reviewed & are unremarkable except as noted in Subjective Physical Exam Physical Exam: General: NAD, VS as above Resp: normal respiratory effort, lungs clear to auscultation CV: RRR, no murmur, Abd:soft , non tender, no hepatosplenomegaly Extremities: Moves all extremities, no edema : harris draining light yellow urine Neuro: A&O x3, Results & Data Results & Data Vital Signs (Past 12 Hours) Vital Signs Temp Pulse Pulse Resp BP Pulse Ox O2 Del Method 10/22/23 07:38 36.9 C 68 20 152/70 H 96 Room Air 10/22/23 07:08 72 16 98 Room Air 10/22/23 02:53 36.6 C 63 18 136/66 96 Room Air 10/21/23 22:59 36.5 C 59 L 18 146/61 H 98 Room Air 10/21/23 22:30 66 Laboratory Results CBC, chemistry reviewed PG Care Time/CCT Total # of Minutes Spent Total Time Spent with Patient: Total time spent is greater than 50% in coordination of care (as documented) at patient's floor/unit and/or counseling patient: Coding Level of Care Code 93652 SUB INP/OBS CARE 3/50MIN Diagnoses Generalized weakness R53.1 Acute kidney injury N17.9 Muscle spasm M62.838 Elevated troponin R79.89 Coagulase negative Staphylococcus bacteremia R78.81; B95.7 Benign prostatic hyperplasia without lower urinary tract symptoms N40.0 Lower urinary tract symptom presence: symptoms absent Stenosis of right carotid artery I65.21 Laterality: right (6) BPH (benign prostatic hyperplasia) Lower urinary tract symptom presence: symptoms absent Qualified Code(s): N40.0 - Benign prostatic hyperplasia without lower urinary tract symptoms (7) Carotid artery stenosis Laterality: right Qualified Code(s): I65.21 - Occlusion and stenosis of right carotid artery
[2023-10-22 10:26] LABS: BUN Creatinine Ratio 15.1 (10-20); Creatinine Clr Calc Pharmacy 30.8 ml/min; Est GFR (Non-African American) 33.6 ml/min
[2023-10-22] MEDS: SODIUM CHLORIDE 0.9% 500 ML IV ONE (10:44)
[2023-10-22] MEDS: DICLOFENAC SOD 1% GEL 100 GM TUBE EXT SCH (10:47)
--- NOTE | 2023-10-22 11:02 | Pharmacy Report ---
Pharmacy PK ABX Note - Date of Service October 22, 2023 - Assessment and Plan Assessment 10/21 * Random vancomycin level this AM ~16 mcg/ml - Scr trending up from 1.26 to 1.85 mg/dL * Will dose by levels and order vancomycin 1000 mg x 1, then will collect a random level in the AM to assist with further dosing 10/20 * 78 year old M receiving vancomycin for the continued treatment of coag negative staphylococcus bacteremia. Being treated at home with daptomycin for the bacteremia, admitted with weakness. Daptomycin switched to vancomycin due to concern daptomycin is contributing to weakness. Treatment for 14 days per [facility] ID recommendation ending 10/28. Pertinent microbiologic data includes: blood cultures 10/14/23 CoNS not lugdunensis 3/ bottles, urine culture 10/14/23 coNS, blood culture 10/15 NGx5 days, blood and urine cultures 10/19 pending. * Day # 1 of vancomycin therapy (Day 5/14 bacteremia treatment ending 10/28). Plan Vancomycin * Patient with LASHON this AM - will dose by levels for vancomycin * Plan to redose with vancomycin 1000 mg x 1 today and random order level ordered tomorrow AM Pharmacy will continue to follow and will adjust dose/frequency as necessary. Thank you. Pharmacy has transitioned to AUC monitoring for vancomycin. AUC/LOW is the preferred PK/PD target and is associated with decreased risk of nephrotoxicity compared to traditional trough targets.
[2023-10-22] MEDS: VANCOMYCIN HCL 1,000 MG in SODIUM CHLORIDE 0.9% 250 ML IV SCH (13:47)
[2023-10-22] MEDS: TAMSULOSIN HCL 0.4 MG CAP PO SCH (17:05)
[2023-10-23] MEDS: oxyCODONE HCL IR 5 MG TAB (IMMEDIATE RELEASE) PO ONE (06:38)
[2023-10-23 07:06] LABS: Basophils # (auto) 0.03 K/uL (0.00-0.20); Basophils % (auto) 0.5 %; Eosinophils # (auto) 0.24 K/uL (0.00-0.50); Eosinophils % (auto) 4.1 %; Hematocrit (blood only) 31.1 % (42.0-52.0); Hemoglobin 10.5 g/dl (14.0-18.0); Immature Granulocytes # (auto) 0.02 K/uL (0.01-0.20); Immature Granulocytes % (auto) 0.3 %; Lymphocytes # (auto) 0.67 K/uL (1.20-3.40); Lymphocytes % (auto) 11.5 %; Mean Corpuscular Hgb Conc 33.8 g/dL (32.0-36.0); Mean Corpuscular Volume 91.7 fL (80.0-100.0); Monocytes # (auto) 0.49 K/uL (0.11-0.59); Monocytes % (auto) 8.4 %; Neutrophils # (auto) 4.36 K/uL (1.40-6.50); Neutrophils % (auto) 75.2 %; Platelet Count 302 K/uL (130-400); RDW Coefficient of Variation 12.2 % (11.5-14.5); Red Blood Count 3.39 M/uL (4.70-6.10); White Blood Count 5.81 K/ul (4.8-10.8)
[2023-10-23 07:29] LABS: Troponin I High Sensitivity 23.3 pg/ml (0-20)
[2023-10-23 08:36] LABS: Calcium 9.3 mg/dl (8.6-10.3); Potassium 4.2 mmol/L (3.5-5.1)
[2023-10-23 08:41] LABS: BUN Creatinine Ratio 19.1 (10-20); Creatinine Clr Calc Pharmacy 33.5 ml/min; Est GFR (African American) 42.3 ml/min; Est GFR (Non-African American) 36.5 ml/min
--- NOTE | 2023-10-23 08:57 | Pharmacy Report ---
Pharmacy PK ABX Note - Date of Service October 23, 2023 - Assessment and Plan Assessment 10/22 * Random vancomycin level came back at ~15.5 mcg/ml * Scr slightly improved from 1.85 to 1.73 mg/dL this AM, reasonable to continue with vancomycin 1000 mg dose again today * Estimated t 1/2~22 hours, will continue with 1000 mg iv daily for now. 10/21 * Random vancomycin level this AM ~16 mcg/ml - Scr trending up from 1.26 to 1.85 mg/dL * Will dose by levels and order vancomycin 1000 mg x 1, then will collect a random level in the AM to assist with further dosing 10/20 * 78 year old M receiving vancomycin for the continued treatment of coag negative staphylococcus bacteremia. Being treated at home with daptomycin for the bacteremia, admitted with weakness. Daptomycin switched to vancomycin due to concern daptomycin is contributing to weakness. Treatment for 14 days per [facility] ID recommendation ending 10/28. Pertinent microbiologic data includes: blood cultures 10/14/23 CoNS not lugdunensis 3/ bottles, urine culture 10/14/23 coNS, blood culture 10/15 NGx5 days, blood and urine cultures 10/19 pending. * Day # 1 of vancomycin therapy (Day 5/14 bacteremia treatment ending 10/28). Plan Vancomycin * Scr slight improvement this AM * Plan to redose with vancomycin 1000 mg iv daily * Consider rechecking level tomorrow if renal function changes Pharmacy will continue to follow and will adjust dose/frequency as necessary. Thank you. Pharmacy has transitioned to AUC monitoring for vancomycin. AUC/LOW is the preferred PK/PD target and is associated with decreased risk of nephrotoxicity compared to traditional trough targets.
[2023-10-23] MEDS: LACTATED RINGER'S 1,000 ML IV SCH (10:06)
[2023-10-23] MEDS: ACETAMINOPHEN 325 MG TAB PO PRN (12:23)
--- NOTE | 2023-10-23 12:33 | Hospitalist Progress Note ---
Date of Service October 23, 2023 Assessment & Plan (1) Generalized weakness: Plan: Patient was recently discharged from [facility] 10/17 following hospital stay for sepsis from UTI. Upon discharge, patient was to return home to his daughter's house to continue to improve his strength. Home health orders were placed and they were to help with PT/OT, IV daptomycin, and harris catheter use. He presented back to the ED 10/19 due to complaints of pain and swelling in right leg from foot to knee, fatigue, uncontrolled tremors. He has had no recent falls but was requiring up to 2 people to safely ambulate at daughter's home. -Head CT w/o contrast: no acute findings -WBC wnl, afebrile -procal 0.44 -Biofire respiratory panel negative -C diff negative, GI panel negative -Blood cultures: no growth 48 hours - Urine culture: filipe albicans - pt asymptomatic, will not treat - up to chair for meals, encourage range of motion exercises while in bed -PT/OT consulted, recommend rehab - case management following - [facility] for [facility] denied today 10/22 (2) Acute kidney injury: Plan: Creatinine 1.26--> 1.85 --> 1.73 -vancomycin dosing per pharmacy - hold lisinopril, hold ibuprofen - 500cc NSS Bolus given, additional 1L LR given today - flomax started , Harris has been in place - good urine output AM BMP (3) Muscle spasm: Plan: Patient and his family report that the patient has been experiencing involuntary muscle spasms and right leg pain normally when he is trying to ambulate or with intentional movements since discharge. -Potential adverse effect from daptomycin, will switch back to vancomycin to completed abx for UTI/sepsis (end date: 10/28) -Can resume atorvastatin as CK normal, resume home coenzyme Q 10 which can be brought in from home -Doppler: negative for DVT -Reviewed tib/fib, knee, hip/pelvis XR of right extremity 10/19: chondrocalcinosis of right knee/ankle, osteoarthritis in hip, vascular calcifications tib/fib -unsure whether findings acute vs chronic due to no prior imaging studies -hold ibuprofen with LASHON - ice and voltaren gel for pain control -PPI BID added for GI prophylaxis -Gordon hose, elevate legs - Scheduled Tylenol, volatren gel, prn oxycodone (4) Coagulase negative Staphylococcus bacteremia: Plan: Diagnosed during last admission from 10/14/2023 - 10/18/2023 - Continue Vancomycin until 10/28 - follow up repeat blood cultures - negative at 48 hours Patient had harris catheter placed during prior admission and was supposed to have urology follow up 10/23 for voiding trial - discussed with urology 10/22 - continue catheter until ambulation improves, if still in the hospital can do voiding trial here otherwise reschedule outpatient appointment - continue flomax - rx at discharge if still with harris (5) Carotid artery stenosis: Plan: Status post right TCAR with Dr. Kellogg on 10/02/2023 Surgical site appears intact and clean today, no signs of infection or drainage Continue aspirin and Plavix, resume atorvastatin (6) Elevated troponin: Plan: Patient denies chest pain or shortness of breath. Likely due to demand - troponin peaked at 29 -EKG: no acute ST segment/T wave changes. LBBB -BNP: 142 -cardiology consulted -weakness noncardiac in nature -cardiomyopathy not significantly changed since 2021. -mitral regurgitation nonsevere on examination & appears similar to 202 -LBBB - does not account for presentation/symptoms -troponin not trending in pattern suggestive of ACS. ischemic eval not necessary. Plan Hypertension: lisinopril on hold, BPs elevated-add amlodopine for am hyperlipidemia: Resume statin Asthma: albuterol inhaler GERD: famotidine, added Protonix DVT prophylaxis: Lovenox Dispo: continued inpatient stay, monitoring kidney function Updated daughter Oxana via phone 10/20 and 10/21, bedside 10/22 Admission and Anticipated Discharge Date Admission Date: October 20, 2023 Supervising Physician Co-Signing Physician Notes PA Supervision Note: I did not personally see or examine the patient today, but I verified all [place] points of ANA Bell's assessment and plan with the following exceptions/additions: Changes made above Subjective Patient sitting up in bed, daughter present at bedside. Swelling to right ankle worse - reports was up in the chair for 8+ hours yesterday Pain and swelling in right knee imrpving Good appetite Tele - SR PVC/ICD 80s Review of Systems Review of Systems: All systems reviewed & are unremarkable except as noted in Subjective Physical Exam Physical Exam: General: NAD, VS as above Resp: normal respiratory effort, lungs clear to auscultation CV: RRR, no murmur, Abd:soft , non tender, no hepatosplenomegaly Extremities: Moves all extremities, nonpitting edema to right ankle. Right knee improved. : harris draining light yellow urine Neuro: A&O x3, Results & Data Results & Data Vital Signs (Past 12 Hours) Vital Signs Temp Pulse Resp BP Pulse Ox O2 Del Method 10/23/23 12:18 36.9 C 92 H 16 147/71 H 96 Room Air 10/23/23 07:55 36.9 C 75 16 156/71 H 94 Room Air 10/23/23 07:34 74 14 95 Room Air 10/23/23 03:09 36.8 C 68 18 152/73 H 95 Room Air Laboratory Results CBC, chemistry and troponin reviewed PG Care Time/CCT Total # of Minutes Spent Total Time Spent with Patient: Total time spent is greater than 50% in coordination of care (as documented) at patient's floor/unit and/or counseling patient: Coding Level of Care Code 92058 SUB INP/OBS CARE 3/50MIN Diagnoses Generalized weakness R53.1 Acute kidney injury N17.9 Muscle spasm M62.838 Coagulase negative Staphylococcus bacteremia R78.81; B95.7 Stenosis of right carotid artery I65.21 Laterality: right Elevated troponin R79.89 (5) Carotid artery stenosis Laterality: right Qualified Code(s): I65.21 - Occlusion and stenosis of right carotid artery
[2023-10-23] MEDS: ACETAMINOPHEN 325 MG TAB PO SCH (12:37)
[2023-10-23] MEDS ORDERED: oxyCODONE HCL IR 5 MG TAB (IMMEDIATE RELEASE) PO PRN (14:15)
[2023-10-24 06:39] LABS: BUN Creatinine Ratio 16.1 (10-20); Creatinine Clr Calc Pharmacy 39.1 ml/min; Est GFR (African American) 50.6 ml/min; Est GFR (Non-African American) 43.7 ml/min; Potassium 4.3 mmol/L (3.5-5.1)
[2023-10-24] MEDS: amLODIPine BESYLATE 5 MG TAB PO SCH (08:21)
[2023-10-24] MEDS: ATORVASTATIN 40 MG TAB PO SCH (08:23)
[2023-10-24] MEDS: FEXOFENADINE HCL 180 MG TAB PO SCH (08:24)
[2023-10-24] MEDS: FLUTICASONE PROPIONATE NA SPR 16 GM BTL SCH (08:24)
--- NOTE | 2023-10-24 10:59 | Discharge Summary ---
Discharge Summary Date of Service October 24, 2023 Principal Dx & Hospital Course #1 = Principal Diagnosis (1) Generalized weakness: Patient was recently discharged from [facility] 10/17 following hospital stay for sepsis from UTI. Upon discharge, patient was to return home to his daughter's house to continue to improve his strength. Home health orders were placed and they were to help with PT/OT, IV daptomycin, and harris catheter use. He presented back to the ED 10/19 due to complaints of pain and swelling in right leg from foot to knee, fatigue, uncontrolled tremors. He has had no recent falls but was requiring up to 2 people to safely ambulate at daughter's home. -Head CT w/o contrast: no acute findings -WBC wnl, afebrile -procal 0.44 -Biofire respiratory panel negative -C diff negative, GI panel negative -Blood cultures: no growth 48 hours - Urine culture: filipe albicans - pt asymptomatic, will not treat -PT/OT consulted, recommend rehab Patient ROM improving and pain seems to be less, discharge to [facility] for rehab today. (2) Acute kidney injury: Creatinine 1.26--> 1.85 --> 1.73 --> 1.49 improving after IV fluids -vancomycin dosing per pharmacy - stop Lisinopril, started amlodipine and tolerating well - stopped ibuprofen - continue Flomax, Harris is in place, good urine output recommend repeat BMP in 3 to 4 days to recheck kidney function (3) Muscle spasm: Patient and his family report that the patient has been experiencing involuntary muscle spasms and right leg pain normally when he is trying to ambulate or with intentional movements since discharge. -Potential adverse effect from daptomycin, will switch back to vancomycin to completed abx for UTI/sepsis (end date: 10/28) -Can resume atorvastatin as CK normal, resume home coenzyme Q 10 -Doppler: negative for DVT -Reviewed tib/fib, knee, hip/pelvis XR of right extremity 10/19: chondrocalcinosis of right knee/ankle, osteoarthritis in hip, vascular calcifications tib/fib -unsure whether findings acute vs chronic due to no prior imaging studies - ice and voltaren gel and tylenol for pain control -Gordon hose, elevate legs (4) Coagulase negative Staphylococcus bacteremia: Diagnosed during last admission from 10/14/2023 - 10/18/2023 - Continue Vancomycin until 10/28 - follow up repeat blood cultures - negative at 48 hours Patient had harris catheter placed during prior admission and was supposed to have urology follow up 10/23 for voiding trial - discussed with urology 10/22 - continue catheter until ambulation improves, if still in the hospital can do voiding trial here otherwise reschedule outpatient appointment - continue flomax - rx at discharge if still with harris (5) Carotid artery stenosis: Status post right TCAR with Dr. Kellogg on 10/02/2023 Surgical site appears intact and clean today, no signs of infection or drainage Continue aspirin and Plavix, atorvastatin (6) Elevated troponin: Patient denies chest pain or shortness of breath. Likely due to demand - troponin peaked at 29 -EKG: no acute ST segment/T wave changes. LBBB -BNP: 142 -cardiology consulted -weakness noncardiac in nature -cardiomyopathy not significantly changed since 2021. -mitral regurgitation nonsevere on examination & appears similar to 2021 -LBBB - does not account for presentation/symptoms -troponin not trending in pattern suggestive of ACS. ischemic eval not necessary. Plan Hypertension: continue amlodipine hyperlipidemia:statin Asthma: albuterol inhaler GERD: famotidine dispo: [facility] daughter updated by phone prior to discharge Notes For Next Care Provider Pranav was readmitted after going home with home health and returned with progressive weakness. Was found to have chondrocalcinosis of the right knee and ankle, unsure if truly contributing. Daptomycin switched to vancomycin to continue course through 10/28. Lisinopril switched to amlodipine with LASHON blood cultures are pending. Recommended repeat BMP at [facility] Medication Changes From Visit stop lisinopril, continue amlodipine continue Flomax vancomycin through 10/28 Admission HPI Per Admitting Provider Pranav is an 78-year-old male with a past medical history significant for Carotid artery stenosis status post TCAR on 10/02/2023 Dr. Kellogg, recurrent urinary retention (currently with Harris catheter in place), hypertension, GERD and HFrEF (LVEF of 45-50%) who presented to the [facility] ED on 10/20/2023 with complaints of pain and minor swelling in the right leg from his foot to his knee. He was reportedly febrile and tachycardic at home as well with fatigue and uncontrolled tremors. Patient was recently admitted to [facility] from 10/14/2023 - 10/18/2023 due to sepsis from coag negative Staphylococcus UTI and bacteremia. Patient was initially treated with ceftriaxone and vancomycin, infectious disease was consulted and recommended ongoing treatment with daptomycin with an end date of 10/29/2023. On arrival to the ED he was noted to be tachycardic at 103, tachypneic at 25, but otherwise stable. Labs were significant for an initial high-sensitivity troponin of 27, and UA with 2+ protein, 2+ blood, 1+ leukocyte esterase, 11-20 WBC, 6-10 RBC, and full respiratory BioFire negative. Chest x-ray was read as negative for acute findings and venous Doppler of the right lower extremity was negative for acute findings as well. Prior to admission the patient was ordered 1 L normal saline. Patient was sitting in bed at the time of the exam in no acute distress with his daughter and son-in-law at bedside, history is obtained from mom. The patient's family is quite frustrated as they felt strongly that he should have not been discharged home on 10/18/2023 due to his weakness. The patient is currently having to stay with his daughter and son-in-law as he is unable to safely care for his Harris catheter and administer his IV daptomycin himself at home. Unfortunately the patient has to go up multiple flights of stairs to get to the bathroom and he is too weak to do this at this time. He is requiring the assistance of his daughter and son-in-law for any ambulation at this time due to generalized weakness. He has also been experiencing right lower extremity pain mainly with movement which is new since prior to his last admission. They feel as though his bilateral lower extremities have been swollen since discharge. Of note, the patient has been having recurrent episodes of tremors normally with movement since discharge. These tremors are involuntary and have caused the patient a good deal of distress per family. They confirmed that they have continued to hold his statin as recommended while on his daptomycin. He has been eating and drinking well at home, and has been having approximately 1 soft bowel movement daily. At this time the patient will require inpatient rehab at discharge until he can regain his strength as he was very independent prior to his last admission. 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 Please refer to Dr. Melissa's attestation for any changes to the treatment plan Discharge Exam General: NAD, VS as above Resp: normal respiratory effort, lungs clear to auscultation CV: RRR, no murmur, Abd:soft , non tender, no hepatosplenomegaly Extremities: Moves all extremities, nonpitting edema to right ankle. Right knee improved. : harris draining light yellow urine Neuro: A&O x3, Updated Medication List Medication Instructions Recorded Confirmed Type albuterol sulfate 90 mcg/actuation 2 inh inhalation BID 09/07/23 10/20/23 History aerosol inhaler azelastine 137 mcg (0.1 %) nasal 2 spray intranasal QPM 09/07/23 10/20/23 History spray aerosol clopidogrel 75 mg tablet (Plavix) 75 mg PO QAM 09/07/23 10/20/23 History coenzyme Q10 100 mg capsule (Co 100 mg PO QDL 09/07/23 10/20/23 History Q-10) famotidine 20 mg tablet 20 mg PO BID 09/07/23 10/20/23 History fexofenadine 180 mg tablet 180 mg PO QAM allergic rhinitis 09/07/23 10/20/23 History mometasone 50 mcg/actuation nasal 2 spray intranasal QAM 09/07/23 10/20/23 History spray multivitamin with minerals-folic 1 tab PO QDL 09/07/23 10/20/23 History acid 80 mcg chewable tablet (Centrum Adult 50 Plus) naproxen 500 mg tablet 500 mg PO Q12H PRN Pain 09/07/23 10/20/23 History polyethylene glycol 3350 17 17 g PO Q OTHER DAY PRN 09/07/23 10/20/23 History gram/dose oral powder (Miralax) Constipation aspirin 81 mg tablet,delayed 81 mg PO DAILY 10/14/23 10/20/23 History release atorvastatin 40 mg tablet 40 mg PO DAILY 10/20/23 10/20/23 History montelukast 10 mg tablet 10 mg PO DAILY 10/20/23 10/20/23 History pseudoephedrine HCl 30 mg tablet 30 mg PO TID PRN RAISE B/P 10/20/23 10/20/23 History (Sudafed) NEEDED acetaminophen 325 mg tablet 650 mg (2 x 325 mg) PO Q6H 10 days 10/24/23 Rx #80 tabs amlodipine 5 mg tablet (Norvasc) 5 mg PO QAM #30 tabs 10/24/23 Rx diclofenac sodium 1 % topical gel 2 g EXT Q6 10 days #20 grams 10/24/23 Rx (Voltaren Arthritis Pain) nystatin 100,000 unit/gram topical 1 applic EXT TID 10 days #15 grams 10/24/23 Rx powder (Nystop) tamsulosin 0.4 mg capsule 0.4 mg PO QAM #30 caps 10/24/23 Rx vancomycin 1,000 mg intravenous 1,000 mg IV Q24H 5 days #5 ea 10/24/23 Rx injection Hospital Stay Data Consultations 10/20/23 17:44 ED Decision to Admit Stat 10/21/23 08:47 Consult Cardiology Routine Diagnostic Imagining Performed Chest X-Ray 10/20/23 16:09 XR chest 1V portable CLINICAL HISTORY: Sepsis COMPARISON STUDY: Chest radiograph October 14, 2023. FINDINGS: Lung volumes are normal. Lungs are clear. There is no pneumothorax or pleural effusion. Cardiac size is stable. Mediastinal contours are normal. There is no evidence for pulmonary edema. Mild interstitial thickening is unchanged. This is chronic. IMPRESSION: No acute cardiopulmonary findings. No change in appearance of the chest. ACT 112: Negative or not required by law. Electronically signed by: Wiliam Romero M.D. 10/20/2023 5:03 PM Venous Doppler Study 10/20/23 16:09 RIGHT LOWER EXTREMITY VENOUS DOPPLER CLINICAL HISTORY: swelling COMPARISON STUDY: No previous studies for comparison. TECHNIQUE: Sonography of the deep venous system of the right lower extremity was performed. Compression and augmentation were evaluated. FINDINGS: The right common femoral, superficial femoral and popliteal veins were compressible. Augmentation was normal. Flow was shown within the deep calf vessels. IMPRESSION: No evidence of deep venous thrombus within the right lower extremity. ACT 112: Negative or not required by law. Electronically signed by: Wiliam Romero M.D. 10/20/2023 5:24 PM Ankle X-Ray 10/20/23 18:07 XR ankle RT 2V CLINICAL HISTORY: RLE pain COMPARISON: None FINDINGS: Alignment of the right ankle is anatomic. There is no acute fracture. Soft tissue swelling is noted. There is extensive vascular calcification. There is right ankle chondrocalcinosis within mild degenerative changes. IMPRESSION: 1. No fracture or dislocation within the right ankle. 2. Right ankle soft tissue swelling. 3. Right ankle chondrocalcinosis with mild degenerative changes. ACT 112: Negative or not required by law. Electronically signed by: Wiliam Romero M.D. 10/20/2023 7:18 PM Hip/Pelvis X-Ray 10/20/23 18:07 XR hip RT 2V w pelvis CLINICAL HISTORY: right hip/LE pain COMPARISON: CT of the abdomen and pelvis October 14, 2023. FINDINGS: Sacroiliac joints and symphysis pubis are intact. There are no acute fractures within the pelvis or hips. There is moderate bilateral hip osteoarthritis. IMPRESSION: 1. No fractures within the pelvis or hips. 2. Moderate bilateral hip osteoarthritis. ACT 112: Negative or not required by law. Electronically signed by: Wiliam Romero M.D. 10/20/2023 7:16 PM Knee X-Ray 10/20/23 18:07 XR knee RT 1 or 2V routine CLINICAL HISTORY: Right knee pain. COMPARISON: None FINDINGS: Alignment of the knee is anatomic. There is no acute fracture. There is no osseous lesion. There is no joint effusion. Chondrocalcinosis within the menisci is noted. There is suprapatellar chondrocalcinosis. Moderate right knee osteophytosis. IMPRESSION: 1. No fractures within the right knee. No right knee joint effusion. 2. Chondrocalcinosis within the right knee, as described above. Mild right knee osteoarthritis. ACT 112: Negative or not required by law. Electronically signed by: Wiliam Romero M.D. 10/20/2023 7:14 PM Tibia/Fibula X-Ray 10/20/23 18:07 XR tibia fibula RT 2V CLINICAL HISTORY: Right leg pain. COMPARISON: None FINDINGS: There is no fracture within the right tibia or fibula. Distal right tibia and fibula are depicted on the right ankle radiographs which will be reported separately. There is extensive vascular calcification. Chondrocalcinosis within the menisci of the right knee. IMPRESSION: 1. No fractures within the right tibia or fibula. 2. Extensive vascular calcification. ACT 112: Negative or not required by law. Electronically signed by: Wiliam Romero M.D. 10/20/2023 7:[address] 10/20/23 19:02 CT OF THE HEAD WITHOUT CONTRAST CLINICAL HISTORY: RLE weakness, recent endarterectomy COMPARISON STUDY: Head CT October 14, 2023 and MRI of the brain October 15, 2023. CT DOSE: 547.75 mGy.cm TECHNIQUE: Helical axial images of the head were obtained without IV contrast. Automated exposure control was utilized for the study. A dose lowering technique was utilized adhering to the principles of ALARA. FINDINGS: No acute intracranial hemorrhage, midline shift or mass effect is present. White matter hypodensities are unchanged and favor small vessel disease. The ventricular system is unremarkable. The basal cisterns are patent. No extra-axial collections are present. There are no findings to suggest acute dural sinus thrombosis or acute territorial infarct. No significant calvarial abnormalities are present. Visualized portions of the sinuses and mastoid air cells are clear. IMPRESSION: No acute intracranial findings. ACT 112: Negative or not required by law. Electronically signed by: Wiliam Romero M.D. 10/20/2023 7:31 PM Pending Results Patient Have Any Pending Studies at Discharge: Yes (blood cultures ) Discharge Instructions Given to Patient (Per Discharging Provider) Mr. Salamanca, You were hospitalized after having progressive weakness at home. Thankfully we did not find any new infectious process. We have changed your antibiotic to IV vancomycin - this will continue through 10/28. Unfortunately you developed an acute kidney injury while you were here - this was treated with IV fluids, flomax and changing your blood pressure medication. I have stopped your lisinopril and started you on Amlodipine - you will receive a new prescription for this when you leave [facility]. The flomax is to help with urinary output while you have the catheter in place - you will need a follow up appointment with urology to have this removed. For pain control of you knee/hip/ankle - we have been using scheduled tylenol (to decrease inflammation), ice, elevation and voltaren gel. Follow up with your PCP within 7-10 days after discharge from [facility]. For [facility] * Recommend checking BMP in the next 3-4 days with resolving LASHON * Will need amlodipine rx at discharge * Flomax continued at discharge if still having catheter, needs outpatient urol ogy follow up * Vancomycin 1000mg q24 through 10/28 (US guided line placed 10/17) Thanks for allowing us to participate in your care. Maren Bell PA-C Total Time Total Time Spent Total Time Spent (In Minutes): Time spend day of discharge 40 minutes including direct patient care, medication reconciliation, documentation, review of labs and images, and coordination of care. Supervising Physician Co-Signing Physician Notes PA Supervision Note: I did not personally see or examine the patient today, but I verified all [place] points of ANA Bell's assessment and plan with the following except ions/additions: Changes made above Coding Level of Care Code 40510 INP/OBS DISCH >30 MIN Diagnoses Generalized weakness R53.1 Acute kidney injury N17.9 Muscle spasm M62.838 Coagulase negative Staphylococcus bacteremia R78.81; B95.7 Stenosis of right carotid artery I65.21 Laterality: right Elevated troponin R79.89
[2023-10-24] MEDS ORDERED: NON-FORMULARY MEDICATION (Coenzyme Q10 [Co Q-10] 100 mg Capsule) PO SCH (11:30)
== END 2023-10-24 13:54 | DRG 948 ==
LOC: ED 15:35 → SUATTDRO 17:51 → EDINP 17:51 → 2N 20:28

== ENCOUNTER 2024-01-23 13:07 | Inpatient (IN) ==
[2024-01-23 14:11] LABS: Hematocrit (blood only) 39.3 % (42.0-52.0); Hemoglobin 12.7 g/dl (14.0-18.0); Mean Corpuscular Hgb Conc 32.3 g/dL (32.0-36.0); Mean Corpuscular Volume 92.9 fL (80.0-100.0); Mean Platelet Volume 10.5 fL (9.4-12.4); Platelet Count 208 K/uL (130-400); RDW Coefficient of Variation 13.2 % (11.5-14.5); RDW Standard Deviation 45.5 fL (36.4-46.3); Red Blood Count 4.23 M/uL (4.70-6.10); White Blood Count 5.72 K/ul (4.8-10.8)
[2024-01-23 14:28] LABS: Albumin Globulin Ratio 1.7 (0.9-2); Albumin Level 4.3 gm/dl (3.4-5.0); BUN Creatinine Ratio 17.9 (10-20); Bilirubin,Total 0.5 mg/dl (0.2-1.0); Globulin 2.6 gm/dl (2.5-4.0); Potassium 4.2 mmol/L (3.5-5.1); Total Protein 6.9 gm/dl (6.0-8.3)
[2024-01-23 14:34] LABS: Troponin I High Sensitivity 26.2 pg/ml (0-20)
[2024-01-23 14:46] LABS: Partial Thromboplastin Time 28 Seconds (21-31); Prothrombin Time 10.9 Seconds (9.0-12.0)
[2024-01-23] MEDS: SODIUM CHLORIDE 0.9% 1,000 ML IV SCH (17:26)
--- NOTE | 2024-01-23 18:21 | Electrocardiogram Report ---
Test Reason : Blood Pressure : */* mmHG Vent. Rate : 61 BPM Atrial Rate : 61 BPM P-R Int : 144 ms QRS Dur : 150 ms QT Int : 438 ms P-R-T Axes : 5 -27 103 degrees QTcB Int : 440 ms Normal sinus rhythm Left bundle branch block Abnormal ECG When compared with ECG of 20-Oct-2023 15:59, Premature ventricular complexes are no longer Present Confirmed by Chris Beaver [id number]) on 01/23/2024 6:21:17 PM Referred By: REFERRED SELF Confirmed By: Chris Beaver
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
[2024-01-23] MEDS: TAMSULOSIN HCL 0.4 MG CAP PO STA (21:39)
[2024-01-23] MEDS: FAMOTIDINE 20 MG TAB PO STA (21:40)
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
[2024-01-23 22:51] LABS: Basophils # (auto) 0.04 K/uL (0.00-0.20); Basophils % (auto) 0.7 %; Eosinophils # (auto) 0.39 K/uL (0.00-0.50); Eosinophils % (auto) 6.9 %; Hematocrit (blood only) 33.6 % (42.0-52.0); Hemoglobin 11.1 g/dl (14.0-18.0); Immature Granulocytes # (auto) 0.02 K/uL (0.01-0.20); Immature Granulocytes % (auto) 0.4 %; Lymphocytes # (auto) 1.43 K/uL (1.20-3.40); Lymphocytes % (auto) 25.3 %; Mean Corpuscular Hemoglobin 30.2 pg (25.0-34.0); Mean Corpuscular Volume 91.6 fL (80.0-100.0); Mean Platelet Volume 10.3 fL (9.4-12.4); Monocytes # (auto) 0.47 K/uL (0.11-0.59); Monocytes % (auto) 8.3 %; Neutrophils % (auto) 58.4 %; Platelet Count 185 K/uL (130-400); RDW Coefficient of Variation 13.2 % (11.5-14.5); RDW Standard Deviation 44.3 fL (36.4-46.3); Red Blood Count 3.67 M/uL (4.70-6.10); White Blood Count 5.65 K/ul (4.8-10.8)
[2024-01-24 07:06] LABS: Basophils # (auto) 0.03 K/uL (0.00-0.20); Basophils % (auto) 0.4 %; Eosinophils # (auto) 0.11 K/uL (0.00-0.50); Eosinophils % (auto) 1.6 %; Hematocrit (blood only) 29.6 % (42.0-52.0); Hemoglobin 10.1 g/dl (14.0-18.0); Immature Granulocytes # (auto) 0.02 K/uL (0.01-0.20); Immature Granulocytes % (auto) 0.3 %; Lymphocytes # (auto) 0.99 K/uL (1.20-3.40); Lymphocytes % (auto) 14.4 %; Mean Corpuscular Hemoglobin 30.9 pg (25.0-34.0); Mean Corpuscular Hgb Conc 34.1 g/dL (32.0-36.0); Mean Corpuscular Volume 90.5 fL (80.0-100.0); Mean Platelet Volume 10.4 fL (9.4-12.4); Monocytes # (auto) 0.42 K/uL (0.11-0.59); Monocytes % (auto) 6.1 %; Neutrophils % (auto) 77.2 %; Platelet Count 174 K/uL (130-400); RDW Coefficient of Variation 13.3 % (11.5-14.5); RDW Standard Deviation 44.2 fL (36.4-46.3); Red Blood Count 3.27 M/uL (4.70-6.10); White Blood Count 6.87 K/ul (4.8-10.8)
[2024-01-24] MEDS: FAMOTIDINE 20 MG TAB PO SCH (08:25)
[2024-01-24] MEDS: amLODIPine BESYLATE 5 MG TAB PO SCH (08:25)
[2024-01-24] MEDS: MONTELUKAST SODIUM 10 MG TABLET PO SCH (08:26)
[2024-01-24] MEDS: FEXOFENADINE HCL 180 MG TAB PO SCH (08:26)
--- NOTE | 2024-01-24 10:21 | Billing Data ---
Date of Service January 23, 2024 Coding Level of Care Code 36856 INT INP/OBS CARE
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
--- NOTE | 2024-01-24 14:04 | Hospitalist Progress Note ---
<Statement entered by Mirna Perez MD - 01/24/24 18:25> I have reviewed vital signs, chart notes, labs and imaging. I have personally seen, evaluated and examined the patient. I have also discussed the management of the patient with the ENRIQUE and I agree with the exam findings documented in the history and physical examination and the documented assessment and plan unless otherwise stated below. 78-year-old gentleman with TCAR in September this year presenting with painless bright red blood per rectum. Most likely diverticular bleeding or internal hemorrhoids. Does not seem like a colitis given the lack of abdominal pain or diarrhea. Though he is at risk for ischemic or infectious colitis. Still having bright red blood per rectum as of this morning and is in need of continuation of antiplatelet therapy because of his stent. Has had mild drop in hemoglobin but no hemodynamic compromise. On my exam he is awake alert oriented x 4 lungs clear heart regular no murmurs abdomen soft nontender nondistended bowel tones are present, no extremity edema plan to consult gastroenterology todayI discussed with them prudent to have further evaluation because of family history of colon cancer and need for ongoing antiplatelet medication, we will continue to monitor prep for colonoscopy earliest this could be would be Sunday. for acute blood loss anemia he is not near requiring a transfusion, will monitor his hemoglobin and stools. For TCAR stent DAPT is required for 1 month following that potentially could be on aspirin alone, both aspirin and Plavix are held today but ideally will be able to resume aspirin this weekend. I sent message to his vascular surgeon Dr. Kellogg Date of Service January 24, 2024 Assessment & Plan (1) Bright red blood per rectum: Plan: Patient experiencing bright red blood per rectum x 1 day; No complaints of abdominal pain, nausea/vomiting, weakness, fatigue. H/H at 12.7/39.3 at admission. Coag panel within normal limits, CMP within normal limits at admission except for glucose at 126. Troponin 26.2-->25, no chest pain no indications of cardiac compromise. Stool occult positive. -No active signs of bleeding. -Positive family history of colon cancer in father. -Last colonoscopy 2015 with diverticulosis, nonbleeding internal hemorrhoids, no repeat recommended at that time secondary to age and absence of advanced adenomas -CBC trend: RBC 4.23 -> 3.67 -> 3.27, hemoglobin 12.7-> 11.1-> 10.1; normocytic normochromic anemia -Trend H&H daily -BMP every morning, specific attention to his potassium and sodium, per GI recs -S/p R-TCAR (09/2023) hold aspirin and Plavix; Tigered Dr. Kellogg regarding continuing to hold DAPT until after colonoscopy. -Patient allergic to IV contrast; low suspicion for need to image at this time -May maintain regular diet. However, if patient develops vomiting then changed to n.p.o. -GI recs: Arrange for inpatient colonoscopy on Sunday; low residue Sunday, clear liquid diet Sunday, GoLytely 4L bowel prep Sunday, n.p.o. after midnight Sunday. Will maintain hemoglobin >7, INR <2, platelets >50,000, potassium levels >3.5 but <5.3, and sodium levels within 5 points of the reference range prior to endoscopic evaluation to comply with GI recommendations. Appreciate GI consult and input Plan HTNBP elevated 165/70, continue amlodipine GERDcontinue famotidine BPHcontinue tamsulosin HLD- continue atorvastatin Hold naproxen Patient to be n.p.o. Sunday at midnight. Disposition: Awaiting colonoscopy on 01/27 VTE prophylaxis: SCDs Code: Full code Admission and Anticipated Discharge Date Admission Date: January 23, 2024 Subjective Patient is laying bed at time of visit. States that he continues to have bowel movements that are loose and consist of bright red blood. Reports that he has no abdominal pain, no nausea/vomiting, no fever, no acid reflux. Denies chest pain, shortness of breath, fatigue, palpitations, lightheadedness. Review of Systems Constitutional: no fever, no fatigue, no weakness and no weight loss Respiratory: no cough and no dyspnea Cardiovascular: no chest pain, no palpitations, no lightheadedness and no syncope Gastrointestinal: + diarrhea/loose stools and + blood in s tools (Bright red blood per rectum); no abdominal pain, no bloating, no heartburn, no nausea, no vomiting, no coffee ground emesis, no hematemesis and no constipation Genitourinary: no dysuria Physical Exam Constitutional: WD/WN, vitals as above no acute distress Eyes: PERRL, conjunctivae normal, anicteric sclerae Respiratory: normal respiratory effort, lungs clear to auscultation Cardiovascular: RRR, no murmur, no edema Extremities: no calf tenderness and no edema Gastrointestinal (Abdomen): Inspection/Auscultation: abdomen normal to inspection and normal bowel sounds; abdomen not distended Percussion/Palpation: abdomen soft; abdomen nontender, no guarding, abdomen not rigid and no hepatosplenomegaly Visual inspection of the anus reveals no external hemorrhoids or fissures; dried blood at surrounding skin. Nurse (Elyssa Gupta) present in room at time of exam. Results & Data Results & Data Vital Signs (Past 12 Hours) Vital Signs Temp Pulse Pulse Pulse Resp BP Pulse Ox 01/24/24 11:00 36.6 C 62 18 108/57 L 98 01/24/24 07:10 36.3 C L 65 18 127/69 96 01/24/24 07:00 74 01/24/24 03:33 36.5 C 67 18 117/67 95 O2 Del Method 01/24/24 11:00 Room Air 01/24/24 07:10 Room Air 01/24/24 07:00 01/24/24 03:33 Room Air Laboratory Results CBC: RBC 3.27, hemoglobin 10.1, hematocrit 29.6 Troponin 25, downtrending from 26.2 admission PG Care Time/CCT Total # of Minutes Spent Total Time Spent with Patient: Total time spent is greater than 50% in coordination of care (as documented) at patient's floor/unit and/or counseling patient: Coding Level of Care Code None Diagnoses Bright red blood per rectum K62.5
[2024-01-24] MEDS: INFLUENZA VACC TS2024-25(65y+)/PF (IIV3) 0.5mL Syr IM ONE (18:08)
[2024-01-24] MEDS: ATORVASTATIN 40 MG TAB PO SCH (19:47)
[2024-01-24] MEDS: TAMSULOSIN HCL 0.4 MG CAP PO SCH (19:47)
[2024-01-25 06:54] LABS: Hematocrit (blood only) 27.8 % (42.0-52.0); Hemoglobin 9.3 g/dl (14.0-18.0)
[2024-01-25 07:15] LABS: BUN Creatinine Ratio 16.5 (10-20); Creatinine Clr Calc Pharmacy 35.9 ml/min; Potassium 4.1 mmol/L (3.5-5.1)
--- NOTE | 2024-01-25 08:21 | Hospitalist Progress Note ---
Date of Service January 25, 2024 Assessment & Plan (1) Bright red blood per rectum: Plan: 78 y/o man admitted with painless BRBPR suggestive of lower GI bleeding, acute blood loss anemia, on DAPT for PAD and had TCAR 09/2023 -Positive family history of colon cancer in father. -Last colonoscopy 2015 with diverticulosis, nonbleeding internal hemorrhoids, no repeat recommended at that time secondary to age and absence of advanced adenomas -Hg down to 9.3 (12 on admission but may have been hemoconcentrated) no stools reported since yesterday AM. Continue to monitor Hg and stools -resume ASA if no significant ongoing bleeding this AM, continue to hold plavix temporarily -GI consulted. prep for colonoscopy Sunday Plan CKD 3 with increase in creatinine from 1.2 -->1.58 overnight but seems within recent baseline, reviewed meds no nephrotoxins -AM BMP HTNBP elevated 165/70, remained elevated throughout the day will increase amlodipine to 10 mg GERDcontinue famotidine BPHcontinue tamsulosin HLD- continue atorvastatin Hold naproxen Patient to be n.p.o. Sunday at midnight. Disposition: Awaiting colonoscopy on 01/27 VTE prophylaxis: SCDs Admission and Anticipated Discharge Date Admission Date: January 23, 2024 Subjective no abdominal pain and no stools since yesterday morning, no hematochezia no dyspnea or chest pain Physical Exam 2 Physical Exam: PHYSICAL EXAMINATION Last 24h vital signs reviewed, see documentation in flowsheet General: comfortable appearing, no distress HEENT: Normocephalic, atraumatic, pupils round and equal, sclerae anicteric, no conjunctival injection, moist mucus membranes Lungs: Normal respiratory effort. Clear to auscultation bilaterally. No RRW Heart: Regular rate and rhythm, no murmurs. No JVD Abdomen: Soft, nontender, nondistended. Bowel sounds present. Extremities: Warm, dry, well-perfused. No extremity edema. Neuro: Alert and oriented x 4, face symmetric, moves 4 extremities well Psych: Normal affect and behavior Results & Data Results & Data Vital Signs (Past 12 Hours) Vital Signs Temp Pulse Pulse Resp BP BP Pulse Ox 01/25/24 08:01 36.5 C 70 18 121/68 93 01/25/24 07:22 67 01/25/24 03:06 36.5 C 60 18 118/57 L 96 01/24/24 22:24 36.6 C 64 18 129/63 97 01/24/24 21:47 65 O2 Del Method 01/25/24 08:01 Room Air 01/25/24 07:22 01/25/24 03:06 Room Air 01/24/24 22:24 Room Air 01/24/24 21:47 Laboratory Results 01/25/24 06:06 01/25/24 06:06 PG Care Time/CCT Total # of Minutes Spent Total Time Spent with Patient: Total time spent is greater than 50% in coordination of care (as documented) at patient's floor/unit and/or counseling patient: Coding Level of Care Code 23447 SUB INP/OBS CARE 2/35MIN Diagnoses Bright red blood per rectum K62.5
--- NOTE | 2024-01-25 09:33 | Gastroenterology Progress Note ---
Date of Service January 25, 2024 Assessment & Plan (1) Bright red blood per rectum: Plan: 78 year old male with history of Carotid artery stenosis status post TCAR (September 2023) on anticoagulation w/ ASA/Plavix, HTN, GERD, HFrEF admitted w/ painless hematochezia, HGB 10.1 last colon in 2016 w/ diverticular disease and hemorrhoids. Father had colon cancer in his 80's. Proceed with Colonoscopy Sunday Please update coupon manifest clerk GI over the weekend with any acute clinical changes, questions or concerns. Hold ASA/Plavix if able. Trend H&H. Low residue diet Sunday. Clear liquid diet Sunday. Golytely 4L bowel prep Sunday. NPO after midnight Sunday in anticipation for endoscopic evaluation Sunday. We appreciate assistance in the management of any serological abnormality and corrections to include: hemoglobin >7, INR <2, platelets >50,000, potassium levels >3.5 but <5.3, and sodium levels within 5 points of the reference range prior to endoscopic evaluation. I spent a total of 30 minutes on the date of service in review of patient's record, and previously obtained information in person and appropriate medical visit, discussion and education of plan, with patient and/or caregiver, placing orders for tests/referral/procedures as medically necessary and documentation of pertinent clinical information in patient's medical records for their visit today. Thank you for allowing us to participate in the care of this patient. Please call with any acute changes, questions or concerns. Please see addendum below with additional recommendation from my supervising physician. Admission and Anticipated Discharge Date Admission Date: January 23, 2024 Supervising Physician Co-Signing Physician Notes I examined the patient and reviewed patient's chart , laboratory data and imaging studies. I agree with with assessment and plan of care as suggested by advanced practice provider Subjective Pt was seen and evaluated, chart reviewed. Eating breakfast. Denies any concerns this AM. No BM since evaluation yesterday. Agreeable to a colonsocopy Sunday. Review of Systems Review of Systems: All other findings negative except as noted in HPI. Physical Exam Constitutional: WD/WN, vitals as above Respiratory: normal respiratory effort Cardiovascular: Rate/Rhythm: regular rate Gastrointestinal (Abdomen): normal bowel sounds, soft, nontender, no hepatosplenomegaly Skin: no rashes, warm and dry Results & Data Results & Data Vital Signs (Past 12 Hours) Vital Signs Temp Pulse Pulse Resp BP BP Pulse Ox 01/25/24 08:01 36.5 C 70 18 121/68 93 01/25/24 07:22 67 01/25/24 03:06 36.5 C 60 18 118/57 L 96 01/24/24 22:24 36.6 C 64 18 129/63 97 01/24/24 21:47 65 O2 Del Method 01/25/24 08:01 Room Air 01/25/24 07:22 01/25/24 03:06 Room Air 01/24/24 22:24 Room Air 01/24/24 21:47 Laboratory Results 01/25/24 01/24/24 Range/Units 06:06 09:22 Hgb 9.3 L (14.0-18.0) g/dl Hct 27.8 L (42.0-52.0) % Sodium 141 (136-145) mmol/L Potassium 4.1 (3.5-5.1) mmol/L Chloride 110 H (98-107) mmol/L Carbon Dioxide 27 (21-32) mmol/L Anion Gap 4 (3-11) BUN 26 H (6-23) mg/dl Creatinine 1.58 H D (0.6-1.4) mg/dl Est Cr Clr Drug Dosing 35.9 ml/min eGFR 43.94 BUN/Creatinine Ratio 16.5 (10-20) Glucose 85 (70-99(Fasting)) mg/dl Calcium 9.0 (8.6-10.3) mg/dl Troponin I High Sens 25.0 H (0-20) pg/ml PG Care Time/CCT Total # of Minutes Spent Total Time Spent with Patient: Total time spent is greater than 50% in coordination of care (as documented) at patient's floor/unit and/or counseling patient: Coding Level of Care Code 62397 SUB INP/OBS CARE 1/25MIN Diagnoses Bright red blood per rectum K62.5
[2024-01-26 08:04] LABS: Hematocrit (blood only) 28.9 % (42.0-52.0); Hemoglobin 9.6 g/dl (14.0-18.0)
[2024-01-26 09:03] LABS: Calcium 9.2 mg/dl (8.6-10.3); Creatinine Clr Calc Pharmacy 39.1 ml/min
[2024-01-26] MEDS: amLODIPine BESYLATE 5 MG TAB PO SCH (09:20)
--- NOTE | 2024-01-26 09:44 | Gastroenterology Progress Note ---
Date of Service January 26, 2024 Assessment & Plan (1) Bright red blood per rectum: Plan: Colonoscopy planned for Sunday. This procedure, the alternatives including no work up or treatement, risks and benefits were discussed. Among the risks discussed included cardiorespiratory suppression, aspiration, bleeding, failure to diagnose cancer or other pathology and perforation requiring surgery. In addition we discussed that if specimens are obtained it may be deemed beneficial to send these for genetic/DNA testing. The patient claimed to understand all that was discussed, consented to all and all of his questions were answered. Subjective Patient feels well. Review of Systems Review of Systems: Denies abdominal pain, N/V, recent melena or hematochezia. Physical Exam Physical Exam: WD WN WM NAD Respiratory: Clear Cardiovascular: RRR Gastrointestinal (Abdomen): NL BS, soft, nontender Musculoskeletal: Neg CCE Results & Data Results & Data Vital Signs (Past 12 Hours) Vital Signs Temp Pulse Resp BP Pulse Ox O2 Del Method 01/26/24 08:06 36.4 C L 55 L 16 134/61 95 Room Air Laboratory Results Significant for anemia but stable Hgb at 9.6 PG Care Time/CCT Total # of Minutes Spent Total Time Spent with Patient: Total time spent is greater than 50% in coordination of care (as documented) at patient's floor/unit and/or counseling patient: Coding Level of Care Code 46720 SUB INP/OBS CARE 1/25MIN Diagnoses Bright red blood per rectum K62.5
--- NOTE | 2024-01-26 12:46 | Hospitalist Progress Note ---
<Statement entered by Mirna Perez MD - 01/26/24 17:35> I have reviewed vital signs, chart notes, labs and imaging. I have personally seen, evaluated and examined the patient. I have also discussed the management of the patient with the ENRIQUE and I agree with the exam findings documented in the history and physical examination and the documented assessment and plan unless otherwise stated below. Nursing reports blood-tinged stool last night, today we we will continue holding aspirin and Plavix pending colonoscopy. Ordered bowel prep for tomorrow afternoon Date of Service January 26, 2024 Assessment & Plan (1) Bright red blood per rectum: Plan: 78 y/o man admitted with painless BRBPR suggestive of lower GI bleeding, acute blood loss anemia, on DAPT for PAD and had TCAR 09/2023. -Positive family history of colon cancer in father. -Last colonoscopy 2015 with diverticulosis, nonbleeding internal hemorrhoids, no repeat recommended at that time secondary to age and absence of advanced adenomas -Hg today at 9.6 (12 on admission but may have been hemoconcentrated). Last BM yesterday, unknown if blood in stool, but was formed. Continue to monitor Hg and stools, no active bleeding at this time. -consider resuming ASA after colonoscopy if no significant ongoing bleeding, continue to hold Plavix temporarily -GI is following and he is planned for colonoscopy on Saturday 01/27. Bowel prep ordered per GI. - Will consider iron supplementation post-colonoscopy. Plan CKD 3 with increase in creatinine from 1.2 -->1.58 -->1.45 but seems within recent baseline, reviewed meds no nephrotoxins -AM BMP HTNBP had been elevated, amlodipine increased to 10 mg. BP now in the 130s/60s. GERDcontinue famotidine BPHcontinue tamsulosin HLD- continue atorvastatin Hold naproxen Patient to be n.p.o. Sunday at midnight. Disposition: Awaiting colonoscopy on 01/27 [facility] [place] [place] [place]mission and Anticipated Discharge Date Admission Date: January 25, 2024 Ace Rock is sitting in bed comfortably. He reports one formed BM yesterday, none today. 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 He is feeling well. Denies any f/v, chest pain, sob, abdominal pain, weakness, headache, vision issues/changes. Review of Systems Constitutional: no fever, no fatigue and no weakness Eyes: no blind spots, no diplopia and no loss of peripheral vision Respiratory: no cough and no dyspnea Cardiovascular: no chest pain, no palpitations, no lightheadedness and no syncope Gastrointestinal: + blood in stools (Bright red blood per rectum in past few days, but unsure of most recent BM); no abdominal pain, no bloating, no h eartburn, no nausea, no vomiting, no coffee ground emesis, no hematemesis and no constipation Genitourinary: no dysuria Musculoskeletal: no swelling Physical Exam Constitutional: well nourished; no acute distress and not ill appearing Eyes: PERRL, conjunctivae normal, anicteric sclerae Respiratory: normal respiratory effort, lungs clear to auscultation Cardiovascular: RRR, no murmur, no edema Extremities: no edema Gastrointestinal (Abdomen): Inspection/Auscultation: abdomen normal to inspection and normal bowel sounds; abdomen not distended Percussion/Palpation: abdomen soft; abdomen nontender and no guarding Neurologic: moves all extremities and awake; not confused Psychiatric: Orientation: alert and oriented x 3 Apperance: not disheveled Results & Data Results & Data Vital Signs (Past 12 Hours) Vital Signs Temp Pulse Resp BP Pulse Ox O2 Del Method 01/26/24 08:06 36.4 C L 55 L 16 134/61 95 Room Air PG Care Time/CCT Total # of Minutes Spent Total Time Spent with Patient: Total time spent is greater than 50% in coordination of care (as documented) at patient's floor/unit and/or counseling patient: Coding [place] [address] SUB INP/OBS CARE 2/35MIN Patient Type Established Medical Decision Making Moderate Complexity Diagnoses Bright red blood per rectum K62.5
[2024-01-27 06:31] LABS: Hematocrit (blood only) 28.9 % (42.0-52.0); Hemoglobin 9.5 g/dl (14.0-18.0)
[2024-01-27 06:52] LABS: BUN Creatinine Ratio 20.4 (10-20); Calcium 9.4 mg/dl (8.6-10.3); Creatinine Clr Calc Pharmacy 40.2 ml/min; Potassium 4.1 mmol/L (3.5-5.1)
[2024-01-27] MEDS: bisacodyL 5 MG TABEC PO ONE (09:08)
--- NOTE | 2024-01-27 10:03 | Gastroenterology Progress Note ---
Date of Service January 27, 2024 Assessment & Plan (1) Bright red blood per rectum: Plan: Colonoscopy. This procedure, the alternatives including no work up or treatment, risks and benefits were discussed. Among the risks discussed included cardiorespiratory suppression, aspiration, bleeding, failure to diagnose cancer or other pathology and perforation requiring surgery. In addition we discussed that if specimens are obtained it may be deemed beneficial to send these for genetic/DNA testing. The patient claimed to understand all that was discussed, consented to all and all of his questions were answered. Admission and Anticipated Discharge Date Admission Date: January 25, 2024 Subjective Patient doing well. Review of Systems Gastrointestinal: Denies any N/V, abdominal pain, melena or hematochezia Physical Exam Physical Exam: WD WN WM NAD Respiratory: Lungs: Clear anteriorly Cardiovascular: Seems reg Gastrointestinal (Abdomen): NL BS, soft, nontender Neurologic: A/O Results & Data Results & Data Vital Signs (Past 12 Hours) Vital Signs Temp Pulse Resp BP BP Pulse Ox O2 Del Method 01/27/24 07:40 36.4 C L 60 16 134/56 L 94 Room Air 01/27/24 01:06 36.5 C 75 18 130/63 97 Room Air Laboratory Results Hgb stable PG Care Time/CCT Total # of Minutes Spent Total Time Spent with Patient: Total time spent is greater than 50% in coordination of care (as documented) at patient's floor/unit and/or counseling patient: Coding Level of Care Code 40508 SUB INP/OBS CARE 1/25MIN Diagnoses Bright red blood per rectum K62.5
[2024-01-27] MEDS ORDERED: LAVAGE SOLUTION 4000ML PO ONE (15:00)
--- NOTE | 2024-01-27 16:30 | Hospitalist Progress Note ---
Date of Service January 27, 2024 Assessment & Plan (1) Bright red blood per rectum: Plan: 78 y/o man admitted with painless BRBPR suggestive of lower GI bleeding, acute blood loss anemia, on DAPT for PAD and had TCAR 09/2023. -Positive family history of colon cancer in father. -Last colonoscopy 2015 with diverticulosis, nonbleeding internal hemorrhoids, no repeat recommended at that time secondary to age and absence of advanced adenomas -Hg today stable at 9.5 (12 on admission but may have been hemoconcentrated). Last BM yesterday, states RN said no blood. Continue to monitor Hg and stools, no active bleeding at this time. -consider resuming ASA after colonoscopy if no significant ongoing bleeding, continue to hold Plavix temporarily -GI is following and he is planned for colonoscopy on Saturday 01/27. Bowel prep ordered per GI and will start tonight. Clear liquid diet started today. -Will consider iron supplementation post-colonoscopy. Plan CKD 3 with increase in creatinine. Creatinine improved today. 1.2 -->1.58 -->1.45 -->1.37 -AM BMP HTNBP had been elevated, amlodipine increased to 10 mg. GERDcontinue famotidine BPHcontinue tamsulosin HLD- continue atorvastatin Hold naproxen Patient to be n.p.o. Sunday at midnight. Disposition: Awaiting colonoscopy on 01/27 VTE prophylaxis: SCDs Admission and Anticipated Discharge Date Admission Date: January 25, 2024 Subjective Pranav is sitting in bed comfortably. Has not had any bloody stools - reports last BM yesterday and no blood. He is feeling well, has started his clear liquid diet and will start his GI prep tonight. Denies any f/v, chest pain, sob, abdominal pain, weakness, headache, vision issues/changes. Review of Systems Constitutional: no fever, no fatigue and no weakness Eyes: no blind spots, no diplopia and no loss of peripheral vision Respiratory: no cough and no dyspnea Cardiovascular: no chest pain, no palpitations, no lightheadedness and no syncope Gastrointestinal: no abdominal pain, no bloating, no heartburn, no nausea, no vomiting, no coffee ground emesis, no hematemesis, no constipation and no blood in stools Genitourinary: no dysuria Musculoskeletal: no swelling Physical Exam Constitutional: well nourished; no acute distress and not ill appearing Eyes: PERRL, conjunctivae normal, anicteric sclerae Respiratory: normal respiratory effort, lungs clear to auscultation Cardiovascular: RRR, no murmur, no edema Extremities: no edema Gastrointestinal (Abdomen): Inspection/Auscultation: abdomen normal to inspection and normal bowel sounds; abdomen not distended Pe rcussion/Palpation: abdomen soft; abdomen nontender and no guarding Neurologic: moves all extremities and awake; not confused Psychiatric: Orientation: alert and oriented x 3 Apperance: not disheveled Results & Data Results & Data Vital Signs (Past 12 Hours) Vital Signs Temp Pulse Resp BP Pulse Ox O2 Del Method 01/27/24 15:16 36.5 C 55 L 16 155/69 H 98 Room Air 01/27/24 07:40 36.4 C L 60 16 134/56 L 94 Room Air Laboratory Results 01/27/24 Range/Units 05:55 Hgb 9.5 L (14.0-18.0) g/dl Hct 28.9 L (42.0-52.0) % Sodium 141 (136-145) mmol/L Potassium 4.1 (3.5-5.1) mmol/L Chloride 109 H (98-107) mmol/L Carbon Dioxide 27 (21-32) mmol/L Anion Gap 5 (3-11) BUN 28 H (6-23) mg/dl Creatinine 1.37 (0.6-1.4) mg/dl Est Cr Clr Drug Dosing 40.2 ml/min eGFR 52.15 BUN/Creatinine Ratio 20.4 H (10-20) Glucose 96 (70-99(Fasting)) mg/dl Calcium 9.4 (8.6-10.3) mg/dl PG Care Time/CCT Total # of Minutes Spent Total Time Spent with Patient: Total time spent is greater than 50% in coordination of care (as documented) at patient's floor/unit and/or counseling patient: Coding [place] [address] SUB INP/OBS CARE 2/35MIN Patient Type Established Medical Decision Making Moderate Complexity Diagnoses Bright red blood per rectum K62.5
[2024-01-27] MEDS: LAVAGE SOLUTION 4000ML PO SCH (18:06)
[2024-01-28 08:06] LABS: Hematocrit (blood only) 28.8 % (42.0-52.0); Hemoglobin 9.5 g/dl (14.0-18.0)
[2024-01-28 08:28] LABS: BUN Creatinine Ratio 16.8 (10-20); Calcium 9.4 mg/dl (8.6-10.3); Creatinine Clr Calc Pharmacy 44.1 ml/min; Potassium 3.6 mmol/L (3.5-5.1)
--- NOTE | 2024-01-28 08:50 | Gastroenterology Progress Note ---
Date of Service January 28, 2024 Assessment & Plan (1) Bright red blood per rectum: Plan: 78 year old male with history of Carotid artery stenosis status post TCAR (September 2023) on anticoagulation w/ ASA/Plavix, HTN, GERD, HFrEF admitted w/ painless hematochezia, HGB 10.1 last colon in 2016 w/ diverticular disease and hemorrhoids. Father had colon cancer in his 80's. Maintain NPO status for colonoscopy this AM We appreciate assistance in the management of any serological abnormality and corrections to include: hemoglobin >7, INR <2, platelets >50,000, potassium levels >3.5 but <5.3, and sodium levels within 5 points of the reference range prior to endoscopic evaluation. Thank you for allowing us to participate in the care of this patient. Please call with any acute changes, questions or concerns. Please see addendum below with additional recommendation from my supervising physician. Admission and Anticipated Discharge Date Admission Date: January 25, 2024 Subjective Pt was seen and evaluated, chart reviewed. Completed about 75% of his bowel prep. Reports liquid stools. is not sure about the color. Denies abd pain, nausea, vomiting. NPO for colonoscopy this AM. Review of Systems Review of Systems: All other findings negative except as noted in HPI. Physical Exam Constitutional: WD/WN, vitals as above Respiratory: normal respiratory effort, lungs clear to auscultation Cardiovascular: Rate/Rhythm: regular rate and regular rhythm Gastrointestinal (Abdomen): normal bowel sounds, soft, nontender, no hepatosplenomegaly Skin: no rashes, warm and dry Results & Data Results & Data Vital Signs (Past 12 Hours) Vital Signs Temp Pulse Resp BP Pulse Ox O2 Del Method 01/28/24 08:11 36.6 C 57 L 16 127/55 L 98 Room Air Laboratory Results 01/28/24 Range/Units 06:54 Hgb 9.5 L (14.0-18.0) g/dl Hct 28.8 L (42.0-52.0) % Sodium 142 (136-145) mmol/L Potassium 3.6 (3.5-5.1) mmol/L Chloride 108 H (98-107) mmol/L Carbon Dioxide 28 (21-32) mmol/L Anion Gap 6 (3-11) BUN 21 (6-23) mg/dl Creatinine 1.25 (0.6-1.4) mg/dl Est Cr Clr Drug Dosing 44.1 ml/min eGFR 58.21 BUN/Creatinine Ratio 16.8 (10-20) Glucose 101 H (70-99(Fasting)) mg/dl Calcium 9.4 (8.6-10.3) mg/dl PG Care Time/CCT Total # of Minutes Spent Total Time Spent with Patient: Total time spent is greater than 50% in coordination of care (as documented) at patient's floor/unit and/or counseling patient: Coding Level of Care Code None Diagnoses Bright red blood per rectum K62.5
[2024-01-28] MEDS: SODIUM CHLORIDE 0.9% 500 ML IV SCH (10:02)
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
--- NOTE | 2024-01-28 11:21 | GI REPORT ---
[facility] Patient: JERAMIE ANTOINE : 1945 Sex at : Male Age: 78 Years Procedure: Colonoscopy Date: 01/28/2024 Attending Physician: Baldemar Magdaleno MD Referring MD: Mirna Perez Md Indications: - Hematochezia Medications: - Monitored Anesthesia Care - See the Anesthesia note for documentation of the administered medications Complications: - No immediate complications. Estimated Blood Loss: - Estimated blood loss was minimal. Procedure: - ASA Grade Assessment: III - A patient with severe systemic disease. - The adult colonoscope was introduced through the anus and advanced to the cecum, identified by appendiceal orifice and ileocecal valve. - The colonoscopy was performed without difficulty. - The quality of the bowel preparation was adequate. - The patient tolerated the procedure well. Findings: - A diminutive (1-3 mm) polyp was found in the ascending colon. The polyp was sessile. The polyp was removed with a cold biopsy forceps. Resection and retrieval were complete. - Multiple medium-mouthed and small-mouthed diverticula were found in the sigmoid colon. - Internal non-bleeding hemorrhoids were found during retroflexion. The hemorrhoids were Grade II (internal hemorrhoids that prolapse but reduce spontaneously). Impression: - One diminutive (1-3 mm) polyp in the ascending colon, removed with a cold biopsy forceps. Resected and retrieved. - Diverticulosis in the sigmoid colon. - Internal non-bleeding hemorrhoids. Recommendation: - Await pathology results. 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 - Repeat colonoscopy in 7-10 years for surveillance based on pathology results. Procedure Code(s): - 09603, Colonoscopy, flexible; with biopsy, single or multiple Diagnosis Code(s): - K92.1, Melena (includes Hematochezia) - D12.2, Benign neoplasm of ascending colon - K64.1, Second degree hemorrhoids - K57.30, Diverticulosis of large intestine without perforation or abscess without bleeding CPT(R) - 202 copyright [employer]. All Rights Reserved. The CPT codes, CCI edits and ICD codes generated are intended as suggestions and were generated based on input data. These codes are preliminary and upon medical records coder review may be revised to meet current compliance and payer requirements. The provider is responsible for the final determination of appropriate codes, and modifiers. Baldemar Magdaleno MD This document has been electronically signed. Note Initiated:01/28/2024 Note Completed:01/28/2024 11:21 AM \\[id number]
--- NOTE | 2024-01-28 11:23 | Communication Note ---
Date of Service: January 28, 2024 See Provation note for complete report. Summary: Diminutive polyp of ascending colon removed L sided diverticulosis Grade II internal hemorrhoids. Rec: Await pathology - as I am a locum physician and unable to provide out patient follow up - a copy of the pathology report will be sent to [facility] for disposition and follow up. Advance diet If anticoagulation needed OK from GI standpoint to resume in 24 hrs. IP GI Service will sign off. Please recall as needed.
[2024-01-28 11:39] VITALS: RESP 16
[2024-01-28] MEDS: PROPOFOL IV EMULSION 10 MG/ML 20 ML VIAL IV ONE (13:33)
[2024-01-28] MEDS: LIDOCAINE 2% 2 ML VIAL/AMP(20MG/ML) INFIL ONE (13:33)
--- NOTE | 2024-01-28 14:39 | Discharge Summary ---
<Statement entered by Mirna Perez MD - 01/28/24 16:55> I have reviewed vital signs, chart notes, labs and imaging. I have personally seen, evaluated and examined the patient. I have also discussed the management of the patient with the ENRIQUE and I agree with the exam findings documented in the history and physical examination and the documented assessment and plan unless otherwise stated below. Lower GI bleeding may have been related to internal hemorrhoids or a mild diverticular bleeding. biopsy from the polyp, pathology pending advised increasing bowel regimen to prevent hard stools and avoid aggravating hemorrhoids resume DAPT with aspirin and Plavix for severe vascular disease Discharge Summary Date of Service January 28, 2024 Principal Dx & Hospital Course #1 = Principal Diagnosis (1) Bright red blood per rectum: Admitted for painless BRBPR suggestive of lower GI bleeding, acute blood loss anemia, on DAPT for PAD and had TCAR 09/2023. -Positive family history of colon cancer in father. -Last colonoscopy 2015 with diverticulosis, nonbleeding internal hemorrhoids, no repeat recommended at that time secondary to age and absence of advanced adenomas -Hg remained stable with most recent being 9.5 (12 on admission but may have been hemoconcentrated). Daily BM, states RN said no blood. Continue to monitor Hg with PCP, no active bleeding at this time. -Monitor stools for blood. -GI consulted during course; colonoscopy 01/27- 1 poly in ascending colon removed, multiple diverticula in sigmoid colon, internal nonbleeding hemorrhoids (Grade II) -Advance diet as tolerated -Restart ASA and Plavix given no evidence of bleeding on colonoscopy. -Consider risk vs benefit of iron supplementation post-colonoscopy. Plan CKD 3 with increase in creatinine. Creatinine improved. 1.2 -->1.58 -->1.45 -->1.37 --> 1.25 HTNBP had been elevated, amlodipine increased to 10 mg while in hospital GERDcontinue famotidine BPHcontinue tamsulosin HLD- continue atorvastatin Naproxen was held during hospital stay; caution with Naproxen and other NSAIDs as they may lead to stomach ulcers/bleeding. Disposition: Medically stable for discharge, discharge today VTE prophylaxis: SCDs Code: Full Notes For Next Care Provider Repeat CBC in 1-2 weeks, consider need for iron supplementation. Amlodipine was increased from 5mg to 10 mg during stay, reduced back to 5mg at discharge. Review BP both in office and at home. No EGD completed; colonoscopy included removal of polyp. Admission HPI Per Admitting Provider Patient presented today with complaints of bright red blood per rectum. States that this started last evening and denies associated nausea/vomiting, or abdominal pain. ED course: RBC 4.23, hemoglobin 12.7, hematocrit 39.3, coagulation panel within normal limits CMP within normal limits with exception of glucose at 126. Troponin 26.2. POC stool occult positive. No imaging completed. Patient was started on NSS at 125 mL/hr. Pt is a 78 y/o male with PMHx of Carotid artery stenosis status post TCAR (September 2023) on anticoagulation with Plavix and aspirin, HTN, GERD, HFrEF, who presented secondary to BRBPR. Daughter, Oxana, is in the room at the time of visit and helps provide history. Pt states that last evening was his first episode of blood in his stool which appeared black to him, however he states he is color blind and that this may not be accurate. Daughter states that the patient called her this morning stating that he had an additional 2 episodes of bloody stool. States that the form was loose and liquidy. Daughter states that she was unable to appreciate the color of the stool, but when the nurse accompanied him to the bathroom, it was confirmed that it was bright red blood. Patient has had increased flatulence. Otherwise, denies abdominal pain, N/V/C, weakness, chest pain, shortness of breath, fatigue. Denies history of hemorrhoids or fissures. Does not feel as though he has to strain when using the bathroom to have a bowel movement. Denies recent changes to medications or antibiotic use states that this is never happened before. Family medical history significant for father with colon cancer. Patient states that he has had a colonoscopy in the past but is unsure of when this was. Daughter provides that the patient had polyps removed previously, none of which were cancerous. Please see Dr. Mendez's attestation for any changes to the treatment plan. Admission Exam Per Admitting Provider Constitutional: WD/WN, vitals as above no acute distress Eyes: PERRL, conjunctivae normal, anicteric sclerae Respiratory: normal respiratory effort, lungs clear to auscultation Cardiovascular: RRR, no murmur, no edema Extremities: no calf tenderness and no edema Gastrointestinal (Abdomen): Inspection/Auscultation: abdomen normal to inspection and normal bowel sounds; abdomen not distended Percussion/Palpation: abdomen soft; abdomen nontender, no guarding, abdomen not rigid and no hepatosplenomegaly Discharge Exam Constitutional WD/WN, vitals as above no acute distress Eyes PERRL, conjunctivae normal, anicteric sclerae Respiratory normal respiratory effort, lungs clear to auscultation Cardiovascular RRR, no murmur, no edema Extremities: no calf tenderness and no edema Gastrointestinal (Abdomen) Inspection/Auscultation: abdomen normal to inspection and normal bowel sounds; abdomen not distended Percussion/Palpation: abdomen soft; abdomen nontender, no guarding, abdomen not rigid and no hepatosplenomegaly Discharge Plan Discharge Items Patient Disposition: Home - Self-Care Reason For Visit: BRBPR Discharge Diagnosis: BRBPR, Lower GI bleed Activity: Resume your previous activity Non-emergency contact: Primary Care Provider Call non-emergency contact if: you have any medication questions and your symptoms worsen Follow-up/Referrals: Jina Smith MD [Primary Care Provider] - Diet: Regular Addtl Attending Provider Instructions: You were admitted for bleeding via your rectum. This was likely due to internal hemorrhoids or a diverticular bleed. You did not require blood transfusions during your stay. A colonoscopy was completed which revealed that he did have internal hemorrhoids that were not bleeding, outpouchings called diverticula, and a polyp that was removed. You do not require antibiotics during your stay. Your blood counts remained stable, and your kidney function was monitored but also remained stable. We did hold aspirin and Plavix to prepare for your procedure and to decrease the bleeding. You may restart both aspirin and Plavix upon discharge. While in the hospital, your blood pressure was elevated so your medication amlodipine was increased from 5 mg to 10 mg. You were discharged home on your home dose of 5 mg. Please follow-up with PCP regarding this change. Slowly advance your diet as tolerated. Recommend starting a daily fiber supplement, as well as MiraLAX as needed for constipation, to maintain healthy bowel regimen. Goal of toothpaste soft stools, with no straining. Please follow-up with PCP in 1 week following discharge to review hospital course as well as to monitor CBC and for consideration of starting iron supplementation. If you notice continued bleeding per rectum, new weakness, or increasing fatigue, please call PCP for advice. Pending Studies at Discharge: No Stand-Alone Forms: My [facility], Smoking Cessation Medications and DC Order Prescriptions: Continued amlodipine [Norvasc] 5 mg tablet 5 mg PO QAM Qty: 90 3RF clopidogrel [Plavix] 75 mg Tablet 75 mg PO QAM polyethylene glycol 3350 [Miralax] 17 gram/dose Powder 17 g PO Q OTHER DAY PRN (Reason: Constipation) coenzyme Q10 [Co Q-10] 100 mg Capsule 100 mg PO QDL Patient Comments: lunch Centrum Adult 50 Plus 80 mcg Tablet,Chewable 1 tab PO QDL fexofenadine 180 mg tablet 180 mg PO QAM famotidine 20 mg tablet 20 mg PO BID Rx Instructions: TAKE 1 TABLET TWICE A DAY mometasone 50 mcg/actuation spray,non-aerosol 2 spray intranasal QAM Rx Instructions: USE 2 SPRAYS NASALLY DAILY azelastine 137 mcg (0.1 %) aerosol,spray 2 spray intranasal QPM Patient Comments: w/lunch Rx Instructions: administer into each nostril albuterol sulfate 90 mcg/actuation HFA aerosol inhaler 2 inh inhalation BID Rx Instructions: USE 2 INHALATIONS EVERY 4 HOURS NEEDED FOR BRONCHOSPASM naproxen 500 mg tablet 500 mg PO Q12H PRN (Reason: Pain) Hold Instructions: Resume on 11/14/23. until discuss with PCP, ensure that kidney numbers are improving Rx Instructions: TAKE 1 TABLET EVERY 12 HOURS NEEDED FOR PAIN tamsulosin 0.4 mg capsule 0.4 mg PO QPM aspirin 81 mg Tablet,Delayed Release (Dr/Ec) 81 mg PO DAILY atorvastatin 40 mg tablet 40 mg PO QPM Rx Instructions: ON HOLD UNTIL 11/17/23 WHEN SEES PCP montelukast 10 mg tablet 10 mg PO QAM Rx Instructions: TAKE 1 TABLET DAILY Discharge Orders: Discharge Order (Routine); Ordered 01/28/24 Ordered By: Heladio Monroy/Other Patient Handouts: Understanding Rectal Bleeding, Understanding Hemorrhoids Admission Data Admit Date/Time: 01/25/24 11:38 Attending Provider: Mirna Perez Admit Provider: Oumar Mendez Primary Care Provider: Jina Smith Other Providers: Oumar Mendez; [facility] Stay Data Consultations 01/23/24 17:22 ED Decision to Admit Stat 01/24/24 12:35 Consult Gastroenterology Routine Procedures Performed Operation Date: 01/28/24 16:30 Actual Procedures p Colonoscopy Polypectomy - Baldemar Magdaleno MD Pending Results Patient Have Any Pending Studies at Discharge: No Discharge Instructions Given to Patient (Per Discharging Provider) You were admitted for bleeding via your rectum. This was likely due to internal hemorrhoids or a diverticular bleed. You did not require blood transfusions during your stay. A colonoscopy was completed which revealed that he did have internal hemorrhoids that were not bleeding, outpouchings called diverticula, and a polyp that was removed. You do not require antibiotics during your stay. Your blood counts remained stable, and your kidney function was monitored but also remained stable. We did hold aspirin and Plavix to prepare for your procedure and to decrease the bleeding. You may restart both aspirin and Plavix upon discharge. While in the hospital, your blood pressure was elevated so your medication amlodipine was increased from 5 mg to 10 mg. You were discharged home on your home dose of 5 mg. Please follow-up with PCP regarding this change. Slowly advance your diet as tolerated. Recommend starting a daily fiber supplement, as well as MiraLAX as needed for constipation, to maintain healthy bowel regimen. Goal of toothpaste soft stools, with no straining. Please follow-up with PCP in 1 week following discharge to review hospital course as well as to monitor CBC and for consideration of starting iron supplementation. If you notice continued bleeding per rectum, new weakness, or increasing fatigue, please call PCP for advice. Total Time Total Time Spent Total Time Spent (In Minutes): 20 Coding Level of Care Code None Diagnoses Bright red blood per rectum K62.5
[2024-01-28 14:55] VITALS: TEMP 97.5; O2SAT 97
--- NOTE | 2024-01-28 16:04 | Anesthesiology Progress Note ---
Date of Service January 28, 2024 Anesthesia Post Procedure Vital Signs Vital Signs: Temp Pulse Pulse Resp BP Pulse Ox O2 Del Method 01/28/24 14:53 36.4 C L 59 L 16 110/57 L 97 Room Air 01/28/24 12:03 36.3 C L 59 L 16 138/67 100 Room Air 01/28/24 11:50 56 L 16 143/53 H 98 Room Air 01/28/24 11:39 65 16 125/54 L 99 Room Air 01/28/24 11:19 36.6 C 58 L 16 90/56 L 96 Room Air 01/28/24 09:58 36.6 C 67 67 18 167/61 H 99 Room Air 01/28/24 08:11 36.6 C 57 L 16 127/55 L 98 Room Air 01/27/24 19:58 36.4 C L 60 18 168/80 H 99 Room Air Transfer of Care Handoff Completed per policy Notes Mental Status: alert / awake / arousable and participated in evaluation Nausea / Vomiting: adequately controlled Pain: adequately controlled Airway Patency, RR, SpO2: stable & adequate BP & HR: stable & adequate Hydration State: stable & adequate Anesthetic Complications: no major complications apparent and Pt Satisfied with anesthetic care
[2024-01-28 16:09] VITALS: BP 155/69; PULSE 67
--- NOTE | 2024-01-28 16:56 | Billing Data ---
Date of Service January 28, 2024 Coding Level of Care Code 09120 IN/OBS DISCH 30 MIN/LESS
== END 2024-01-28 16:37 | disposition home or self-care (01) | DRG 378 ==
LOC: ED 13:07 → EDINP 13:07 → SUATTDRO 18:22 → 2N 21:53 → 3W 01-27 20:03

== ENCOUNTER 2024-01-30 13:18 | Observation (INO) ==
[2024-01-30 13:56] LABS: Basophils # (auto) 0.05 K/uL (0.00-0.20); Basophils % (auto) 0.8 %; Eosinophils # (auto) 0.15 K/uL (0.00-0.50); Eosinophils % (auto) 2.5 %; Hematocrit (blood only) 29.9 % (42.0-52.0); Immature Granulocytes # (auto) 0.03 K/uL (0.01-0.20); Immature Granulocytes % (auto) 0.5 %; Lymphocytes # (auto) 0.89 K/uL (1.20-3.40); Lymphocytes % (auto) 14.8 %; Mean Corpuscular Hemoglobin 30.7 pg (25.0-34.0); Mean Corpuscular Hgb Conc 33.4 g/dL (32.0-36.0); Mean Corpuscular Volume 91.7 fL (80.0-100.0); Mean Platelet Volume 10.9 fL (9.4-12.4); Monocytes # (auto) 0.51 K/uL (0.11-0.59); Monocytes % (auto) 8.5 %; Neutrophils # (auto) 4.37 K/uL (1.40-6.50); Neutrophils % (auto) 72.9 %; Platelet Count 203 K/uL (130-400); RDW Coefficient of Variation 13.1 % (11.5-14.5); RDW Standard Deviation 42.8 fL (36.4-46.3); Red Blood Count 3.26 M/uL (4.70-6.10)
[2024-01-30 14:11] LABS: Albumin Globulin Ratio 1.7 (0.9-2); BUN Creatinine Ratio 15.3 (10-20); Bilirubin,Total 0.6 mg/dl (0.2-1.0); Calcium 9.7 mg/dl (8.6-10.3); Creatinine Clr Calc Pharmacy 46.7 ml/min; Globulin 2.4 gm/dl (2.5-4.0); Potassium 3.9 mmol/L (3.5-5.1); Total Protein 6.4 gm/dl (6.0-8.3)
[2024-01-30 14:17] LABS: Troponin I High Sensitivity 31.1 pg/ml (0-20)
[2024-01-30 14:25] LABS: Partial Thromboplastin Time 27 Seconds (21-31); Prothrombin Time 11.3 Seconds (9.0-12.0)
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
--- NOTE | 2024-01-30 15:40 | Electrocardiogram Report ---
Test Reason : Blood Pressure : */* mmHG Vent. Rate : 74 BPM Atrial Rate : 74 BPM P-R Int : 144 ms QRS Dur : 150 ms QT Int : 426 ms P-R-T Axes : 41 20 105 degrees QTcB Int : 472 ms Sinus rhythm with occasional Premature ventricular complexes Possible Left atrial enlargement Left bundle branch block Abnormal ECG When compared with ECG of 23-Jan-2024 13:40, Premature ventricular complexes are now Present QRS axis Shifted right T wave inversion more evident in Lateral leads Confirmed by Yaya Santana ([id number]) on 01/30/2024 3:39:49 PM Referred By: Confirmed By: Yaya Santana
[2024-01-30] MEDS: HEPARIN SODIUM/DEXTROSE 25,000 UNITS/500 ML BAG IV SCH (16:30)
[2024-01-30] MEDS: Heparin IV Adult Wt-Based Standard *NO* INITIAL Bolus Protocol IV STA (16:31)
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
[2024-01-30] MEDS: POLYETHYLENE (MIRALAX) 17 GM PACK PO SCH (20:40)
[2024-01-30] MEDS: DOCUSATE SODIUM 100 MG CAP PO ONE (20:40)
[2024-01-30] MEDS: FAMOTIDINE 20 MG TAB PO SCH (20:47)
[2024-01-30] MEDS: predniSONE 10 MG TABLET PO ONE (20:47)
[2024-01-30] MEDS: ATORVASTATIN 40 MG TAB PO SCH (20:47)
[2024-01-30] MEDS: TAMSULOSIN HCL 0.4 MG CAP PO SCH (20:47)
[2024-01-30 23:37] LABS: ANTI-Xa, UFH(UnfractionatedHep 0.41 IU/ml (0.3-0.7)
[2024-01-31 07:32] VITALS: RESP 18
[2024-01-31 09:34] LABS: ANTI-Xa, UFH(UnfractionatedHep 0.57 IU/ml (0.3-0.7)
[2024-01-31] MEDS: ASPIRIN 81 MG ECTAB PO SCH (10:00)
[2024-01-31] MEDS: amLODIPine BESYLATE 5 MG TAB PO SCH (10:00)
[2024-01-31] MEDS: CLOPIDOGREL BISULFATE 75 MG TAB PO SCH (10:01)
[2024-01-31] MEDS: MONTELUKAST SODIUM 10 MG TABLET PO SCH (10:02)
[2024-01-31] MEDS: APIXABAN 5 MG TABLET PO SCH (13:17)
--- NOTE | 2024-01-31 13:28 | Discharge Summary ---
Discharge Summary Date of Service January 31, 2024 Principal Dx & Hospital Course #1 = Principal Diagnosis (1) Deep venous thrombosis (DVT) of right peroneal vein: Pt is a 78 y/o M with PMHx carotid stenosis s/p TCAR (september 2023) on DAPT with plavix and ASA. Noted R ankle edema and pain 01/28, 1 day following discharge. Previously held from DAPT to allow completion of colonoscopy to further investigate cause of BRBPR. Resumed DAPT 01/28. SCDs used throughout last hospital admission, physical exam during last hospital course from admission to discharge did not support the diagnosis of DVT. 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 No additional DVT identified. - D-dimer not completed; CTA not completed due to IV contrast allergy and initiation of treatment with Heparin - PT 11.3, INR 1.0, APTT 27, PTT Ratio 1.0 at admission, remained stable through course - Heparin Anti-Xa 0.41 -> 0.57, therapeutic range - Troponin 31.0; EKG changes not suggestive of ischemia, no chest pain; repeat troponin at with downtrend (30.7) - VS stable - Spoke with Dr. Kellogg; Previously DAPT completed with Plavix + ASA for TCAR September 2023 (6 months duration required) per vascular; - pt continued DAPT during tx with heparin (ASA + Plavix); Discontinue ASA at discharge - DAPT adjusted upon discharge; Changed to Eliquis + Plavix; discussed with vascular, agreed. - No overt bleeding while on heparin; no filter Pt has not had BM x 2 days; evaluation if still having LGI bleed should be made given current management with heparin and recent GI bleed - MiraLAX + Colace x 1 , refused by pt - Reports that he did not have a BM during stay Plan ? Pseudo-gout - Pt R ankle swollen at time of admission, however location of DVT was more proximal. Symptoms of stiffness and pain in the ankle itself could be more consistent with pseudo-gout vs gout and physical exam reveals warm, edematous R ankle compared to L. - Most recent uric acid level 5.3 as of 2017 - Recommend PCP to follow this and repeat uric acid level to r/o gout - Prednisone 10 mg x 1 provided in hospital; will d/c on tapering steroid dose as directed in discharge instructions. CKD 3- Cr on admission 1.18, BUN 18 HTN- Continue amlodipine 5 mg GERD- Continue famotidine BPH- Continue tamsulosin HLD- Continue atorvastatin All questions were answered and pt demonstrated complete understanding. Dispo: Pt medically stable for discharge, will be discharged home today VTE: Tx with Heparin for present DVT Code: Full Notes For Next Care Provider Please check uric acid level Admission HPI Per Admitting Provider Pt presented to ED with RLE swelling after being sent from him allergy appointment for concerns from provider for DVT. ED course: H/H 02/18.9, chloride 110, Alk Phos 115, Troponin 31.0, globulin 2.4; Venous doppler study revealed occlusive likely acute thrombus noted within one of the duplicated peroneal veins. No additional DVT identified. EKG: NSR with PVC, possible LAE, LBBB. Pt is a 78 y/o M with h/o carotid stenosis s/p TCAR (september 2023) wth DAPT Plavix + ASA, HTN, HFrEF, and most recent admission 01/22-01/28 for BRBPR, colonoscopy revealed no active bleeding. Pt states that he had mild stiffness of his R ankle the night of discharge, then noticed ankle swelling 01/28. Pt presented to outpatient appointment with daughter, Oxana, on morning of 01/29 where the provider was concerned for increased swelling in RLE. Reports no chest pain, SOB, palpitations, dizziness. States that this has never happened before. Pt resumed Plavix and ASA 01/28 following discharge. Has had no recurrence of bleeding per rectum and has not had a BM since discharge 01/27. Discharge physical exam 01/28 documents no calf tenderness or edema. Daughter, Oxana, is in the room with patient and helps to provide a history. Admission Exam Per Admitting Provider General: No acute distress, well developed. Skin: Warm and dry, without rashes or lesions. No cyanosis or clubbing Head: Normocephalic, atraumatic Eyes: Wearing glasses; PERRL, conjunctivae clear, sclera non-icteric; EOM intact ENT: External ear and ear canal without swelling; nose atraumatic Neck: Supple, no LAD; no JVD Cardio: RRR, no M/G/R, S1 and S2 normal Resp: Chest wall symmetric, normal respiratory effort; No respiratory distress, Lungs CTA in all lobes bilaterally, no wheezes, rales, or rhonchi Abdomen: Soft, symmetric, nontender; No visible lesions or scars; no distention; No masses or hepatosplenomegaly MSK: RLE with non-pitting edema localized from mid-zee to ankle; no erythema; no calf tenderness. LLE WNL. Strength equal and symmetric, full ROM throughout; sensation normal to UE/LE. Pulses palpable and equal. Neuro: Awake, alert; Muscle strength 5/5 bilaterally in UE/LE; Sensation intact bilaterally Psych: Appropriate mood and affect; good judgement and insight. Discharge Exam General: No acute distress, well developed. Skin: Warm and dry, without rashes or lesions. No cyanosis or clubbing Eyes: Wearing glasses; PERRL, conjunctivae clear, sclera non-icteric Cardio: RRR, no M/G/R, S1 and S2 normal Resp: Chest wall symmetric, normal respiratory effort; No respiratory distress, Lungs CTA in all lobes bilaterally, no wheezes, rales, or rhonchi Abdomen: Soft, symmetric, nontender; No masses or hepatosplenomegaly MSK: RLE with non-pitting edema localized from mid-zee to ankle has improved; no erythema; no calf tenderness. LLE WNL. Strength equal and symmetric, full ROM throughout; sensation normal to UE/LE. Pulses palpable and equal. Neuro: Awake, alert; Sensation intact bilaterally Psych: Appropriate mood and affect Discharge Plan Discharge Items Patient Disposition: Home - Self-Care Reason For Visit: DVT Discharge Diagnosis: DVT Activity: Resume your previous activity Non-emergency contact: Primary Care Provider Call non-emergency contact if: you have any medication questions, your symptoms worsen, your pain is not controlled, your pain is worsening and your pain is concerning for you Follow-up/Referrals: Jina Smith MD [Primary Care Provider] - 02/11/24 3:00 pm Diet: Regular Addtl Attending Provider Instructions: You were diagnosed with a clot in your lower leg (DVT). You were treated with a medication called Heparin, which worked to break down the existing clot. We continued you on home medication, Plavix, and spoke with your vascular surgeon (Dr. Kellogg) who approved switching Aspirin to a medication called Eliquis. You are to continue both Plavix and Eliquis upon discharge, as scheduled. When taking Eliquis, you will be prescribed 10mg to be taken twice a day (morning and night) for a total of 7 days starting the night of discharge. After 7 days, take only 5mg to be taken twice a day (morning and night) ongoing. Eliquis increases your risk of bleeding. Please advice caution while on this medication by taking it at the same time twice a day, using extra caution not to fall, and seeking medical attention in the event of any fall or injury. You experienced ankle swelling and stiffness, which brought you to the ED. These symptoms were most consistent with a condition called pseudo-gout. This was ma naged through the use of steroids to decrease the swelling, which you were provided a dose with while in the hospital. We will continue a tapering dose of a steroid upon discharge. Please take medication as directed: Prednisone- 10mg (2 tablets) x 3 days, then 5mg (1 tablet) x 3 days, then 2.5mg (half tablet) x 3 days, then discontinue medication. Please follow up with your PCP within 1 week to discuss your recent hospitalization. We recommend a uric acid level be completed at that visit to differentiate gout from pseudo-gout. Please return to the ED or call your PCP for advice if you experience bleeding, leg swelling, calf tenderness, shortness of breath, chest pain, worst headache of your life, or symptoms that concern you. Pending Studies at Discharge: No Stand-Alone Forms: My [facility] [employer], Smoking Cessation Medications and DC Order Prescriptions: New Eliquis 5 mg Tablet 5 mg PO BID Qty: 30 0RF Rx Instructions: Please take 10 mg two times a day (4 total each day) for 7 days, then take 5 mg two times a day (2 total each day) ongoing prednisone 5 mg tablet 5 mg PO DIRECTED 9 Days Qty: 11 0RF Rx Instructions: Please take 10mg (2 tablets) x 3 days, then 5 mg (1 tablet) x 3 days, then 2.5 mg (half tablet) x 3 days then stop Continued amlodipine [Norvasc] 5 mg tablet 5 mg PO QAM Qty: 90 3RF clopidogrel [Plavix] 75 mg Tablet 75 mg PO QAM polyethylene glycol 3350 [Miralax] 17 gram/dose Powder 17 g PO Q OTHER DAY PRN (Reason: Constipation) coenzyme Q10 [Co Q-10] 100 mg Capsule 100 mg PO QDL Patient Comments: lunch Centrum Adult 50 Plus 80 mcg Tablet,Chewable 1 tab PO QDL fexofenadine 180 mg tablet 180 mg PO QAM famotidine 20 mg tablet 20 mg PO BID Rx Instructions: TAKE 1 TABLET TWICE A DAY mometasone 50 mcg/actuation spray,non-aerosol 2 spray intranasal QAM Rx Instructions: USE 2 SPRAYS NASALLY DAILY azelastine 137 mcg (0.1 %) aerosol,spray 2 spray intranasal QPM Patient Comments: w/lunch Rx Instructions: administer into each nostril albuterol sulfate 90 mcg/actuation HFA aerosol inhaler 2 inh inhalation BID Rx Instructions: USE 2 INHALATIONS EVERY 4 HOURS NEEDED FOR BRONCHOSPASM naproxen 500 mg tablet 500 mg PO Q12H PRN (Reason: Pain) Hold Instructions: Resume on 11/14/23. until discuss with PCP, ensure that kidney numbers are improving Rx Instructions: TAKE 1 TABLET EVERY 12 HOURS NEEDED FOR PAIN tamsulosin 0.4 mg capsule 0.4 mg PO QPM atorvastatin 40 mg tablet 40 mg PO QPM montelukast 10 mg tablet 10 mg PO QAM Rx Instructions: TAKE 1 TABLET DAILY Discontinued aspirin 81 mg Tablet,Delayed Release (Dr/Ec) 81 mg PO DAILY Discharge Orders: Discharge Order (Routine); Ordered 01/31/24 Ordered By: Heladio Monroy/Other Patient Handouts: Anticoagulants, What Is Gout Admission Data Admit Date/Time: 01/30/24 16:43 Attending Provider: Eldon Menjivar Admit Provider: Eldon Menjivar Primary Care Provider: Jina Smith Other Providers: Eldon Menjivar Other Interventions: Discharge Summary Assessment (RN) Last Done: 01/31/24 16:39 Hospital Stay Data Consultations 01/30/24 14:42 Consult Hospitalist Stat 01/30/24 15:40 ED Decision to Admit Stat Pending Results Patient Have Any Pending Studies at Discharge: No Discharge Instructions Given to Patient (Per Discharging Provider) You were diagnosed with a clot in your lower leg (DVT). You were treated with a medication called Heparin, which worked to break down the existing clot. We continued you on home medication, Plavix, and spoke with your vascular surgeon (Dr. Kellogg) who approved switching Aspirin to a medication called Mar arnaud. You are to continue both Plavix and Eliquis upon discharge, as scheduled. When taking Eliquis, you will be prescribed 10mg to be taken twice a day (morning and night) for a total of 7 days starting the night of discharge. After 7 days, take only 5mg to be taken twice a day (morning and night) ongoing. Eliquis increases your risk of bleeding. Please advice caution while on this medication by taking it at the same time twice a day, using extra caution not to fall, and seeking medical attention in the event of any fall or injury. You experienced ankle swelling and stiffness, which brought you to the ED. These symptoms were most consistent with a condition called pseudo-gout. This was managed through the use of steroids to decrease the swelling, which you were provided a dose with while in the hospital. We will continue a tapering dose of a steroid upon discharge. Please take medication as directed: Prednisone- 10mg (2 tablets) x 3 days, then 5mg (1 tablet) x 3 days, then 2.5mg (half tablet) x 3 days, then discontinue medication. Please follow up with your PCP within 1 week to discuss your recent hospitalization. We recommend a uric acid level be completed at that visit to differentiate gout from pseudo-gout. Please return to the ED or call your PCP for advice if you experience bleeding, leg swelling, calf tenderness, shortness of breath, chest pain, worst headache of your life, or symptoms that concern you. Supervising Physician Co-Signing Physician Notes Patient seen and examined, chart reviewed, case discussed with Heladio Cordova PA-C and I agree with the assessment and plan as above except as otherwise noted Labs and images reviewed Patient seen prior to discharge. Feels well. Ankle pain has nearly completely resolved and is able to walk on this at time of bedside. Has no ongoing complaints. Reviewed plan for anticoagulation including Eliquis 10 mg twice daily for 1 week and then transitioning to 5 mg daily thereafter for VTE. Reviewed that as he will be anticoagulated although had a recent TCAR can switch to Eliquis/Plavix and can discontinue aspirin on discharge. No additional questions at bedside. Agree with above. Total time spent in coordination of discharge approximately 35 minutes. Total Time Total Time Spent Total Time Spent (In Minutes): 20 Coding Level of Care Code None Diagnoses Deep venous thrombosis (DVT) of right peroneal vein I82.451 Chronicity: acute
--- NOTE | 2024-01-31 13:30 | Billing Data ---
Date of Service January 31, 2024 Coding Level of Care Code 73623 INP/OBS DISCH >30 MIN
[2024-01-31 15:07] VITALS: BP 123/59; PULSE 62; TEMP 97.5; O2SAT 98
== END 2024-01-31 17:42 | disposition home or self-care (01) ==
LOC: ED 13:18 → 3W 13:18 → SUATTDRO 16:43 → 3W 17:57

== ENCOUNTER 2024-11-06 18:13 | Inpatient (IN) ==
--- NOTE | 2024-11-06 18:31 | Emergency Department Note ---
Impression & Plan Hypernatremia, Hyperglycemia, Serum calcium elevated ED Provider Note NAME: JERAMIE ANTOINE AGE: 79 SEX: M : 1945 ARRIVES VIA: Ambulance INFORMANT: Patient ED PROVIDER(S): Benito Jennings DO CHIEF COMPLAINT: Abnormal labs HPI: Patient is an 79-year-old male with a past medical history of CAD, heart failure, DVT, cardiomyopathy, asthma who presents to the ER from [place] [facility] for abnormal blood work. Patient per report from EMS is demented/does not speak much. History is otherwise unobtainable but he does note that he has no pain. Upon review of external records sodium was 150s. ADDITIONAL HISTORY OBTAINED: Per HPI Chronic Medical/Social Conditions Affecting Care: Per HPI PAST MEDICAL HISTORY:See Below PAST SURGICAL HISTORY:See Below FAMILY HISTORY:See Below SOCIAL HISTORY:See Below HOME MEDICATIONS:See Below ALLERGIES:See Below VITALS:See Below PHYSICAL EXAMINATION: GENERAL: Sitting up in bed, alert, well appearing, well nourished, no distress, non-toxic EYE EXAM: normal conjunctiva. PERRL and EOM's grossly intact. OROPHARYNX: mucous membranes are moist NECK: supple, no nuchal rigidity, no adenopathy, non-tender LUNGS: Clear to auscultation. Normal chest wall mechanics HEART: no murmurs, S1 normal and S2 normal ABDOMEN: abdomen soft, non-tender, normo-active bowel sounds, no masses, no rebound or guarding. BACK: Back is symmetrical on inspection and there is no deformity, no midline tenderness, no CVA tenderness. SKIN: no rashes and no bruising UPPER EXTREMITIES: upper extremities are grossly normal. LOWER EXTREMITIES: No pitting edema. NEURO EXAM: Sitting up not oriented to person place or time, cranial nerves II- XII grossly intact, normal speech, no gross weakness of arms, no gross weakness of legs. MEDICAL DECISION MAKING: Patient is an 79-year-old male who presents ER for the above-stated complaint. IV was established and blood work was obtained. Upon review of external records at [facility] performed as an outpatient sodium of 152. Labs were redrawn and sodium was significantly elevated again at 152. Glucose was elevated 200. Creatinine at 1.7. LFTs and bilirubin were unremarkable. Lipase is normal. Chest x-ray unremarkable. Patient was given IV fluids. Discussed case with the hospitalist for further evaluation management treatment. Patient no complaints while in the ER. Consults/Care Managements Discussions: Per MDM Triage Nursing notes reviewed. Limited review of prior medical records performed Vital Signs: reviewed and remarkable for HTN Differential diagnosis: Differential diagnoses includes but is not limited to gastritis, peptic ulcer disease, GERD, gallbladder disease, pancreatitis, small bowel obstruction, appendicitis, diverticulitis, hernia, urinary tract infection, torsion, perforation, trauma, infectious. ER treatment provided: See below Diagnostics interpreted by me include EKG and cardiac monitoring as listed below: -Cardiac Monitoring: An order was placed for continuous cardiac monitoring. The monitor shows a rate of 101 with sinus rhythm. -ECG: Sinus tachycardia rate of [address] segment elevations in V1 through V3 with a left bundle branch block QTc 528 Discordant elevation is slightly larger than previous -Laboratory studies:Interpreted by me as stated above in MDM and shown below. Imaging studies: Xrays: As interpreted by me: Portable AP upright 1 view of the chest shows no focal infiltrate CTs show: none Procedures:none Critical Care: None Past Med/Surg History Problem List (Updated 11/06/24 @ 22:57 by Benito Jennings DO) Serum calcium elevated (Acute) CVA (cerebral vascular accident) Hyperglycemia (Acute) Hypernatremia (Acute) CAD (coronary artery disease) HFrEF (heart failure with reduced ejection fraction) Anemia Moderate mitral regurgitation Heart failure with mildly reduced ejection fraction (HFmrEF) Deep venous thrombosis (DVT) of right peroneal vein (Acute ~01/2024) Cardiomyopathy Hypertension Dyslipidemia Carotid artery stenosis s/p left CEA 2016 [facility] and R TCAR 09/2023 [facility] BPH (benign prostatic hyperplasia) Asthma Allergic rhinitis Medical History Chronic anemia CKD (chronic kidney disease), stage III Moderate mitral regurgitation History of hypertension Dyslipidemia Hx of deep venous thrombosis History of asthma History of anemia Generalized weakness Debilitated Abnormal MRI Dry eye Erectile dysfunction History of cervical fracture Abdominal aortic aneurysm Carotid artery stenosis Chronic neck pain Ganglion cyst Hx of sinus bradycardia Hx of left bundle branch block History of fractured vertebra Disc degeneration, lumbar Internal hemorrhoids Diverticulosis Surgical History Hx of left cataract extraction Hx of right cataract extraction Hx of carpal tunnel repair (2014) History of carotid endarterectomy History of laryngoscopy (2017) History of eye surgery History of colonoscopy History of appendectomy History of hernia repair Family History Father Colon cancer Mother Asthma Unknown Hypertension Adopted Allergies Daughter Asthma Sinusitis Grandmother Sinusitis Denies family history of Ovarian cancer Prostate cancer Diabetes Myocardial infarction Breast cancer Social History Smoking Status: Unknown if ever smoked Tobacco Type: Cigarettes Age Started Using Tobacco: 14; Age Quit Using Tobacco: 20; packs per day: 3; Cigarettes Per Day: > 30 years ago; Second Hand Exposure: No; Do You Dip or Chew Tobacco: No; Hx Alcohol Use: Yes (quit >30 years ago) Hx Substance Use: No Preferred Language: Swedish Communication Ability: Effective Power And Recovery Supervisor Required: No Beliefs That Will Affect Care: None marital status: / Current Living Situation: Alone Current Living Situation Comment: Daughter current occupational status: retired Feels Safe at Home: Yes Dental Care, Regularly: No Physical Activity Frequency: 1-2 Times per Week Seatbelt Use: always Sunscreen Use: No Assistive Devices: Denture - Upper, Denture - Lower and Glasses Allergies Allergies Allergy/AdvReac Type Severity Reaction Status Date / Time daptomycin Allergy Severe Seizure Verified 11/06/24 19:40 shellfish derived Allergy Severe Anaphylaxis Verified 11/06/24 19:40 cat dander Allergy Intermediate Itchy Verified 11/06/24 19:40 eyes, sneezing dog dander Allergy Intermediate Itchy Verified 11/06/24 19:40 eyes, sneezing house dust Allergy Intermediate Asthma Verified 11/06/24 19:40 Iodinated Contrast Media Allergy Intermediate Rash Verified 11/06/24 19:40 pollen extracts Allergy Intermediate Asthma Verified 11/06/24 19:40 Home Meds Home Medications Medication Instructions Recorded Confirmed clopidogrel 75 mg tablet (Plavix) 75 mg feeding tube QAM 09/07/23 11/06/24 fexofenadine 180 mg tablet 180 mg feeding tube QAM allergic 09/07/23 11/06/24 rhinitis polyethylene glycol 3350 17 17 g feeding tube QAM Constipation 09/07/23 11/06/24 gram/dose oral powder (Miralax) atorvastatin 40 mg tablet 40 mg PO QPM 10/20/23 11/06/24 montelukast 10 mg tablet 10 mg feeding tube DAILY 10/20/23 11/06/24 Pantoprazole Sodium 5 ml feeding tube BID 11/06/24 11/06/24 acetaminophen 325 mg tablet 650 mg feeding tube Q6H PRN 11/06/24 11/06/24 (Tylenol) PAIN/FEVER albuterol sulfate 90 mcg/actuation 2 inh inhalation BID 11/06/24 11/06/24 aerosol inhaler azelastine 137 mcg (0.1 %) nasal 2 spray intranasal DAILY PRN 11/06/24 11/06/24 spray ALLERGY S/S bumetanide 1 mg tablet 1 mg feeding tube BID 11/06/24 11/06/24 coQ10 (ubiquinol) 100 mg capsule 100 mg DAILY 11/06/24 11/06/24 finasteride 5 mg tablet 5 mg feeding tube DAILY 11/06/24 11/06/24 fluticasone propionate 50 2 spray intranasal DAILY 11/06/24 11/06/24 mcg/actuation nasal spray,suspension fluticasone propionate 50 2 spray intranasal DAILY PRN 11/06/24 11/06/24 mcg/actuation nasal ALLERGY S/S spray,suspension guaifenesin 100 mg/5 mL oral 200 mg feeding tube Q4H 11/06/24 11/06/24 liquid (Consuelo-Tussin) insulin NPH isoph U-100 human 100 8 unit subcut TID 11/06/24 11/06/24 unit/mL subcutaneous suspension insulin lispro 100 unit/mL 1 sliding scale dose subcut TID 11/06/24 11/06/24 subcutaneous solution metoprolol tartrate 25 mg tablet 25 mg feeding tube QAM 11/06/24 11/06/24 midodrine 5 mg tablet 5 mg feeding tube TID 11/06/24 11/06/24 multivitamin 1 tab feeding tube DAILY 11/06/24 11/06/24 saliva stimulant comb. no.3 2 spray mucous membrane Q1H PRN 11/06/24 11/06/24 (Biotene Moisturizing Mouth Dry Mouth mucosal spray) simethicone 80 mg chewable tablet 80 mg feeding tube DIRECTED PRN 11/06/24 11/06/24 ABD BLOATING Results & Data (ED) Vital Signs Vital Signs - 24 hr 11/06/24 18:17 11/06/24 18:41 11/06/24 18:41 Temperature 36.9 C Temperature Source Oral Pulse Rate 102 H Pulse Rate [Right Finger] 97 H Pulse Rhythm [Right Finger] Regular Pulse Strength [Right Finger] Normal Respiratory Rate 22 23 Respiratory Effort / Characteristics Non-Labored Spontaneous Non-Labored Respiratory Depth Normal Normal Respiratory Pattern Regular Blood Pressure 163/95 H Blood Pressure [Right Arm] 139/75 Blood Pressure Mean 117 Blood Pressure Mean [Right Arm] 96 Blood Pressure Position Lying Blood Pressure Position [Right Arm] Lying Pulse Oximetry 100 100 100 Oxygen Delivery Method Room Air Room Air Room Air Sepsis Recent Fever Within 48 Hours No Sepsis New/Unexplained Change in Mental Status No Sepsis Action Taken by Nursing No Action Required Laboratory Data 11/06/24 18:35 11/06/24 18:35 Lab Results 11/06/24 11/06/24 11/06/24 Range/Units 18:32 18:35 18:37 WBC 9.78 (4.8-10.8) K/ul RBC 3.55 L (4.70-6.10) M/uL Hgb 10.6 L (14.0-18.0) g/dl POC Hgb 10.5 L (14.0-18.0) g/dl Hct 33.3 L (42.0-52.0) % POC Hct 31 L (42-52) % MCV 93.8 (80.0-100.0) fL MCH 29.9 (25.0-34.0) pg MCHC 31.8 L (32.0-36.0) g/dL RDW Std Deviation 54.0 H (36.4-46.3) fL RDW Coeff of Renata 15.7 H (11.5-14.5) % Plt Count 349 (130-400) K/uL MPV 12.1 (9.4-12.4) fL Immature Gran % (Auto) 0.6 % Neut % (Auto) 81.7 % Lymph % (Auto) 9.7 % Dawson % (Auto) 7.1 % Eos % (Auto) 0.6 % Baso % (Auto) 0.3 % Neut # (Auto) 7.99 H (1.40-6.50) K/uL Lymph # (Auto) 0.95 L (1.20-3.40) K/uL Dawson # (Auto) 0.69 H (0.11-0.59) K/uL Eos # (Auto) 0.06 (0.00-0.50) K/uL Baso # (Auto) 0.03 (0.00-0.20) K/uL Immature Gran # (Auto) 0.06 (0.01-0.20) K/uL POC Sodium 151 H (135-144) mmol/L Sodium 152 H (136-145) mmol/L POC Potassium 3.5 (3.3-5.0) mmol/L Potassium 3.6 (3.5-5.1) mmol/L POC Chloride 108 (101-112) mmol/L Chloride 108 H (98-107) mmol/L Carbon Dioxide 34 H (21-32) mmol/L POC Total CO2 33 H (24-31) mmol/L Anion Gap 10 (3-11) POC Anion Gap 15.0 L (16-25) mmol/L POC BUN 57 H (7-18) mg/dl BUN 67 H (6-23) mg/dl Creatinine 1.74 H (0.6-1.4) mg/dl POC Creatinine 1.8 H (0.6-1.3) mg/dl Est Cr Clr Drug Dosing 30.8 ml/min eGFR 38.90 BUN/Creatinine Ratio 38.5 H (10-20) Glucose 221 H (70-99(Fasting)) mg/dl POC Glucose 212 H (70-99) mg/dl POC Glucose (other) 215 H (70-99) mg/dl Osmolality 345 H (280-300) mOsm/kg Calcium 10.4 H (8.6-10.3) mg/dl POC Ioniz Calcium Rizwana 1.31 (1.12-1.32) mmol/l Total Bilirubin 0.4 (0.2-1.0) mg/dl AST 17 (13-39) U/L ALT 19 (7-52) U/L Alkaline Phosphatase 148 H (34-104) U/L Total Protein 7.1 (6.0-8.3) gm/dl Albumin 3.3 L (3.4-5.0) gm/dl Globulin 3.8 (2.5-4.0) gm/dl Albumin/Globulin Ratio 0.9 (0.9-2) Lipase 36 (11-82) U/L Administered Medications Discontinued Medications Sodium Chloride (Nss) 1,000 mls @ 999 mls/hr IV .Q1H1M ONE Stop: 11/06/24 19:28 Last Infusion: 11/06/24 22:19 Dose: Infused Documented By: Admin: 11/06/24 18:40 Dose: 999 mls/hr Documented By: SHB Imaging Data Radiologist's Impression: Chest X-Ray 11/06/24 20:10 Exam(s): XR CXR 1 VIEW EXAM: XR Chest, 1 View CLINICAL HISTORY: Reason for exam: chf. TECHNIQUE: Frontal view of the chest. COMPARISON: 04/30/24 FINDINGS: Lungs: Vascular congestion and mild interstitial edema. Query poorly circumscribed opacity in the left lung base. Can be assessed on follow- up. Pleural space: No pleural effusion. No pneumothorax. Heart: CABG. Mediastinum: Unremarkable. Bones/joints: Sternotomy. Upper abdomen: Unremarkable as visualized. IMPRESSION: Vascular congestion and mild interstitial edema. Electronically signed by: Laith Wills M.D. 11/06/24 22:38 PM Discharge Plan Visit Data Chief Complaint: Abnormal Labs/Diagnostic Testing Stated Complaint: AMS ED Provider: Benito Jennings Discharge Problem: Hypernatremia, Hyperglycemia, Serum calcium elevated Patient Disposition: Admitted As Inpatient Condition: Fair Discharge Instructions Interventions: ED Discharge Assessment Last Done: 11/06/24 21:32
[2024-11-06] MEDS: SODIUM CHLORIDE 0.9% 1,000 ML IV ONE (18:40)
[2024-11-06 18:48] LABS: Hematocrit (blood only) 33.3 % (42.0-52.0); Hemoglobin 10.6 g/dl (14.0-18.0); Immature Granulocytes # (auto) 0.06 K/uL (0.01-0.20); Immature Granulocytes % (auto) 0.6 %; Mean Corpuscular Hemoglobin 29.9 pg (25.0-34.0); Mean Corpuscular Volume 93.8 fL (80.0-100.0); Platelet Count 349 K/uL (130-400); RDW Standard Deviation 54.0 fL (36.4-46.3); Red Blood Count 3.55 M/uL (4.70-6.10); White Blood Count 9.78 K/ul (4.8-10.8)
[2024-11-06 19:06] LABS: Alanine Aminotransferase 19.0 U/L (7-52); Albumin Globulin Ratio 0.9 (0.9-2); Alkaline Phosphatase 148.0 U/L (34-104); Anion Gap 10.0 (3-11); Bilirubin,Total 0.4 mg/dl (0.2-1.0); Blood Urea Nitrogen 67.0 mg/dl (6-23); Calcium 10.4 mg/dl (8.6-10.3); Carbon Dioxide 34.0 mmol/L (21-32); Chloride 108.0 mmol/L (98-107); Creatinine Clr Calc Pharmacy 30.8 ml/min; Globulin 3.8 gm/dl (2.5-4.0); Glucose 221.0 mg/dl (70-99(Fasting)); Lipase 36.0 U/L (11-82); Potassium 3.6 mmol/L (3.5-5.1); Sodium 152.0 mmol/L (136-145); Total Protein 7.1 gm/dl (6.0-8.3)
--- NOTE | 2024-11-06 19:43 | History & Physical Report ---
Date of Service November 06, 2024 Assessment & Plan (1) Hypernatremia: (2) Hyperglycemia: (3) CVA (cerebral vascular accident): Plan Patient is a 79-year-old male with past medical history of DVT, asthma, CAD, HFrEF, BPH, recent mitral valve replacement. Patient is nonverbal at baseline after recent CVA. He is being admitted for hyponatremia with a sodium of 152. #hypernatremia - likely need to obtain new homeostasis with recently starting tube feeds. Patient's family reports hypernatremia during recent [facility] admission requiring dialysis. Na currently 152, Bun 67, Cr 1.74 (baseline), serum osmo 345. Free water deficit 2.8L. - urine Na, urine osmo, UA ordered - hold Bumex, consider discontinuing after MV replacement and patient extremely dry - 1/2 NSS and D5W with 20 Meq KCl at 250 ml/hr x 1L followed by 1/2 NSS and D5W with 20 Meq KCl at 125 ml/hr - dietitian consulted for possible adjustment of PEG feeds - trend BMP #hyperglycemia - persistent hyperglycemia since starting tube feeds, on insulin. Glucose 221 on admission. Started on insulin during [facility] admission. - [facility] ordered - pharmacy glycemic consult #Recent CVA CVA during procedure at recent [facility] admission. Residual deficits of right facial droop, decrease in cognition, however is verbal at new baseline. Currently nonverbal). - continue plavix and statin - fall and aspiration precautions Does have history of hospital-acquired delirium, promote good sleep-wake cycles #Mitral valve replacementfamily reports recent mitral valve replacement at [facility]. Not on current anticoagulation with recent GI bleeding. Most recent EF on file 50 to 55% prior to procedure, anticipate to be improved Holding Bumex with above as again anticipate EF to be improved and patient clinically dry #Anemia - Hgb drop from 12.2 to 10.6. family reports recent GI bleeding. Trend CBC #htn - continue metoprolol #BPH - continue finasteride, chronic harris in place. VTE ppx: Heparin q12 Dispo: med/tele Admission and Anticipated Discharge Date Admission Date: 11/06/24 History of Present Illness Chief Complaint: abnormal labs Primary Care Provider: Jina Butts MD Patient is a 79-year-old male with past medical history of DVT, asthma, CAD, HFrEF, BPH, recent mitral valve replacement. Patient is nonverbal at baseline after recent CVA. He is being admitted for hyponatremia with a sodium of 152. Patient seen at bedside. He is nonverbal, mucous membranes and skin appear dry, PEG tube in place. Spoke with patient's daughter, who is his medical power of real estate attorney, via phone. She is on vacation at the [place] this weekend and is approximately 3 hours away but will be home on Sunday, please call her with any emergency. She stated that the patient was admitted to [facility] on September 24 for mitral valve replacement and to have a 2 bypass surgery in which she had a CVA during the procedure. She stated the CVA was in the bottom left of his brainstem/occipital lobe and she now has deficits of the right sided facial droop however is able to move his right hand. She noticed his left hand is more jerky since this. While he was there he was unable to tolerate an NG tube and was converted to PEG tube which she then stated because rectal bleeding from his internal hemorrhoids and diverticuli, he had an EGD and colonoscopy while he was there but they were unable to find anything to stop the bleeding from. She stated his sodium at 1 point was between 180-190 which they were treating with Lasix and he had 2 days of dialysis. They did have to start insulin while he was there after he began tube feeds which he often refused. Patient suffered from hospital-acquired delirium while he was there and did not tolerate antipsychotics well however she is agreeable that if he gets combative while he is here she is okay with sedation with antipsychotics and only mitts for restraints. She believes that his mental status was improving while he was [facility] but today declined and he is nonverbal today. She would like to keep him full code. [facility] discharge summary reviewed - CABG x 2 LIMALAD, SVGdistal RCA, MVR, DEXTER L on 09/24/24. Acute ischemic strokes to bilateral occipital lobes and cerebral hemispheres POD #1. Hospital course complicated by postop/ICU delirium. Patient with hypernatremia while on tube feeds which resolved with D5 and sterile water boluses. EGD 10/15 with multiple blood transfusions after hematochezia. Started on dialysis 10/18 to 10/21. Allergies Allergy/AdvReac Type Severity Reaction Status Date / Time daptomycin Allergy Severe Seizure Verified 11/06/24 19:40 shellfish derived Allergy Severe Anaphylaxis Verified 11/06/24 19:40 cat dander Allergy Intermediate Itchy Verified 11/06/24 19:40 eyes, sneezing dog dander Allergy Intermediate Itchy Verified 11/06/24 19:40 eyes, sneezing house dust Allergy Intermediate Asthma Verified 11/06/24 19:40 Iodinated Contrast Media Allergy Intermediate Rash Verified 11/06/24 19:40 pollen extracts Allergy Intermediate Asthma Verified 11/06/24 19:40 Home Medications Medication Instructions Recorded Confirmed Type clopidogrel 75 mg tablet (Plavix) 75 mg feeding tube QAM 09/07/23 11/06/24 History fexofenadine 180 mg tablet 180 mg feeding tube QAM allergic 09/07/23 11/06/24 History rhinitis polyethylene glycol 3350 17 17 g feeding tube QAM Constipation 09/07/23 11/06/24 History gram/dose oral powder (Miralax) atorvastatin 40 mg tablet 40 mg PO QPM 10/20/23 11/06/24 History montelukast 10 mg tablet 10 mg feeding tube DAILY 10/20/23 11/06/24 History Pantoprazole Sodium 5 ml feeding tube BID 11/06/24 11/06/24 History acetaminophen 325 mg tablet 650 mg feeding tube Q6H PRN 11/06/24 11/06/24 History (Tylenol) PAIN/FEVER albuterol sulfate 90 mcg/actuation 2 inh inhalation BID 11/06/24 11/06/24 His tory aerosol inhaler azelastine 137 mcg (0.1 %) nasal 2 spray intranasal DAILY PRN 11/06/24 11/06/24 History spray ALLERGY S/S bumetanide 1 mg tablet 1 mg feeding tube BID 11/06/24 11/06/24 History coQ10 (ubiquinol) 100 mg capsule 100 mg DAILY 11/06/24 11/06/24 History finasteride 5 mg tablet 5 mg feeding tube DAILY 11/06/24 11/06/24 History fluticasone propionate 50 2 spray intranasal DAILY 11/06/24 11/06/24 History mcg/actuation nasal spray,suspension fluticasone propionate 50 2 spray intranasal DAILY PRN 11/06/24 11/06/24 History mcg/actuation nasal ALLERGY S/S spray,suspension guaifenesin 100 mg/5 mL oral 200 mg feeding tube Q4H 11/06/24 11/06/24 History liquid (Consuelo-Tussin) insulin NPH isoph U-100 human 100 8 unit subcut TID 11/06/24 11/06/24 History unit/mL subcutaneous suspension insulin lispro 100 unit/mL 1 sliding scale dose subcut TID 11/06/24 11/06/24 History subcutaneous solution metoprolol tartrate 25 mg tablet 25 mg feeding tube QAM 11/06/24 11/06/24 History midodrine 5 mg tablet 5 mg feeding tube TID 11/06/24 11/06/24 History multivitamin 1 tab feeding tube DAILY 11/06/24 11/06/24 History saliva stimulant comb. no.3 2 spray mucous membrane Q1H PRN 11/06/24 11/06/24 History (Biotene Moisturizing Mouth Dry Mouth mucosal spray) simethicone 80 mg chewable tablet 80 mg feeding tube DIRECTED PRN 11/06/24 11/06/24 History ABD BLOATING Past Med/Surg History Problem List (Updated 11/06/24 @ 22:57 by Benito Jennings DO) Serum calcium elevated (Acute) CVA (cerebral vascular accident) Hyperglycemia (Acute) Hypernatremia (Acute) CAD (coronary artery disease) HFrEF (heart failure with reduced ejection fraction) Anemia Moderate mitral regurgitation Heart failure with mildly reduced ejection fraction (HFmrEF) Deep venous thrombosis (DVT) of right peroneal vein (Acute ~01/2024) Cardiomyopathy Hypertension Dyslipidemia Carotid artery stenosis s/p left CEA 2016 [facility] and R TCAR 09/2023 [facility] BPH (benign prostatic hyperplasia) Asthma Allergic rhinitis Medical History Chronic anemia CKD (chronic kidney disease), stage III Moderate mitral regurgitation History of hypertension Dyslipidemia Hx of deep venous thrombosis History of asthma History of anemia Generalized weakness Debilitated Abnormal MRI Dry eye Erectile dysfunction History of cervical fracture Abdominal aortic aneurysm Carotid artery stenosis Chronic neck pain Ganglion cyst Hx of sinus bradycardia Hx of left bundle branch block History of fractured vertebra Disc degeneration, lumbar Internal hemorrhoids Diverticulosis Surgical History Hx of left cataract extraction Hx of right cataract extraction Hx of carpal tunnel repair (2014) History of carotid endarterectomy History of laryngoscopy (2017) History of eye surgery History of colonoscopy History of appendectomy History of hernia repair Family History Father Colon cancer Mother Asthma Unknown Hypertension Adopted Allergies Daughter Asthma Sinusitis Grandmother Sinusitis Denies family history of Ovarian cancer Prostate cancer Diabetes Myocardial infarction Breast cancer Social History Smoking Status: Former smoker Tobacco Type: Cigarettes Age Started Using Tobacco: 14; Age Quit Using Tobacco: 20; packs per day: 3; Cigarettes Per Day: > 30 years ago; Second Hand Exposure: No; Do You Dip or Chew Tobacco: No; Hx Alcohol Use: No Hx Substance Use: No Preferred Language: Finnish Communication Ability: Impaired Rehab Tech Required: No Beliefs That Will Affect Care: None marital status: / Current Living Situation: Rehab Current Living Situation Comment: Daughter current occupational status: retired Feels Safe at Home: Yes Dental Care, Regularly: No Physical Activity Frequency: 1-2 Times per Week Seatbelt Use: always Sunscreen Use: No Assistive Devices: Hospital Bed Review of Systems Review of Systems: Unable to obtain given nonverbal Physical Exam Physical Exam: The patient is nonverbal, frail, skin dry. HEENT- EOMI, mucous membranes dry. Hearing grossly intact. Heart-normal S1 and S2. No murmurs, rubs or gallops. Lungs-clear bilaterally, no respiratory distress, no accessory muscle use. Abdomen-normal bowel sounds and soft. No ascites noted. Non-tender. Peg tube present. Extremities- no clubbing, cyanosis, or edema. Results & Data Results & Data Vital Signs (Past 12 Hours) Vital Signs Temp Pulse Pulse Resp BP BP Pulse Ox 11/06/24 18:41 100 11/06/24 18:41 97 H 23 139/75 100 11/06/24 18:17 36.9 C 102 H 22 163/95 H 100 O2 Del Method 11/06/24 18:41 Room Air 11/06/24 18:41 Room Air 11/06/24 18:17 Room Air Laboratory Results reviewed CBC, CMP, serum osmolality Medications Administered ED1L NSS bolus Code Status & VTE Plan Code Status full code VTE Prophylaxis Plan VTE Prophylaxis will be ordered: Yes Supervising Physician Co-Signing Physician Notes I personally saw and examined the patient. I independently reviewed the labs, EKG, imaging, problem list, medication list, past medical history and family history. I verified all upton points and agree with Shanika Gilliam PA-C with the following exceptions and/or additions: 79 year old male, non verbal, unable to gain any history from patient. Please see collateral history as above. O/E HS RRR, no murmurs, Chest CTAB, Abdo SNT, dry mucus membranes A/P Hypernatremia - NSS bolus given in the ER, suspect hypovolemic but no hypotension therefore will correct sodium concentration with half NSS +D5W PG Care Time/CCT Total # of Minutes Spent Total Time Spent with Patient: Total time spent is greater than 50% in coordination of care (as documented) at patient's floor/unit and/or counseling patient: Coding Level of Care Code 84779 INT INP/OBS CARE 3/75MIN Diagnoses Hypernatremia E87.0 Hyperglycemia R73.9 CVA (cerebral vascular accident) I63.9
[2024-11-06] MEDS ORDERED: DEXTROSE 50% 50 ML SYRINGE IV PRN (22:02)
[2024-11-06] MEDS ORDERED: CARBOHYDRATES FOR HYPOGLYCEMIA PO PRN (22:02)
[2024-11-06] MEDS ORDERED: PHARMACY GLYCEMIC MGMT CONSULT PRN (22:02)
[2024-11-06] MEDS ORDERED: GLUCOSE 10 TAB/TUBE PO PRN (22:02)
[2024-11-06] MEDS ORDERED: NON-FORMULARY MEDICATION (Saliva Stimulant Comb. No.3 [Biotene Moisturizing Mouth] Spray,N MUCOUS MEMBRANE PRN (22:02)
[2024-11-06] MEDS ORDERED: AZELASTINE HCL 0.1% NASAL 200 SPRAYS/27,400 MCG BTL NAE PRN (22:02)
[2024-11-06] MEDS ORDERED: GLUCOSE 40% GEL 15 GM TUBE PO PRN (22:02)
[2024-11-06] MEDS ORDERED: FLUTICASONE PROPIONATE NA SPR 16 GM BTL NAE PRN (22:02)
[2024-11-06] MEDS ORDERED: GLUCAGON FOR INJ 1 MG VIAL SQ PRN (22:02)
[2024-11-06] MEDS ORDERED: ONDANSETRON INJ 2 MG/ML 2 ML VIAL IV PRN (22:02)
[2024-11-06] MEDS: ALBUTEROL HFA 8 GM INHALER INH SCH (22:02)
--- NOTE | 2024-11-06 22:39 | XRay Report ---
Exam(s): XR CXR 1 VIEW EXAM: XR Chest, 1 View CLINICAL HISTORY: Reason for exam: chf. TECHNIQUE: Frontal view of the chest. COMPARISON: 04/30/24 FINDINGS: Lungs: Vascular congestion and mild interstitial edema. Query poorly circumscribed opacity in the left lung base. Can be assessed on follow- up. Pleural space: No pleural effusion. No pneumothorax. Heart: CABG. Mediastinum: Unremarkable. Bones/joints: Sternotomy. Upper abdomen: Unremarkable as visualized. IMPRESSION: Vascular congestion and mild interstitial edema. Electronically signed by: Laith Wills M.D. 11/06/24 22:38 PM
[2024-11-06] MEDS: D5W AND 1/2NSS + 20MEQ KCL 20 MEQ/1,000 ML BAG IV SCH (22:56)
[2024-11-06] MEDS ORDERED: SIMETHICONE 40 MG/0.6 ML 30ML GT PRN (23:03)
[2024-11-06] MEDS: INSULIN ASPART PER UNIT CHARGE SC SCH (23:36)
[2024-11-06] MEDS: ATORVASTATIN 40 MG TAB PO SCH (23:40)
[2024-11-06] MEDS: LANSOPRAZOLE 30 MG SOLTAB PEG SCH (23:40)
[2024-11-06] MEDS: MIDODRINE HCL 2.5 MG TAB PO SCH (23:41)
[2024-11-06] MEDS: HEPARIN SOD 5,000 UNIT/0.5 ML VIAL SQ SCH (23:54)
[2024-11-06] MEDS: NovoLIN-N (NPH) PER UNIT CHARGE SQ STA (23:57)
[2024-11-07] MEDS: TUBE FEEDING WATER FLUSH GT SCH ×3 (01:27→20:20)
[2024-11-07] MEDS: FIBERSOURCE HN 1.2 CAL 1000 ML BAG GT SCH (01:28)
[2024-11-07 01:50] LABS: Appearance Urine Cloudy (Clear); Bacteria Urine Automated None Seen (None Seen); Cast Urine Automated 0-2 /lpf (0-2); Epithelial Cell Urine Auto 0-2 /hpf (0-2); Glucose Urine UA Negative (Negative); WBC Urine Automated 21-50 /hpf (0-5)
[2024-11-07] MEDS ORDERED: Nursing to Pharmacy Communication SCH (02:30)
[2024-11-07] MEDS: D5W AND 1/2NSS + 20MEQ KCL 20 MEQ/1,000 ML BAG IV SCH (02:56)
[2024-11-07] MEDS: INSULIN ASPART PER UNIT CHARGE SC SCH (06:07)
[2024-11-07] MEDS ORDERED: INSULIN ASPART PER UNIT CHARGE SC SCH (07:30)
[2024-11-07 07:50] LABS: Hematocrit (blood only) 28.4 % (42.0-52.0); Hemoglobin 8.7 g/dl (14.0-18.0); Immature Granulocytes # (auto) 0.03 K/uL (0.01-0.20); Immature Granulocytes % (auto) 0.4 %; Mean Corpuscular Hemoglobin 28.9 pg (25.0-34.0); Mean Corpuscular Volume 94.4 fL (80.0-100.0); Platelet Count 275 K/uL (130-400); RDW Standard Deviation 53.9 fL (36.4-46.3); Red Blood Count 3.01 M/uL (4.70-6.10); White Blood Count 8.18 K/ul (4.8-10.8)
[2024-11-07 07:53] LABS: Anion Gap 6 (3-11); Bilirubin,Total 0.5 mg/dl (0.2-1.0); Calcium 9.2 mg/dl (8.6-10.3); Carbon Dioxide 29 mmol/L (21-32); Chloride 116 mmol/L (98-107); Magnesium 2.4 mg/dl (1.7-2.4); Sodium 151 mmol/L (136-145)
[2024-11-07 08:01] LABS: Alanine Aminotransferase 13 U/L (7-52); Albumin Globulin Ratio 0.9 (0.9-2); Alkaline Phosphatase 106 U/L (34-104); Blood Urea Nitrogen 50 mg/dl (6-23); Creatinine Clr Calc Pharmacy 38.6 ml/min; Globulin 3.0 gm/dl (2.5-4.0); Glucose 225 mg/dl (70-99(Fasting)); Total Protein 5.8 gm/dl (6.0-8.3)
[2024-11-07 08:17] LABS: Hemoglobin A1C 7.3 % (4.5-5.6)
[2024-11-07 08:56] LABS: Potassium 3.7 mmol/L (3.5-5.1)
[2024-11-07] MEDS: METOPROLOL TARTRATE 25 MG TAB PEG SCH (12:48)
[2024-11-07] MEDS: FINASTERIDE 5 MG TAB PEG SCH (12:49)
[2024-11-07] MEDS: CLOPIDOGREL BISULFATE 75 MG TAB PEG SCH (12:49)
[2024-11-07] MEDS: MONTELUKAST SODIUM 10 MG TABLET PEG SCH (12:49)
[2024-11-07] MEDS: LANTUS PER UNIT CHARGE SC SCH ×2 (12:52→22:10)
[2024-11-07] MEDS: ACETAMINOPHEN SUSP 325 MG/10.15 ML UDC PEG PRN (13:04)
--- NOTE | 2024-11-07 13:38 | Pharmacy Report ---
Pharmacy Glycemic Short Note 2 - Date of Service November 07, 2024 - Glycemic Short BSG Results (Last 24 hours): 11/06/24 11/06/24 11/06/24 18:32 18:35 18:37 Glucose 221 H POC Glucose 212 H POC Glucose (other) 215 H 11/06/24 11/07/24 11/07/24 23:24 06:05 07:19 Glucose 225 H POC Glucose 135 H 139 H POC Glucose (other) 11/07/24 12:06 Glucose POC Glucose 247 H POC Glucose (other) OUTPATIENT ANTIDIABETIC REGIMEN: * NPH 8 units TID * Humalog SS TID A1c = 7.3% ASSESSMENT: * Pranav is a 79 year-old male with past medical history of DVT, asthma, CAD, HFrEF, BPH, recent mitral valve replacement, nonverbal at baseline after recent CVA, recent GI bleed. He was admitted for evaluation of hyponatremia. It appears that he was recently started on insulin following initiation of tube feeds during recent [place] [facility] * Currently ordered Fibersource TF at continuous rate of 60 mls/hr (provides 58 g of carbohydrate every 6 hours). He has also been started on D5 1/2 NS + K @ 125 mls/hr. * Patient was given a one time dose of NPH 8 units last evening. Initially well controlled with BSG of 135 and 139 mg/dL. However, BSG then jumped to 247 mg /dL at lunch. Of note, carbohydrate from tube feeds was not covered last evening or at 0600 this morning. Updated Novolog orders to make tube feed coverage more clear. * Will transition basal insulin to Lantus while admitted given continuous infusion of TF. Will back off home dose of ~24 units/day of basal given this is likely covering prandial needs as well. PLAN FOR INPATIENT GLYCEMIC CONTROL: * Basal insulin * Lantus 10 units SQ qAM * Lantus 0-10 units SQ qHS (see eMAR for details) * Bolus insulin * NovoLog per scale ACHS or Q6hrs while NPO * Goal Range: Low 120 mg/dL - High 160 mg/dL * Correction Factor: 30 mg/dL/unit * Nutritional / Prandial insulin per carb ratio of 1 unit per 12 grams CHO consumed
[2024-11-07 13:39] LABS: Anion Gap 7.0 (3-11); Blood Urea Nitrogen 47.0 mg/dl (6-23); Calcium 9.5 mg/dl (8.6-10.3); Carbon Dioxide 30.0 mmol/L (21-32); Chloride 115.0 mmol/L (98-107); Creatinine Clr Calc Pharmacy 38.8 ml/min; Glucose 217.0 mg/dl (70-99(Fasting)); Potassium 3.9 mmol/L (3.5-5.1); Sodium 152.0 mmol/L (136-145)
--- NOTE | 2024-11-07 14:15 | Hospitalist Progress Note ---
Date of Service November 07, 2024 Assessment & Plan (1) Hypernatremia: (2) Hyperglycemia: (3) CVA (cerebral vascular accident): Plan Patient is a 79-year-old male with past medical history of DVT, asthma, CAD, HFrEF, BPH, recent mitral valve replacement. Patient is nonverbal at baseline after recent CVA. He is being admitted for hypernatremia with a sodium of 152. Patient appeared stable this morning. Was sleeping soundly when I visited him. Patient was combative last night so is now on mitts. Nurse stated that today he was combative in the morning but went up to see the patient and he was asleep. Patient's daughter told the nurse that seroquel does not help with calming him down at night. Zyprexa was given overnight which seemed to work. For his agitation will be best to turn on the TV and have some sunlight in the room to help. #hypernatremia - likely need to obtain new homeostasis with recently starting tube feeds. Patient's family reports hypernatremia during recent [facility] admission requiring dialysis. Na currently 152, Bun 47, Cr 1.38 serum osmo 345. - urine Na, urine osmo, UA ordered - hold Bumex, consider discontinuing after MV replacement and patient extremely dry - 1/2 NSS and D5W with 20 Meq KCl at 250 ml/hr x 1L followed by 1/2 NSS and D5W with 20 Meq KCl at 125 ml/hr. Discontinued IV fluid. - dietitian consulted for possible adjustment of PEG feeds. - trend BMP #hyperglycemia - persistent hyperglycemia since starting tube feeds, on insulin. Glucose 221 on admission. Started on insulin during [facility] admission. - [facility] ordered - pharmacy glycemic consult #Recent CVA CVA during procedure at recent [facility] admission. Residual deficits of right facial droop, decrease in cognition, however is verbal at new baseline. Currently nonverbal). - continue plavix and statin - fall and aspiration precautions Does have history of hospital-acquired delirium, promote good sleep-wake cycles #Mitral valve replacementfamily reports recent mitral valve replacement at [facility]. Not on current anticoagulation with recent GI bleeding. Most recent EF on file 50 to 55% prior to procedure, anticipate to be improved Holding Bumex with above as again anticipate EF to be improved and patient clinically dry #Anemia - Hgb drop from 12.2 to 10.6. family reports recent GI bleeding. Hgb now 8.7. - Trend CBC #htn - continue metoprolol #BPH - continue finasteride, chronic harris in place. VTE ppx: Heparin q12 Dispo: med/tele Admission and Anticipated Discharge Date Admission Date: November 06, 2024 Supervising Physician Co-Signing Physician Notes I personally examined the patient and verified all upton points of history and exam, discussed case, and agree with decision making with Dr Cortez Very difficult to obtain HPI review of systemsalthough initially he was described as being nonverbal, the patient clearly is able to communicate somehe just has extremely slurred speech and it is somewhat difficult to determine how much he is comprehending versus ?how much he is trying to be verbal but is quite delirious?although I do suspect he is reasonably lucid given our conversation. Vitals noted, in general he is awake and alert is conversationalagain it is very hard to determine what he is saying but he does have a good conversational giveandtake ingrid to his speech, and while he seems to maybe not be entirely aware of his circumstances, he does also say other things that show some degree of situational awareness such as asking why he seems to be in a new room all the time. Mucous membranes dry. Appears thin and wasted. Hypernatremiaappears to be free water deficitsuspect he just needs more free water flushes with his tube feeds. Increase free water with tube feeds, given that he is not severely hypernatremic, continue to follow closely but stop IV fluids so that we can see how he does with enteral replacement alone to give center care I am more clear outline of not only his tube feeds but his fluid needs. Appreciate nutrition assist. Altered mental statusI strongly suspect a waxing and waning delirium in the context of an 79-year-old man who went through CT surgery and a stroke as well as multiple changes in environment. Hopefully with time his mental status will show improvement and stability. DVT prophylaxisheparin subcu Subjective Patient with history of prior stroke presented into the ED because of high sodium levels when he was getting blood work. Patient was currently sleeping when I visited him this morning. Patient wouldnt wake up and give a history. Patient is currently in mitts because of trying to bite nurses multiple times at night. Patient could not talk and give any history. Review of Systems Review of Systems: per subjective HPI Physical Exam Respiratory: Auscultation: + wheezes (inspiratory wheezing in all lung yen. ) Cardiovascular: Rate/Rhythm: regular rate and regular rhythm Heart Sounds: normal S1 and normal S2; no murmur Results & Data Results & Data Vital Signs (Past 12 Hours) Vital Signs Temp Pulse Pulse Resp BP Pulse Ox O2 Del Method 11/07/24 07:35 37.1 C 91 H 16 111/74 95 Room Air 11/07/24 07:34 91 H
[2024-11-07 18:20] LABS: Anion Gap 5.0 (3-11); Blood Urea Nitrogen 48.0 mg/dl (6-23); Calcium 9.2 mg/dl (8.6-10.3); Carbon Dioxide 31.0 mmol/L (21-32); Chloride 117.0 mmol/L (98-107); Creatinine Clr Calc Pharmacy 40.6 ml/min; Glucose 94.0 mg/dl (70-99(Fasting)); Potassium 3.7 mmol/L (3.5-5.1); Sodium 153.0 mmol/L (136-145)
--- NOTE | 2024-11-07 18:34 | Billing Data ---
Date of Service November 07, 2024 Coding Level of Care Code 69577 SUB INP/OBS CARE MIN
[2024-11-07] MEDS: DEXTROSE 5% 1,000 ML IV SCH (20:21)
[2024-11-07 21:39] LABS: Anion Gap 6.0 (3-11); Blood Urea Nitrogen 41.0 mg/dl (6-23); Calcium 9.3 mg/dl (8.6-10.3); Carbon Dioxide 29.0 mmol/L (21-32); Chloride 115.0 mmol/L (98-107); Creatinine Clr Calc Pharmacy 40.6 ml/min; Glucose 172.0 mg/dl (70-99(Fasting)); Potassium 3.4 mmol/L (3.5-5.1); Sodium 150.0 mmol/L (136-145)
[2024-11-07 23:23] LABS: Anion Gap 6.0 (3-11); Blood Urea Nitrogen 42.0 mg/dl (6-23); Calcium 9.2 mg/dl (8.6-10.3); Carbon Dioxide 29.0 mmol/L (21-32); Chloride 116.0 mmol/L (98-107); Creatinine Clr Calc Pharmacy 41.2 ml/min; Glucose 209.0 mg/dl (70-99(Fasting)); Potassium 3.9 mmol/L (3.5-5.1); Sodium 151.0 mmol/L (136-145)
[2024-11-08 03:26] LABS: Anion Gap 5.0 (3-11); Blood Urea Nitrogen 37.0 mg/dl (6-23); Calcium 9.3 mg/dl (8.6-10.3); Carbon Dioxide 29.0 mmol/L (21-32); Chloride 115.0 mmol/L (98-107); Creatinine Clr Calc Pharmacy 41.2 ml/min; Glucose 128.0 mg/dl (70-99(Fasting)); Potassium 3.6 mmol/L (3.5-5.1); Sodium 149.0 mmol/L (136-145)
[2024-11-08 07:20] LABS: Hematocrit (blood only) 30.3 % (42.0-52.0); Hemoglobin 9.3 g/dl (14.0-18.0); Mean Corpuscular Hemoglobin 29.5 pg (25.0-34.0); Mean Corpuscular Volume 96.2 fL (80.0-100.0); Platelet Count 258 K/uL (130-400); RDW Standard Deviation 53.7 fL (36.4-46.3); Red Blood Count 3.15 M/uL (4.70-6.10); White Blood Count 7.89 K/ul (4.8-10.8)
[2024-11-08 07:34] LABS: Anion Gap 7.0 (3-11); Calcium 9.1 mg/dl (8.6-10.3); Carbon Dioxide 26.0 mmol/L (21-32); Chloride 116.0 mmol/L (98-107); Potassium 3.5 mmol/L (3.5-5.1); Sodium 149.0 mmol/L (136-145)
[2024-11-08 07:39] LABS: Blood Urea Nitrogen 36.0 mg/dl (6-23); Creatinine Clr Calc Pharmacy 43.4 ml/min; Glucose 160.0 mg/dl (70-99(Fasting))
--- NOTE | 2024-11-08 08:32 | Hospitalist Progress Note ---
Date of Service November 08, 2024 Assessment & Plan (1) Hypernatremia: (2) Hyperglycemia: (3) CVA (cerebral vascular accident): Plan Patient is a 79-year-old male with past medical history of DVT, asthma, CAD, HFrEF, BPH, recent mitral valve replacement. Patient is nonverbal at baseline after recent CVA. He is being admitted for hypernatremia with a sodium of 152. Pt remaining restless still requiring soft restraints Patient's daughter previously told the nurse that seroquel does not help with calming him down at night. Zyprexa was given overnight which seemed to work. For his agitation will be best to turn on the TV and have some sunlight in the room to help. #hypernatremia - likely need to obtain new homeostasis with recently starting tube feeds. Patient's family reports hypernatremia during recent [place] admission requiring dialysis. Na currently 152, Bun 47, Cr 1.38 serum osmo 345. - Ur Osm: 6-6, Ur Na: 43 - cont to hold diuretics at this time - s/p IVF - pt evaluated by dietary and her free water flushes have been increased - hold Bumex, consider discontinuing after MV replacement and patient extremely dry - trend BMP #Acute metabolic encephalopathy - Na improving - order olanzapine 5mg peg nightly prn #hyperglycemia - persistent hyperglycemia since starting tube feeds, on insulin. Glucose 221 on admission. Started on insulin during [place] admission. - [facility] ordered - pharmacy glycemic consult #Recent CVA CVA during procedure at recent [place] admission. Residual deficits of right facial droop, decrease in cognition, however is verbal at new baseline. Currently nonverbal - continue plavix and statin - fall and aspiration precautions Does have history of hospital-acquired delirium, promote good sleep-wake cycles #Mitral valve replacementfamily reports recent mitral valve replacement at [place]. Not on current anticoagulation with recent GI bleeding. Most recent EF on file 50 to 55% prior to procedure, anticipate to be improved Holding Bumex with above as again anticipate EF to be improved and patient clinically dry #Anemia - Hgb drop from 12.2 to 10.6. family reports recent GI bleeding. Hgb now 8.7, trending up to 9.3 - Trend CBC #HTN - continue metoprolol #BPH - continue finasteride, chronic harris in place. VTE ppx: Heparin q12 Dispo: med/tele - pending clinical improvement Admission and Anticipated Discharge Date Admission Date: November 06, 2024 Subjective No acute events overnight Pt remains physically restraint for safety Pt also restless and still trying to get out of bed. Review of Systems Review of Systems: Unable to obtain ROS due to cognitive impairment Physical Exam Physical Exam: Gen: pt restless in bed, though not in any acute distress HEENT: NC/AT, aphasic Lungs: non labored breathing, CTA CVS: s1s2nl, RRR Abd: soft, nl bowel sounds, PEG in place : harris in place Ext: no edema, upper extremtiy in soft restraints Neuro: awake and alert Psych: restless Results & Data Results & Data Vital Signs (Past 12 Hours) Vital Signs Temp Pulse Pulse Resp BP BP Pulse Ox 11/08/24 08:22 103 H 11/08/24 07:36 86 16 96 11/08/24 07:22 37.1 C 53 L 16 143/68 H 95 11/08/24 03:42 36.3 C L 77 16 141/69 H 95 11/08/24 02:33 86 11/07/24 23:23 36.6 C 80 18 139/67 95 11/07/24 22:42 11/07/24 22:02 Pulse Ox O2 Del Method O2 Del Method 11/08/24 08:22 11/08/24 07:36 Room Air 11/08/24 07:22 Room Air 11/08/24 03:42 Room Air 11/08/24 02:33 11/07/24 23:23 Room Air 11/07/24 22:42 Room Air 11/07/24 22:02 97 Room Air PG Care Time/CCT Total # of Minutes Spent Total Time Spent with Patient: Total time spent is greater than 50% in coordination of care (as documented) at patient's floor/unit and/or counseling patient: Coding Level of Care Code 74713 SUB INP/OBS CARE 2/35MIN Diagnoses Hypernatremia E87.0 Hyperglycemia R73.9 CVA (cerebral vascular accident) I63.9
[2024-11-08] MEDS: cefTRIAXone SODIUM 1,000 MG/50 ML BAG IV SCH (15:08)
[2024-11-08] MEDS: ACETAMINOPHEN SUSP 325 MG/10.15 ML UDC PEG PRN (15:51)
[2024-11-08] MEDS: ATORVASTATIN 40 MG TAB PEG SCH (21:44)
[2024-11-09 05:47] LABS: Hematocrit (blood only) 27.8 % (42.0-52.0); Hemoglobin 9.0 g/dl (14.0-18.0); Mean Corpuscular Hemoglobin 29.9 pg (25.0-34.0); Mean Corpuscular Volume 92.4 fL (80.0-100.0); Platelet Count 251 K/uL (130-400); RDW Standard Deviation 50.8 fL (36.4-46.3); Red Blood Count 3.01 M/uL (4.70-6.10); White Blood Count 7.73 K/ul (4.8-10.8)
[2024-11-09 06:07] LABS: Anion Gap 4.0 (3-11); Blood Urea Nitrogen 32.0 mg/dl (6-23); Calcium 8.9 mg/dl (8.6-10.3); Carbon Dioxide 27.0 mmol/L (21-32); Chloride 114.0 mmol/L (98-107); Creatinine Clr Calc Pharmacy 45.2 ml/min; Glucose 177.0 mg/dl (70-99(Fasting)); Potassium 3.8 mmol/L (3.5-5.1); Sodium 145.0 mmol/L (136-145)
--- NOTE | 2024-11-09 08:06 | Hospitalist Progress Note ---
Date of Service November 09, 2024 Assessment & Plan (1) Hypernatremia: (2) Hyperglycemia: (3) CVA (cerebral vascular accident): Plan Patient is a 79-year-old male with past medical history of DVT, asthma, CAD, HFrEF, BPH, recent mitral valve replacement. Patient is nonverbal at baseline after recent CVA. He is being admitted for hypernatremia with a sodium of 152. Pt remaining restless still requiring soft restraints Patient's daughter previously told the nurse that seroquel does not help with calming him down at night. Zyprexa was given overnight which seemed to work. For his agitation will be best to turn on the TV and have some sunlight in the room to help. #Acute metabolic encephalopathy - suspect in the setting of dehydration and hypernatremia - per pt's daughter, quetiapine does not help calm pt at night - cont delirium precautions - start on depakote 125mg peg q6h, cont Olanzapine 5mg peg nightly prn - daughter concerned for intracranial pathology, will obtain CT head w/o contrast #Hypernatremia - resolved, but continue to monitor to ensure pt doesn't swing to hyponatremic state with increased free water flushes - likely need to obtain new homeostasis with recently starting tube feeds. Patient's family reports hypernatremia during recent [place] admission requiring dialysis. Na on admission 152, Bun 47, Cr 1.38 serum osmo 345. - Ur Osm: 6-6, Ur Na: 43 - cont to hold diuretics at this time - s/p IVF - pt evaluated by dietary and her free water flushes have been increased - hold Bumex, consider discontinuing after MV replacement and patient extremely dry - trend BMP, currently Na: 145 #hyperglycemia - persistent hyperglycemia since starting tube feeds, on insulin. Glucose 221 on admission. Started on insulin during [facility] admission. - SSI ordered - pharmacy glycemic consult #UTI - UCx growing E coli - harris changed in the ED - started on Ceftriaxone - started 11/08 for 7 days #Recent CVA #h/o TCAR CVA during procedure at recent [facility] admission. Residual deficits of right facial droop, decrease in cognition, however is verbal at new baseline. Currently nonverbal - continue plavix and statin - fall and aspiration precautions Does have history of hospital-acquired delirium, promote good sleep-wake cycles #Mitral valve replacementfamily reports recent mitral valve replacement at [facility]. Not on current anticoagulation with recent GI bleeding. Most recent EF on file 50 to 55% prior to procedure, anticipate to be improved Holding Bumex with above as again anticipate EF to be improved and patient clinically dry #Anemia - Hgb drop from 12.2 to 10.6. family reports recent GI bleeding. Hgb stable around 9 - Trend CBC #HTN - continue metoprolol #BPH - continue finasteride, chronic harris in place. VTE ppx: Heparin q12 Dispo: med/tele - pending clinical improvement 11/09: updated pt's daughter Admission and Anticipated Discharge Date Admission Date: November 06, 2024 Subjective Pt was restless overnight requiring IM zyprexa More sedated this AM due to poor sleep overnight Review of Systems Review of Systems: Unable to obtain ROS due to cognitive impairment Physical Exam Physical Exam: Gen: pt restless in bed, though not in any acute distress HEENT: NC/AT, more sleepy today, not talkative Lungs: non labored breathing, CTA CVS: s1s2nl, RRR Abd: soft, nl bowel sounds, PEG in place : harris in place Ext: no edema, upper extremity in mitts Neuro: awake and alert Psych: restless Results & Data Results & Data Vital Signs (Past 12 Hours) Vital Signs Temp Pulse Pulse Resp BP Pulse Ox Pulse Ox 11/09/24 07:54 36.5 C 71 20 114/56 L 95 11/09/24 07:30 90 11/09/24 07:29 72 16 96 11/09/24 03:32 36.6 C 72 20 139/62 95 11/09/24 01:49 69 11/08/24 23:32 36.6 C 79 20 142/69 H 93 11/08/24 22:00 97 11/08/24 20:06 70 16 98 O2 Del Method O2 Del Method 11/09/24 07:54 Room Air 11/09/24 07:30 11/09/24 07:29 Room Air 11/09/24 03:32 Room Air 11/09/24 01:49 11/08/24 23:32 Room Air 11/08/24 22:00 Room Air 11/08/24 20:06 Room Air PG Care Time/CCT Total # of Minutes Spent Total Time Spent with Patient: Total time spent is greater than 50% in coordination of care (as documented) at patient's floor/unit and/or counseling patient: Coding Level of Care Code 51186 SUB INP/OBS CARE 350MIN Diagnoses Hypernatremia E87.0 Hyperglycemia R73.9 CVA (cerebral vascular accident) I63.9
[2024-11-09] MEDS: DIVALPROEX SODIUM SPRINKLE/DEL-REL 125 MG CAP PEG SCH (15:12)
--- NOTE | 2024-11-09 15:43 | Electrocardiogram Report ---
Test Reason : Blood Pressure : */* mmHG Vent. Rate : 105 BPM Atrial Rate : 105 BPM P-R Int : 134 ms QRS Dur : 144 ms QT Int : 400 ms P-R-T Axes : 25 -20 141 degrees QTcB Int : 528 ms Sinus tachycardia with Premature supraventricular complexes Left bundle branch block Abnormal ECG When compared with ECG of 30-Jan-2024 13:26, Premature ventricular complexes are no longer Present Premature supraventricular complexes are now Present ST elevation now present in Anterior leads Confirmed by Bryan Rodriguez ([id number]) on 11/09/2024 3:43:40 PM Referred By: REFERRED SELF Confirmed By: Bryan Rodriguez
--- NOTE | 2024-11-09 16:11 | Electrocardiogram Report ---
Test Reason : Blood Pressure : */* mmHG Vent. Rate : 96 BPM Atrial Rate : 96 BPM P-R Int : 170 ms QRS Dur : 140 ms QT Int : 410 ms P-R-T Axes : 5 -26 125 degrees QTcB Int : 517 ms Poor data quality, interpretation may be adversely affected Sinus rhythm with Premature supraventricular complexes Left bundle branch block Abnormal ECG When compared with ECG of 06-Nov-2024 18:19, (unconfirmed) No significant change was found Confirmed by Bryan Rodriguez ([id number]) on 11/09/2024 4:10:50 PM Referred By: REFERRED SELF Confirmed By: Bryan Rodriguez
[2024-11-09] MEDS: DIVALPROEX SODIUM SPRINKLE/DEL-REL 125 MG CAP PO SCH (17:59)
[2024-11-10 07:19] LABS: Hematocrit (blood only) 29.4 % (42.0-52.0); Hemoglobin 9.5 g/dl (14.0-18.0); Mean Corpuscular Hemoglobin 30.3 pg (25.0-34.0); Mean Corpuscular Volume 93.6 fL (80.0-100.0); Platelet Count 258 K/uL (130-400); RDW Standard Deviation 51.9 fL (36.4-46.3); Red Blood Count 3.14 M/uL (4.70-6.10); White Blood Count 8.23 K/ul (4.8-10.8)
[2024-11-10 07:42] LABS: Anion Gap 5.0 (3-11); Blood Urea Nitrogen 27.0 mg/dl (6-23); Calcium 9.1 mg/dl (8.6-10.3); Carbon Dioxide 26.0 mmol/L (21-32); Chloride 113.0 mmol/L (98-107); Creatinine Clr Calc Pharmacy 49.3 ml/min; Glucose 136.0 mg/dl (70-99(Fasting)); Magnesium 2.2 mg/dl (1.7-2.4); Potassium 3.7 mmol/L (3.5-5.1); Sodium 144.0 mmol/L (136-145)
--- NOTE | 2024-11-10 11:06 | Pharmacy Report ---
Pharmacy Glycemic Short Note 2 - Date of Service November 10, 2024 - Glycemic Short BSG Results (Last 24 hours): 11/09/24 11/09/24 11/10/24 12:04 18:18 00:36 Glucose POC Glucose 202 H 92 159 H 11/10/24 11/10/24 05:55 06:41 Glucose 136 H POC Glucose 104 H OUTPATIENT ANTIDIABETIC REGIMEN: * NPH 8 units TID * Humalog SS TID A1c = 7.3% ASSESSMENT: 11/10 * Pranav received 31 units of insulin yesterday (10 were basal) * Fasting BSG this AM slightly below goal range, but acceptable. Will continue current basal regimen and trend since yesterday's fasting was elevated. * Some stacking occuring yesterday evening due to late 1200 insulin administration, but will loosen correction factor proactively in case to prevent hypoglycemia. Continue with current carbohydrate coverage. He is receiving ceftriaxone IV. 11/07 * Pranav is a 79 year-old male with past medical history of DVT, asthma, CAD, HFrEF, BPH, recent mitral valve replacement, nonverbal at baseline after recent CVA, recent GI bleed. He was admitted for evaluation of hyponatremia. It appears that he was recently started on insulin following initiation of tube feeds during recent hospitalization at [facility]. * Currently ordered Fibersource TF at continuous rate of 60 mls/hr (provides 58 g of carbohydrate every 6 hours). He has also been started on D5 1/2 NS + K @ 125 mls/hr. * Patient was given a one time dose of NPH 8 units last evening. Initially well controlled with BSG of 135 and 139 mg/dL. However, BSG then jumped to 247 mg/dL at lunch. Of note, carbohydrate from tube feeds was not covered last evening or at 0600 this morning. Updated Novolog orders to make tube feed coverage more clear. * Will transition basal insulin to Lantus while admitted given continuous infusion of TF. Will back off home dose of ~24 units/day of basal given this is likely covering prandial needs as well. PLAN FOR INPATIENT GLYCEMIC CONTROL: * Basal insulin * Lantus 10 units SQ qAM * Lantus 0-10 units SQ qHS (see eMAR for details) * Bolus insulin * NovoLog per scale ACHS or Q6hrs while NPO * Goal Range: Low 120 mg/dL - High 160 mg/dL * Correction Factor: 45 mg/dL/unit * Nutritional / Prandial insulin per carb ratio of 1 unit per 12 grams CHO consumed
--- NOTE | 2024-11-10 12:39 | Hospitalist Progress Note ---
Date of Service November 10, 2024 Assessment & Plan (1) Hypernatremia: (2) Hyperglycemia: (3) CVA (cerebral vascular accident): Plan Patient is a 79-year-old male with past medical history of DVT, asthma, CAD, HFrEF, BPH, recent mitral valve replacement. Patient has slurred speech, confusion, and agitation; difficult to discern baseline after recent CVA. He is being admitted for hypernatremia with a sodium of 152. Pt remaining restless still requiring soft restraints Patient's daughter previously told the nurse that seroquel does not help with calming him down at night. Zyprexa was given overnight which seemed to work. For his agitation will be best to turn on the TV and have some sunlight in the room to help. #Acute metabolic encephalopathy - suspect in the setting of dehydration and hypernatremia - per pt's daughter, quetiapine does not help calm pt at night - cont delirium precautions - Switch depakote 125mg peg q6h to Olanzapine 5mg QAM and cont. Olanzapine 5mg peg nightly prn - Ordered melatonin PRN and second line Zolpidem to help with sleep - Pending non-contrast CT head to assess acute intracranial pathology #Hypernatremia - resolved, but continue to monitor to ensure pt doesn't swing to hyponatremic state with increased free water flushes - likely need to obtain new homeostasis with recently starting tube feeds. Patient's family reports hypernatremia during recent [place] admission requiring dialysis. Na on admission 152, Bun 47, Cr 1.38 serum osmo 345. - Ur Osm: 6-6, Ur Na: 43 - cont to hold diuretics at this time - trend BMP, currently Na: 144 #hyperglycemia - persistent hyperglycemia since starting tube feeds, on insulin. Glucose 221 on admission. Started on insulin during [facility] admission. - SSI ordered - pharmacy glycemic consult #UTI - UCx growing E coli - harris changed in the ED - started on Ceftriaxone - started 11/08 for 7 days - CBC QAM #Recent CVA #h/o TCAR CVA during procedure at recent [place] admission. Residual deficits of right facial droop, decrease in cognition, however is verbal at new baseline. Currently nonverbal - continue plavix and statin - fall and aspiration precautions Does have history of hospital-acquired delirium, promote good sleep-wake cycles #Mitral valve replacementfamily reports recent mitral valve replacement at [place]. Not on current anticoagulation with recent GI bleeding. Most recent EF on file 50 to 55% prior to procedure, anticipate to be improved Holding Bumex with above as again anticipate EF to be improved and patient clinically dry #Anemia - Hgb drop from 12.2 to 10.6. family reports recent GI bleeding. Hgb stable around 9 - Trend CBC #HTN - continue metoprolol #BPH - continue finasteride, chronic harris in place. VTE ppx: Heparin q12 Dispo: med/tele - pending clinical improvement; potential transfer back to [facility] and rehab s/p recent CVA 11/09: updated pt's daughter Admission and Anticipated Discharge Date Admission Date: November 06, 2024 Supervising Physician Co-Signing Physician Notes Resident Physician Supervision Note: I personally examined the patient and verified all upt[place] points of history and exam, discussed case, and agree with decision making with Dr. Bustillos I was present with Dr. Bustillos during the history and exam. I discussed the case with the resident and agree with the findings and plan as documented in the note. Any exceptions or clarifications are listed here: None Patient remains in the hospital due to resolution of sepsis with concurrent metabolic encephalopathy and delirium. Source of sepsis was urinary tract. Patient is able to communicate but is not oriented to person place or time. Physical examination is without significant focal deficits except for poor dentition and the fact that he is wearing mitts and trying to punch me. #Hyponatremia has resolved #UTI present on admission E. coli currently under treatment #Swallowing dysfunction remains on PEG feeding #Cardiovascular patient with recent CVA and mitral valve replacement remains on medications to reduce risk in the future, with history of atrial fibrillation and is not currently on chronic anticoagulation due to previous recent GI bleed details are unknown hemoglobin is currently stable Disposition is to try to improve encephalopathy and delirium with eventual transition to [facility] facility Documented By: Reagan Coreas MD Subjective Dean Salamanca is slightly agitated and confused this morning when seen. Patient is restless and wearing non-violent restraints, patient has speech deficiency after recent CVA in September 2024 2/2 CABG x2, LAAL, and MVR with interventional cardiology. Patient without difficulty breathing, pain or acute distress. History is difficult to obtain due to confusion and slurred speech. Physical Exam Physical Exam: General: patient resting comfortably, NAD, non-toxic in appearance, slightly agitated and confused Skin: warm, dry, intact HEENT: NC/AT, anicteric sclera, conjunctiva without injection, moist mucus membr anes. Heart: +S1/S2, regular, no m/r/g Lungs: equal air entry bilaterally, no rales/rhonchi/wheezes Abd: +BS, soft, NT/ND Ext: warm, no clubbing/cyanosis or edema Neuro: nonfocal, speech intact, no facial droop, moving all extremities. Results & Data Results & Data Vital Signs (Past 12 Hours) Vital Signs Temp Pulse Resp BP Pulse Ox O2 Del Method 11/10/24 08:36 37.3 C 94 H 20 109/65 95 Room Air 11/10/24 08:00 Room Air 11/10/24 07:33 73 16 97 Room Air 11/10/24 04:15 36.5 C 111 H 20 121/74 93 Room Air Resident Activity Tracking Resident Involvement: Resident Care Provided Care Provided: Adult Hospital Medicine
--- NOTE | 2024-11-10 13:53 | Electrocardiogram Report ---
Test Reason : Blood Pressure : */* mmHG Vent. Rate : 81 BPM Atrial Rate : 81 BPM P-R Int : 134 ms QRS Dur : 138 ms QT Int : 432 ms P-R-T Axes : 28 -21 162 degrees QTcB Int : 501 ms Sinus rhythm with occasional Premature ventricular complexes Left bundle branch block Abnormal ECG When compared with ECG of 08-Nov-2024 04:37, (unconfirmed) Premature ventricular complexes are now Present Premature supraventricular complexes are no longer Present Confirmed by Bryan Rodriguez ([id number]) on 11/10/2024 1:52:55 PM Referred By: REFERRED SELF Confirmed By: Bryan Rodriguez
--- NOTE | 2024-11-10 17:10 | Billing Data ---
Date of Service November 10, 2024 Coding Level of Care Code 41541 SUB INP/OBS CARE
[2024-11-10] MEDS: MELATONIN 3 MG TAB PO PRN (21:51)
--- NOTE | 2024-11-11 08:27 | Hospitalist Progress Note ---
Date of Service November 11, 2024 Assessment & Plan (1) Hypernatremia: (2) Hyperglycemia: (3) CVA (cerebral vascular accident): Plan Patient is a 79-year-old male with past medical history of DVT, asthma, CAD, HFrEF, BPH, recent mitral valve replacement. Patient has slurred speech, confusion, and agitation; difficult to discern baseline after recent CVA. He is being admitted for hypernatremia with a sodium of 152. Pt remaining restless still requiring soft restraints Patient's daughter previously told the nurse that seroquel does not help with calming him down at night. Zyprexa was given overnight which seemed to work. For his agitation will be best to turn on the TV and have some sunlight in the room to help. #Acute metabolic encephalopathy - suspect in the setting of dehydration and hypernatremia - per pt's daughter, quetiapine does not help calm pt at night - cont delirium precautions - Switch depakote 125mg peg q6h to Olanzapine 5mg QAM and cont. Olanzapine 5mg peg nightly prn - Ordered melatonin PRN and second line Zolpidem to help with sleep - Pending non-contrast CT head to assess acute intracranial pathology #Hypernatremia - resolved, but continue to monitor to ensure pt doesn't swing to hyponatremic state with increased free water flushes - likely need to obtain new homeostasis with recently starting tube feeds. Patient's family reports hypernatremia during recent [place] admission requiring dialysis. Na on admission 152, Bun 47, Cr 1.38 serum osmo 345. - Ur Osm: 6-6, Ur Na: 43 - cont to hold diuretics at this time - trend BMP, currently Na: 142 #hyperglycemia - persistent hyperglycemia since starting tube feeds, on insulin. Glucose 221 on admission. Started on insulin during [facility] admission. - SSI ordered - pharmacy glycemic consult #UTI - UCx growing E coli - harris changed in the ED - continue Ceftriaxone - started 11/08 for 7 days - CBC QAM #Recent CVA #h/o TCAR CVA during procedure at recent [place] admission. Residual deficits of right facial droop, decrease in cognition, however is verbal at new baseline. Currently nonverbal - continue plavix and statin - fall and aspiration precautions Does have history of hospital-acquired delirium, promote good sleep-wake cycles #Mitral valve replacementfamily reports recent mitral valve replacement at [place]. Not on current anticoagulation with recent GI bleeding. Most recent EF on file 50 to 55% prior to procedure, anticipate to be improved Holding Bumex with above as again anticipate EF to be improved and patient clinically dry #Anemia - Hgb drop from 12.2 to 10.6. family reports recent GI bleeding. Hgb stable around 9 - Trend CBC #HTN - continue metoprolol #BPH - continue finasteride, chronic harris in place. VTE ppx: Heparin q12 Dispo: med/tele - pending clinical improvement; potential transfer back to [facility] and rehab s/p recent CVA 11/09: updated pt's daughter Admission and Anticipated Discharge Date Admission Date: November 06, 2024 Supervising Physician Co-Signing Physician Notes Resident Physician/medical student supervision Note: I personally examined the patient and verified all upt[place] points of history and exam, discussed case, and agree with decision making with Dr. Bustillos and Boby Rivera MS4 I discussed the case with the resident and agree with the findings and plan as documented in the note. Any exceptions or clarifications are listed here: None Patient remains in the hospital due to resolution of sepsis with concurrent metabolic encephalopathy and delirium. Source of sepsis associate with a Harris catheter present on admission. Patient is able to communicate but is not oriented to person place or time. Physical examination is without significant focal deficits except for poor dentition and the fact that he is wearing mitts is much more pleasant today but similarly with garbled speech mumbling and concerned about swallowing. #Hyponatremia has resolved #UTI present on admission E. coli currently under treatment #Swallowing dysfunction remains on PEG feeding likely poor chance of recovery #Cardiovascular patient with recent CVA and mitral valve replacement remains on medications to reduce risk in the future, with history of atrial fibrillation and is not currently on chronic anticoagulation due to previous recent GI bleed details are unknown hemoglobin is currently stable Discussion with family seems to support acute rehab facility will see if he qualifies given his recent stroke Documented By: Reagan Coreas MD Subjective Patient was lying in bed comfortably and in no acute distress. He stated he slept good last night. He was relaxed this morning and wearing non-violent restraints, patient has speech deficiency after recent CVA in September 2024 2/2 CABG x2, LAAL, and MVR with interventional cardiology. Patient without difficulty breathing, pain or acute distress. History is difficult to obtain due to confusion and slurred speech. Review of Systems Review of Systems: Unable to obtain ROS due to cognitive impairment Physical Exam Physical Exam: General: patient resting comfortably, NAD, non-toxic in appearance, relaxed and confused Skin: warm, dry, intact HEENT: NC/AT, anicteric sclera, conjunctiva without injection, moist mucus membranes. Heart: +S1/S2, tachycardic, no murmurs, gallops, rubs Lungs: equal air entry bilaterally, no rales, rhonchi, wheezes Abd: soft, nontender, bowel sounds present Ext: warm, no clubbing/cyanosis or edema Neuro: nonfocal, speech intact, no facial droop, moving all extremities. Results & Data Results & Data Vital Signs (Past 12 Hours) Vital Signs Temp Pulse Pulse Resp BP Pulse Ox O2 Del Method 11/11/24 08:05 36.8 C 112 H 24 137/67 92 Room Air 11/11/24 07:37 103 H 11/11/24 07:21 97 H 19 94 Room Air 11/11/24 04:28 36.3 C L 98 H 20 148/65 H 94 Room Air 11/10/24 23:14 36.6 C 70 20 133/73 93 Room Air 11/10/24 21:48 108 H FiO2 11/11/24 08:05 11/11/24 07:37 11/11/24 07:21 21 11/11/24 04:28 11/10/24 23:14 11/10/24 21:48 Laboratory Results Reviewed CBC reviewed chemistry Resident Activity Tracking Resident Involvement: Resident Care Provided Care Provided: Adult Hospital Medicine Resident Supervision Co-Signing Physician Notes Patient was seen alongside Dr. Coreas and student doctor Germain Kendrick and I agree with all of the findings discussed above. Patient has improved from hypernatremia and dehydration, but currently is very delirious likely multi-factorial but aggravated by lengthy hospital stay, lack of sleep, restraints, and toxic etiology from current UTI. Psychiatric medicatio ns have been changed to remove depakote and start Zyprexa 2.5mg in the morning and continue Zyprexa 5mg QHS to determine if mental status improves. Goal will be to remove non-violent restraints as delirium improves, continue treating UTI with IV ceftriaxone, and have patient involved in acute rehabilitation at a site such as [facility] for complete rehab of his recent stroke following cardiac surgery 09/25/2024. Patient's case is discussed with family and they feel that he did not have adequate rehabilitation with multiple falls and little PT prior to shortly being admitted for acute dehydration, hypernatremia, and UTI. Patient needs a full session of rehabilitation at a site that will allow for at least 3 hours of PT daily for 1-2 weeks for appropriate therapy. Patient remains on PEG tube with swallowing dysfunction and this potentially may not be curable in light of recent CVA
[2024-11-11 08:58] LABS: Hematocrit (blood only) 31.8 % (42.0-52.0); Hemoglobin 10.1 g/dl (14.0-18.0); Immature Granulocytes # (auto) 0.05 K/uL (0.01-0.20); Immature Granulocytes % (auto) 0.6 %; Mean Corpuscular Hemoglobin 29.3 pg (25.0-34.0); Mean Corpuscular Volume 92.2 fL (80.0-100.0); Platelet Count 248 K/uL (130-400); RDW Standard Deviation 50.5 fL (36.4-46.3); Red Blood Count 3.45 M/uL (4.70-6.10); White Blood Count 8.95 K/ul (4.8-10.8)
[2024-11-11 09:23] LABS: Anion Gap 6.0 (3-11); Blood Urea Nitrogen 26.0 mg/dl (6-23); Calcium 9.0 mg/dl (8.6-10.3); Carbon Dioxide 25.0 mmol/L (21-32); Chloride 111.0 mmol/L (98-107); Creatinine Clr Calc Pharmacy 46.0 ml/min; Glucose 126.0 mg/dl (70-99(Fasting)); Potassium 4.6 mmol/L (3.5-5.1); Sodium 142.0 mmol/L (136-145)
--- NOTE | 2024-11-11 14:58 | CT Scan Report ---
CT SCAN OF THE BRAIN WITHOUT IV CONTRAST CLINICAL HISTORY: Fall. COMPARISON STUDY: MRI of the brain October 15, 2023. Head CT October 20, 2023 TECHNIQUE: Unenhanced axial CT scan of the brain was performed from the vertex to the skull base. A dose lowering technique was utilized adhering to the principles of ALARA. CT DOSE: 1490.6 mGy.cm FINDINGS: There is mild motion artifact. No acute intracranial hemorrhage, midline shift or mass effe ct is present. Ventricular system is unremarkable. Basal cisterns are patent. There are no extra axia l collections. A 3.4 cm focus of encephalomalacia within the superior left cerebellar hemisphere is n ew since CT of October 20, 2023. A small hypodense focus within the left occipital lobe as well as a sma ll hypodense focus within the right cerebellar hemisphere also new since that exam. White matter hypo densities suggest small vessel disease. No calvarial fractures are identified. IMPRESSION: 1. No acute intracranial findings. 2. No calvarial fractures. 3. 3.4 cm focus of encephalomalacia within the left cerebellar hemisphere and hypodensities within th e left occipital and right cerebellar hemispheres. These are new since CT of October 20, 2023 but favor chronic infarcts. ACT 112: Negative or not required by law. Electronically signed by: Wiliam Romero M.D. 11/11/2024 2:56 PM
--- NOTE | 2024-11-11 15:52 | Billing Data ---
Date of Service November 11, 2024 Coding Level of Care Code 11101 SUB INP/OBS CARE MIN
--- NOTE | 2024-11-12 07:48 | Hospitalist Progress Note ---
Date of Service November 12, 2024 Assessment & Plan (1) Hypernatremia: (2) Hyperglycemia: (3) CVA (cerebral vascular accident): Plan Patient is a 79-year-old male with past medical history of DVT, asthma, CAD, HFrEF, BPH, recent mitral valve replacement. Patient has slurred speech, confusion, and agitation; difficult to discern baseline after recent CVA. He is being admitted for hypernatremia with a sodium of 152. Pt remaining restless still requiring soft restraints Patient's daughter previously told the nurse that seroquel does not help with calming him down at night. Zyprexa was given overnight which seemed to work. For his agitation will be best to turn on the TV and have some sunlight in the room to help. #Acute metabolic encephalopathy - suspect in the setting of dehydration and hypernatremia - per pt's daughter, quetiapine does not help calm pt at night - cont delirium precautions - Stop Olanzapine 2.5 mg QAM on 11/13 and cont. Olanzapine 5mg peg nightly prn - Stop melatonin PRN and use second line Zolpidem to help with sleep - PT/OT consulted - Speech consulted > "Continuation of NPO status with mouth care Continuation of PEG tube feeding Consideration for palliative care consult to help daughter with plans of care and realistic expectations on pt's condition" - CT head completed: No acute intracranial findings No calvarial fractures 3.4cm focus of encephalomalacia within the left cerebellar hemisphere and hyp odensities within the left occipital and right cerebellar hemispheres. These are new since the CT of October 20, 2023, but favor chronic infarcts. - Start guaifenesin 600 mg peg Q12hrs for aspiration concerns as patient did not do with well mouth care and ice chip trial yesterday, may consider glycopyrrolate if this worsens. #Hypernatremia - resolved, but continue to monitor to ensure pt doesn't swing to hyponatremic state with increased free water flushes - likely need to obtain new homeostasis with recently starting tube feeds. Patient's family reports hypernatremia during recent [facility] admission requiring dialysis. Na on admission 152, Bun 47, Cr 1.38 serum osmo 345. - Ur Osm: 6-6, Ur Na: 43 - cont to hold diuretics at this time - trend BMP, currently Na: 142 #hyperglycemia - persistent hyperglycemia since starting tube feeds, on insulin. Glucose 221 on admission. Started on insulin during [facility] admission. - SSI ordered - pharmacy glycemic consult #UTI - UCx growing E coli - harris changed in the ED - continue Ceftriaxone - started 11/08 for 7 days - CBC QAM #Recent CVA #h/o TCAR CVA during procedure at recent [facility] admission. Residual deficits of right facial droop, decrease in cognition, however is verbal at new baseline. Currently nonverbal - continue plavix and statin - fall and aspiration precautions Does have history of hospital-acquired delirium, promote good sleep-wake cycles #Mitral valve replacementfamily reports recent mitral valve replacement at [facility]. Not on current anticoagulation with recent GI bleeding. Most recent EF on file 50 to 55% prior to procedure, anticipate to be improved Holding Bumex with above as again anticipate EF to be improved and patient clinically dry #Anemia - Hgb drop from 12.2 to 10.6. family reports recent GI bleeding. Hgb stable around 9 - Trend CBC #HTN - continue metoprolol #BPH - continue finasteride, chronic harris in place. VTE ppx: Heparin q12 Dispo: med/tele - pending clinical improvement; potential transfer back to [facility] and rehab s/p recent CVA 11/09: updated pt's daughter Admission and Anticipated Discharge Date Admission Date: November 06, 2024 Supervising Physician Co-Signing Physician Notes Resident Physician/medical student supervision Note: I personally examined the patient and verified all [place] points of history and exam, discussed case, and agree with decision making with Dr. Bustillos and Boby Rivera MS4 I discussed the case with the resident and agree with the findings and plan as documented in the note. Any exceptions or clarifications are listed here: None With garbled speech Patient remains in the hospital due to resolution of sepsis with concurrent metabolic encephalopathy and delirium. Source of sepsis associate with a Harris catheter present on admission. Patient is able to communicate with garbled speech but is not oriented to person place or time. Daughter was in the room at the bedside she has optimism of recovery despite the patient's significant medical limitations Physical examination is without significant focal deficits except for poor dentition, patient was without restraints during exam but has returned to weari ng mitts he is much more sedate today we will continue to adjust his olanzapine #Hyponatremia has resolved #UTI present on admission E. coli currently under treatment with ceftriaxone last dose 11/15/2024 #Swallowing dysfunction remains on PEG feeding likely poor chance of recovery #Cardiovascular patient with recent CVA and mitral valve replacement remains on medications to reduce risk in the future, with history of atrial fibrillation and is not currently on chronic anticoagulation due to previous recent GI bleed details are unknown hemoglobin is currently stable Discussion with family seems to support acute rehab facility will see if he qualifies given his recent stroke Documented By: Reagan Coreas MD Subjective Patient lying in bed sleeping and in no acute distress. Nursing staff reports that he coughed and gurgled after trialing an ice chip yesterday. She stated that he slept all night last night, but she has had to suction him multiple times this morning due to him making gurgling sounds. Review of Systems Review of Systems: Unable to obtain ROS due to cognitive impairment Physical Exam Physical Exam: General: patient resting comfortably, NAD, non-toxic in appearance, relaxed and confused Skin: warm, dry, intact HEENT: NC/AT, anicteric sclera, conjunctiva without injection, moist mucus membranes. Heart: +S1/S2, tachycardic, no murmurs, gallops, rubs Lungs: equal air entry bilaterally, no rales, rhonchi, wheezes Abd: soft, nontender, bowel sounds present Ext: warm, no clubbing/cyanosis or edema Neuro: nonfocal,speech intact, no facial droop, moving all extremities. Results & Data Results & Data Vital Signs (Past 12 Hours) Vital Signs Temp Pulse Pulse Resp BP BP Pulse Ox 11/12/24 07:33 88 12 11/12/24 07:20 88 11/12/24 03:59 37 C 88 18 109/70 94 11/12/24 03:51 37.0 C 72 20 106/68 93 11/12/24 00:27 37.1 C 82 20 96/61 L 95 11/11/24 21:50 79 11/11/24 20:14 37.1 C 76 18 106/57 L 95 11/11/24 19:55 O2 Del Method FiO2 11/12/24 07:33 Room Air 21 11/12/24 07:20 11/12/24 03:59 Room Air 11/12/24 03:51 Room Air 11/12/24 00:27 Room Air 11/11/24 21:50 11/11/24 20:14 Room Air 11/11/24 19:55 Room Air Resident Activity Tracking Resident Involvement: Resident Care Provided Care Provided: Adult Hospital Medicine Resident Supervision Co-Signing Physician Notes Patient was seen alongside Dr. Coreas and student doctor Germain Kendrick and I agree with all of the findings discussed above. Patient has improved from hypernatremia and dehydration, but currently is very delirious likely multi-factorial but aggravated by lengthy hospital stay, lack of sleep, restraints, and toxic etiology from current UTI. Psychiatric medications have been changed to remove depakote and start Zyprexa 2.5mg in the morning and continue Zyprexa 5mg QHS to determine if mental status improves. Goal will be to remove non-violent restraints as delirium improves, continue treating UTI with IV ceftriaxone, and have patient involved in acute rehabilitation at a site such as [facility] for complete rehab of his recent stroke following cardiac surgery 09/25/2024. Trial to remove restraints was initiated today but patient became agitated after 4-5 hours off restraints and began pulling at tubes and swinging arms. Patient may benefit from escitalopram 10mg in the AM, removal of Zyprexa in AM, and continuation of Zyprexa QHS Patient's case is discussed with family and they feel that he did not have adequate rehabilitation with multiple falls and little PT prior to shortly being admitted for acute dehydration, hypernatremia, and UTI. Patient needs a full session of rehabilitation at a site that will allow for at least 3 hours of PT daily for 1-2 weeks for appropriate therapy. Patient remains on PEG tube with swallowing dysfunction and this potentially may not be curable in light of recent CVA. CT head completed today showed 3.4 cm encephalomalacia in left cerebellum and smaller hypodensities in the right cerebellum and left occipital lobes, and these chronic changes likely are contributing to patient's continued loss of motor and cognitive function
[2024-11-12 07:54] LABS: Hematocrit (blood only) 31.0 % (42.0-52.0); Hemoglobin 9.7 g/dl (14.0-18.0); Immature Granulocytes # (auto) 0.04 K/uL (0.01-0.20); Immature Granulocytes % (auto) 0.5 %; Mean Corpuscular Hemoglobin 29.6 pg (25.0-34.0); Mean Corpuscular Volume 94.5 fL (80.0-100.0); Platelet Count 242 K/uL (130-400); RDW Standard Deviation 53.1 fL (36.4-46.3); Red Blood Count 3.28 M/uL (4.70-6.10); White Blood Count 7.34 K/ul (4.8-10.8)
--- NOTE | 2024-11-12 08:00 | Pharmacy Report ---
Pharmacy Glycemic Short Note 2 - Date of Service November 12, 2024 - Glycemic Short BSG Results (Last 24 hours): 11/11/24 11/11/24 11/11/24 08:39 12:08 18:37 Glucose 126 H POC Glucose 190 H 153 H 11/11/24 11/11/24 11/12/24 22:06 23:58 06:02 Glucose POC Glucose 135 H 158 H 130 H OUTPATIENT ANTIDIABETIC REGIMEN: * NPH 8 units TID * Humalog SS TID A1c = 7.3% ASSESSMENT: 11/12: * Pranav received 31 units of insulin today (10 were basal) * Fasting BSG this AM within goal range, 1200 BSG tends to be elevated, will move Lantus to coincide with 0600 BSG check and increase by 20% to assist. * No changes at this time, continue to cover Fibersource tube feeds Q6H. 11/10: * Pranav received 31 units of insulin yesterday (10 were basal) * Fasting BSG this AM slightly below goal range, but acceptable. Will continue current basal regimen and trend since yesterday's fasting was elevated. * Some stacking occuring yesterday evening due to late 1200 insulin administration, but will loosen correction factor proactively in case to prevent hypoglycemia. Continue with current carbohydrate coverage. He is receiving ceftriaxone IV. 11/07 * Pranav is a 79 year-old male with past medical history of DVT, asthma, CAD, HFrEF, BPH, recent mitral valve replacement, nonverbal at baseline after recent CVA, recent GI bleed. He was admitted for evaluation of hyponatremia. It appears that he was recently started on insulin following initiation of tube feeds during recent hospitalization at [facility]. * Currently ordered Fibersource TF at continuous rate of 60 mls/hr (provides 58 g of carbohydrate every 6 hours). He has also been started on D5 1/2 NS + K @ 125 mls/hr. * Patient was given a one time dose of NPH 8 units last evening. Initially well controlled with BSG of 135 and 139 mg/dL. However, BSG then jumped to 247 mg/dL at lunch. Of note, carbohydrate from tube feeds was not covered last evening or at 0600 this morning. Updated Novolog orders to make tube feed coverage more clear. * Will transition basal insulin to Lantus while admitted given continuous infusion of TF. Will back off home dose of ~24 units/day of basal given this is likely covering prandial needs as well. PLAN FOR INPATIENT GLYCEMIC CONTROL: * Basal insulin * Lantus 12 units SQ 0600 * Bolus insulin * NovoLog per scale ACHS or Q6hrs while NPO * Goal Range: Low 120 mg/dL - High 160 mg/dL * Correction Factor: 45 mg/dL/unit * Nutritional / Prandial insulin per carb ratio of 1 unit per 12 grams CHO consumed
[2024-11-12 08:10] LABS: Anion Gap 5.0 (3-11); Blood Urea Nitrogen 27.0 mg/dl (6-23); Calcium 9.3 mg/dl (8.6-10.3); Carbon Dioxide 26.0 mmol/L (21-32); Chloride 111.0 mmol/L (98-107); Creatinine Clr Calc Pharmacy 48.3 ml/min; Glucose 185.0 mg/dl (70-99(Fasting)); Potassium 4.3 mmol/L (3.5-5.1); Sodium 142.0 mmol/L (136-145)
[2024-11-12] MEDS: LANTUS PER UNIT CHARGE SC ONE (10:25)
[2024-11-12] MEDS: guaiFENesin 600 MG TABCR PO SCH (10:32)
[2024-11-12] MEDS: OLANZAPINE 2.5 MG TAB PO SCH (10:33)
[2024-11-12] MEDS: PEPTAMEN 1.5 CAL 1,000 ML BAG PEG SCH (13:44)
[2024-11-12] MEDS ORDERED: LANTUS PER UNIT CHARGE SC SCH (18:00)
[2024-11-12] MEDS: BANATROL TF 60 ML LIQUID PKT PEG SCH (21:59)
[2024-11-13] MEDS: LANTUS PER UNIT CHARGE SC SCH (05:43)
--- NOTE | 2024-11-13 07:33 | Hospitalist Progress Note ---
Date of Service November 13, 2024 Assessment & Plan (1) Hypernatremia: (2) Hyperglycemia: (3) CVA (cerebral vascular accident): Plan Patient is a 79-year-old male with past medical history of DVT, asthma, CAD, HFrEF, BPH, recent mitral valve replacement. Patient has slurred speech, confusion, and agitation; difficult to discern baseline after recent CVA. He is being admitted for hypernatremia with a sodium of 152. Pt remaining restless still requiring soft restraints Patient's daughter previously told the nurse that seroquel does not help with calming him down at night. Zyprexa was given overnight which seemed to work. For his agitation will be best to turn on the TV and have some sunlight in the room to help. #Acute metabolic encephalopathy - suspect in the setting of dehydration and hypernatremia - per pt's daughter, quetiapine does not help calm pt at night - cont delirium precautions - Stop Olanzapine 2.5 mg QAM on 11/13 and cont. Olanzapine 5mg peg nightly prn - Start Escitalopram 10 mg QAM on 11/13 - Stop melatonin PRN and use second line Zolpidem to help with sleep - PT/OT consulted >Acute rehab 3-5x weekly - Speech consulted > "Continuation of NPO status with mouth care Continuation of PEG tube feeding Consideration for palliative care consult to help daughter with plans of care and realistic expectations on pt's condition" - CT head completed: No acute intracranial findings No calvarial fractures 3.4cm focus of encephalomalacia within the left cerebellar hemisphere and hypodensities within the left occipital and right cerebellar hemispheres. These are new since the CT of October 20, 2023, but favor chronic infarcts. - Start guaifenesin 600 mg peg Q12hrs for aspiration concerns as patient did not do with well mouth care and ice chip trial on 11/11, may consider glycopyrrolate if this worsens. #Hypernatremia - resolved, but continue to monitor to ensure pt doesn't swing to hyponatremic state with increased free water flushes - likely need to obtain new homeostasis with recently starting tube feeds. Patient's family reports hypernatremia during recent [facility] admission requiring dialysis. Na on admission 152, Bun 47, Cr 1.38 serum osmo 345. - Ur Osm: 6-6, Ur Na: 43 - cont to hold diuretics at this time - trend BMP, currently Na: 141 #hyperglycemia - persistent hyperglycemia since starting tube feeds, on insulin. Glucose 221 on admission. Started on insulin during [facility] admission. - SSI ordered - pharmacy glycemic consult #UTI - UCx growing E coli - harris changed in the ED - continue Ceftriaxone - started 11/08 for 7 days - CBC QAM #Recent CVA #h/o TCAR CVA during procedure at recent [place] admission. Residual deficits of right facial droop, decrease in cognition, however is verbal at new baseline. Currently nonverbal - continue plavix and statin - fall and aspiration precautions Does have history of hospital-acquired delirium, promote good sleep-wake cycles #Mitral valve replacementfamily reports recent mitral valve replacement at [facility]. Not on current anticoagulation with recent GI bleeding. Most recent EF on file 50 to 55% prior to procedure, anticipate to be improved Holding Bumex with above as again anticipate EF to be improved and patient clinically dry #Anemia - Hgb drop from 12.2 to 10.6. family reports recent GI bleeding. Hgb stable around 9 - Trend CBC #HTN - continue metoprolol #BPH - continue finasteride, chronic harris in place. VTE ppx: Heparin q12 Dispo: med/tele - pending clinical improvement; potential transfer back to [facility] and rehab s/p recent CVA 11/09: updated pt's daughter Admission and Anticipated Discharge Date Admission Date: November 06, 2024 Supervising Physician Co-Signing Physician Notes I personally examined the patient and verified all [place] points of history and exam, discussed case, and agree with decision making with Dr. Bustillos and Boby Rivera MS4 I discussed the case with the resident and agree with the findings and plan as documented in the note. Any exceptions or clarifications are listed here: None With garbled speech Patient remains in the hospital due to resolution of sepsis with concurrent metabolic encephalopathy and delirium. Source of sepsis associate with a Harris catheter present on admission. Patient is able to communicate with garbled speech but is not oriented to person place or time. No family was present. Physical examination is without significant focal deficits except for poor dentition, patient was without restraints during exam but continues to wear mitts. He is awake during our disucussion. #Hyponatremia has resolved #UTI present on admission E. coli currently under treatment with ceftriaxone last dose 11/15/2024 #Swallowing dysfunction remains on PEG feeding likely poor chance of recovery #Cardiovascular patient with recent CVA and mitral valve replacement remains on medications to reduce risk in the future, with history of atrial fibrillation and is not currently on chronic anticoagulation due to previous recent GI bleed details are unknown hemoglobin is currently stable Discussion with family seems to support acute rehab facility will see if he qualifies given his recent stroke Subjective Patient was lying in bed comfortably and in no acute distress. Nursing staff reported that he did better overnight with the mitts on and has not tried to pull at any tubes or be combative. He stated that he was watching people outside his window where there were none currently, but daughter stated that there were people working on the roof yesterday. He also mentioned about going to work in [employer] and that he wanted to go home. His speech was very garbled and difficult to understand when asked where he was. Denies CP, SOB, abdominal pain, dizziness, weakness. Review of Systems Review of Systems: See above in HPI Physical Exam Physical Exam: General: patient resting comfortably, NAD, non-toxic in appearance, relaxed and confused Skin: warm, dry, intact HEENT: NC/AT, anicteric sclera, conjunctiva without injection, moist mucus membranes. Heart: +S1/S2, tachycardic, no murmurs, gallops, rubs Lungs: equal air entry bilaterally, no rales, rhonchi, wheezes Abd: soft, nontender, bowel sounds present Ext: warm, no clubbing/cyanosis or edema Neuro: nonfocal,speech garbled, no facial droop, moving all extremities, A&O x3. Results & Data Results & Data Vital Signs (Past 12 Hours) Vital Signs Temp Pulse Pulse Resp BP BP Pulse Ox 11/13/24 07:28 103 H 18 11/13/24 07:20 109 H 11/13/24 03:16 36.9 C 101 H 18 112/65 98 11/13/24 00:38 96 H 11/12/24 23:53 36.9 C 100 H 14 149/74 H 95 11/12/24 23:40 11/12/24 22:00 11/12/24 20:15 90 16 97 11/12/24 19:37 36.4 C L 98 H 18 130/78 97 Pulse Ox O2 Del Method O2 Del Method 11/13/24 07:28 Room Air 11/13/24 07:20 11/13/24 03:16 Room Air 11/13/24 00:38 11/12/24 23:53 Room Air 11/12/24 23:40 Room Air 11/12/24 22:00 95 Room Air 11/12/24 20:15 Room Air 11/12/24 19:37 Room Air Resident Activity Tracking Resident Involvement: Resident Care Provided Care Provided: Adult Hospital Medicine Resident Supervision Co-Signing Physician Notes Patient was seen alongside student doctor Germain Kendrick and case was discussed with medical student and attending, Dr. Montes Patient has improved from hypernatremia and dehydration, but currently is still moderately delirious; etiology is likely multi-factorial but aggravated by lengthy hospital stay, lack of sleep, restraints, and toxic etiology from current UTI. Psychiatric medications have been changed to remove depakote and QAM Zyprexa and continue Zyprexa 5mg QHS to determine if mental status improves. Escitalopram 10mg was added QAM to help with patient's frustrations with his long hospital stay. Patient has been less agitated and his speech has been more coherent with approximately 40% that is now understandable. Goal will be to remove non-violent restraints as delirium improves, continue treating UTI with IV ceftriaxone, and have patient involved in acute r ehabilitation at a site such as [facility] for complete rehab of his recent stroke following cardiac surgery 09/25/2024. Trial to remove restraints yesterday was unsuccessful due to patient pulling at PEG and IVs, but patient is less agitated and able to follow commands now, and rehab may be more useful now that patient may be able to cooperate. Patient's case is discussed with family and they feel that he did not have adequate rehabilitation with multiple falls and little PT prior to shortly being admitted for acute dehydration, hypernatremia, and UTI. Patient likely needs a full session of rehabilitation at a site that will allow for at least 3 hours of PT daily for 1-2 weeks for appropriate therapy. However due to stroke size, region affected, and extended length of hospital stay for 37 days at [place] following brief stay at center [facility] prior to current admission, major and lasting recovery may be unsuccessful
--- NOTE | 2024-11-13 08:23 | Billing Data ---
Date of Service October Coding Level of Care Code 81015 SUB INP/OBS CARE
[2024-11-13] MEDS: ESCITALOPRAM OXALATE 10 MG TAB PO SCH (10:12)
[2024-11-13 11:03] LABS: Anion Gap 7.0 (3-11); Blood Urea Nitrogen 20.0 mg/dl (6-23); Calcium 9.7 mg/dl (8.6-10.3); Carbon Dioxide 24.0 mmol/L (21-32); Chloride 110.0 mmol/L (98-107); Creatinine Clr Calc Pharmacy 49.6 ml/min; Glucose 139.0 mg/dl (70-99(Fasting)); Potassium 4.7 mmol/L (3.5-5.1); Sodium 141.0 mmol/L (136-145)
[2024-11-13 11:06] LABS: Hematocrit (blood only) 31.5 % (42.0-52.0); Hemoglobin 9.7 g/dl (14.0-18.0); Immature Granulocytes # (auto) 0.03 K/uL (0.01-0.20); Immature Granulocytes % (auto) 0.4 %; Mean Corpuscular Hemoglobin 28.7 pg (25.0-34.0); Mean Corpuscular Volume 93.2 fL (80.0-100.0); Platelet Count 225 K/uL (130-400); RDW Standard Deviation 53.0 fL (36.4-46.3); Red Blood Count 3.38 M/uL (4.70-6.10); White Blood Count 7.35 K/ul (4.8-10.8)
[2024-11-13] MEDS: ZOLPIDEM TARTRATE 5 MG TAB PO PRN (21:55)
--- NOTE | 2024-11-14 06:45 | Billing Data ---
Date of Service November 13, 2024 Coding Level of Care Code 29039 SUB INP/OBS CARE MIN
[2024-11-14 07:25] VITALS: PULSE 85
[2024-11-14 07:48] VITALS: BP 115/62; RESP 19; TEMP 97.9; O2SAT 91
[2024-11-14 07:51] LABS: Hematocrit (blood only) 29.6 % (42.0-52.0); Hemoglobin 9.6 g/dl (14.0-18.0); Immature Granulocytes # (auto) 0.04 K/uL (0.01-0.20); Immature Granulocytes % (auto) 0.6 %; Mean Corpuscular Hemoglobin 29.6 pg (25.0-34.0); Mean Corpuscular Volume 91.4 fL (80.0-100.0); Platelet Count 243 K/uL (130-400); RDW Standard Deviation 50.7 fL (36.4-46.3); Red Blood Count 3.24 M/uL (4.70-6.10); White Blood Count 6.54 K/ul (4.8-10.8)
[2024-11-14 08:05] LABS: Anion Gap 5.0 (3-11); Blood Urea Nitrogen 20.0 mg/dl (6-23); Calcium 9.6 mg/dl (8.6-10.3); Carbon Dioxide 25.0 mmol/L (21-32); Chloride 110.0 mmol/L (98-107); Creatinine Clr Calc Pharmacy 53.7 ml/min; Glucose 151.0 mg/dl (70-99(Fasting)); Potassium 4.1 mmol/L (3.5-5.1); Sodium 140.0 mmol/L (136-145)
--- NOTE | 2024-11-14 09:08 | Discharge Summary ---
Date of Service November 14, 2024 Admission HPI Per Admitting Provider Patient is a 79-year-old male with past medical history of DVT, asthma, CAD, HFrEF, BPH, recent mitral valve replacement. Patient is nonverbal at baseline after recent CVA. He is being admitted for hyponatremia with a sodium of 152. Patient seen at bedside. He is nonverbal, mucous membranes and skin appear dry, PEG tube in place. Spoke with patient's daughter, who is his medical power of contact center assistant, via phone. She is on vacation at the [employer] this weekend and is approximately 3 hours away but will be home on Sunday, please call her with any emergency. She stated that the patient was admitted to [facility] on September 24 for mitral valve replacement and to have a 2 bypass surgery in which she had a CVA during the procedure. She stated the CVA was in the bottom left of his brainstem/occipital lobe and she now has deficits of the right sided facial droop however is able to move his right hand. She noticed his left hand is more jerky since this. While he was there he was unable to tolerate an NG tube and was converted to PEG tube which she then stated because rectal bleeding from his internal hemorrhoids and diverticuli, he had an EGD and colonoscopy while he was there but they were unable to find anything to stop the bleeding from. She stated his sodium at 1 point was between 180-190 which they were treating with Lasix and he had 2 days of dialysis. They did have to start insulin while he was there after he began tube feeds which he often refused. Patient suffered from hospital-acquired delirium while he was there and did not tolerate antipsychotics well however she is agreeable that if he gets combative while he is here she is okay with sedation with antipsychotics and only mitts for restraints. She believes that his mental status was improving while he was [facility] but today declined and he is nonverbal today. She would like to keep him full code. [place] discharge summary reviewed - CABG x 2 LIMALAD, SVGdistal RCA, MVR, DEXTER L on 09/24/24. Acute ischemic strokes to bilateral occipital lobes and cerebral hemispheres POD #1. Hospital course complicated by postop/ICU delirium. Patient with hypernatremia while on tube feeds which resolved with D5 and sterile water boluses. EGD 10/15 with multiple blood transfusions after hematochezia. Started on dialysis 10/18 to 10/21. Admission Exam Per Admitting Provider The patient is nonverbal, frail, skin dry. HEENT- EOMI, mucous membranes dry. Hearing grossly intact. Heart-normal S1 and S2. No murmurs, rubs or gallops. Lungs-clear bilaterally, no respiratory distress, no accessory muscle use. Abdomen-normal bowel sounds and soft. No ascites noted. Non-tender. Peg tube present. Extremities- no clubbing, cyanosis, or edema. Principal Diagnosis Hypernatremia/dehydration Discharge Exam General: patient resting comfortably, NAD, non-toxic in appearance, slightly agitated and confused Skin: warm, dry, intact HEENT: NC/AT, anicteric sclera, conjunctiva without injection, moist mucus membranes. Heart: +S1/S2, regular, no m/r/g Lungs: equal air entry bilaterally, no rales/rhonchi/wheezes Abd: +BS, soft, NT/ND Ext: warm, no clubbing/cyanosis or edema Neuro: nonfocal, speech intact, no facial droop, moving all extremities. Discharge Data Allergies Allergy/AdvReac Type Severity Reaction Status Date / Time daptomycin Allergy Severe Seizure Verified 11/06/24 19:40 shellfish derived Allergy Severe Anaphylaxis Verified 11/06/24 19:40 cat dander Allergy Intermediate Itchy Verified 11/06/24 19:40 eyes, sneezing dog dander Allergy Intermediate Itchy Verified 11/06/24 19:40 eyes, sneezing house dust Allergy Intermediate Asthma Verified 11/06/24 19:40 Iodinated Contrast Media Allergy Intermediate Rash Verified 11/06/24 19:40 pollen extracts Allergy Intermediate Asthma Verified 11/06/24 19:40 Consultations 11/06/24 19:10 ED Decision to Admit Stat Ordered Studies 11/11/24 13:20 CT head/brain wo con Urgent Hospital Course (1) Hypernatremia: (2) Hyperglycemia: (3) CVA (cerebral vascular accident): Plan Patient is a 79-year-old male with past medical history of DVT, asthma, CAD, HFrEF, BPH, recent mitral valve replacement. Patient has slurred speech, confusion, and agitation; difficult to discern baseline after recent CVA. He is being admitted for hypernatremia with a sodium of 152. Pt remaining restless still requiring soft restraints Patient's daughter previously told the nurse that seroquel does not help with calming him down at night. Zyprexa was given overnight which seemed to work. For his agitation will be best to turn on the TV and have some sunlight in the room to help. #Acute metabolic encephalopathy - suspect in the setting of dehydration and hypernatremia - per pt's daughter, quetiapine does not help calm pt at night - cont delirium precautions - Stop Olanzapine 2.5 mg QAM on 11/13 and cont. Olanzapine 5mg peg nightly prn - Start Escitalopram 10 mg QAM on 11/13 - Stop melatonin PRN and use second line Zolpidem to help with sleep - PT/OT consulted >Acute rehab 3-5x weekly - Speech consulted > "Continuation of NPO status with mouth care Continuation of PEG tube feeding Consideration for palliative care consult to help daughter with plans of care and realistic expectations on pt's condition" - CT head completed: No acute intracranial findings No calvarial fractures 3.4cm focus of encephalomalacia within the left cerebellar hemisphere and hypodensities within the left occipital and right cerebellar hemispheres. T hese are new since the CT of October 20, 2023, but favor chronic infarcts. - Start guaifenesin 600 mg peg Q12hrs for aspiration concerns as patient did not do with well mouth care and ice chip trial on 11/11, may consider glycopyrrolate if this worsens. #Hypernatremia - resolved, but continue to monitor to ensure pt doesn't swing to hyponatremic state with increased free water flushes - likely need to obtain new homeostasis with recently starting tube feeds. Patient's family reports hypernatremia during recent [place] admission requiring dialysis. Na on admission 152, Bun 47, Cr 1.38 serum osmo 345. - Ur Osm: 6-6, Ur Na: 43 - cont to hold diuretics at this time - trend BMP, currently Na: 141 #hyperglycemia - persistent hyperglycemia since starting tube feeds, on insulin. Glucose 221 on admission. Started on insulin during [place] admission. - SSI ordered - pharmacy glycemic consult #UTI due to indwelling harris catheter - UCx growing E coli - harris changed in the ED - continue Ceftriaxone - started 11/08 for 7 days - CBC QAM #Recent CVA #h/o TCAR CVA during procedure at recent [place] admission. Residual deficits of right facial droop, decrease in cognition, however is verbal at new baseline. Currently nonverbal - continue plavix and statin - fall and aspiration precautions Does have history of hospital-acquired delirium, promote good sleep-wake cycles #Mitral valve replacementfamily reports recent mitral valve replacement at [place]. Not on current anticoagulation with recent GI bleeding. Most recent EF on file 50 to 55% prior to procedure, anticipate to be improved Holding Bumex with above as again anticipate EF to be improved and patient clinically dry #Anemia - Hgb drop from 12.2 to 10.6. family reports recent GI bleeding. Hgb stable around 9 - Trend CBC #HTN - continue metoprolol #BPH - continue finasteride, chronic harris in place. VTE ppx: Heparin q12 Dispo: med/tele - pending clinical improvement; potential transfer back to [facility] and rehab s/p recent CVA 11/09: updated pt's daughter Total Time Total Time Spent Total Time Spent (In Minutes): See attending atemelina Discharge Plan Discharge Items Patient Disposition: Transfer Inpatient Rehab Fac Reason For Visit: HYPERNATREMIA Discharge Diagnosis: Hypernatremia/dehydration, UTI Condition on Discharge: Fair Activity: Per Instructions section Non-emergency contact: Primary Care Provider Call non-emergency contact if: your symptoms worsen and your pain is not controlled Follow-up/Referrals: Jina Butts MD [Primary Care Provider] - Diet: Carb Consistent or DM2 and Heart Healthy Addtl Attending Provider Instructions: You were admitted to the hospital for acute dehydration and hypernatremia. You were treated with IV fluids and your fluid status and hypernatremia quickly corrected. In addition you were found to have a UTI that grew E. coli on culture and were treated with IV ceftriaxone to clear this pathogen. The UTI findings were seen on 11/07 you have been treated with IV ceftriaxone daily for a recommended period of 7 days, thus your last dose of IV ceftriaxone will be on 11/14, tomorrow. While in the hospital your condition was complicated by delirium and this is likely from a combination of factors of lack of sleep, unfamiliar environment, resolving infection, recent cerebellar CVA 09/25/24, and use of non- violent restraints. While at the hospital your delirium has improved, and nursing has reported only mild agitation with IV lines and PEG tube, but agitation at nursing staff has resolved. At this point, the acute problems requiring hospital inpatient stay have resolved and now it is important to transfer [facility] for dedicated rehabilitation necessary to regain function after a significant stroke. CT imaging of the head completed at [facility] did show a 3.4 cm focus of encephalomalacia in the left cerebellum and smaller hypodensities of focus in the R. cerebellum and L. occipital regions. These findings likely are contributing to continued weakness and swallowing dysfunction, and it is important to try begin longer rehab sessions daily to regain complete vs partial functioning of affected regions. This may be difficult as you have had a very extended hospital stay at [place], approximately 37 days prior to few days of rehab at [facility] before acute hypernatremia/dehydration and falls resulting in current admission, but I am hopeful that the dedicated time up to 3 hours per day and a 1-2 week length will help you regain functionality. A discharge summary will be sent to your primary care physician to ensure continuity of care. Please bring this discharge summary with you to your next office appointment so that your provider can review it at that time. Follow-up appointments: Make a follow-up appointment with your PCP within the next week. It is very important that you follow up with them shortly after discharge from the hospital. Medications: Your medication list has been reviewed and reconciled upon discharge to ensure accuracy and continuity of care. An updated list of all your medications is included with your hospital discharge paperwork. Please review this list closely, and make note of any changes. Patient to finish 7 day course of antibiotics for UTI on 11/14. Patient will need BID Augmentin 875mg tomorrow to complete his abx course. Additionally patient can be given probiotics while on this antibiotic to help alleviate GI symptoms. Patient has been doing well on escitalopram 10mg QAM and Zyprexa 5mg QHS to help with mood and sleep, this may be continued while at [facility] and after. Take your medications as instructed; do not skip a dose of your medicines. Make sure all of your doctors know every medicine you are taking (including nijo-jph-fkldiaa medicines, vitamins, and supplements). Call your primary care provider before taking any new medicines (including hwkk-eoi-kqxokgj medicines, vitamins, and supplements), because some of these may interact with your current medications, or may make your symptoms worse. Tell your primary care provider if you cannot afford your medications. CONTACT YOUR PRIMARY CARE PROVIDER if you experience any of the following: Difficulty following your treatment plan, or difficulty taking medications CALL 911 OR GO TO THE EMERGENCY DEPARTMENT if you experience any of the following: Sudden, severe abdominal pain or nausea/vomiting Severe chest pain, or chest pain that radiates (moves) to your jaw or arm Sudden, severe shortness of breath or difficulty breathing Thank you for allowing us to participate in your care. Pending Studies at Discharge: No Stand-Alone Forms: My [facility] Skilled Items Patient informed of condition?: Yes DNR: No Discharge Level of Care: Acute rehab Communicable Disease: No Discharge Prognosis: Stable Lines: None Urinary Catheter: Yes Medications and DC Order Prescriptions: New Probiotic 3 billion cell capsule 3,000 mmu cells PO DAILY Qty: 4 0RF Rx Instructions: administer with a meal amoxicillin-pot clavulanate 875-125 mg tablet 1 tab PO BID Qty: 2 0RF Rx Instructions: Final two doses for BID coverage on 11/14. olanzapine [Zyprexa] 5 mg tablet 5 mg PO HS Qty: 30 0RF Rx Instructions: Continue Zyprexa 5mg QHS escitalopram oxalate 10 mg tablet 10 mg PO DAILY Qty: 30 0RF Rx Instructions: Continue Escitalopram 10mg QAM Banatrol TF 5 gram-45 kcal/60 mL liquid in packet 60 ml feeding tube BID Qty: 60 0RF Continued clopidogrel [Plavix] 75 mg Tablet 75 mg feeding tube QAM polyethylene glycol 3350 [Miralax] 17 gram/dose Powder 17 g feeding tube QAM fexofenadine 180 mg tablet 180 mg feeding tube QAM multivitamin Tablet 1 tab feeding tube DAILY acetaminophen [Tylenol] 325 mg Tablet 650 mg feeding tube Q6H PRN (Reason: PAIN/FEVER) midodrine 5 mg Tablet 5 mg feeding tube TID Rx Instructions: 0830, 1230, & 1630 guaifenesin [Consuelo-Tussin] 100 mg/5 mL Liquid 200 mg feeding tube Q4H insulin NPH isoph U-100 human 100 unit/mL Suspension 8 unit SUBCUT TID Rx Instructions: 0600, 1400, & 2200 bumetanide 1 mg Tablet 1 mg feeding tube BID Rx Instructions: 0830 & 1630 insulin lispro 100 unit/mL Solution 1 sliding scale dose SUBCUT TID Rx Instructions: 0600, 1400, & 2200-----BSG 350-400=8 UNITS, 401-450=12 UNITS, 451-500=16 UNITS, 501-550=18 UNITS, RECHECK IN 2 HR, 551+ =20 UNITS, RECHECK 1 HR, CALL MD. fluticasone propionate 50 mcg/actuation Letona,Suspension 2 spray INTRANASAL DAILY PRN (Reason: ALLERGY S/S) Rx Instructions: administer into each nostril fluticasone propionate 50 mcg/actuation Letona,Suspension 2 spray INTRANASAL DAILY Rx Instructions: administer into each nostril finasteride 5 mg Tablet 5 mg feeding tube DAILY simethicone 80 mg Tablet,Chewable 80 mg feeding tube DIRECTED PRN (Reason: ABD BLOATING) metoprolol tartrate 25 mg Tablet 25 mg feeding tube QAM Rx Instructions: HOLD FOR SBP < 100 OR HR < 60 Biotene Moisturizing Mouth Letona,Non-Aerosol 2 spray MUCOUS MEMBRANE Q1H PRN (Reason: Dry Mouth) coQ10 (ubiquinol) 100 mg Capsule 100 mg DAILY Rx Instructions: VIA FEEDING TUBE. Pantoprazole Sodium 5 ml feeding tube BID Rx Instructions: STRENGTH 4 MG/ML--GIVE 5 ML BID azelastine 137 mcg (0.1 %) spray,non-aerosol 2 spray intranasal DAILY PRN (Reason: ALLERGY S/S) Rx Instructions: administer into each nostril albuterol sulfate 90 mcg/actuation HFA aerosol inhaler 2 inh inhalation BID Rx Instructions: RINSE AND SPIT AFTER USE. atorvastatin 40 mg tablet 40 mg PO QPM montelukast 10 mg tablet 10 mg feeding tube DAILY Rx Instructions: TAKE 1 TABLET DAILY Discharge Orders: Discharge Order (Routine); Ordered 11/14/24 Ordered By: Kevin Bustillos Admission Data Admit Date/Time: 11/06/24 20:22 Attending Provider: Kraig Montes Admit Provider: Oumar Mendez Primary Care Provider: Jina Butts Other Providers: [facility] [employer]; Shanika Gilliam; Reagan Coreas Other Interventions: Discharge Summary Assessment (RN) Last Done: 11/14/24 15:55 Supervising Physician Co-Signing Physician Notes I personally examined the patient and verified all [place] points of history and exam, discussed case, and agree with decision making with Dr. Bustillos and Boby Rivera MS4 I discussed the case with the resident and agree with the findings and plan as documented in the note. Any exceptions or clarifications are listed here: None With garbled speech Patient remains in the hospital due to resolution of sepsis with concurrent metabolic encephalopathy and delirium. Source of sepsis associate with a Harris catheter present on admission. Patient is able to communicate with garbled speech but is not oriented to person place or time. No family was present. Physical examination is without significant focal deficits except for poor dentition, patient was without restraints during exam but continues to wear mitts. He is awake during our disucussion. #Hyponatremia has resolved #UTI present on admission E. coli currently under treatment with ceftriaxone last dose 11/15/2024 #Swallowing dysfunction remains on PEG feeding likely poor chance of recovery #Cardiovascular patient with recent CVA and mitral valve replacement remains on medications to reduce risk in the future, with history of atrial fibrillation and is not currently on chronic anticoagulation due to previous recent GI bleed details are unknown hemoglobin is currently stable Discharged to inpatient rehab. Resident Activity Tracking Resident Involvement: Resident Care Provided Care Provided: Adult Hospital Medicine
[2024-11-14] MEDS: AMOXICILLIN/CLAVULANATE 875 MG TAB PO ONE (10:45)
--- NOTE | 2024-11-14 14:31 | Pharmacy Report ---
Pharmacy Glycemic Short Note 2 - Date of Service November 14, 2024 - Glycemic Short BSG Results (Last 24 hours): 11/13/24 11/14/24 11/14/24 17:13 00:16 05:59 Glucose POC Glucose 149 H 142 H 151 H 11/14/24 11/14/24 07:12 11:59 Glucose 151 H POC Glucose 202 H OUTPATIENT ANTIDIABETIC REGIMEN: * NPH 8 units TID * Humalog SS TID A1c = 7.3% ASSESSMENT: 11/14: * Mr Salamanca received 20 units of insulin yesterday, with BSGs in goal range all day. * Tube feeds are titrating up at this time. Mid-day BSG was elevated (202mg/dL). If this becomes a trend, will consider tightening the carb ratio to provide additional coverage. * Pharmacy will continue to follow and adjust insulin regimen as indicated. 11/12: * Pranav received 31 units of insulin today (10 were basal) * Fasting BSG this AM within goal range, 1200 BSG tends to be elevated, will move Lantus to coincide with 0600 BSG check and increase by 20% to assist. * No changes at this time, continue to cover Fibersource tube feeds Q6H. 11/10: * Pranav received 31 units of insulin yesterday (10 were basal) * Fasting BSG this AM slightly below goal range, but acceptable. Will continue current basal regimen and trend since yesterday's fasting was elevated. * Some stacking occuring yesterday evening due to late 1200 insulin administration, but will loosen correction factor proactively in case to prevent hypoglycemia. Continue with current carbohydrate coverage. He is receiving ceftriaxone IV. 11/07 * Pranav is a 79 year-old male with past medical history of DVT, asthma, CAD, HFrEF, BPH, recent mitral valve replacement, nonverbal at baseline after recent CVA, recent GI bleed. He was admitted for evaluation of hyponatremia. It appears that he was recently started on insulin following initiation of tube feeds during recent hospitalization at [facility]. * Currently ordered Fibersource TF at continuous rate of 60 mls/hr (provides 58 g of carbohydrate every 6 hours). He has also been started on D5 1/2 NS + K @ 125 mls/hr. * Patient was given a one time dose of NPH 8 units last evening. Initially well controlled with BSG of 135 and 139 mg/dL. However, BSG then jumped to 247 mg/dL at lunch. Of note, carbohydrate from tube feeds was not covered last evening or at 0600 this morning. Updated Novolog orders to make tube feed coverage more clear. * Will transition basal insulin to Lantus while admitted given continuous infu jessica of TF. Will back off home dose of ~24 units/day of basal given this is likely covering prandial needs as well. PLAN FOR INPATIENT GLYCEMIC CONTROL: * Basal insulin * Lantus 12 units SQ daily@0600 * Bolus insulin * NovoLog per scale ACHS or Q6hrs while NPO * Goal Range: Low 120 mg/dL - High 160 mg/dL * Correction Factor: 45 mg/dL/unit * Nutritional / Prandial insulin per carb ratio of 1 unit per 12 grams CHO consumed
[2024-11-14] MEDS: AMOXICILLIN/CLAVULANATE 875 MG TAB PO STA (15:33)
--- NOTE | 2024-11-20 23:02 | Billing Data ---
Date of Service November 14, 2024 Coding Level of Care Code 89148 INP/OBS DISCH >30 MIN Time Spent (min) 35
== END 2024-11-14 16:00 | DRG 640 ==
LOC: ED 18:13 → 2W 20:22 → SUATTDRO 20:22 → 2W 21:32
DX: Z79.4 Long term (current) use of insulin; Y81.2 Prosthetic and other implants, materials and accessory general- and plastic-surgery devices associated with adverse incidents; E86.0 Dehydration; Y92.89 Other specified places as the place of occurrence of the external cause; Z91.041 Radiographic dye allergy status; I13.0 Hypertensive heart and chronic kidney disease with heart failure and stage 1 through stage 4 chronic kidney disease, or unspecified chronic kidney disease; R13.10 Dysphagia, unspecified; D64.9 Anemia, unspecified; N39.0 Urinary tract infection, site not specified; Z86.718 Personal history of other venous thrombosis and embolism; I42.9 Cardiomyopathy, unspecified; Z79.02 Long term (current) use of antithrombotics/antiplatelets; I50.22 Chronic systolic (congestive) heart failure; E87.0 Hyperosmolality and hypernatremia; J45.909 Unspecified asthma, uncomplicated; R73.9 Hyperglycemia, unspecified; N18.30 Chronic kidney disease, stage 3 unspecified; G93.41 Metabolic encephalopathy; Z88.1 Allergy status to other antibiotic agents; B96.20 Unspecified Escherichia coli [E. coli] as the cause of diseases classified elsewhere; N40.0 Benign prostatic hyperplasia without lower urinary tract symptoms; Z95.1 Presence of aortocoronary bypass graft; I25.10 Atherosclerotic heart disease of native coronary artery without angina pectoris; Z95.2 Presence of prosthetic heart valve; E11.22 Type 2 diabetes mellitus with diabetic chronic kidney disease; T83.511A Infection and inflammatory reaction due to indwelling urethral catheter, initial encounter; E11.65 Type 2 diabetes mellitus with hyperglycemia

== ENCOUNTER 2024-12-06 00:33 | Inpatient (IN) ==
--- NOTE | 2024-12-06 01:06 | Emergency Department Note ---
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 By: JAIDEN Co-signed By: MICK Titration: 12/06/24 02:50 Dose: 0.09 mcg/kg/min, 22.9 mls/hr Documented By: JAIDEN Co-signed By: MICK Titration: 12/06/24 02:46 Dose: 0.11 mcg/kg/min, 28 mls/hr Documented By: JAIDEN Co-signed By: MICK Titration: 12/06/24 02:41 Dose: 0.09 mcg/kg/min, 22.9 mls/hr Documented By: JAIDEN Co-signed By: MICK Titration: 12/06/24 02:36 Dose: 0.07 mcg/kg/min, 17.8 mls/hr Documented By: JAIDEN Co-signed By: MICK Admin: 12/06/24 02:07 Dose: 0.05 mcg/kg/min, 12.7 mls/hr Documented By: MELIDA Co-signed By: JAIDEN Discontinued Medications Sodium Chloride (Nss) 500 mls @ 999 mls/hr IV .Q31M ONE Stop: 12/06/24 01:54 Last Infusion: 12/06/24 02:25 Dose: Infused Documented By: Admin: 12/06/24 01:53 Dose: 999 mls/hr Documented By: MELIDA Piperacillin Sod/Tazobactam Sod (Zosyn) 4.5 gm in 100 mls @ 200 mls/hr IV NOW ONE; Protocol Stop: 12/06/24 02:16 Last Infusion: 12/06/24 02:25 Dose: Infused Documented By: Admin: 12/06/24 01:54 Dose: 200 mls/hr Documented By: MELIDA Miscellaneous (Stat Iv Infusion Titration Per Protocol) 1 each N/A NOW STA Stop: 12/06/24 01:59 Last Admin: 12/06/24 02:26 Dose: 1 each Documented By: JAIDEN Imaging Data Radiologist's Impression: Chest X-Ray 12/06/24 00:47 EXAM: XR chest 1V portable CLINICAL HISTORY: Hypoxia. TECHNIQUE: An X-ray image of the chest is obtained in AP projection. COMPARISON: No prior studies are available for comparison. FINDINGS: Pulmonary Parenchyma: Bilateral pulmonary middle and lower zones small patchy opacifications could be pneumonic process. Bilateral prominent hilar bronchopulmonary vasculature, suggesting pulmonary congestion. Pulmonary mild interstitial reticulations. Blunted left costophrenic angle suggests pleural effusion. Heart and Mediastinum: Heart size and shape are normal. No mediastinal widening or masses. No hilar or mediastinal lymphadenopathy. Evidence of sternotomy wires. Bony Thorax: Bony thorax appears intact without fractures or deformities. Soft Tissues: Soft tissues overlying the chest wall are unremarkable. IMPRESSION: 1. Bilateral pulmonary middle and lower zones small patchy opacifications could be pneumonic process, to be clinically correlated. 2. Prominent hilar bronchopulmonary vasculature, suggesting pulmonary congestion. Electronically signed by Joseph Koroma 12-06-2024 02:[address] 12/06/24 00:47 EXAM: CT head/brain wo con CLINICAL HISTORY: hypoxia TECHNIQUE: Multiple axial images are obtained from the skull base to the vertex without contrast. CT scan was performed according to ALARA (as low as reasonable achievable). COMPARISON: None. FINDINGS: Well defined areas of hypoattenuation are seen in bilateral occipital lobes and bilateral cerebellar hemisphere. There is cerebral atrophy. No evidence of hemorrhage, mass effect, midline shift, extra axial collection, or hydrocephalus is noted. Basal cisterns are symmetric and normal in size and configuration. There are scattered periventricular hypodensities as can be seen with chronic microvascular ischemic changes. The sauer-white matter differentiation is preserved. Small foci of hypoattenuation are also seen in brainstem. Visualized paranasal sinuses and mastoid air cells are well aerated. Orbital contents are within normal limits. Bony structures are intact. 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 IMPRESSION: 1. 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 Advised further evaluation with MRI brain with diffusion weighted imaging to rule out acute stroke. 2. Chronic microvascular ischemic changes. 3. Cerebral atrophy. Electronically signed by Pranav Frank 12-06-2024 02:03 AM Abdomen/Pelvis CT 12/06/24 00:50 EXAM: CT abd pelvis wo con CLINICAL HISTORY: hypoxia, peg tube replaced today TECHNIQUE: Contiguous axial images were obtained from the level of the diaphragm to the pubic symphysis without intravenous contrast. Coronal and sagittal reconstructions were likewise performed and indicated to increase the sensitivity for detecting clinically relevant pathology. CT scan was performed according to ALARA (as low as reasonable achievable). COMPARISON: CT dated 05/07/2024 15:50:41 [employer]. FINDINGS: Mild bilateral pleural effusion is seen. There is passive collapse of adjoining lung parenchyma. Multiple ground glass and soft tissue attenuation centrilobular nodules are seen in the visualised lung parenchyma. Aortic and coronary artery calcification is seen. Evaluation of the abdominal and pelvic visceral organs is limited without intravenous contrast. Liver shows a well defined cystic lesion measuring 23mm in right lobe in segment VIII. The unenhanced liver, spleen, pancreas, and adrenal glands are grossly unremarkable. The gallbladder is present. Multiple well defined intra cortical and exophytic cortical cysts measuring 10 to 45mm are seen in the kidneys with the largest cyst in right kidney showing focal wall calcification. The kidneys are otherwise normal in size and attenuation. There is no hydronephrosis or perinephric stranding. The ureters are normal in caliber. No adenopathy or fluid collections are seen. PEG tube seen insitu with its tip in stomach lumen. Multiple diverticuli are seen in the colon. No evidence of focal or diffuse bowel wall thickening or evidence of bowel obstruction is seen. Positive contrast is seen in the sigmoid colon and the rectum. The aorta is normal in caliber. The urinary bladder is empty and shows diffuse wall thickening. Garcia's catheter bulb in situ. Prostate measures 42m in maximum transverse dimension. Prostatic calcification is seen. No aggressive appearing osseous lesions are identified. Mild scoliotic deformity is seen in the lumbar spine with convexity towards right side. IMPRESSION: 1. Well defined right Hepatic cystic lesion - stable. 2. 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 3. Colonic diverticulosis without any evidence of diverticulitis - stable. 4. Mild prostatomegaly - persistent. 5. Diffuse urinary bladder wall thickening with Garcia's bulb in situ - shows progression. Advise ultrasound correlation. 6. Mild bilateral pleural effusion - new finding. 7. Multiple ground glass and soft tissue attenuation centrilobular nodule - suggestive of infective etiology - new finding. Electronically signed by Pranav Frank 12-06-2024 02:[address] 12/06/24 00:50 EXAM: CT chest diagnostic wo con CLINICAL HISTORY: hypoxia episode, peg tube replace TECHNIQUE: Contiguous axial images were obtained from the neck base through the upper abdomen without contrast. In addition, sagittal and coronal reconstructions were performed to potentially increase the sensitivity for the detection of disease. CT scan was performed according to ALARA (as low as reasonable achievable). COMPARISON: None. FINDINGS: Multiple tiny centrilobular ground-glass infiltrates with branching patterns are noted involving both lungs; predominantly bilateral lower lobes. Patchy ill-defined consolidation is noted involving anterior posterior basal segment of left lower lobe. Mild bilateral pleural effusion with basal subsegmental collapse of both lower lobes are seen. Mild congestive changes involving both lungs; predominantly basal segments. The central airways are patent. Evaluation of the mediastinum and nash is limited due to the lack of intravenous contrast. No axillary or mediastinal adenopathy is identified. The thyroid is unremarkable. The heart, aorta, and pulmonary arteries are of normal size and configuration. There are coronary artery and aortic atherosclerotic calcifications. No pericardial effusion is identified. Imaged portions of the upper abdomen shows a well-defined cyst in right lobe. Bilateral renal cortical cysts. No aggressive appearing osseous lesions are identified. IMPRESSION: Multiple tiny centrilobular ground-glass infiltrates with branching patterns are noted involving both lungs; predominantly bilateral lower lobes.- possibility of infective etiology / bronchiolitis Patchy ill-defined consolidation is noted involving anterior posterior basal segment of left lower lobe. Mild bilateral pleural effusion with basal subsegmental collapse of both lower lobes are seen Mild congestive changes involving both lungs; predominantly basal segments. Electronically signed by Pranav Frank 12-06-2024 02:38 AM Discharge Plan Visit Data Chief Complaint: Unresponsive Stated Complaint: UNRESP., SHORTNESS OF BREATH, HYPOTENSION ED Provider: Wander Pimentel Discharge Problem: UTI (urinary tract infection) due to urinary indwelling Garcia catheter, Aspiration pneumonia, Septic shock, Hypoxia Patient Disposition: Admitted As Inpatient Condition: Critical Discharge Instructions Interventions: ED Discharge Assessment Last Done: 12/06/24 03:31
[2024-12-06 01:09] LABS: Hematocrit (blood only) 31.3 % (42.0-52.0); Hemoglobin 9.7 g/dl (14.0-18.0); Mean Corpuscular Hemoglobin 28.4 pg (25.0-34.0); Mean Corpuscular Volume 91.5 fL (80.0-100.0); Platelet Count 335 K/uL (130-400); RDW Standard Deviation 49.6 fL (36.4-46.3); Red Blood Count 3.42 M/uL (4.70-6.10); White Blood Count 14.81 K/ul (4.8-10.8)
[2024-12-06 01:28] LABS: Alanine Aminotransferase 16.0 U/L (7-52); Albumin Globulin Ratio 0.9 (0.9-2); Alkaline Phosphatase 107.0 U/L (34-104); Anion Gap 7.0 (3-11); Bilirubin,Total 0.4 mg/dl (0.2-1.0); Blood Urea Nitrogen 26.0 mg/dl (6-23); Calcium 9.9 mg/dl (8.6-10.3); Carbon Dioxide 25.0 mmol/L (21-32); Chloride 112.0 mmol/L (98-107); Creatinine Clr Calc Pharmacy 37.3 ml/min; Globulin 3.2 gm/dl (2.5-4.0); Glucose 108.0 mg/dl (70-99(Fasting)); Magnesium 1.8 mg/dl (1.7-2.4); Potassium 4.4 mmol/L (3.5-5.1); Sodium 144.0 mmol/L (136-145); Total Protein 6.1 gm/dl (6.0-8.3)
[2024-12-06 01:42] LABS: INR 1.2 (0.9-1.1); Prothrombin Time 12.4 Seconds (9.0-12.0)
[2024-12-06 01:43] LABS: Thyroid Stimulating Hormone 2.249 uIu/ml (0.300-4.500)
[2024-12-06] MEDS: SODIUM CHLORIDE 0.9% 500 ML IV ONE (01:53)
[2024-12-06] MEDS: PIPERACILLIN/TAZOBACTAM 4.5 GM/100 ML BAG IV ONE (01:54)
[2024-12-06 02:00] LABS: Immature Granulocytes # (auto) 0.04 K/uL (0.01-0.20); Immature Granulocytes % (auto) 0.3 %; Polychromasia 1+
--- NOTE | 2024-12-06 02:04 | CT Scan Report ---
EXAM: CT head/brain wo con CLINICAL HISTORY: hypoxia TECHNIQUE: Multiple axial images are obtained from the skull base to the vertex without contrast. CT scan was performed according to ALARA (as low as reasonable achievable). COMPARISON: None. FINDINGS: Well defined areas of hypoattenuation are seen in bilateral occipital lobes and bilateral cerebellar hemisphere. There is cerebral atrophy. No evidence of hemorrhage, mass effect, midline shift, extra axial collection, or hydrocephalus is noted. Basal cisterns are symmetric and normal in size and configuration. There are scattered periventricular hypodensities as can be seen with chronic microvascular ischemic changes. The sauer-white matter differentiation is preserved. Small foci of hypoattenuation are also seen in brainstem. Visualized paranasal sinuses and mastoid air cells are well aerated. Orbital contents are within normal limits. Bony structures are intact. 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 IMPRESSION: 1. 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 Advised further evaluation with MRI brain with diffusion weighted imaging to rule out acute stroke. 2. Chronic microvascular ischemic changes. 3. Cerebral atrophy. Electronically signed by Pranav Frank 12-06-2024 02:03 AM
[2024-12-06] MEDS: NOREPINEPHRINE/D5W 4 MG/250 ML PLCT IV SCH (02:07)
[2024-12-06 02:08] LABS: Appearance Urine Turbid (Clear); Bacteria Urine Automated 4+ (None Seen); Cast Urine Automated >20 /lpf (0-2); Epithelial Cell Urine Auto 0-2 /hpf (0-2); Glucose Urine UA Negative (Negative); RBC Urine Automated >20 /hpf (0-2); WBC Urine Automated >50 /hpf (0-5)
[2024-12-06] MEDS: STAT IV Infusion **Titration per Protocol STA (02:26)
--- NOTE | 2024-12-06 02:30 | CT Scan Report ---
EXAM: CT abd pelvis wo con CLINICAL HISTORY: hypoxia, peg tube replaced today TECHNIQUE: Contiguous axial images were obtained from the level of the diaphragm to the pubic symphysis without intravenous contrast. Coronal and sagittal reconstructions were likewise performed and indicated to increase the sensitivity for detecting clinically relevant pathology. CT scan was performed according to ALARA (as low as reasonable achievable). COMPARISON: CT dated 05/07/2024 15:50:41 RELIEF COOK. FINDINGS: Mild bilateral pleural effusion is seen. There is passive collapse of adjoining lung parenchyma. Multiple ground glass and soft tissue attenuation centrilobular nodules are seen in the visualised lung parenchyma. Aortic and coronary artery calcification is seen. Evaluation of the abdominal and pelvic visceral organs is limited without intravenous contrast. Liver shows a well defined cystic lesion measuring 23mm in right lobe in segment VIII. The unenhanced liver, spleen, pancreas, and adrenal glands are grossly unremarkable. The gallbladder is present. Multiple well defined intra cortical and exophytic cortical cysts measuring 10 to 45mm are seen in the kidneys with the largest cyst in right kidney showing focal wall calcification. The kidneys are otherwise normal in size and attenuation. There is no hydronephrosis or perinephric stranding. The ureters are normal in caliber. No adenopathy or fluid collections are seen. PEG tube seen insitu with its tip in stomach lumen. Multiple diverticuli are seen in the colon. No evidence of focal or diffuse bowel wall thickening or evidence of bowel obstruction is seen. Positive contrast is seen in the sigmoid colon and the rectum. The aorta is normal in caliber. The urinary bladder is empty and shows diffuse wall thickening. Garcia's catheter bulb in situ. Prostate measures 42m in maximum transverse dimension. Prostatic calcification is seen. No aggressive appearing osseous lesions are identified. Mild scoliotic deformity is seen in the lumbar spine with convexity towards right side. IMPRESSION: 1. Well defined right Hepatic cystic lesion - stable. 2. 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 3. Colonic diverticulosis without any evidence of diverticulitis - stable. 4. Mild prostatomegaly - persistent. 5. Diffuse urinary bladder wall thickening with Garcia's bulb in situ - shows progression. Advise ultrasound correlation. 6. Mild bilateral pleural effusion - new finding. 7. Multiple ground glass and soft tissue attenuation centrilobular nodule - suggestive of infective etiology - new finding. Electronically signed by Pranav Frank 12-06-2024 02:30 AM
--- NOTE | 2024-12-06 02:34 | XRay Report ---
EXAM: XR chest 1V portable CLINICAL HISTORY: Hypoxia. TECHNIQUE: An X-ray image of the chest is obtained in AP projection. COMPARISON: No prior studies are available for comparison. FINDINGS: Pulmonary Parenchyma: Bilateral pulmonary middle and lower zones small patchy opacifications could be pneumonic process. Bilateral prominent hilar bronchopulmonary vasculature, suggesting pulmonary congestion. Pulmonary mild interstitial reticulations. Blunted left costophrenic angle suggests pleural effusion. Heart and Mediastinum: Heart size and shape are normal. No mediastinal widening or masses. No hilar or mediastinal lymphadenopathy. Evidence of sternotomy wires. Bony Thorax: Bony thorax appears intact without fractures or deformities. Soft Tissues: Soft tissues overlying the chest wall are unremarkable. IMPRESSION: 1. Bilateral pulmonary middle and lower zones small patchy opacifications could be pneumonic process, to be clinically correlated. 2. Prominent hilar bronchopulmonary vasculature, suggesting pulmonary congestion. Electronically signed by Joseph Koroma 12-06-2024 02:33 AM
--- NOTE | 2024-12-06 02:38 | CT Scan Report ---
EXAM: CT chest diagnostic wo con CLINICAL HISTORY: hypoxia episode, peg tube replace TECHNIQUE: Contiguous axial images were obtained from the neck base through the upper abdomen without contrast. In addition, sagittal and coronal reconstructions were performed to potentially increase the sensitivity for the detection of disease. CT scan was performed according to ALARA (as low as reasonable achievable). COMPARISON: None. FINDINGS: Multiple tiny centrilobular ground-glass infiltrates with branching patterns are noted involving both lungs; predominantly bilateral lower lobes. Patchy ill-defined consolidation is noted involving anterior posterior basal segment of left lower lobe. Mild bilateral pleural effusion with basal subsegmental collapse of both lower lobes are seen. Mild congestive changes involving both lungs; predominantly basal segments. The central airways are patent. Evaluation of the mediastinum and nash is limited due to the lack of intravenous contrast. No axillary or mediastinal adenopathy is identified. The thyroid is unremarkable. The heart, aorta, and pulmonary arteries are of normal size and configuration. There are coronary artery and aortic atherosclerotic calcifications. No pericardial effusion is identified. Imaged portions of the upper abdomen shows a well-defined cyst in right lobe. Bilateral renal cortical cysts. No aggressive appearing osseous lesions are identified. IMPRESSION: Multiple tiny centrilobular ground-glass infiltrates with branching patterns are noted involving both lungs; predominantly bilateral lower lobes.- possibility of infective etiology / bronchiolitis Patchy ill-defined consolidation is noted involving anterior posterior basal segment of left lower lobe. Mild bilateral pleural effusion with basal subsegmental collapse of both lower lobes are seen Mild congestive changes involving both lungs; predominantly basal segments. Electronically signed by Pranav Frank 12-06-2024 02:38 AM
--- NOTE | 2024-12-06 02:57 | History & Physical Report ---
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 the mediastinum and nash is limited due to the lack of intravenous contrast. No axillary or mediastinal adenopathy is identified. The thyroid is unremarkable. The heart, aorta, and pulmonary arteries are of normal size and configuration. There are coronary artery and aortic atherosclerotic calcifications. No pericardial effusion is identified. Imaged portions of the upper abdomen shows a well-defined cyst in right lobe. Bilateral renal cortical cysts. No aggressive appearing osseous lesions are identified. IMPRESSION: Multiple tiny centrilobular ground-glass infiltrates with branching patterns are noted involving both lungs; predominantly bilateral lower lobes.- possibility of infective etiology / bronchiolitis Patchy ill-defined consolidation is noted involving anterior posterior basal segment of left lower lobe. Mild bilateral pleural effusion with basal subsegmental collapse of both lower lobes are seen Mild congestive changes involving both lungs; predominantly basal segments. Electronically signed by Pranav Frank 12-06-2024 02:38 AM Code Status & VTE Plan Code Status DNR/DNI VTE Prophylaxis Plan VTE Prophylaxis will be ordered: Yes PG Care Time/CCT Total # of Minutes Spent Total Time Spent with Patient: Total time spent is greater than 50% in coordination of care (as documented) at patient's floor/unit and/or counseling patient: 63 minutes Coding Level of Care Code 51218 INT INP/OBS CARE 3/75MIN Diagnoses Sepsis without acute organ dysfunction, due to unspecified organism A41.9 Sepsis type: sepsis due to unspecified organism Sepsis acute organ dysfunction status: without acute organ dysfunction Shock R57.9 Aspiration pneumonia J69.0 UTI (urinary tract infection) due to urinary indwelling Garcia catheter T83.511A; N39.0 (1) Sepsis Sepsis type: sepsis due to unspecified organism Sepsis acute organ dysfunction status: without acute organ dysfunction Qualified Code(s): A41.9 - Sepsis, unspecified organism
[2024-12-06 03:00] LABS: Base Excess VBG -0.5 mEq/L; HCO3 VBG 26 mmol/L; Oxygen Saturation VBG < 60.0 %; PCO2 VBG 51 mmHg (38-50); PO2 VBG 23 mmHg; pH VBG 7.32 (7.36-7.41)
[2024-12-06] MEDS ORDERED: STAT IV Infusion **Titration per Protocol STA (03:11)
--- NOTE | 2024-12-06 03:39 | Critical Care Consultation ---
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 involving both lungs; predominantly bilateral lower lobes.- possibility of infective etiology / bronchiolitis Patchy ill-defined consolidation is noted involving anterior posterior basal segment of left lower lobe. Mild bilateral pleural effusion with basal subsegmental collapse of both lower lobes are seen Mild congestive changes involving both lungs; predominantly basal segments. Electronically signed by Pranav Frank 12-06-2024 02:38 AM Medications Administered Norepinephrine Bitartrate (Levophed/D5w) 4 mg in 250 mls @ 27.968 mls/hr IV .Q8H57M [facility]; Protocol Stop: 01/05/25 01:59 Last Titration: 12/06/24 03:11 Dose: 0.05 mcg/kg/min, 12.7 mls/hr Documented By: JAIDEN Co-signed By: MICK Titration: 12/06/24 03:00 Dose: 0.07 mcg/kg/min, 17.8 mls/hr Documented By: JAIDEN Co-signed By: MICK Titration: 12/06/24 02:50 Dose: 0.09 mcg/kg/min, 22.9 mls/hr Documented By: JAIDEN Co-signed By: MICK Titration: 12/06/24 02:46 Dose: 0.11 mcg/kg/min, 28 mls/hr Documented By: JAIDEN Co-signed By: MICK Titration: 12/06/24 02:41 Dose: 0.09 mcg/kg/min, 22.9 mls/hr Documented By: JAIDEN Co-signed By: MICK Titration: 12/06/24 02:36 Dose: 0.07 mcg/kg/min, 17.8 mls/hr Documented By: JAIDEN Co-signed By: MICK Admin: 12/06/24 02:07 Dose: 0.05 mcg/kg/min, 12.7 mls/hr Documented By: MELIDA Co-signed By: JAIDEN Discontinued Medications Sodium Chloride (Nss) 500 mls @ 999 mls/hr IV .Q31M ONE Stop: 12/06/24 01:54 Last Infusion: 12/06/24 02:25 Dose: Infused Documented By: Admin: 12/06/24 01:53 Dose: 999 mls/hr Documented By: MELIDA Piperacillin Sod/Tazobactam Sod (Zosyn) 4.5 gm in 100 mls @ 200 mls/hr IV NOW ONE; Protocol Stop: 12/06/24 02:16 Last Infusion: 12/06/24 02:25 Dose: Infused Documented By: Admin: 12/06/24 01:54 Dose: 200 mls/hr Documented By: MELIDA Miscellaneous (Stat Iv Infusion Titration Per Protocol) 1 each N/A NOW STA Stop: 12/06/24 01:59 Last Admin: 12/06/24 02:26 Dose: 1 each Documented By: JAIDEN Coding Level of Care Code 60090 CRITICAL CARE 1ST 30-74M Diagnoses Shock R57.9 Complicated urinary tract infection N39.0 Acute kidney injury N17.9 Hypernatremia E87.0
[2024-12-06] MEDS ORDERED: DEXTROSE 50% 50 ML SYRINGE IV PRN ×3 (03:48→06:49)
[2024-12-06] MEDS ORDERED: CARBOHYDRATES FOR HYPOGLYCEMIA PO PRN ×3 (03:48→06:49)
[2024-12-06] MEDS ORDERED: GLUCOSE 10 TAB/TUBE PO PRN ×3 (03:48→06:49)
[2024-12-06] MEDS ORDERED: GLUCOSE 40% GEL 15 GM TUBE PO PRN ×3 (03:48→06:49)
[2024-12-06] MEDS ORDERED: GLUCAGON FOR INJ 1 MG VIAL SQ PRN ×3 (03:48→06:49)
--- NOTE | 2024-12-06 03:51 | Billing Data ---
Date of Service December 06, 2024 Coding Level of Care Code 50093 CRITICAL CARE
[2024-12-06] MEDS ORDERED: ALBUT/IPRATROP 3MG/0.5MG NEB 3 ML VIAL INH PRN (03:56)
--- NOTE | 2024-12-06 04:45 | Procedure Note ---
Procedure Note Date of Service December 06, 2024 Procedure: Arterial Line Placement Proceduralist: Rudy MARSH ([facility]) Attending: Dr. Garnica Indication: Monitoring on Pressors Anesthesia: [x]Lidocaine 1% Verbal Consent was obtained from the daughter as delegated to me by Dr. Garnica. Indication, risks, and benefits were explained at length to include but not limited to- pain, infection, damage to the artery requiring further surgical procedures, blood clots, loss of limb, or damage to the surrounding structures. A time-out was completed verifying correct patient, procedure, site, positioning, and implant(s) or special equipment if applicable. Allens test was performed to ensure adequate perfusion. Patients LEFT wrist was prepped and draped in the usual sterile fashion. Ultrasound guidance was used to aid needle placement. 1% lidocaine was infiltrated sub q, once lidocaine had taken effect, A 20g Arrow arterial line was introduced into the LEFT RADIAL artery x1 attempt, brisk flash of blood was noted, the wire was then advanced without resistance and the catheter was threaded without resistance. The needle was removed with appropriate blood return and pressure tubing was attached. A Good arterial waveform was observed. The line was then secured with suture and covered with sterile Tegaderm dressing. The patient tolerated the procedure well. No immediate complications were noted. Blood Loss: Minimal Complications: None immediately observed Artery Identified: YES Complications: NONE Patient tolerated procedure: [facility] [place] Procedure Codes (Charges) Tubes, Drains, and Vasc Access Procedure 1: Tubes, Drains, and Vasc Access: [id number] Arterial Cath/Cannulation Sampling/Monitoring/Transfusion Coding CPT Codes Tubes, Drains, and Vasc Access - Tubes, Drains, and Vasc Access: [id number] Arterial Cath/Cannulation Sampling/Monitoring/Transfusion ([id number]) Additional Codes Date of Service ([facility].SURGERY)
[2024-12-06 04:49] LABS: Hematocrit (blood only) 29.3 % (42.0-52.0); Hemoglobin 9.2 g/dl (14.0-18.0); Mean Corpuscular Hemoglobin 28.3 pg (25.0-34.0); Mean Corpuscular Volume 90.2 fL (80.0-100.0); Platelet Count 315 K/uL (130-400); RDW Standard Deviation 48.2 fL (36.4-46.3); Red Blood Count 3.25 M/uL (4.70-6.10); White Blood Count 16.24 K/ul (4.8-10.8)
[2024-12-06 05:06] LABS: Immature Granulocytes # (auto) 0.05 K/uL (0.01-0.20); Immature Granulocytes % (auto) 0.3 %; Polychromasia 1+; Toxic Vacuolation 1+
[2024-12-06] MEDS: SODIUM CHLORIDE 0.9% 1,000 ML IV ONE (05:06)
[2024-12-06 05:07] LABS: Alanine Aminotransferase 14.0 U/L (7-52); Albumin Globulin Ratio 0.9 (0.9-2); Alkaline Phosphatase 98.0 U/L (34-104); Anion Gap 8.0 (3-11); Bilirubin,Total 0.5 mg/dl (0.2-1.0); Blood Urea Nitrogen 28.0 mg/dl (6-23); Calcium 9.5 mg/dl (8.6-10.3); Carbon Dioxide 21.0 mmol/L (21-32); Chloride 113.0 mmol/L (98-107); Creatinine Clr Calc Pharmacy 38.3 ml/min; Globulin 3.0 gm/dl (2.5-4.0); Glucose 159.0 mg/dl (70-99(Fasting)); Potassium 4.1 mmol/L (3.5-5.1); Sodium 142.0 mmol/L (136-145); Total Protein 5.8 gm/dl (6.0-8.3)
[2024-12-06 05:15] LABS: INR 1.1 (0.9-1.1); Prothrombin Time 12.0 Seconds (9.0-12.0)
[2024-12-06] MEDS: LINEZOLID 600 MG/300 ML BAG IV STA (05:23)
[2024-12-06] MEDS: ALBUMIN 25% 25 GM/100 ML VIAL IV SCH (05:23)
[2024-12-06] MEDS: HYDROCORTISONE SOD SUCCINATE 100 MG/2 ML VIAL IV STA (05:23)
[2024-12-06] MEDS: MAGNESIUM SULFATE / D5W 1 GM/100 ML BAG IV SCH (06:18)
[2024-12-06] MEDS: VASOPRESSIN 20 UNITS in SODIUM CHLORIDE 0.9% 100 ML IV SCH (06:40)
[2024-12-06] MEDS: HEPARIN SOD 5,000 UNIT/0.5 ML VIAL SQ SCH (06:42)
[2024-12-06] MEDS: INSULIN ASPART PER UNIT CHARGE SC SCH (07:13)
--- NOTE | 2024-12-06 07:38 | Communication Note ---
Date of Service: December 06, 2024 Reason Critically Ill: 79 YOM with multiple medical complications s/p CABG and MVR replacement complicated by CVA, renal failure, GI bleed, PEG tube placement. ICU for vasopressor dependant shock with organ dysfunction- multifocal but concern for septic shock secondary to likely urinary source. Cognitively at baseline per daughter over night. Labile BP's- continue Norepi and vasopressin while resolving hypovolemia with IVF. Will continue trending troponin, reassess BNP and follow up on echo results. O2 sat is >92% on 2L NC. Newly replaced PEG tube remains in place, however, holding enteral feeding due to continued use of pressors. Continues with LASHON in setting of CKD. Replaced Mg. Remaining electrolytes are stable. Pending A1c and avg glucose. Received stress dose of hydrocortisone. Will continue IV abx for urinary and/or pulmonary source and follow urine culture. Will remove and replace harris due to unknown status and likely source of infection. Continue GI prophylaxis with pantoprazole and DVT prophylaxis with heparin. Resident Activity Tracking Resident Involvement: Resident Care Provided Care Provided: Adult Hospital Medicine
[2024-12-06 08:01] LABS: Hemoglobin A1C 6.6 % (4.5-5.6)
[2024-12-06] MEDS: PANTOprazole 40 MG/10 ML SYR IV SCH (08:41)
[2024-12-06] MEDS: PIPERACILLIN/TAZOBACTAM 4.5 GM/100 ML BAG IV SCH (08:41)
[2024-12-06] MEDS ORDERED: INSULIN ASPART PER UNIT CHARGE SC SCH (12:00)
--- NOTE | 2024-12-06 13:31 | Electrocardiogram Report ---
Test Reason : Blood Pressure : */* mmHG Vent. Rate : 100 BPM Atrial Rate : 100 BPM P-R Int : 134 ms QRS Dur : 136 ms QT Int : 406 ms P-R-T Axes : 16 20 166 degrees QTcB Int : 523 ms Normal sinus rhythm Left bundle branch block Abnormal ECG When compared with ECG of 09-Nov-2024 14:00, Premature ventricular complexes are no longer Present Confirmed by Bryan Rodriguez ([id number]) on 12/06/2024 1:31:19 PM Referred By: [facility] Confirmed By: Bryan Rodriguez
[2024-12-06] MEDS: LACTATED RINGER'S 1,000 ML IV SCH (14:52)
--- NOTE | 2024-12-06 15:26 | XCELERA ---
[id number]
--- NOTE | 2024-12-06 16:27 | Hospitalist Progress Note ---
Date of Service December 06, 2024 Assessment & Plan (1) Septic shock: (2) Catheter-associated urinary tract infection: (3) History of CVA (cerebrovascular accident): (4) S/P CABG (coronary artery bypass graft): (5) H/O mitral valve replacement: (6) Hx of deep venous thrombosis: (7) Acute metabolic encephalopathy: (8) BPH (benign prostatic hyperplasia): (9) Hypertension: (10) HFrEF (heart failure with reduced ejection fraction): (11) Cardiomyopathy: Plan Appreciate Critical Care assistance for management of septic shock presumed 2nd to catheter-associated UTI. Patient has been on/off levophed for BP support; defer management to critical care team. Unfortunately blood cx's are not available. Follow urine cx. He remains on Zosyn/Zyvox for broad-spectrum antibiotic coverage. Given his severe CHF (EF 25-30%) caution with IV fluids. Remains altered - likely metabolic encephalopathy from septic shock/UTI. h/o DVT - cont heparin 5000 TID for prophylaxis. Admission and Anticipated Discharge Date Admission Date: December 06, 2024 Subjective events of the night reviewed with nursing staff during my assessment he was off pressors and art line BP showed systolics in the 140s during rounds he was awake but could communicate minimally; couple times shook his head yes/no Physical Exam Physical Exam: gen - lying in bed comfortably, NAD, aphasic speech vs altered mental status vs both neck - no JVD mouth - MM dry heart - irregular (extra beats), s1 s1, rate <100, no murmur lungs - CTA b/l anterior chest abd - soft NT ND BS+; abdominal binder in place ext - no edema, pulses b/l feet 1+ b/l psych - aphasic +/- altered MS Results & Data Results & Data Vital Signs (Past 12 Hours) Vital Signs Temp Pulse Resp BP Pulse Ox O2 Del Method O2 Flow Rate 12/06/24 16:00 131/81 12/06/24 16:00 95 H 155/58 H 12/06/24 16:00 95 H 12/06/24 15:56 37.1 C 97 H 27 H 98 12/06/24 15:38 37.1 C 100 H 25 H 98 12/06/24 15:14 37.1 C 94 H 35 H 98 12/06/24 15:00 121/66 12/06/24 14:53 37.2 C 99 H 30 H 98 12/06/24 14:35 37.0 C 101 H 22 98 12/06/24 14:09 37.0 C 98 H 16 98 12/06/24 14:00 122/67 12/06/24 13:56 36.9 C 102 H 23 97 Nasal Cannula 2 12/06/24 13:53 36.9 C 101 H 18 98 Nasal Cannula 2 12/06/24 13:15 37.1 C 92 H 21 97 Nasal Cannula 2 12/06/24 13:03 37.1 C 93 H 23 97 12/06/24 13:00 130/81 12/06/24 13:00 130/81 12/06/24 12:39 37.1 C 102 H 23 89 L 12/06/24 12:22 151/95 H 12/06/24 12:21 108 H 32 H 12/06/24 12:18 108 H 25 H 96 12/06/24 12:00 105 H 182/72 H 12/06/24 11:30 87 21 98 12/06/24 11:18 88 21 98 12/06/24 11:14 89 132/51 L 12/06/24 11:00 116/63 12/06/24 10:51 90 24 98 Nasal Cannula 2 12/06/24 10:33 96 H 23 98 12/06/24 10:00 113/61 12/06/24 10:00 87 22 93 12/06/24 09:39 84 22 93 12/06/24 09:06 76 28 H 93 Nasal Cannula 2 12/06/24 08:51 90 43 H 93 12/06/24 08:30 Nasal Cannula 2 12/06/24 08:18 78 22 98 12/06/24 08:00 99/49 L 12/06/24 08:00 102 H 12/06/24 07:42 80 22 97 Nasal Cannula 2 12/06/24 07:36 83 24 96 12/06/24 07:00 89 24 95 12/06/24 07:00 108/55 L 12/06/24 06:33 110 H 16 97 12/06/24 06:17 169/84 H 12/06/24 06:15 108 H 14 92 12/06/24 06:06 102 H 26 H 97 12/06/24 06:00 152/115 H 12/06/24 05:54 97 H 24 89 L 12/06/24 05:52 Nasal Cannula 2 12/06/24 05:47 101 H 144/55 H 12/06/24 05:45 102 H 26 H 90 12/06/24 05:09 94 H 22 95 Nasal Cannula 2 12/06/24 04:30 110 H 22 146/72 H 90 Nasal Cannula 2 Laboratory Results Laboratory Results - last 24 hr 12/06/24 12/06/24 12/06/24 00:43 00:50 01:13 WBC 14.81 H RBC 3.42 L Hgb 9.7 L POC Hgb 9.9 L Hct 31.3 L POC Hct 29 L MCV 91.5 MCH 28.4 MCHC 31.0 L RDW Std Deviation 49.6 H RDW Coeff of Renata 14.6 H Plt Count 335 MPV 10.9 Immature Gran % (Auto) 0.3 Neut % (Auto) 92.7 Lymph % (Auto) 2.3 Chilton % (Auto) 4.4 Eos % (Auto) 0.1 Baso % (Auto) 0.2 Neut # (Auto) 13.74 H Lymph # (Auto) 0.34 L Chilton # (Auto) 0.65 H Eos # (Auto) 0.01 Baso # (Auto) 0.03 Immature Gran # (Auto) 0.04 Toxic Vacuolation Polychromasia 1+ PT 12.4 H INR 1.2 H VBG pH VBG pCO2 VBG pO2 VBG HCO3 VBG O2 Saturation VBG Base Excess POC Sodium 146 H Sodium 144 POC Potassium 4.5 Potassium 4.4 POC Chloride 111 Chloride 112 H Carbon Dioxide 25 POC Total CO2 23 L Anion Gap 7 POC Anion Gap 17.0 POC BUN 23 H BUN 26 H Creatinine 1.49 H POC Creatinine 1.6 H Est Cr Clr Drug Dosing 37.3 eGFR 46.86 BUN/Creatinine Ratio 17.4 Glucose 108 H POC Glucose POC Glucose (other) 107 H Estimat Average Glucose Hemoglobin A1c Lactate 1.6 Calcium 9.9 POC Ioniz Calcium Rizwana 1.39 H Magnesium 1.8 Total Bilirubin 0.4 AST 15 ALT 16 Alkaline Phosphatase 107 H Troponin I High Sens 491.8 H* B-Natriuretic Peptide 1118 H Total Protein 6.1 Albumin 2.9 L Globulin 3.2 Albumin/Globulin Ratio 0.9 Procalcitonin 1.58 H TSH 2.249 Urine Color Yellow Urine Appearance Turbid A Urine pH 6.5 Ur Specific Holton 1.015 Urine Protein 2+ H Urine Glucose (UA) Negative Urine Ketones Negative Urine Blood 3+ H Urine Nitrite Negative Urine Bilirubin Negative Urine Urobilinogen Negative Ur Leukocyte Esterase 3+ H Urine WBC (Auto) >50 H Urine RBC (Auto) >20 H U Hyaline Cast (Auto) >20 H U Epithel Cells (Auto) 0-2 Urine Bacteria (Auto) 4+ H Calcium Oxalate Crystal Present A Urine Yeast Present A Urine Comment Nasal Screen MRSA (PCR) SARS-CoV-2, RNA, NAAT 12/06/24 12/06/24 12/06/24 02:32 02:52 04:39 WBC 16.24 H RBC 3.25 L Hgb 9.2 L POC Hgb Hct 29.3 L POC Hct MCV 90.2 MCH 28.3 MCHC 31.4 L RDW Std Deviation 48.2 H RDW Coeff of Renata 14.6 H Plt Count 315 MPV 10.8 Immature Gran % (Auto) 0.3 Neut % (Auto) 92.0 Lymph % (Auto) 3.6 Chilton % (Auto) 3.9 Eos % (Auto) 0.0 Baso % (Auto) 0.2 Neut # (Auto) 14.94 H Lymph # (Auto) 0.58 L Chilton # (Auto) 0.64 H Eos # (Auto) 0.00 Baso # (Auto) 0.03 Immature Gran # (Auto) 0.05 Toxic Vacuolation 1+ Polychromasia 1+ PT 12.0 INR 1.1 VBG pH 7.32 L VBG pCO2 51 H VBG pO2 23 VBG HCO3 26 VBG O2 Saturation < 60.0 VBG Base Excess -0.5 POC Sodium Sodium 142 POC Potassium Potassium 4.1 POC Chloride Chloride 113 H Carbon Dioxide 21 POC Total CO2 Anion Gap 8 POC Anion Gap POC BUN BUN 28 H Creatinine 1.45 H POC Creatinine Est Cr Clr Drug Dosing 38.3 eGFR 48.41 BUN/Creatinine Ratio 19.3 Glucose 159 H POC Glucose POC Glucose (other) Estimat Average Glucose 143 Hemoglobin A1c 6.6 H Lactate Calcium 9.5 POC Ioniz Calcium Rizwana Magnesium Total Bilirubin 0.5 AST 15 ALT 14 Alkaline Phosphatase 98 Troponin I High Sens 561.3 H* 499.9 H* B-Natriuretic Peptide Total Protein 5.8 L Albumin 2.8 L Globulin 3.0 Albumin/Globulin Ratio 0.9 Procalcitonin TSH Urine Color Urine Appearance Urine pH Ur Specific Holton Urine Protein Urine Glucose (UA) Urine Ketones Urine Blood Urine Nitrite Urine Bilirubin Urine Urobilinogen Ur Leukocyte Esterase Urine WBC (Auto) Urine RBC (Auto) U Hyaline Cast (Auto) U Epithel Cells (Auto) Urine Bacteria (Auto) Calcium Oxalate Crystal Urine Yeast Urine Comment Nasal Screen MRSA (PCR) Negative SARS-CoV-2, RNA, NAAT NEGATIVE 12/06/24 12/06/24 12/06/24 06:44 10:58 15:45 WBC RBC Hgb POC Hgb Hct POC Hct MCV MCH MCHC RDW Std Deviation RDW Coeff of Renata Plt Count MPV Immature Gran % (Auto) Neut % (Auto) Lymph % (Auto) Chilton % (Auto) Eos % (Auto) Baso % (Auto) Neut # (Auto) Lymph # (Auto) Chilton # (Auto) Eos # (Auto) Baso # (Auto) Immature Gran # (Auto) Toxic Vacuolation Polychromasia PT INR VBG pH VBG pCO2 VBG pO2 VBG HCO3 VBG O2 Saturation VBG Base Excess POC Sodium Sodium POC Potassium Potassium POC Chloride Chloride Carbon Dioxide POC Total CO2 Anion Gap POC Anion Gap POC BUN BUN Creatinine POC Creatinine Est Cr Clr Drug Dosing eGFR BUN/Creatinine Ratio Glucose POC Glucose 217 H 191 H 159 H POC Glucose (other) Estimat Average Glucose Hemoglobin A1c Lactate Calcium POC Ioniz Calcium Rizwana Magnesium Total Bilirubin AST ALT Alkaline Phosphatase Troponin I High Sens B-Natriuretic Peptide Total Protein Albumin Globulin Albumin/Globulin Ratio Procalcitonin TSH Urine Color Urine Appearance Urine pH Ur Specific Holton Urine Protein Urine Glucose (UA) Urine Ketones Urine Blood Urine Nitrite Urine Bilirubin Urine Urobilinogen Ur Leukocyte Esterase Urine WBC (Auto) Urine RBC (Auto) U Hyaline Cast (Auto) U Epithel Cells (Auto) Urine Bacteria (Auto) Calcium Oxalate Crystal Urine Yeast Urine Comment Nasal Screen MRSA (PCR) SARS-CoV-2, RNA, NAAT Diagnostic Findings Chest X-Ray 12/06/24 00:47 EXAM: XR chest 1V portable CLINICAL HISTORY: Hypoxia. TECHNIQUE: An X-ray image of the chest is obtained in AP projection. COMPARISON: No prior studies are available for comparison. FINDINGS: Pulmonary Parenchyma: Bilateral pulmonary middle and lower zones small patchy opacifications could be pneumonic process. Bilateral prominent hilar bronchopulmonary vasculature, suggesting pulmonary congestion. Pulmonary mild interstitial reticulations. Blunted left costophrenic angle suggests pleural effusion. Heart and Mediastinum: Heart size and shape are normal. No mediastinal widening or masses. No hilar or mediastinal lymphadenopathy. Evidence of sternotomy wires. Bony Thorax: Bony thorax appears intact without fractures or deformities. Soft Tissues: Soft tissues overlying the chest wall are unremarkable. IMPRESSION: 1. Bilateral pulmonary middle and lower zones small patchy opacifications could be pneumonic process, to be clinically correlated. 2. Prominent hilar bronchopulmonary vasculature, suggesting pulmonary congestion. Electronically signed by Joseph Koroma 12-06-2024 02:[address] 12/06/24 00:47 EXAM: CT head/brain wo con CLINICAL HISTORY: hypoxia TECHNIQUE: Multiple axial images are obtained from the skull base to the vertex without contrast. CT scan was performed according to ALARA (as low as reasonable achievable). COMPARISON: None. FINDINGS: Well defined areas of hypoattenuation are seen in bilateral occipital lobes and bilateral cerebellar hemisphere. There is cerebral atrophy. No evidence of hemorrhage, mass effect, midline shift, extra axial collection, or hydrocephalus is noted. Basal cisterns are symmetric and normal in size and configuration. There are scattered periventricular hypodensities as can be seen with chronic microvascular ischemic changes. The sauer-white matter differentiation is preserved. Small foci of hypoattenuation are also seen in brainstem. Visualized paranasal sinuses and mastoid air cells are well aerated. Orbital contents are within normal limits. Bony structures are intact. 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 IMPRESSION: 1. 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 Advised further evaluation with MRI brain with diffusion weighted imaging to rule out acute stroke. 2. Chronic microvascular ischemic changes. 3. Cerebral atrophy. Electronically signed by Pranav Frank 12-06-2024 02:03 AM Abdomen/Pelvis CT 12/06/24 00:50 EXAM: CT abd pelvis wo con CLINICAL HISTORY: hypoxia, peg tube replaced today TECHNIQUE: Contiguous axial images were obtained from the level of the diaphragm to the pubic symphysis without intravenous contrast. Coronal and sagittal reconstructions were likewise performed and indicated to increase the sensitivity for detecting clinically relevant pathology. CT scan was performed according to ALARA (as low as reasonable achievable). 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 FINDINGS: Mild bilateral pleural effusion is seen. There is passive collapse of adjoining lung parenchyma. Multiple ground glass and soft tissue attenuation centrilobular nodules are seen in the visualised lung parenchyma. Aortic and coronary artery calcification is seen. Evaluation of the abdominal and pelvic visceral organs is limited without intravenous contrast. Liver shows a well defined cystic lesion measuring 23mm in right lobe in segment VIII. The unenhanced liver, spleen, pancreas, and adrenal glands are grossly unremarkable. The gallbladder is present. Multiple well defined intra cortical and exophytic cortical cysts measuring 10 to 45mm are seen in the kidneys with the largest cyst in right kidney showing focal wall calcification. The kidneys are otherwise normal in size and attenuation. There is no hydronephrosis or perinephric stranding. The ureters are normal in caliber. No adenopathy or fluid collections are seen. PEG tube seen insitu with its tip in stomach lumen. Multiple diverticuli are seen in the colon. No evidence of focal or diffuse bowel wall thickening or evidence of bowel obstruction is seen. Positive contrast is seen in the sigmoid colon and the rectum. The aorta is normal in caliber. The urinary bladder is empty and shows diffuse wall thickening. Garcia's catheter bulb in situ. Prostate measures 42m in maximum transverse dimension. Prostatic calcification is seen. No aggressive appearing osseous lesions are identified. Mild scoliotic deformity is seen in the lumbar spine with convexity towards right side. IMPRESSION: 1. Well defined right Hepatic cystic lesion - stable. 2. 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 3. Colonic diverticulosis without any evidence of diverticulitis - stable. 4. Mild prostatomegaly - persistent. 5. Diffuse urinary bladder wall thickening with Garcia's bulb in situ - shows progression. Advise ultrasound correlation. 6. Mild bilateral pleural effusion - new finding. 7. Multiple ground glass and soft tissue attenuation centrilobular nodule - suggestive of infective etiology - new finding. Electronically signed by Pranav Frank 12-06-2024 02:[address] 12/06/24 00:50 EXAM: CT chest diagnostic wo con CLINICAL HISTORY: hypoxia episode, peg tube replace TECHNIQUE: Contiguous axial images were obtained from the neck base through the upper abdomen without contrast. In addition, sagittal and coronal reconstructions were performed to potentially increase the sensitivity for the detection of disease. CT scan was performed according to ALARA (as low as reasonable achievable). COMPARISON: None. FINDINGS: Multiple tiny centrilobular ground-glass infiltrates with branching patterns are noted involving both lungs; predominantly bilateral lower lobes. Patchy ill-defined consolidation is noted involving anterior posterior basal segment of left lower lobe. Mild bilateral pleural effusion with basal subsegmental collapse of both lower lobes are seen. Mild congestive changes involving both lungs; predominantly basal segments. The central airways are patent. Evaluation of the mediastinum and nash is limited due to the lack of intravenous contrast. No axillary or mediastinal adenopathy is identified. The thyroid is unremarkable. The heart, aorta, and pulmonary arteries are of normal size and configuration. There are coronary artery and aortic atherosclerotic calcifications. No pericardial effusion is identified. Imaged portions of the upper abdomen shows a well-defined cyst in right lobe. Bilateral renal cortical cysts. No aggressive appearing osseous lesions are identified. IMPRESSION: Multiple tiny centrilobular ground-glass infiltrates with branching patterns are noted involving both lungs; predominantly bilateral lower lobes.- possibility of infective etiology / bronchiolitis Patchy ill-defined consolidation is noted involving anterior posterior basal segment of left lower lobe. Mild bilateral pleural effusion with basal subsegmental collapse of both lower lobes are seen Mild congestive changes involving both lungs; predominantly basal segments. Electronically signed by Pranav Frank 12-06-2024 02:38 AM PG Care Time/CCT Total # of Minutes Spent Total Time Spent with Patient: Total time spent is greater than 50% in coordination of care (as documented) at patient's floor/unit and/or counseling patient: Coding Level of Care Code None Diagnoses Septic shock A41.9; R65.21 Catheter-associated urinary tract infection T83.511A; N39.0 History of CVA (cerebrovascular accident) Z86.73 S/P CABG (coronary artery bypass graft) Z95.1 H/O mitral valve replacement Z95.2 Hx of deep venous thrombosis Z86.718 Acute metabolic encephalopathy G93.41 Benign prostatic hyperplasia without lower urinary tract symptoms N40.0 Lower urinary tract symptom presence: symptoms absent Hypertension I10 HFrEF (heart failure with reduced ejection fraction) I50.20 Cardiomyopathy I42.9 (8) BPH (benign prostatic hyperplasia) Lower urinary tract symptom presence: symptoms absent Qualified Code(s): N40.0 - Benign prostatic hyperplasia without lower urinary tract symptoms
[2024-12-06] MEDS: LINEZOLID 600 MG/300 ML BAG IV SCH (17:21)
[2024-12-06] MEDS: ATORVASTATIN 40 MG TAB PEG SCH (21:17)
[2024-12-07] MEDS: ACETAMINOPHEN 1000 MG/100 ML IV IV PRN (01:47)
--- NOTE | 2024-12-07 02:42 | Critical Care Progress Note ---
Date of Service December 07, 2024 Assessment & Plan (1) Shock: (2) Complicated urinary tract infection: (3) Acute kidney injury: (4) Hypernatremia: Plan Reason Critically Ill: 79 YOM with multiple medical complications s/p CABG and MVR replacement complicated by CVA, renal failure, GI bleed, PEG tube placement. ICU for vasopressor dependant shock with organ dysfunction- multifocal but concern for septic shock secondary to likely urinary source. Neuro - No acute needs, HX- ischemic CVA, chronic delirium CAM ICU: [facility] Cardiac - Shock unspecified, Hx: CAD s/p CABG with MVR replacement, HFmrEF: Resolved - Broad spectrum abx: Zosyn and Linezolid- frequent hospitalizations, in extended care facility - Urine culture demonstrating gram-negative's - ECHO reviewed - Continue Plavix Respiratory - Aspiration pneumonitis, possible pneumonia - As above reports of frequent aspiration - inflammatory changes noted in basilar sections- continue broad spectrum abx - no increase in oxygen requirements noted - Continue antibiotics until speciation from urine culture GI - PEG tube in place - PEG tube replaced in ER on 12/05/24- CT abd/pelvis noting appropriate placement- hold enteral feeds at this time while on vasopressors - Can restart tube feeding as he has been off vasoactives greater than 12 hours RENAL/LYTES - LASHON on CKD,: Resolved - Continue supportive care - follow intravascular volume and urine output - chronic harris- - Continue ENDO - No acute needs - Discontinued stress dose steroids HEME - No acute needs ID - Septic shock requiring vasopressor support - Urinary source likely at this time- await blood and urine cultures - ZOsyn and Lineazolid to cover urinary and pulmonary sources - wean vasopressors as able - as above follow hemodyanmics, urine output, organ dysfunction LINES/IV ACCESS - PIV, Arterial line, Harris, PEG - continue use of these lines - Verbal consent for central line and arterial line obtained from daughter- arterial line placed on arrival DVT PROPHYLAXIS - SCDS, Heparin 5000 units sub q DISPO: Stable for downgrade out of ICU as vasoactive needs have discontinued Admission and Anticipated Discharge Date Admission Date: December 06, 2024 Physical Exam Physical Exam: General: Alert. nontoxic. Skin: Warm, dry, Head: Atraumatic Ears, nose, mouth and throat: airway patent Cardiovascular: Normal peripheral perfusion Respiratory: no respiratory distress Gastrointestinal: Non distended Musculoskeletal: No deformity Results & Data Results & Data Vital Signs (Past 12 Hours) Vital Signs Temp Pulse Resp BP Pulse Ox O2 Del Method O2 Flow Rate 12/07/24 02:10 37.7 C H 125 H 22 167/90 H 93 Nasal Cannula 2 12/07/24 02:02 37.8 C H 140 H 26 H 133/108 H 93 Nasal Cannula 2 12/07/24 01:00 37.8 C H 114 H 21 154/79 H 94 Nasal Cannula 2 12/07/24 00:04 37.6 C H 109 H 26 H 151/93 H 98 Nasal Cannula 2 12/07/24 00:00 136 H 12/06/24 23:00 37.3 C 105 H 22 126/73 94 Nasal Cannula 2 12/06/24 22:00 37.3 C 105 H 24 126/69 96 Nasal Cannula 2 12/06/24 21:58 Nasal Cannula 2 12/06/24 21:00 37.3 C 100 H 23 128/73 97 Nasal Cannula 2 12/06/24 20:06 36.9 C 101 H 20 98 Nasal Cannula 2 12/06/24 20:00 94 H 142/60 H 12/06/24 19:00 37.3 C 101 H 20 97 Nasal Cannula 2 12/06/24 19:00 91 H 12/06/24 18:06 37.1 C 94 H 22 98 12/06/24 18:00 118/75 12/06/24 17:57 36.7 C 97 H 20 98 12/06/24 17:33 37.2 C 97 H 23 98 12/06/24 17:32 146/81 H 12/06/24 17:20 37.1 C 94 H 14 99 12/06/24 17:02 37.2 C 87 19 98 12/06/24 17:00 122/67 12/06/24 17:00 122/67 12/06/24 16:56 37.2 C 91 H 22 98 12/06/24 16:44 37.2 C 93 H 24 98 12/06/24 16:08 37.2 C 92 H 24 98 12/06/24 16:00 131/81 12/06/24 16:00 131/81 12/06/24 16:00 95 H 155/58 H 12/06/24 16:00 95 H 12/06/24 15:56 37.1 C 97 H 27 H 98 12/06/24 15:38 37.1 C 100 H 25 H 98 12/06/24 15:14 37.1 C 94 H 35 H 98 12/06/24 15:00 121/66 12/06/24 14:53 37.2 C 99 H 30 H 98 Critical Care Results & Data Vital Signs (Past 12 Hours) Vital Signs Temp Pulse Resp BP Pulse Ox O2 Del Method O2 Flow Rate 12/07/24 11:00 152/83 H 12/07/24 11:00 37.7 C H 97 H 22 94 12/07/24 10:03 37.7 C H 98 H 26 H 93 12/07/24 10:00 149/85 H 12/07/24 09:15 37.7 C H 92 H 22 94 Nasal Cannula 2 12/07/24 09:00 148/80 H 12/07/24 08:48 37.7 C H 108 H 25 H 93 12/07/24 08:15 Nasal Cannula 2 12/07/24 08:00 179/96 H 12/07/24 08:00 37.7 C H 113 H 26 H 92 12/07/24 08:00 112 H 12/07/24 07:09 37.6 C H 112 H 22 94 Nasal Cannula 2 12/07/24 07:00 153/82 H 12/07/24 02:10 37.7 C H 125 H 22 167/90 H 93 Nasal Cannula 2 12/07/24 02:02 37.8 C H 140 H 26 H 133/108 H 93 Nasal Cannula 2 12/07/24 01:00 37.8 C H 114 H 21 154/79 H 94 Nasal Cannula 2 Lab & Micro Results (Past 24 Hours) RBC 2.90 M/uL (4.70-6.10) L 12/07/24 WBC 13.52 K/ul (4.8-10.8) H 12/07/24 Hgb 8.3 g/dl (14.0-18.0) L 12/07/24 Hct 26.6 % (42.0-52.0) L 12/07/24 MCV 91.7 fL (80.0-100.0) 12/07/24 MCH 28.6 pg (25.0-34.0) 12/07/24 MCHC 31.2 g/dL (32.0-36.0) L 12/07/24 RDW Standard Deviation 49.7 fL (36.4-46.3) H 12/07/24 RDW Coefficient of Variation 14.8 % (11.5-14.5) H 12/07/24 Plt Count 278 K/uL (130-400) 12/07/24 MPV 11.0 fL (9.4-12.4) 12/07/24 Neutrophils (%) (Auto) 89.1 % 12/07/24 Lymphocytes (%) (Auto) 4.9 % 12/07/24 Monocytes # (Auto) 0.71 K/uL (0.11-0.59) H 12/07/24 Eosinophils # (Auto) 0.02 K/uL (0.00-0.50) 12/07/24 Immature Granulocyte % (Auto) 0.4 % 12/07/24 Neutrophils # (Auto) 12.05 K/uL (1.40-6.50) H 12/07/24 Lymphocytes # (Auto) 0.66 K/uL (1.20-3.40) L 12/07/24 Monocytes # (Auto) 0.71 K/uL (0.11-0.59) H 12/07/24 Eosinophils # (Auto) 0.02 K/uL (0.00-0.50) 12/07/24 Basophils # (Auto) 0.03 K/uL (0.00-0.20) 12/07/24 Immature Granulocyte # (Auto) 0.05 K/uL (0.01-0.20) 5 Na 139 mmol/L (136-145) 12/07/24 K 3.4 mmol/L (3.5-5.1) L 12/07/24 Cl 111 mmol/L (98-107) H 12/07/24 CO2 22 mmol/L (21-32) 12/07/24 Anion Gap 6 (3-11) 12/07/24 BUN 25 mg/dl (6-23) H 12/07/24 Creatinine 1.40 mg/dl (0.6-1.4) 12/07/24 BUN/Creatinine Ratio 17.9 (10-20) 12/07/24 Glu 107 mg/dl (70-99(Fasting)) H 12/07/24 Ca 9.8 mg/dl (8.6-10.3) 12/07/24 Total Bilirubin 0.5 mg/dl (0.2-1.0) 12/07/24 AST 13 U/L (13-39) 12/07/24 ALT 12 U/L (7-52) 12/07/24 Alkaline Phosphatase 80 U/L (34-104) 12/07/24 TP 5.8 gm/dl (6.0-8.3) L 12/07/24 Albumin 3.1 gm/dl (3.4-5.0) L 12/07/24 Globulin 2.7 gm/dl (2.5-4.0) 12/07/24 Albumin/Globulin Ratio 1.1 (0.9-2) 12/07/24 Mg 2.0 mg/dl (1.7-2.4) 12/07/24 04:06 Calcium Level 9.8 mg/dl (8.6-10.3) 12/07/24 04:06 Prothromb Time International Ratio 1.1 (0.9-1.1) 12/07/24 04:0 6 Microbiology 12/06/24 01:13 Urine Culture - Preliminary Urine,Straight Cath Gram negative bacilli I & O Totals 24 Hours 12/06/24 12/07/24 12/08/24 06:59 06:59 06:59 Intake Total 2455.395 / 2455.395 2833.743 / 2833.743 896.667 / 896.667 Output Total 566 / 566 165 / 165 Balance 2455.395 / 2405.395 2267.743 / 2267.743 731.667 / 731.667 Cumulative 12/06/24 00:26 thru 12/07/24 12:36 Intake Total 6185.805 Output Total 731 Balance 5454.805 RT Ventilator Mngmt (Last Documented) Ventilator Ordered Settings Respiratory Rate 22 12/07/24 11:00 Ventilator - PT Measurements Respiratory Rate 22 Coding Level of Care Code 39523 SUB INP/OBS CARE 2/35MIN Diagnoses Shock R57.9 Complicated urinary tract infection N39.0 Acute kidney injury N17.9 Hypernatremia E87.0
[2024-12-07] MEDS: TUBE FEEDING WATER FLUSH GT ONE (03:08)
[2024-12-07 04:36] LABS: Hematocrit (blood only) 26.6 % (42.0-52.0); Hemoglobin 8.3 g/dl (14.0-18.0); Immature Granulocytes # (auto) 0.05 K/uL (0.01-0.20); Immature Granulocytes % (auto) 0.4 %; Mean Corpuscular Hemoglobin 28.6 pg (25.0-34.0); Mean Corpuscular Volume 91.7 fL (80.0-100.0); Platelet Count 278 K/uL (130-400); RDW Standard Deviation 49.7 fL (36.4-46.3); Red Blood Count 2.90 M/uL (4.70-6.10); White Blood Count 13.52 K/ul (4.8-10.8)
[2024-12-07 04:52] LABS: Alanine Aminotransferase 12.0 U/L (7-52); Albumin Globulin Ratio 1.1 (0.9-2); Alkaline Phosphatase 80.0 U/L (34-104); Anion Gap 6.0 (3-11); Bilirubin,Total 0.5 mg/dl (0.2-1.0); Blood Urea Nitrogen 25.0 mg/dl (6-23); Calcium 9.8 mg/dl (8.6-10.3); Carbon Dioxide 22.0 mmol/L (21-32); Chloride 111.0 mmol/L (98-107); Creatinine Clr Calc Pharmacy 39.3 ml/min; Globulin 2.7 gm/dl (2.5-4.0); Glucose 107.0 mg/dl (70-99(Fasting)); Magnesium 2.0 mg/dl (1.7-2.4); Potassium 3.4 mmol/L (3.5-5.1); Sodium 139.0 mmol/L (136-145); Total Protein 5.8 gm/dl (6.0-8.3)
[2024-12-07 05:01] LABS: INR 1.1 (0.9-1.1); Partial Thromboplastin Time 32 Seconds (21-31); Prothrombin Time 12.1 Seconds (9.0-12.0)
[2024-12-07] MEDS: LACTATED RINGER'S 1,000 ML IV SCH (06:04)
[2024-12-07] MEDS: CLOPIDOGREL BISULFATE 75 MG TAB PEG SCH (08:26)
[2024-12-07] MEDS: METOPROLOL TARTRATE 25 MG TAB PEG SCH (08:26)
[2024-12-07] MEDS ORDERED: PEPTAMEN 1.5 CAL 1,000 ML BAG PEG SCH (13:00)
--- NOTE | 2024-12-07 13:23 | Hospitalist Progress Note ---
Date of Service December 07, 2024 Assessment & Plan (1) Septic shock: (2) Catheter-associated urinary tract infection: (3) History of CVA (cerebrovascular accident): (4) S/P CABG (coronary artery bypass graft): (5) H/O mitral valve replacement: (6) Hx of deep venous thrombosis: (7) Acute metabolic encephalopathy: (8) BPH (benign prostatic hyperplasia): (9) Hypertension: (10) HFrEF (heart failure with reduced ejection fraction): (11) Cardiomyopathy: (12) Acute hypoxic respiratory failure: (13) S/P percutaneous endoscopic gastrostomy (PEG) tube placement: Plan Complicated and ill 79yo male with prolonged hospitalization at [facility] from 09/24 to 10/31. He underwent 2-vessel CABG and MVR on 09/24, but unfortunately on 09/25 he developed right-sided weakness and aphasia. Imaging showed b/l occipital & cerebellar strokes. His hospitalization was further complicated by GI bleeding, need for transient dialysis, delirium, and need for PEG tube placement. He was discharged with harris catheter in place. In addition to the above he has chronic HFrEF, anemia, prior DVT of right peroneal vein, carotid artery stenosis s/p L CEA and R TCAR, BPH with LUTS, asthma. 12/05 - presented to [facility] ER after he pulled out his PEG tube while at [facility]. It was replaced and he was d/c back to [facility]. Unfortunately he returned early AM of 12/06 with worsening mentation and hypotension. U/a was suggestive of UTI. He was admitted to the ICU for pressor support. Pressors weaned off later in the day on 12/06. #septic shock - -source - catheter-associated UTI 2nd to gram neg benita -required pressors for part of the day on 12/06 -no pressors in over 24 hours -MRSA swab negative, and urine cx with no gram positive pathogens; thus, can stop Zyvox -cont Zosyn IV #catheter-associated UTI - -2nd to gram negative benita -cont IV zosyn -can stop Zyvox -await final urine cx result #acute metabolic encephalopathy - -2nd to septic shock / UTI +/- pneumonia -improved today; more awake/alert, answering questions, knows he is in the hospital #acute hypoxic resp failure - -2nd to either acute/chronic HFrEF +/- pneumonia -he has had copious hydration since admission, and he has considerable JVD on exam with worsening crackles -cont IV zosyn to cover for possible pneumonia -stop IV fluids; bumex 1mg IV x 1 -cont supportive care -will obtain repeat cxr in am #acute/chronic HFrEF - -echo with EF 25-30% -he is multiple liters of fluid + since admission -JVD+ on exam with worsening rales -stop IVF; bumex 1mg IV x 1; follow response -typically on bumex 1mg BID -meto tartrate (low-dose) resumed by ICU attending this am #recent [place], [place] [facility] [place]av[place] -cont statin -cont meto tartrate #recent [place]VR [place] [facility] [place] this admission with intact valve function #h/o b/l occipital lobe and cerebellar CVAs - complication of his thoracic surgery -with resulting dysphagia, aphasia, weakness #dysphagia - -s/p PEG tube placement at [facility] -PEG self-removed a few days ago while rehabbing at [facility] -replaced on 12/05, and tube study showed proper position -will resume tube feedings at low rate of 20ml/hr -consult nutrition -keep NPO - no meds, no PO intake (by report was attempting to eat recently by mouth?) -consider speech therapy consult when able #T2DM - -a1c 6.6% -novolog SSI #DVT proph - -heparin 5000 TID #mild LASHON - -admission Cr 1.49 -today's Cr 1.40 -BMP am -baseline Cr 1 to 1.1 -sepsis-associated -cont harris #anemia - -check Fe studies, B12, folate in am I updated the pt's daughter, Oxana Cruz, by phone this evening - 12/07 introduced myself, explained her father was transferred from ICU to PCU discussed care plan, etc. pt's daughter stated that if her father pulled out his feeding tube again she & family are not sure they would want to put it back in they understand how sick and fragile he has been all summer he remains DNR/DNI will ultimately need PT/OT get speech therapy eval as well care d/w Dr Garnica, ICU attending Admission and Anticipated Discharge Date Admission Date: December 06, 2024 Subjective tele - NSR or sinus tach patient awake during my visit today he was able to answer questions albeit with a limited # of words due to aphasia it is difficult to understand everything he says however, he knew he was in "[facility]" he stated he was hungry he stated he was short of breath Review of Systems Review of Systems: unable to elicit more comprehensive ROS due to aphasia Physical Exam Physical Exam: gen - lying in bed, tachypneic, coughing, aphasic neck - JVD, about 2/[address] up neck; +hepatojugular reflex mouth - MMM today heart - irregular (extra beats), s1 s2, rate low 100s, no murmur lungs - b/l basilar rales, tachypneic abd - soft NT ND BS+; abdominal binder in place; PEG tube site clean ext - no edema, pulses b/l feet 1+ b/l psych - aphasic but more awake/alert today and following commands neuro - wiggles toes on both feet for me; handgrip 4/5 b/l; R lower facial kell op; aphasic Results & Data Results & Data Vital Signs (Past 12 Hours) Vital Signs Temp Pulse Resp BP Pulse Ox O2 Del Method O2 Flow Rate 12/07/24 13:01 178/84 H 12/07/24 13:00 37.5 C 106 H 24 93 12/07/24 12:00 37.8 C H 100 H 22 94 12/07/24 12:00 131/70 12/07/24 11:00 152/83 H 12/07/24 11:00 37.7 C H 97 H 22 94 12/07/24 10:03 37.7 C H 98 H 26 H 93 12/07/24 10:00 149/85 H 12/07/24 09:15 37.7 C H 92 H 22 94 Nasal Cannula 2 12/07/24 09:00 148/80 H 12/07/24 08:48 37.7 C H 108 H 25 H 93 12/07/24 08:15 Nasal Cannula 2 12/07/24 08:00 179/96 H 12/07/24 08:00 37.7 C H 113 H 26 H 92 12/07/24 08:00 112 H 12/07/24 07:09 37.6 C H 112 H 22 94 Nasal Cannula 2 12/07/24 07:00 153/82 H 12/07/24 02:10 37.7 C H 125 H 22 167/90 H 93 Nasal Cannula 2 12/07/24 02:02 37.8 C H 140 H 26 H 133/108 H 93 Nasal Cannula 2 Laboratory Results Laboratory Results - last 24 hr 12/07/24 12/07/24 12/07/24 04:06 11:45 18:11 WBC 13.52 H RBC 2.90 L Hgb 8.3 L Hct 26.6 L MCV 91.7 MCH 28.6 MCHC 31.2 L RDW Std Deviation 49.7 H RDW Coeff of Renata 14.8 H Plt Count 278 MPV 11.0 Immature Gran % (Auto) 0.4 Neut % (Auto) 89.1 Lymph % (Auto) 4.9 Boyle % (Auto) 5.3 Eos % (Auto) 0.1 Baso % (Auto) 0.2 Neut # (Auto) 12.05 H Lymph # (Auto) 0.66 L Boyle # (Auto) 0.71 H Eos # (Auto) 0.02 Baso # (Auto) 0.03 Immature Gran # (Auto) 0.05 PT 12.1 H INR 1.1 APTT 32 H PTT Ratio 1.2 Sodium 139 Potassium 3.4 L Chloride 111 H Carbon Dioxide 22 Anion Gap 6 BUN 25 H Creatinine 1.40 Est Cr Clr Drug Dosing 39.3 eGFR 50.49 BUN/Creatinine Ratio 17.9 Glucose 107 H POC Glucose 119 H 158 H Calcium 9.8 Magnesium 2.0 Total Bilirubin 0.5 AST 13 ALT 12 Alkaline Phosphatase 80 Total Protein 5.8 L Albumin 3.1 L Globulin 2.7 Albumin/Globulin Ratio 1.1 PG Care Time/CCT Total # of Minutes Spent Total Time Spent with Patient: Total time spent is greater than 50% in coordination of care (as documented) at patient's floor/unit and/or counseling patient: Coding Level of Care Code 78432 SUB INP/OBS CARE 3/50MIN Diagnoses Septic shock A41.9; R65.21 Catheter-associated urinary tract infection T83.511A; N39.0 History of CVA (cerebrovascular accident) Z86.73 S/P CABG (coronary artery bypass graft) Z95.1 H/O mitral valve replacement Z95.2 Hx of deep venous thrombosis Z86.718 Acute metabolic encephalopathy G93.41 Benign prostatic hyperplasia without lower urinary tract symptoms N40.0 Lower urinary tract symptom presence: symptoms absent Hypertension I10 HFrEF (heart failure with reduced ejection fraction) I50.20 Cardiomyopathy I42.9 Acute hypoxic respiratory failure J96.01 S/P percutaneous endoscopic gastrostomy (PEG) tube placement Z93.1 (8) BPH (benign prostatic hyperplasia) Lower urinary tract symptom presence: symptoms absent Qualified Code(s): N40.0 - Benign prostatic hyperplasia without lower urinary tract symptoms
[2024-12-07] MEDS: BUMETANIDE 1 MG in SYRINGE 0 ML IV ONE (13:37)
[2024-12-07] MEDS: TUBE FEEDING WATER FLUSH PEG SCH (13:53)
[2024-12-07] MEDS: ALBUT/IPRATROP 3MG/0.5MG NEB 3 ML VIAL NEB PRN (21:44)
[2024-12-07] MEDS: METOPROLOL TARTRATE 1 MG/ML VIAL IV ONE (21:50)
[2024-12-07] MEDS: MAGNESIUM SULFATE / D5W 1 GM/100 ML BAG IV SCH (21:53)
[2024-12-07] MEDS: SODIUM CHLOR 7% 4 ML NEB NEB STA (21:58)
[2024-12-07] MEDS: METOPROLOL TARTRATE 1 MG/ML VIAL IV STA ×2 (22:04→22:06)
[2024-12-07] MEDS: POTASSIUM CHLORIDE / WTR 10 MEQ/100 ML PLCT IV ONE (22:17)
[2024-12-07] MEDS: POTASSIUM CHLORIDE 20 MEQ/15 ML UDC PO STA (22:21)
[2024-12-07] MEDS: ALBUMIN 25% 25 GM/100 ML VIAL IV SCH (23:41)
[2024-12-07] MEDS: SODIUM CHLORIDE 0.9% 500 ML IV ONE (23:52)
--- NOTE | 2024-12-07 23:55 | XRay Report ---
Exam(s): XR CXR 1 VIEW EXAM: XR Chest, 1 View CLINICAL HISTORY: Reason for exam: hypoxia, tachycardia. TECHNIQUE: Frontal view of the chest. COMPARISON: Prior chest x-ray from November 06, [address] from December 06, 2024.. FINDINGS: Lungs: There is a patchy opacity at the left lung base. There is a patchy opacity in the right lower lobe and right upper lobe. There is mild to heavy peribronchial thickening of the central and lower lobe bronchi. Pleural space: Tiny bilateral pleural effusions. No pneumothorax. Heart: Status post GONZALEZ CABG. No cardiomegaly. Mediastinum: Unremarkable. Normal mediastinal contour. Bones/joints: Status post median sternotomy with sternal wires intact. No acute fracture. IMPRESSION: Increased airspace disease in the right lung with left lower lobe infiltrate and tiny pleural effusions. Electronically signed by: Starla Roa MD 12/07/24 23:54 PM
[2024-12-08] MEDS: ALBUT/IPRATROP 3MG/0.5MG NEB 3 ML VIAL NEB SCH (01:01)
[2024-12-08 07:23] LABS: Hematocrit (blood only) 25.5 % (42.0-52.0); Hemoglobin 8.0 g/dl (14.0-18.0); Immature Granulocytes # (auto) 0.06 K/uL (0.01-0.20); Immature Granulocytes % (auto) 0.6 %; Mean Corpuscular Hemoglobin 28.6 pg (25.0-34.0); Mean Corpuscular Volume 91.1 fL (80.0-100.0); Platelet Count 274 K/uL (130-400); RDW Standard Deviation 50.2 fL (36.4-46.3); Red Blood Count 2.80 M/uL (4.70-6.10); White Blood Count 10.07 K/ul (4.8-10.8)
[2024-12-08] MEDS: SODIUM CHLOR 7% 4 ML NEB NEB SCH (07:29)
[2024-12-08 07:39] LABS: Anion Gap 6 (3-11); Blood Urea Nitrogen 28 mg/dl (6-23); Calcium 9.5 mg/dl (8.6-10.3); Carbon Dioxide 24 mmol/L (21-32); Chloride 113 mmol/L (98-107); Creatinine Clr Calc Pharmacy 40.0 ml/min; Glucose 138 mg/dl (70-99(Fasting)); Potassium 3.8 mmol/L (3.5-5.1); Sodium 143 mmol/L (136-145)
[2024-12-08 07:57] LABS: Ferritin 39.7 ng/ml (8-388)
[2024-12-08 07:59] LABS: Iron < 10 mcg/dl (35-175); Total Iron Binding Cap Calc 214 mcg/dl (250-450); Transferrin 153 mg/dl (200-360)
[2024-12-08 08:11] LABS: Folate (Folic Acid),Ser orPlas > 22.30 ng/ml (>5.38); Vitamin B12 916 pg/ml (180-914)
[2024-12-08] MEDS: DOXYCYCLINE HYCLATE 100 MG in DEXTROSE 5% MINI-B 100 ML IV SCH (09:44)
--- NOTE | 2024-12-08 10:26 | XRay Report ---
XR chest 1V portable CLINICAL HISTORY: acute resp failure COMPARISON STUDY: 12/07/2024 FINDINGS: Stable CABG. Stable cardiomegaly with mild pulmonary vascular congestion. Stable small bila teral pleural effusions and mild adjacent lung base consolidation. Prior patchy opacity at the lower lungs is mildly improved. IMPRESSION: 1. Mildly improved patchy opacity at the lower lungs. 2. Otherwise stable CHF with small pleural effusions and lung base consolidation. ACT 112: Negative or not required by law. Electronically signed by: Enrico Walters M.D. 12/08/2024 10:25 AM
--- NOTE | 2024-12-08 10:57 | Hospitalist Progress Note ---
Date of Service December 08, 2024 Assessment & Plan (1) Acute hypoxic respiratory failure: (2) Septic shock: (3) Catheter-associated urinary tract infection: (4) History of CVA (cerebrovascular accident): (5) S/P CABG (coronary artery bypass graft): (6) H/O mitral valve replacement: (7) Hx of deep venous thrombosis: (8) Acute metabolic encephalopathy: (9) BPH (benign prostatic hyperplasia): (10) Hypertension: (11) HFrEF (heart failure with reduced ejection fraction): (12) Cardiomyopathy: (13) S/P percutaneous endoscopic gastrostomy (PEG) tube placement: Plan Complicated and ill 79yo male with prolonged hospitalization at [facility] from 09/24 to 10/31. He underwent 2-vessel CABG and MVR on 09/24, but unfortunately on 09/25 he developed right-sided weakness and aphasia. Imaging showed b/l occipital & cerebellar strokes. His hospitalization was further complicated by GI bleeding, need for transient dialysis, delirium, and need for PEG tube placement. He was discharged with harris catheter in place. In addition to the above he has chronic HFrEF, anemia, prior DVT of right peroneal vein, carotid artery stenosis s/p L CEA and R TCAR, BPH with LUTS, asthma. 12/05 - presented to [facility] ER after he pulled out his PEG tube while at [facility]. It was replaced and he was d/c back to [facility]. Unfortunately he returned early AM of 12/06 with worsening mentation and hypotension. U/a was suggestive of UTI. He was admitted to the ICU for pressor support. Pressors weaned off later in the day on 12/06. #acute hypoxic resp failure - -2nd to combination of acute/chronic HFrEF + b/l pneumonia -worse overnight -cont IV zosyn for pneumonia - this will cover typicals, gram negatives, and anaerobes; add doxy for atypicals; MRSA swab neg thus defer on MRSA Coverage -resume diuretics - give 1mg IV x 1 now -supportive care -adding steroids due to low-normal cortisol (12) for stress dose purposes -stop duonebs - could be making tachycardia worse; make prn -consider CTA chest to r/o PEs in light of last night's event #septic shock - -source - catheter-associated UTI 2nd to e.coli +/- pneumonia -required pressors for part of the day on 12/06 -cont Zosyn IV -patient with recurrent hypotension overnight -in light of sepsis and recurrent hypotension checked cortisol level - only 12 - you would expect cortisol to be much higher in the setting of the severity of this illness -thus add solumedrol 20mg IV q12h #catheter-associated UTI - -2nd to e.coli -cont IV zosyn - this will suffice #acute metabolic encephalopathy - -2nd to septic shock / UTI / pneumonia / etc. -waxing/waning #acute/chronic HFrEF - -echo with EF 25-30% -he is multiple liters of fluid + since admission -JVD+ on exam with rales - bumex 1mg IV x 1 -typically on bumex 1mg BID -meto tartrate (low-dose) resumed and will titrate to 25mg BID due to severe tachycardia at times #recent [place], [place] [facility] [place]av[place] -cont statin -cont meto tartrate #recent [place]VR [place] [facility] [place] this admission with intact valve function #h/o b/l occipital lobe and cerebellar CVAs - complication of his thoracic surgery -with resulting dysphagia, aphasia, weakness #dysphagia - -s/p PEG tube placement at [facility] -PEG self-removed a few days ago while rehabbing at [facility] -replaced on 12/05, and tube study showed proper position -attempted to resume tube feedings at low rate of 20ml/hr on 12/07 but ?aspiration event from such; tube feedings off since that time -strict NPO; use PEG only for meds at this time #T2DM - -a1c 6.6% -novolog SSI #DVT proph - -heparin 5000 TID #mild LASHON - -admission Cr 1.49 -today's Cr 1.40 once again -BMP am -baseline Cr 1 to 1.1 -sepsis-associated, cardiorenal perhaps, etc. -cont harris #anemia - -b12/folate wnl -Fe studies c/w Fe deficiency -recheck H/H am -later in the stay could consider IV venofer but defer for now I updated the pt's daughter, Oxana Cruz, by phone this evening once again; also updated her on 12/07 Oxana and her family understand how poorly their father is doing They are discussing what they want if he fails to improve or worsens we discussed getting palliative care to see him she wanted to hold off 1-2 more days before consulting palliative will update daughter tomorrow prognosis guarded Admission and Anticipated Discharge Date Admission Date: December 06, 2024 Subjective events of overnight reviewed had episode of possible aspiration, followed by hypotension requiring fluids & IV albumin, along with tachycardia requiring multiple doses of IV lopressor he also required more O2 this am during rounds he was lying in bed his eyes were open but he did not speak today he shook his head "yes" to feeling short of breath shook head "no" to any pain in any location Review of Systems Review of Systems: Unobtainable due to cognitive status Physical Exam Physical Exam: gen - lying in bed, tachypneic, aphasic, shaking his head yes/no for basic questions neck - JVD, about 1/2 way up neck mouth - MM dry heart - irregular, s1 s2, tachy 120s, no murmur lungs - b/l basilar rales remain, tachypneic, retractions abd - soft NT ND BS+; abdominal binder in place; PEG tube site clean ext - no edema, pulses b/l feet 1+ b/l psych - aphasic, sleepy Results & Data Results & Data Vital Signs (Past 12 Hours) Vital Signs Temp Pulse Pulse Resp BP BP Pulse Ox 12/08/24 07:34 36.4 C L 76 24 141/63 H 97 12/08/24 07:30 96 H 18 98 12/08/24 03:28 36.7 C 83 22 114/55 L 98 12/08/24 01:50 92/55 L 12/08/24 01:40 99/55 L 12/08/24 01:20 83 27 H 107/57 L 99 12/08/24 01:10 83 19 99 12/08/24 00:50 96/58 L 12/08/24 00:40 93/54 L 12/08/24 00:30 78 28 H 85/49 L 99 12/08/24 00:20 80 24 84/50 L 99 12/08/24 00:00 77/45 L 12/07/24 23:50 80/50 L 12/07/24 23:47 77/47 L 12/07/24 23:40 80/42 L 12/07/24 23:32 82/50 L 12/07/24 23:20 81/56 L 12/07/24 23:00 143/86 H O2 Del Method O2 Flow Rate 12/08/24 07:34 Oxymask 12/08/24 07:30 Oxymask 3 12/08/24 03:28 Oxymask 5 12/08/24 01:50 12/08/24 01:40 12/08/24 01:20 Oxymask 10 12/08/24 01:10 Oxymask 10 12/08/24 00:50 12/08/24 00:40 12/08/24 00:30 Oxymask 10 12/08/24 00:20 Oxymask 10 12/08/24 00:00 12/07/24 23:50 12/07/24 23:47 12/07/24 23:40 12/07/24 23:32 12/07/24 23:20 12/07/24 23:00 Laboratory Results Laboratory Results - last 24 hr 12/07/24 12/07/24 12/07/24 11:45 18:11 23:45 WBC RBC Hgb Hct MCV MCH MCHC RDW Std Deviation RDW Coeff of Renata Plt Count MPV Immature Gran % (Auto) Neut % (Auto) Lymph % (Auto) Preston % (Auto) Eos % (Auto) Baso % (Auto) Neut # (Auto) Lymph # (Auto) Preston # (Auto) Eos # (Auto) Baso # (Auto) Immature Gran # (Auto) Sodium Potassium Chloride Carbon Dioxide Anion Gap BUN Creatinine Est Cr Clr Drug Dosing eGFR BUN/Creatinine Ratio Glucose POC Glucose 119 H 158 H 175 H Calcium Iron TIBC Transferrin Transferrin % Sat Ferritin Vitamin B12 Folate Cortisol AM Sample 12/08/24 12/08/24 06:41 07:07 WBC 10.07 RBC 2.80 L Hgb 8.0 L Hct 25.5 L MCV 91.1 MCH 28.6 MCHC 31.4 L RDW Std Deviation 50.2 H RDW Coeff of Renata 14.9 H Plt Count 274 MPV 11.0 Immature Gran % (Auto) 0.6 Neut % (Auto) 87.8 Lymph % (Auto) 6.9 Preston % (Auto) 4.3 Eos % (Auto) 0.1 Baso % (Auto) 0.3 Neut # (Auto) 8.85 H Lymph # (Auto) 0.69 L Preston # (Auto) 0.43 Eos # (Auto) 0.01 Baso # (Auto) 0.03 Immature Gran # (Auto) 0.06 Sodium 143 Potassium 3.8 Chloride 113 H Carbon Dioxide 24 Anion Gap 6 BUN 28 H Creatinine 1.40 Est Cr Clr Drug Dosing 40.0 eGFR 50.49 BUN/Creatinine Ratio 20.0 Glucose 138 H POC Glucose 140 H Calcium 9.5 Iron < 10 L TIBC 214 L Transferrin 153 L Transferrin % Sat TNP Ferritin 39.7 Vitamin B12 916 H Folate > 22.30 Cortisol AM Sample 12.72 Diagnostic Findings Chest X-Ray 12/07/24 21:46 Exam(s): XR CXR 1 VIEW EXAM: XR Chest, 1 View CLINICAL HISTORY: Reason for exam: hypoxia, tachycardia. TECHNIQUE: Frontal view of the chest. COMPARISON: Prior chest x-ray from November 06, [address] from December 06, 2024.. FINDINGS: Lungs: There is a patchy opacity at the left lung base. There is a patchy opacity in the right lower lobe and right upper lobe. There is mild to heavy peribronchial thickening of the central and lower lobe bronchi. Pleural space: Tiny bilateral pleural effusions. No pneumothorax. Heart: Status post GONZALEZ CABG. No cardiomegaly. Mediastinum: Unremarkable. Normal mediastinal contour. Bones/joints: Status post median sternotomy with sternal wires intact. No acute fracture. IMPRESSION: Increased airspace disease in the right lung with left lower lobe infiltrate and tiny pleural effusions. Electronically signed by: Starla Roa MD 12/07/24 23:54 PM Chest X-Ray 12/08/24 08:09 XR chest 1V portable CLINICAL HISTORY: acute resp failure COMPARISON STUDY: 12/07/2024 FINDINGS: Stable CABG. Stable cardiomegaly with mild pulmonary vascular congestion. Stable small bilateral pleural effusions and mild adjacent lung base consolidation. Prior patchy opacity at the lower lungs is mildly improved. IMPRESSION: 1. Mildly improved patchy opacity at the lower lungs. 2. Otherwise stable CHF with small pleural effusions and lung base consolidation. ACT 112: Negative or not required by law. Electronically signed by: Enrico Walters M.D. 12/08/2024 10:25 AM PG Care Time/CCT Total # of Minutes Spent Total Time Spent with Patient: Total time spent is greater than 50% in coordination of care (as documented) at patient's floor/unit and/or counseling patient: Coding Level of Care Code 49258 SUB INP/OBS CARE 3/50MIN Diagnoses Acute hypoxic respiratory failure J96.01 Septic shock A41.9; R65.21 Catheter-associated urinary tract infection T83.511A; N39.0 History of CVA (cerebrovascular accident) Z86.73 S/P CABG (coronary artery bypass graft) Z95.1 H/O mitral valve replacement Z95.2 Hx of deep venous thrombosis Z86.718 Acute metabolic encephalopathy G93.41 Benign prostatic hyperplasia without lower urinary tract symptoms N40.0 Lower urinary tract symptom presence: symptoms absent Hypertension I10 HFrEF (heart failure with reduced ejection fraction) I50.20 Cardiomyopathy I42.9 S/P percutaneous endoscopic gastrostomy (PEG) tube placement Z93.1 (9) BPH (benign prostatic hyperplasia) Lower urinary tract symptom presence: symptoms absent Qualified Code(s): N40.0 - Benign prostatic hyperplasia without lower urinary tract symptoms
[2024-12-08] MEDS: BUMETANIDE 1 MG in SYRINGE 0 ML IV ONE (11:22)
[2024-12-08] MEDS: METOPROLOL TARTRATE 1 MG/ML VIAL IV STA (13:24)
[2024-12-08] MEDS: OLANZAPINE 2.5 MG TAB PEG PRN (19:37)
[2024-12-08] MEDS: METOPROLOL TARTRATE 25 MG TAB PEG SCH (19:39)
[2024-12-09] MEDS: TUBE FEEDING WATER FLUSH PEG SCH ×2 (00:09→12:40)
[2024-12-09] MEDS: ACETAMINOPHEN 1,000 MG/100 ML VIAL IV PRN (01:55)
[2024-12-09] MEDS: METOPROLOL TARTRATE 1 MG/ML VIAL IV STA (04:48)
[2024-12-09] MEDS: ONDANSETRON INJ 2 MG/ML 2 ML VIAL IV PRN (04:48)
[2024-12-09 06:57] LABS: Anion Gap 11.0 (3-11); Blood Urea Nitrogen 37.0 mg/dl (6-23); Calcium 10.0 mg/dl (8.6-10.3); Carbon Dioxide 22.0 mmol/L (21-32); Chloride 113.0 mmol/L (98-107); Creatinine Clr Calc Pharmacy 30.7 ml/min; Glucose 155.0 mg/dl (70-99(Fasting)); Magnesium 2.3 mg/dl (1.7-2.4); Potassium 3.7 mmol/L (3.5-5.1); Sodium 146.0 mmol/L (136-145)
[2024-12-09 07:15] LABS: Hematocrit (blood only) 29.1 % (42.0-52.0); Hemoglobin 9.0 g/dl (14.0-18.0)
--- NOTE | 2024-12-09 19:08 | Hospitalist Progress Note ---
Date of Service December 09, 2024 Assessment & Plan (1) Acute hypoxic respiratory failure: (2) Septic shock: (3) Catheter-associated urinary tract infection: (4) History of CVA (cerebrovascular accident): (5) S/P CABG (coronary artery bypass graft): (6) H/O mitral valve replacement: (7) Hx of deep venous thrombosis: (8) Acute metabolic encephalopathy: (9) BPH (benign prostatic hyperplasia): (10) Hypertension: (11) HFrEF (heart failure with reduced ejection fraction): (12) Cardiomyopathy: (13) S/P percutaneous endoscopic gastrostomy (PEG) tube placement: Plan Complicated and ill 79yo male with prolonged hospitalization at [facility] from 09/24 to 10/31. He underwent 2-vessel CABG and MVR on 09/24, but unfortunately on 09/25 he developed right-sided weakness and aphasia. Imaging showed b/l occipital & cerebellar strokes. His hospitalization was further complicated by GI bleeding, need for transient dialysis, delirium, and need for PEG tube placement. He was discharged with harris catheter in place. In addition to the above he has chronic HFrEF, anemia, prior DVT of right peroneal vein, carotid artery stenosis s/p L CEA and R TCAR, BPH with LUTS, asthma. 12/05 - presented to [facility] ER after he pulled out his PEG tube while at [facility]. It was replaced and he was d/c back to [facility]. Unfortunately he returned early AM of 12/06 with worsening mentation and hypotension. U/a was suggestive of UTI. He was admitted to the ICU for pressor support. Pressors weaned off later in the day on 12/06. #acute hypoxic resp failure - -2nd to combination of acute/chronic HFrEF + b/l pneumonia -had worsened PM of 12/07 into AM of 12/08 with increasing O2 requirements -today, however, O2 requirement is much better and he is more comfortable from pulmonary standpoint with improved lung findings on exam -cont IV zosyn for pneumonia - #4 of such -this will cover typicals, gram negatives, and anaerobes -added doxy for atypicals on 12/08 - day #2 -MRSA swab neg thus defer on MRSA Coverage -Na today 146 - defer on diuretics today -cont supportive care -added IV steroids due to low-normal cortisol (12) for stress dose purposes on 12/08 -due to periods of tachycardia and hypoxia along with prior h/o DVT in 2023 I was planning on CTA chest to r/o PE -he has contrast allergy so was starting pre-contrast IV steroid protocol -however, he has mild LASHON thus I deferred today on getting the CTA -in meantime will obtain b/l LE venous dopplers to r/o DVT #b/l lower lobe pneumonia - -aspiration vs gram negative vs typical, etc -cont zosyn -cont doxy -less O2 requirement and distress improved today #septic shock - -source - catheter-associated UTI 2nd to e.coli +/- pneumonia -required pressors for part of the day on 12/06 -cont Zosyn IV -patient with recurrent hypotension on 12/07 to 12/08 -in light of sepsis and recurrent hypotension checked cortisol level - only 12 - you would expect cortisol to be much higher in the setting of the severity of this illness -thus added solumedrol 20mg IV q12h initially, then increased to 40mg q8h in preparation for giving IV contrast for a CTA (has contrast allergy) -however, has mild LASHON today and thus will defer on CTA for now -perhaps attempt to get CTA chest on 12/10 if creatinine will allow #catheter-associated UTI - -2nd to e.coli -cont IV zosyn - day #4 of such #acute metabolic encephalopathy - -2nd to septic shock / UTI / pneumonia / etc. -waxing/waning -needing low-dose zyprexa prn and soft mitts due to him pulling at IVs, not following commands, trying to hit staff, etc -consider repeat head imaging in light of known stroke history to r/o stroke but doubt such #acute/chronic HFrEF - -echo with EF 25-30% -he is multiple liters of fluid + since admission -JVD+ on exam with rales yesterday thus gave bumex on 12/08 -Na level 146 and o2 requirement is improved thus defer on diuretics today -typically on bumex 1mg BID -meto tartrate (low-dose) resumed and titrated again today to 37.5mg BID due to ongoing tachycardia #recent CABG, 2-vessel - September 2024 at [facility] [place] -cont plavix -cont statin -cont meto tartrate -complicated by severe stroke 24 hours post-op #recent MVR - September 2024 at [facility] [place] - -echo this admission with intact valve function #h/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 -PEG self-removed a few days ago while rehabbing at [facility] -replaced on 12/05, and tube study showed proper position -attempted to resume tube feedings at low rate of 20ml/hr on 12/07 but ?aspiration event from such; tube feedings off since that time -strict NPO; use PEG only for meds at this time and free water flushes -with Na level 146 today will increase free water to 150ml q4h -on 12/10, if stable, attempt to resume Peptamen 1.5 feedings #T2DM - -a1c 6.6% -novolog SSI #DVT proph - -heparin 5000 TID #mild LASHON - -admission Cr 1.49 -then improved to 1.4 -now 1.6 today -baseline Cr 1 to 1.1 -sepsis-associated, cardiorenal, diuresis, etc. -cont harris -with mild hypernatremia increased his free water in his PEG tube, and give 1/2 NS 50ml/hr x 250ml -repeat BMP am #anemia - -b12/folate wnl -Fe studies c/w Fe deficiency -H/H low but acceptable -later in the stay could consider IV venofer but defer for now #elevated troponin - -likely myocardial demand ischemia in setting of severe sepsis/shock/UTI/pneumonia #tachycardia - -sinus with ?atrial arrhythmia as well -I have not been able to tell if there are runs of a tach vs a fib interspersed with the sinus tach -repeat echo this admission with EF 25-30% -TSH level wnl -mag/k wnl -cont tele -adjusting meto tartrate I updated the pt's daughter, Oxana Cruz, by phone this evening once again; also updated her on 12/07 and 12/08 Oxana and her family cont to voice that they understand how poorly their father is doing Oxana did ask if we thought he was suffering Apparently he had told her today that he was having chest pain? He did not voice this to me or staff but plan to check a troponin tomorrow am - he did have elevated troponin earlier in the stay again discussed getting palliative care to see him if he is doing poorly or worsens by tomorrow then obtain palliative care consult then - Oxana would be very agreeable to such Admission and Anticipated Discharge Date Admission Date: December 06, 2024 Subjective overnight patient was scratching at staff members, trying to hit them at times soft mitts continued did need a dose of zyprexa as well during my visit his eyes were open but he was unable to speak/answer questions he coughed periodically during the visit staff report he has been sleepy all morning no vomiting tele - ongoing episodes of tachycardia; appears sinus, with ?atrial arrhythmia as well Review of Systems Review of Systems: Unobtainable due to cognitive status Physical Exam Physical Exam: gen - lying in bed, mild tachypnea but not as severe as yesterday, aphasic, sleepy, did not try to answer questions by shaking head yes/no like yesterday neck - JVD improved mouth - MM dry heart - irregular, s1 s2, tachy, no murmur lungs - b/l basilar rales improved, tachypnea but no distress otherwise abd - soft NT ND BS+; abdominal binder in place; PEG tube site clean ext - no edema, pulses b/l feet 1+ b/l psych - aphasic, sleepy Results & Data Results & Data Vital Signs (Past 12 Hours) Vital Signs Temp Pulse Resp BP BP Pulse Ox O2 Del Method 12/09/24 15:37 36.9 C 107 H 22 140/86 91 Room Air 12/09/24 11:44 Room Air 12/09/24 11:02 37.2 C 104 H 18 136/96 93 Room Air 12/09/24 07:13 86 22 99 Oxymask O2 Flow Rate 12/09/24 15:37 12/09/24 11:44 12/09/24 11:02 12/09/24 07:13 1 Laboratory Results Laboratory Results - last 48 hr 12/08/24 12/08/24 12/08/24 07:07 12:14 17:46 Hgb Hct Sodium 143 Potassium 3.8 Chloride 113 H Carbon Dioxide 24 Anion Gap 6 BUN 28 H Creatinine 1.40 Est Cr Clr Drug Dosing 40.0 eGFR 50.49 BUN/Creatinine Ratio 20.0 Glucose 138 H POC Glucose 189 H 179 H Calcium 9.5 Phosphorus Magnesium Iron < 10 L TIBC 214 L Transferrin 153 L Transferrin % Sat TNP Ferritin 39.7 Vitamin B12 916 H Folate > 22.30 Cortisol AM Sample 12.72 12/09/24 12/09/24 12/09/24 00:22 06:05 06:23 Hgb 9.0 L Hct 29.1 L Sodium Potassium Chloride Carbon Dioxide Anion Gap BUN Creatinine Est Cr Clr Drug Dosing eGFR BUN/Creatinine Ratio Glucose POC Glucose 169 H 166 H Calcium Phosphorus Magnesium Iron TIBC Transferrin Transferrin % Sat Ferritin Vitamin B12 Folate Cortisol AM Sample 12/09/24 12/09/24 06:24 12:23 Hgb Hct Sodium 146 H Potassium 3.7 Chloride 113 H Carbon Dioxide 22 Anion Gap 11 BUN 37 H Creatinine 1.61 H Est Cr Clr Drug Dosing 30.7 eGFR 42.70 BUN/Creatinine Ratio 23.0 H Glucose 155 H POC Glucose 199 H Calcium 10.0 Phosphorus 2.9 Magnesium 2.3 Iron TIBC Transferrin Transferrin % Sat Ferritin Vitamin B12 Folate Cortisol AM Sample PG Care Time/CCT Total # of Minutes Spent Total Time Spent with Patient: Total time spent is greater than 50% in coordination of care (as documented) at patient's floor/unit and/or counseling patient: Coding Level of Care Code 94958 SUB INP/OBS CARE 3/50MIN Diagnoses Acute hypoxic respiratory failure J96.01 Septic shock A41.9; R65.21 Catheter-associated urinary tract infection T83.511A; N39.0 History of CVA (cerebrovascular accident) Z86.73 S/P CABG (coronary artery bypass graft) Z95.1 H/O mitral valve replacement Z95.2 Hx of deep venous thrombosis Z86.718 Acute metabolic encephalopathy G93.41 Benign prostatic hyperplasia without lower urinary tract symptoms N40.0 Lower urinary tract symptom presence: symptoms absent Hypertension I10 HFrEF (heart failure with reduced ejection fraction) I50.20 Cardiomyopathy I42.9 S/P percutaneous endoscopic gastrostomy (PEG) tube placement Z93.1 (9) BPH (benign prostatic hyperplasia) Lower urinary tract symptom presence: symptoms absent Qualified Code(s): N40.0 - Benign prostatic hyperplasia without lower urinary tract symptoms
[2024-12-09] MEDS: SODIUM CHLORIDE 0.45 % 1,000 ML IV SCH (20:15)
[2024-12-09] MEDS: METOPROLOL TARTRATE 25 MG TAB PEG SCH (20:18)
[2024-12-09] MEDS: OLANZAPINE 2.5 MG TAB PEG SCH (20:18)
[2024-12-09] MEDS: MELATONIN 3 MG TAB PO SCH (20:18)
--- NOTE | 2024-12-10 00:08 | Ultrasound Report ---
Exam(s): US VENOUS BILATERAL LOWER EXTREMITIES EXAM: US Duplex Bilateral Lower Extremities Veins CLINICAL HISTORY: Reason for exam: h/o DVT, wheelchair bound, tachycardia; ro new DVT. TECHNIQUE: Real-time duplex ultrasound scan of the bilateral lower extremity veins integrating B-mode two-dimensional vascular structure, Doppler spectral analysis, color flow Doppler imaging and compression. COMPARISON: No relevant prior studies available. FINDINGS: Right deep veins: Unremarkable. No DVT in the right common femoral, femoral, proximal deep femoral or popliteal veins. The veins demonstrate normal color flow, are normally compressible, with normal phasic flow and/or augmentation response. Right superficial veins: Unremarkable. No thrombus in the visualized right great saphenous vein. Left deep veins: Unremarkable. No DVT in the left common femoral, femoral, proximal deep femoral or popliteal veins. The veins demonstrate normal color flow, are normally compressible, with normal phasic flow and/or augmentation response. Left superficial veins: Unremarkable. No thrombus in the visualized left great saphenous vein. Soft tissues: No acute findings. No popliteal cyst. IMPRESSION: No DVT. Electronically signed by: Benito Woodward MD 12/10/24 00:07 AM
[2024-12-10 07:53] LABS: Hematocrit (blood only) 32.4 % (42.0-52.0); Hemoglobin 10.3 g/dl (14.0-18.0); Immature Granulocytes # (auto) 0.04 K/uL (0.01-0.20); Immature Granulocytes % (auto) 0.4 %; Mean Corpuscular Hemoglobin 28.7 pg (25.0-34.0); Mean Corpuscular Volume 90.3 fL (80.0-100.0); Platelet Count 334 K/uL (130-400); RDW Standard Deviation 50.1 fL (36.4-46.3); Red Blood Count 3.59 M/uL (4.70-6.10); White Blood Count 9.68 K/ul (4.8-10.8)
[2024-12-10 08:07] LABS: Anion Gap 10.0 (3-11); Blood Urea Nitrogen 53.0 mg/dl (6-23); Calcium 9.9 mg/dl (8.6-10.3); Carbon Dioxide 23.0 mmol/L (21-32); Chloride 114.0 mmol/L (98-107); Creatinine Clr Calc Pharmacy 28.9 ml/min; Glucose 156.0 mg/dl (70-99(Fasting)); Potassium 3.8 mmol/L (3.5-5.1); Sodium 147.0 mmol/L (136-145)
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
--- NOTE | 2024-12-10 18:01 | Hospitalist Progress Note ---
Date of Service December 10, 2024 Assessment & Plan (1) Acute hypoxic respiratory failure: (2) Septic shock: (3) Catheter-associated urinary tract infection: (4) History of CVA (cerebrovascular accident): (5) S/P CABG (coronary artery bypass graft): (6) H/O mitral valve replacement: (7) Hx of deep venous thrombosis: (8) Acute metabolic encephalopathy: (9) BPH (benign prostatic hyperplasia): (10) Hypertension: (11) HFrEF (heart failure with reduced ejection fraction): (12) Cardiomyopathy: (13) S/P percutaneous endoscopic gastrostomy (PEG) tube placement: Plan Complicated and ill 79yo male with prolonged hospitalization at [facility] from 09/24 to 10/31. He underwent 2-vessel CABG and MVR on 09/24, but unfortunately on 09/25 he developed right-sided weakness and aphasia. Imaging showed b/l occipital & cerebellar strokes. His hospitalization was further complicated by GI bleeding, need for transient dialysis, delirium, and need for PEG tube placement. He was discharged with harris catheter in place. In addition to the above he has chronic HFrEF, anemia, prior DVT of right peroneal vein, carotid artery stenosis s/p L CEA and R TCAR, BPH with LUTS, asthma. 12/05 - presented to [facility] ER after he pulled out his PEG tube while at [facility]. It was replaced and he was d/c back to [facility]. Unfortunately he returned early AM of 12/06 with worsening mentation and hypotension. U/a was suggestive of UTI. He was admitted to the ICU for pressor support. Pressors weaned off later in the day on 12/06. #acute hypoxic resp failure - -2nd to combination of acute/chronic HFrEF + b/l pneumonia -had worsened PM of 12/07 into AM of 12/08 with increasing O2 requirements -today, however, O2 requirement is much better and he is more comfortable from pulmonary standpoint with improved lung findings on exam -cont IV zosyn for pneumonia - #5 of such -this will cover typicals, gram negatives, and anaerobes -added doxy for atypicals on 12/10 - day #4 -MRSA swab neg thus defer on MRSA Coverage -Na today 147 - defer on diuretics today -cont supportive care -added IV steroids due to low-normal cortisol (12) for stress dose purposes on 12/08 -due to periods of tachycardia and hypoxia along with prior h/o DVT in 2023 -doppler negative. Patient is not hypoxic, doubt Pulmonary emboli, will not pursue given allergy, and LASHON. #b/l lower lobe pneumonia - -aspiration vs gram negative vs typical, etc -cont zosyn -cont doxy -less O2 requirement and distress improved today #septic shock - -source - catheter-associated UTI 2nd to e.coli +/- pneumonia -required pressors for part of the day on 12/06 -cont Zosyn IV -patient with recurrent hypotension on 12/07 to 12/08 -in light of sepsis and recurrent hypotension checked cortisol level - only 12 - you would expect cortisol to be much higher in the setting of the severity of this illness -thus added solumedrol 20mg IV q12h initially, then increased to 40mg q8h in preparation for giving IV contrast for a CTA (has contrast allergy) -however, has mild LASHON today and thus will defer on CTA for now -perhaps attempt to get CTA chest on 12/10 if creatinine will allow #catheter-associated UTI - -2nd to e.coli -cont IV zosyn - day #4 of such #acute metabolic encephalopathy - -2nd to septic shock / UTI / pneumonia / etc. -waxing/waning -needing low-dose zyprexa prn and soft mitts due to him pulling at IVs, not following commands, trying to hit staff, etc -consider repeat head imaging in light of known stroke history to r/o stroke but doubt such #acute/chronic HFrEF - -echo with EF 25-30% -he is multiple liters of fluid + since admission -JVD+ on exam with rales yesterday thus gave bumex on 12/08 -Na level 146 and o2 requirement is improved thus defer on diuretics today -typically on bumex 1mg BID -meto tartrate (low-dose) resumed and titrated again today to 37.5mg BID due to ongoing tachycardia #recent CABG, 2-vessel - September 2024 at [facility] -cont plavix -cont statin -cont meto tartrate -complicated by severe stroke 24 hours post-op #recent MVR - September 2024 at [facility] - -echo this admission with intact valve function #h/o b/l occipital lobe and cerebellar CVAs - complication of his thoracic surgery at [facility] - -with resulting dysphagia, aphasia, weakness #dysphagia - -s/p PEG tube placement at [facility] -PEG self-removed a few days ago while rehabbing at [facility] -replaced on 12/05, and tube study showed proper position -attempted to resume tube feedings at low rate of 20ml/hr on 12/07 but ?aspiration event from such; tube feedings off since that time -strict NPO; use PEG only for meds at this time and free water flushes -with Na level 146 today will increase free water to 150ml q4h -on 12/10, if stable, attempt to resume Peptamen 1.5 feedings #T2DM - -a1c 6.6% -novolog SSI #DVT proph - -heparin 5000 TID #mild LASHON - -admission Cr 1.49 -then improved to 1.4 -now 1.6 today -baseline Cr 1 to 1.1 -sepsis-associated, cardiorenal, diuresis, etc. -cont harris -with mild hypernatremia increased his free water in his PEG tube, and give 1/2 NS 50ml/hr x 250ml -repeat BMP am #anemia - -b12/folate wnl -Fe studies c/w Fe deficiency -H/H low but acceptable -later in the stay could consider IV venofer but defer for now #elevated troponin - -likely myocardial demand ischemia in setting of severe sepsis/shock/UTI/pneumonia #tachycardia - -sinus with ?atrial arrhythmia as well -I have not been able to tell if there are runs of a tach vs a fib interspersed with the sinus tach -repeat echo this admission with EF 25-30% -TSH level wnl -mag/k wnl -cont tele -adjusting meto tartrate I updated the pt's daughter, Oxana Cruz, by phone this evening om 12/10 Oxana and her family cont to voice that they understand how poorly their father is doing Oxana is agreeable to palliative care consult Admission and Anticipated Discharge Date Admission Date: December 06, 2024 Subjective Patient is a lethargic. Review of Systems Review of Systems: Unobtainable due to cognitive status Physical Exam Physical Exam: gen - lying in bed, not answering questions mouth - MM dry heart - irregular, s1 s2, regular rate, no murmur lungs - b/l basilar rales improved, tachypnea but no distress otherwise abd - soft NT ND BS+; abdominal binder in place; PEG tube site clean ext - no edema, pulses b/l feet 1+ b/l psych - aphasic, sleepy Results & Data Results & Data Vital Signs (Past 12 Hours) Vital Signs Temp Pulse Resp BP Pulse Ox O2 Del Method 12/10/24 15:22 36.5 C 83 18 159/95 H 91 Room Air 12/10/24 14:50 Room Air 12/10/24 10:55 36.7 C 70 25 H 130/63 93 Room Air 12/10/24 07:45 36.7 C 101 H 28 H 137/86 91 Room Air 12/10/24 07:12 78 19 91 Room Air PG Care Time/CCT Total # of Minutes Spent Total Time Spent with Patient: Total time spent is greater than 50% in coordination of care (as documented) at patient's floor/unit and/or counseling patient: Coding Level of Care Code 12062 SUB INP/OBS CARE 3/50MIN Diagnoses Acute hypoxic respiratory failure J96.01 Septic shock A41.9; R65.21 Catheter-associated urinary tract infection T83.511A; N39.0 History of CVA (cerebrovascular accident) Z86.73 S/P CABG (coronary artery bypass graft) Z95.1 H/O mitral valve replacement Z95.2 Hx of deep venous thrombosis Z86.718 Acute metabolic encephalopathy G93.41 Benign prostatic hyperplasia without lower urinary tract symptoms N40.0 Lower urinary tract symptom presence: symptoms absent Hypertension I10 HFrEF (heart failure with reduced ejection fraction) I50.20 Cardiomyopathy I42.9 S/P percutaneous endoscopic gastrostomy (PEG) tube placement Z93.1 Time Spent (min) 50 (9) BPH (benign prostatic hyperplasia) Lower urinary tract symptom presence: symptoms absent Qualified Code(s): N40.0 - Benign prostatic hyperplasia without lower urinary tract symptoms
[2024-12-10] MEDS: TUBE FEEDING WATER FLUSH PEG SCH (19:48)
[2024-12-11] MEDS: METOPROLOL TARTRATE 1 MG/ML VIAL IV STA (05:42)
[2024-12-11 06:26] LABS: Hematocrit (blood only) 34.8 % (42.0-52.0); Hemoglobin 11.0 g/dl (14.0-18.0); Mean Corpuscular Hemoglobin 28.2 pg (25.0-34.0); Mean Corpuscular Volume 89.2 fL (80.0-100.0); Platelet Count 393 K/uL (130-400); RDW Standard Deviation 49.7 fL (36.4-46.3); Red Blood Count 3.90 M/uL (4.70-6.10); White Blood Count 13.39 K/ul (4.8-10.8)
[2024-12-11 06:43] LABS: Appearance Urine Turbid (Clear); Bacteria Urine Automated 3+ (None Seen); Cast Urine Automated >20 /lpf (0-2); Glucose Urine UA Negative (Negative); RBC Urine Automated >20 /hpf (0-2); WBC Urine Automated >50 /hpf (0-5)
[2024-12-11 07:20] LABS: Anion Gap 15.0 (3-11); Blood Urea Nitrogen 73.0 mg/dl (6-23); Calcium 10.2 mg/dl (8.6-10.3); Carbon Dioxide 19.0 mmol/L (21-32); Chloride 116.0 mmol/L (98-107); Creatinine Clr Calc Pharmacy 21.4 ml/min; Glucose 180.0 mg/dl (70-99(Fasting)); Potassium 3.9 mmol/L (3.5-5.1); Sodium 150.0 mmol/L (136-145)
--- NOTE | 2024-12-11 08:52 | Palliative Care Consultation ---
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 Dextrose (Dextrose 50% 50 Ml Syringe) 25 - 50 ml IV UD PRN; Protocol PRN Reason: Hypoglycemia Protocol Stop: 01/05/25 03:47 Enteral Nutritional Formula (Peptamen 1.5 Cody 1,000 Ml Bag) 0 ml PEG .See Protocol ROBERT; Protocol Stop: 01/06/25 12:59 Glucagon (Glucagon For Inj 1 Mg Vial) 1 mg SQ UD PRN; Protocol PRN Reason: Hypoglycemia Protocol Stop: 01/05/25 03:47 Glucose (Glucose 40% Gel 15 Gm Tube) 15 - 30 gm PO UD PRN; Protocol PRN Reason: Hypoglycemia Protocol Stop: 01/05/25 03:47 Glucose (Glucose 10 Tab/Tube) 4 - 8 tab PO UD PRN; Protocol PRN Reason: Hypoglycemia Protocol Stop: 01/05/25 03:47 Heparin Sodium (Porcine) (Heparin Sod 5,000 Unit/0.5 Ml Vial) 5,000 units SQ Q8 ROEBRT Stop: 01/05/25 05:59 Last Admin: 12/11/24 05:42 Dose: 5,000 units Pantoprazole Sodium (Protonix) 40 mg in 10 mls @ 5 mls/min IV DAILY ROBERT Stop: 01/05/25 08:59 Last Admin: 12/10/24 09:05 Dose: 5 mls/min Piperacillin Sod/Tazobactam Sod (Zosyn) 4.5 gm in 100 mls @ 25 mls/hr IV Q8H SC H; Protocol Stop: 12/13/24 07:59 Last Infusion: 12/11/24 03:09 Dose: Infused Doxycycline Hyclate 100 mg/ (Dextrose) 100 mls @ 50 mls/hr IV Q12H ROBERT Stop: 12/15/24 08:29 Last Infusion: 12/10/24 22:18 Dose: Infused Acetaminophen (Ofirmev) 1,000 mg in 100 mls @ 400 mls/hr IV Q8H PRN PRN Reason: Pain or Agitation Stop: 12/12/24 01:22 Last Infusion: 12/09/24 02:11 Dose: Infused Methylprednisolone 40 mg/ (Syringe) 0.64 mls @ 1.5 mls/min IV Q8H [facility] Stop: 01/08/25 07:59 Last Admin: 12/10/24 23:21 Dose: 1.5 mls/min Insulin Aspart (Insulin Aspart Per Unit Charge) 0 units SC Q6 ROBERT Stop: 01/05/25 06:59 Last Admin: 12/11/24 06:22 Dose: 1 units Melatonin (Melatonin 3 Mg Tab) 3 mg PO HS [facility] Stop: 01/08/25 20:59 Last Admin: 12/10/24 21:41 Dose: 3 mg Metoprolol Tartrate (Metoprolol Tartrate 25 Mg Tab) 37.5 mg PEG BID ROBERT Stop: 01/08/25 20:59 Last Admin: 12/10/24 21:41 Dose: 37.5 mg Miscellaneous (Carbohydrates For Hypoglycemia ) 15 - 30 gm PO UD PRN PRN Reason: Hypoglycemia Protocol Stop: 01/05/25 03:47 Olanzapine (Olanzapine 2.5 Mg Tab) 2.5 mg PEG HS [facility] Stop: 01/08/25 20:59 Last Admin: 12/10/24 21:41 Dose: 2.5 mg Ondansetron HCl (Ondansetron Inj 2 Mg/Ml 2 Ml Vial) 4 mg IV Q6H PRN PRN Reason: NAUSEA/VOMITING Stop: 01/05/25 03:55 Last Admin: 12/09/24 04:48 Dose: 4 mg Sodium Chloride (Sodium Chlor 7% 4 Ml Neb) 4 ml NEB BIDR [facility] Stop: 01/07/25 06:59 Last Admin: 12/11/24 06:57 Dose: 4 ml Sterile Water (Tube Feeding Water Flush) 200 ml PEG Q4 [facility] Stop: 01/09/25 19:59 Last Admin: 12/11/24 04:49 Dose: 200 ml PG Care Time/CCT Total # of Minutes Spent Total Time Spent with Patient: Total time spent is greater than 50% in coordination of care (as documented) at patient's floor/unit and/or counseling patient: Advanced Care Planning 08294 Advanced Care Planning 30 [place] [address] IN/OBS CONSULT LVL 3,45M Patient Type New Medical Decision Making Moderate Complexity Diagnoses Palliative care by specialist Z51.5 Counseling regarding goals of care Z71.89 Counseling regarding advanced directives and goals of care Z71.89 Delirium R41.0 Additional Codes Advanced Care Planning - 17856 Advanced Care Planning 30 Min: 71120 Advanced Care Planning 30 Min ([id number])
--- NOTE | 2024-12-11 09:00 | Nephrology Progress Note ---
Date of Service December 11, 2024 Assessment & Plan (1) Acute kidney injury: Plan: * Nonoliguric LASHON. No recent exposure to KANG/ARB, NSAID, IV contrast or known nephrotoxic agents. 12/[address] negative for obstruction. Garcia catheter is in place. 12/07 and 12/11 urine sediment was negative for granular casts * Monitor daily BMP (2) CKD (chronic kidney disease), stage III: Plan: * Baseline serum creatinine has been 1.01.4 w/ EGFR 40 cc/min (3) Hypernatremia: Plan: * Serum Na 150 mmol/L this am * 2.5 L free water deficit * Will increase free water PEG tube flushes to 200 cc q4 hrs and monitor response (4) UTI (urinary tract infection) due to urinary indwelling Garcia catheter: Plan: * Chronic indwelling Garcia catheter * E. Coli urosepsis - resolved (5) Aspiration pneumonia: Admission and Anticipated Discharge Date Admission Date: December 06, 2024 Subjective Aphasic Review of Systems Review of Systems: Unobtainable due to cognitive status Physical Exam Constitutional: not in distress Eyes: PERRL, conjunctivae normal, anicteric sclerae Neck: trachea midline, no thyromegaly Cardiovascular: Rate/Rhythm: + irregularly irregular Heart Sounds: no murmur Gastrointestinal (Abdomen): normal bowel sounds, soft, nontender, no hepatosplenomegaly Results & Data Vital Signs (Past 12 Hours) Vital Signs Temp Pulse Pulse Resp BP Pulse Ox O2 Del Method 12/11/24 07:21 37.3 C 111 H 14 152/103 H 90 Room Air 12/11/24 06:57 16 Room Air 12/11/24 06:01 111 H 147/95 H 12/11/24 05:57 112 H 12/11/24 05:13 120 H 163/102 H 12/11/24 04:47 36.5 C 128 H 18 178/119 H 90 Room Air 12/11/24 00:06 36.3 C L 102 H 18 136/92 93 Room Air 12/10/24 22:15 107 H Laboratory Results Laboratory Results - last 48 hr 12/09/24 12/09/24 12/09/24 12:23 18:07 23:51 WBC RBC Hgb Hct MCV MCH MCHC RDW Std Deviation RDW Coeff of Renata Plt Count MPV Immature Gran % (Auto) Neut % (Auto) Lymph % (Auto) Foard % (Auto) Eos % (Auto) Baso % (Auto) Neut # (Auto) Lymph # (Auto) Foard # (Auto) Eos # (Auto) Baso # (Auto) Immature Gran # (Auto) Absolute Nucleated RBC Nucleated RBC % (auto) Sodium Potassium Chloride Carbon Dioxide Anion Gap BUN Creatinine Est Cr Clr Drug Dosing eGFR BUN/Creatinine Ratio Glucose POC Glucose 199 H 163 H 161 H Calcium Troponin I High Sens Urine Color Urine Appearance Urine pH Ur Specific [place] Urine Protein Urine Glucose (UA) Urine Ketones Urine Blood Urine Nitrite Urine Bilirubin Urine Urobilinogen Ur Leukocyte Esterase Urine WBC (Auto) Urine RBC (Auto) U Hyaline Cast (Auto) U Epithel Cells (Auto) Urine Bacteria (Auto) Uric Acid Crystals Urine Yeast 12/10/24 12/10/24 12/10/24 05:53 07:31 11:49 WBC 9.68 RBC 3.59 L Hgb 10.3 L Hct 32.4 L MCV 90.3 MCH 28.7 MCHC 31.8 L RDW Std Deviation 50.1 H RDW Coeff of Renata 15.2 H Plt Count 334 MPV 10.9 Immature Gran % (Auto) 0.4 Neut % (Auto) 84.8 Lymph % (Auto) 11.9 Foard % (Auto) 2.8 Eos % (Auto) 0.0 Baso % (Auto) 0.1 Neut # (Auto) 8.21 H Lymph # (Auto) 1.15 L Foard # (Auto) 0.27 Eos # (Auto) 0.00 Baso # (Auto) 0.01 Immature Gran # (Auto) 0.04 Absolute Nucleated RBC Nucleated RBC % (auto) Sodium 147 H Potassium 3.8 Chloride 114 H Carbon Dioxide 23 Anion Gap 10 BUN 53 H Creatinine 1.71 H Est Cr Clr Drug Dosing 28.9 eGFR 39.72 BUN/Creatinine Ratio 31.0 H Glucose 156 H POC Glucose 133 H 167 H Calcium 9.9 Troponin I High Sens 639.0 H* Urine Color Urine Appearance Urine pH Ur Specific [place] Urine Protein Urine Glucose (UA) Urine Ketones Urine Blood Urine Nitrite Urine Bilirubin Urine Urobilinogen Ur Leukocyte Esterase Urine WBC (Auto) Urine RBC (Auto) U Hyaline Cast (Auto) U Epithel Cells (Auto) Urine Bacteria (Auto) Uric Acid Crystals Urine Yeast 12/10/24 12/11/24 12/11/24 18:27 00:10 05:46 WBC 13.39 H RBC 3.90 L Hgb 11.0 L Hct 34.8 L MCV 89.2 MCH 28.2 MCHC 31.6 L RDW Std Deviation 49.7 H RDW Coeff of Renata 15.3 H Plt Count 393 MPV 11.0 Immature Gran % (Auto) Neut % (Auto) Lymph % (Auto) Foard % (Auto) Eos % (Auto) Baso % (Auto) Neut # (Auto) Lymph # (Auto) Foard # (Auto) Eos # (Auto) Baso # (Auto) Immature Gran # (Auto) Absolute Nucleated RBC 0.04 Nucleated RBC % (auto) 0.3 Sodium 150 H Potassium 3.9 Chloride 116 H Carbon Dioxide 19 L Anion Gap 15 H BUN 73 H D Creatinine 2.31 H D Est Cr Clr Drug Dosing 21.4 eGFR 27.69 BUN/Creatinine Ratio 31.6 H Glucose 180 H POC Glucose 209 H 172 H Calcium 10.2 Troponin I High Sens Urine Color Urine Appearance Urine pH Ur Specific [place] Urine Protein Urine Glucose (UA) Urine Ketones Urine Blood Urine Nitrite Urine Bilirubin Urine Urobilinogen Ur Leukocyte Esterase Urine WBC (Auto) Urine RBC (Auto) U Hyaline Cast (Auto) U Epithel Cells (Auto) Urine Bacteria (Auto) Uric Acid Crystals Urine Yeast 12/11/24 12/11/24 06:00 06:12 WBC RBC Hgb Hct MCV MCH MCHC RDW Std Deviation RDW Coeff of Renata Plt Count MPV Immature Gran % (Auto) Neut % (Auto) Lymph % (Auto) Foard % (Auto) Eos % (Auto) Baso % (Auto) Neut # (Auto) Lymph # (Auto) Foard # (Auto) Eos # (Auto) Baso # (Auto) Immature Gran # (Auto) Absolute Nucleated RBC Nucleated RBC % (auto) Sodium Potassium Chloride Carbon Dioxide Anion Gap BUN Creatinine Est Cr Clr Drug Dosing eGFR BUN/Creatinine Ratio Glucose POC Glucose 165 H Calcium Troponin I High Sens Urine Color Yellow Urine Appearance Turbid A Urine pH 5.0 Ur Specific [place] 1.025 Urine Protein 2+ H Urine Glucose (UA) Negative Urine Ketones Trace H Urine Blood 3+ H Urine Nitrite Negative Urine Bilirubin Negative Urine Urobilinogen Negative Ur Leukocyte Esterase 3+ H Urine WBC (Auto) >50 H Urine RBC (Auto) >20 H U Hyaline Cast (Auto) >20 H U Epithel Cells (Auto) 3-5 H Urine Bacteria (Auto) 3+ H Uric Acid Crystals Present A Urine Yeast Present A PG Care Time/CCT Total # of Minutes Spent Total Time Spent with Patient: Total time spent is greater than 50% in coordination of care (as documented) at patient's floor/unit and/or counseling patient: Coding Level of Care Code 60760 SUB INP/OBS CARE 3/50MIN Diagnoses Acute kidney injury N17.9 CKD (chronic kidney disease), stage III N18.30 Hypernatremia E87.0 UTI (urinary tract infection) due to urinary indwelling Garcia catheter T83.511A; N39.0 Aspiration pneumonia J69.0
[2024-12-11] MEDS: TUBE FEEDING WATER FLUSH PEG SCH (09:32)
[2024-12-11 15:20] LABS: Anion Gap 12.0 (3-11); Blood Urea Nitrogen 81.0 mg/dl (6-23); Calcium 9.9 mg/dl (8.6-10.3); Carbon Dioxide 22.0 mmol/L (21-32); Chloride 115.0 mmol/L (98-107); Creatinine Clr Calc Pharmacy 19.8 ml/min; Glucose 154.0 mg/dl (70-99(Fasting)); Potassium 3.7 mmol/L (3.5-5.1); Sodium 149.0 mmol/L (136-145)
[2024-12-11] MEDS: FUROSEMIDE INJ 20 MG/2 ML VIAL IV ONE (20:28)
--- NOTE | 2024-12-11 22:32 | Hospitalist Progress Note ---
Date of Service December 11, 2024 Assessment & Plan (1) Acute hypoxic respiratory failure: (2) Septic shock: (3) Catheter-associated urinary tract infection: (4) History of CVA (cerebrovascular accident): (5) S/P CABG (coronary artery bypass graft): (6) H/O mitral valve replacement: (7) Hx of deep venous thrombosis: (8) Acute metabolic encephalopathy: (9) BPH (benign prostatic hyperplasia): (10) Hypertension: (11) HFrEF (heart failure with reduced ejection fraction): (12) Cardiomyopathy: (13) S/P percutaneous endoscopic gastrostomy (PEG) tube placement: Plan Complicated and ill 79yo male with prolonged hospitalization at [facility] from 09/24 to 10/31. He underwent 2-vessel CABG and MVR on 09/24, but unfortunately on 09/25 he developed right-sided weakness and aphasia. Imaging showed b/l occipital & cerebellar strokes. His hospitalization was further complicated by GI bleeding, need for transient dialysis, delirium, and need for PEG tube placement. He was discharged with harris catheter in place. In addition to the above he has chronic HFrEF, anemia, prior DVT of right peroneal vein, carotid artery stenosis s/p L CEA and R TCAR, BPH with LUTS, asthma. 12/05 - presented to [facility] ER after he pulled out his PEG tube while at [facility]. It was replaced and he was d/c back to [facility]. Unfortunately he returned early AM of 12/06 with worsening mentation and hypotension. U/a was suggestive of UTI. He was admitted to the ICU for pressor support. Pressors weaned off later in the day on 12/06. #acute hypoxic resp failure - -2nd to combination of acute/chronic HFrEF + b/l pneumonia -had worsened PM of 12/07 into AM of 12/08 with increasing O2 requirements -today, however, O2 requirement is much better and he is more comfortable from pulmonary standpoint with improved lung findings on exam -cont IV zosyn for pneumonia - #5 of such -this will cover typicals, gram negatives, and anaerobes -added doxy for atypicals on 12/10 - day #4 -MRSA swab neg thus defer on MRSA Coverage -Na today 150 - defer on diuretics today -increased free water, consulted palliative care to discuss goals of care. -cont supportive care -added IV steroids due to low-normal cortisol (12) for stress dose purposes on 12/08 -due to periods of tachycardia and hypoxia along with prior h/o DVT in 2023 -doppler negative. Patient is not hypoxic, doubt Pulmonary emboli, will not pursue given allergy, and LASHON. #b/l lower lobe pneumonia - -aspiration vs gram negative vs typical, etc -cont zosyn -cont doxy -on room air. #septic shock - -source - catheter-associated UTI 2nd to e.coli +/- pneumonia -required pressors for part of the day on 12/06 -cont Zosyn IV -patient with recurrent hypotension on 12/07 to 12/08 -in light of sepsis and recurrent hypotension checked cortisol level - only 12 - you would expect cortisol to be much higher in the setting of the severity of this illness -thus added solumedrol 20mg IV q12h initially, then increased to 40mg q8h in preparation for giving IV contrast for a CTA (has contrast allergy) -however, has mild LAHSON today and thus will defer on CTA for now -perhaps attempt to get CTA chest on 12/10 if creatinine will allow #catheter-associated UTI - -2nd to e.coli -cont IV zosyn - day #4 of such #acute metabolic encephalopathy - -2nd to septic shock / UTI / pneumonia / etc. -waxing/waning -needing low-dose zyprexa prn and soft mitts due to him pulling at IVs, not following commands, trying to hit staff, etc -consider repeat head imaging in light of known stroke history to r/o stroke but doubt such #acute/chronic HFrEF - -echo with EF 25-30% -he is multiple liters of fluid + since admission -JVD+ on exam with rales yesterday thus gave bumex on 12/08 -Na level 146 and o2 requirement is improved thus defer on diuretics today -typically on bumex 1mg BID -meto tartrate (low-dose) resumed and titrated again today to 37.5mg BID due to ongoing tachycardia #recent CABG, 2-vessel - September 2024 at [facility] -cont plavix -cont statin -cont meto tartrate -complicated by severe stroke 24 hours post-op #recent MVR - September 2024 at [facility] - -echo this admission with intact valve function #h/o b/l occipital lobe and cerebellar CVAs - complication of his thoracic surgery at [facility] - -with resulting dysphagia, aphasia, weakness #dysphagia - -s/p PEG tube placement at [facility] -PEG self-removed a few days ago while rehabbing at [facility] -replaced on 12/05, and tube study showed proper position -attempted to resume tube feedings at low rate of 20ml/hr on 12/07 but ?aspiration event from such; tube feedings off since that time -strict NPO; use PEG only for meds at this time and free water flushes -with Na level 146 today will increase free water to 150ml q4h -on 12/10, if stable, attempt to resume Peptamen 1.5 feedings #T2DM - -a1c 6.6% -novolog SSI #DVT proph - -heparin 5000 TID #mild LASHON - -admission Cr 1.49 -then improved to 1.4 -now 1.6 today -baseline Cr 1 to 1.1 -sepsis-associated, cardiorenal, diuresis, etc. -cont harris -with mild hypernatremia increased his free water in his PEG tube, and give 1/2 NS 50ml/hr x 250ml -repeat BMP am #anemia - -b12/folate wnl -Fe studies c/w Fe deficiency -H/H low but acceptable -later in the stay could consider IV venofer but defer for now #elevated troponin - -likely myocardial demand ischemia in setting of severe sepsis/shock/UTI/pneumonia #tachycardia - -sinus with ?atrial arrhythmia as well -I have not been able to tell if there are runs of a tach vs a fib interspersed with the sinus tach -repeat echo this admission with EF 25-30% -TSH level wnl -mag/k wnl -cont tele -adjusting meto tartrate I updated the pt's daughter, Oxana Cruz, by phone this evening om 12/10; sadly ER was too busy to give her an update on 12/11. Oxana and her family cont to voice that they understand how poorly their father is doing Oxana is agreeable to palliative care consult: this was completed on 12/11 Admission and Anticipated Discharge Date Admission Date: December 06, 2024 Subjective Patient is confused, lethargic. Physical Exam Physical Exam: gen - lying in bed, not answering questions mouth - MM dry heart - irregular, s1 s2, regular rate, no murmur lungs - b/l basilar rales improved, tachypnea but no distress otherwise abd - soft NT ND BS+; abdominal binder in place; PEG tube site clean ext - no edema, pulses b/l feet 1+ b/l psych - aphasic, sleepy Results & Data Results & Data Vital Signs (Past 12 Hours) Vital Signs Temp Pulse Pulse Resp BP Pulse Ox O2 Del Method 12/11/24 20:20 Room Air 12/11/24 20:12 117 H 166/110 H 12/11/24 19:48 37.1 C 116 H 22 158/107 H 96 Room Air 12/11/24 19:09 122 H 24 93 Room Air 12/11/24 15:45 37.1 C 106 H 19 151/106 H 94 Room Air 12/11/24 15:34 100 H 12/11/24 11:05 36.8 C 87 19 129/101 H 90 Room Air PG Care Time/CCT Total # of Minutes Spent Total Time Spent with Patient: Total time spent is greater than 50% in coordination of care (as documented) at patient's floor/unit and/or counseling patient: Coding Level of Care Code 37769 SUB INP/OBS CARE 3/50MIN Diagnoses Acute hypoxic respiratory failure J96.01 Septic shock A41.9; R65.21 Catheter-associated urinary tract infection T83.511A; N39.0 History of CVA (cerebrovascular accident) Z86.73 S/P CABG (coronary artery bypass graft) Z95.1 H/O mitral valve replacement Z95.2 Hx of deep venous thrombosis Z86.718 Acute metabolic encephalopathy G93.41 Benign prostatic hyperplasia without lower urinary tract symptoms N40.0 Lower urinary tract symptom presence: symptoms absent Hypertension I10 HFrEF (heart failure with reduced ejection fraction) I50.20 Cardiomyopathy I42.9 S/P percutaneous endoscopic gastrostomy (PEG) tube placement Z93.1 (9) BPH (benign prostatic hyperplasia) Lower urinary tract symptom presence: symptoms absent Qualified Code(s): N40.0 - Benign prostatic hyperplasia without lower urinary tract symptoms
[2024-12-12 06:03] LABS: Hematocrit (blood only) 31.8 % (42.0-52.0); Hemoglobin 10.0 g/dl (14.0-18.0); Mean Corpuscular Hemoglobin 27.7 pg (25.0-34.0); Mean Corpuscular Volume 88.1 fL (80.0-100.0); Platelet Count 222 K/uL (130-400); RDW Standard Deviation 49.1 fL (36.4-46.3); Red Blood Count 3.61 M/uL (4.70-6.10); White Blood Count 8.34 K/ul (4.8-10.8)
[2024-12-12 06:39] LABS: Anion Gap 14.0 (3-11); Calcium 9.3 mg/dl (8.6-10.3); Carbon Dioxide 21.0 mmol/L (21-32); Chloride 111.0 mmol/L (98-107); Potassium 3.3 mmol/L (3.5-5.1); Sodium 146.0 mmol/L (136-145)
[2024-12-12 06:44] LABS: Blood Urea Nitrogen 94.0 mg/dl (6-23); Creatinine Clr Calc Pharmacy 18.1 ml/min; Glucose 153.0 mg/dl (70-99(Fasting))
--- NOTE | 2024-12-12 08:57 | Nephrology Progress Note ---
Date of Service December 12, 2024 Assessment & Plan (1) Acute kidney injury: Plan: * Nonoliguric LASHON. No recent exposure to KANG/ARB, NSAID, IV contrast or known nephrotoxic agents. 12/[address] negative for obstruction. Garcia catheter is in place. 12/07 and 12/11 urine sediment was negative for granular casts. Patient has been clinically dehydrated w/ hypernatremia * Continue supportive care, antibiotic therapy * Monitor daily BMP (2) CKD (chronic kidney disease), stage III: Plan: * Baseline serum creatinine has been 1.01.4 w/ EGFR 40 cc/min (3) Hypernatremia: Plan: * Serum improved to Na 146 mmol/L this am * Continue free water PEG tube flushes 200 cc q4 hrs and monitor response (4) UTI (urinary tract infection) due to urinary indwelling Garcia catheter: Plan: * Chronic indwelling Garcia catheter * E. Coli urosepsis - resolved (5) Aspiration pneumonia: Admission and Anticipated Discharge Date Admission Date: December 06, 2024 Subjective Aphasic. Wearing mittens due to prior agitation. Now sedated Review of Systems Review of Systems: Unobtainable due to cognitive status Physical Exam Constitutional: not in distress Eyes: PERRL, conjunctivae normal, anicteric sclerae Neck: trachea midline, no thyromegaly Cardiovascular: Rate/Rhythm: + irregularly irregular Heart Sounds: no murmur Gastrointestinal (Abdomen): normal bowel sounds, soft, nontender, no hepatosplenomegaly Neurologic: Speech / Cognition: + expressive aphasia Results & Data Vital Signs (Past 12 Hours) Vital Signs Temp Pulse Pulse Resp BP Pulse Ox O2 Del Method 12/12/24 07:49 Room Air 12/12/24 06:54 78 18 94 Room Air 12/12/24 03:29 37.3 C 112 H 28 H 139/98 91 Room Air 12/11/24 22:50 37.1 C 85 22 119/70 96 Room Air 12/11/24 21:57 94 H Laboratory Results Laboratory Results - last 24 hr 12/11/24 12/11/24 12/11/24 12:19 14:31 17:58 WBC RBC Hgb Hct MCV MCH MCHC RDW Std Deviation RDW Coeff of Renata Plt Count MPV Absolute Nucleated RBC Nucleated RBC % (auto) Sodium 149 H Potassium 3.7 Chloride 115 H Carbon Dioxide 22 Anion Gap 12 H BUN 81 H Creatinine 2.49 H Est Cr Clr Drug Dosing 19.8 eGFR 25.30 BUN/Creatinine Ratio 32.5 H Glucose 154 H POC Glucose 161 H 172 H Calcium 9.9 12/12/24 12/12/24 12/12/24 00:00 05:41 06:32 WBC 8.34 RBC 3.61 L Hgb 10.0 L Hct 31.8 L MCV 88.1 MCH 27.7 MCHC 31.4 L RDW Std Deviation 49.1 H RDW Coeff of Renata 15.3 H Plt Count 222 MPV 10.9 Absolute Nucleated RBC 0.07 Nucleated RBC % (auto) 0.8 Sodium 146 H Potassium 3.3 L Chloride 111 H Carbon Dioxide 21 Anion Gap 14 H BUN 94 H Creatinine 2.73 H Est Cr Clr Drug Dosing 18.1 eGFR 22.66 BUN/Creatinine Ratio 34.4 H Glucose 153 H POC Glucose 166 H 162 H Calcium 9.3 PG Care Time/CCT Total # of Minutes Spent Total Time Spent with Patient: Total time spent is greater than 50% in coordination of care (as documented) at patient's floor/unit and/or counseling patient: Coding Level of Care Code 03555 SUB INP/OBS CARE 3/50MIN Diagnoses Acute kidney injury N17.9 CKD (chronic kidney disease), stage III N18.30 Hypernatremia E87.0 UTI (urinary tract infection) due to urinary indwelling Garcia catheter T83.511A; N39.0 Aspiration pneumonia J69.0
[2024-12-12] MEDS: POTASSIUM CHLORIDE / WTR 10 MEQ/100 ML PLCT IV SCH (12:29)
--- NOTE | 2024-12-12 13:18 | Electrocardiogram Report ---
Test Reason : Blood Pressure : */* mmHG Vent. Rate : 149 BPM Atrial Rate : 298 BPM P-R Int : * ms QRS Dur : 138 ms QT Int : 346 ms P-R-T Axes : 25 65 -36 degrees QTcB Int : 544 ms Poor data quality, interpretation may be adversely affected Supraventricular tachycardia , could be sinut tachycardia Left bundle branch block Abnormal ECG When compared with ECG of 06-Dec-2024 01:05, Vent. rate has increased by [address] more elevated in Anterior leads Confirmed by Bryan Rodriguez ([id number]) on 12/12/2024 1:18:08 PM Referred By: [facility] Confirmed By: Bryan Rodriguez
--- NOTE | 2024-12-12 17:40 | Hospitalist Progress Note ---
Date of Service December 12, 2024 Assessment & Plan (1) Acute hypoxic respiratory failure: (2) Septic shock: (3) Catheter-associated urinary tract infection: (4) History of CVA (cerebrovascular accident): (5) S/P CABG (coronary artery bypass graft): (6) H/O mitral valve replacement: (7) Hx of deep venous thrombosis: (8) Acute metabolic encephalopathy: (9) BPH (benign prostatic hyperplasia): (10) Hypertension: (11) HFrEF (heart failure with reduced ejection fraction): (12) Cardiomyopathy: (13) S/P percutaneous endoscopic gastrostomy (PEG) tube placement: Plan Complicated and ill 79yo male with prolonged hospitalization at [facility] from 09/24 to 10/31. He underwent 2-vessel CABG and MVR on 09/24, but unfortunately on 09/25 he developed right-sided weakness and aphasia. Imaging showed b/l occipital & cerebellar strokes. His hospitalization was further complicated by GI bleeding, need for transient dialysis, delirium, and need for PEG tube placement. He was discharged with harris catheter in place. In addition to the above he has chronic HFrEF, anemia, prior DVT of right peroneal vein, carotid artery stenosis s/p L CEA and R TCAR, BPH with LUTS, asthma. 12/05 - presented to [facility] ER after he pulled out his PEG tube while at [facility]. It was replaced and he was d/c back to [facility]. Unfortunately he returned early AM of 12/06 with worsening mentation and hypotension. U/a was suggestive of UTI. He was admitted to the ICU for pressor support. Pressors weaned off later in the day on 12/06. #acute hypoxic resp failure - -2nd to combination of acute/chronic HFrEF + b/l pneumonia -antibiotics course of zosyn and doxy will be completed on 12/13 -respiratory status has improved, however overall status has been poor. -MRSA swab neg thus defer on MRSA Coverage #hypernatremia/LASHON/metabolic encepalopathy -Na today improving to 146 from 150 - defer on diuretics today -increased free water, consulted palliative care to discuss goals of care. -cont supportive care -despite this,LASHON is worsened and patient is not eating much. -will cut back stress steroids to daily #b/l lower lobe pneumonia - -aspiration vs gram negative vs typical, etc -cont zosyn -cont doxy -on room air. will complete antibiotics on 12/13 #septic shock - resolved -source - catheter-associated UTI 2nd to e.coli +/- pneumonia -required pressors for part of the day on 12/06 -cont Zosyn IV -patient with recurrent hypotension on 12/07 to 12/08 -in light of sepsis and recurrent hypotension checked cortisol level - only 12 - you would expect cortisol to be much higher in the setting of the severity of this illness -thus added solumedrol 20mg IV q12h initially, then increased to 40mg q8h in preparation for giving IV contrast for a CTA (has contrast allergy) -however, has mild LASHON today and thus will defer on CTA for now -perhaps attempt to get CTA chest on 12/10 if creatinine will allow #catheter-associated UTI - -2nd to e.coli -cont IV zosyn #acute metabolic encephalopathy - -2nd to septic shock / UTI / pneumonia / etc. -waxing/waning -needing low-dose zyprexa prn and soft mitts due to him pulling at IVs, not following commands, trying to hit staff, etc -consider repeat head imaging in light of known stroke history to r/o stroke but doubt such #acute/chronic HFrEF - -echo with EF 25-30% -he is multiple liters of fluid + since admission -JVD+ on exam with rales yesterday thus gave bumex on 12/08 -Na level 146 and o2 requirement is improved thus defer on diuretics today -typically on bumex 1mg BID -meto tartrate (low-dose) resumed and titrated again today to 37.5mg BID due to ongoing tachycardia #recent CABG, 2-vessel - [place] [facility] [place] plavix -cont statin -cont meto tartrate -complicated by severe stroke 24 hours post-op #recent MVR - September [place]24 at [facility] [place] -echo this admission with intact valve function #h/o b/l occipital lobe and cerebellar CVAs - complication of his thoracic surgery at [facility] - -with resulting dysphagia, aphasia, weakness #dysphagia - -s/p PEG tube placement at [facility] -PEG self-removed a few days ago while rehabbing at [facility] -replaced on 12/05, and tube study showed proper position -attempted to resume tube feedings at low rate of 20ml/hr on 12/07 but ?aspiration event from such; tube feedings off since that time -strict NPO; use PEG only for meds at this time and free water flushes -with Na level 146 today will increase free water to 150ml q4h -on 12/10, if stable, attempt to resume Peptamen 1.5 feedings #T2DM - -a1c 6.6% -novolog SSI #DVT proph - -heparin 5000 TID # LASHON - -admission Cr 1.49 -now above 2.5, increased free water -baseline Cr 1 to 1.1 -sepsis-associated, cardiorenal, diuresis, etc. -cont harris #anemia - -b12/folate wnl -Fe studies c/w Fe deficiency -H/H low but acceptable -later in the stay could consider IV venofer but defer for now #elevated troponin - -likely myocardial demand ischemia in setting of severe sepsis/shock/UTI/pneumonia #tachycardia - improved -sinus with ?atrial arrhythmia as well -I have not been able to tell if there are runs of a tach vs a fib interspersed with the sinus tach -repeat echo this admission with EF 25-30% -TSH level wnl -mag/k wnl -cont tele -adjusting meto tartrate I updated the pt's daughter, Oxana Cruz, by phone this evening om 12/12; still undecided, but no longer wants artificial feeding, appears to be leaning towards a comfort route, but this has not pavel decided.. Oxana and her family cont to voice that they understand how poorly their father is doing Admission and Anticipated Discharge Date Admission Date: December 06, 2024 Subjective 79 yo male remains lethargic, requiring mitts. Physical Exam Physical Exam: gen - lying in bed, not answering questions mouth - MM dry heart - irregular, s1 s2, regular rate, no murmur lungs - b/l basilar rales improved,no longer tachypnic abd - soft NT ND BS+; abdominal binder in place; PEG tube site clean ext - no edema, pulses b/l feet 1+ b/l psych - aphasic, sleepy Results & Data Results & Data Vital Signs (Past 12 Hours) Vital Signs Temp Pulse Pulse Resp BP Pulse Ox O2 Del Method 12/12/24 15:15 36.7 C 83 22 128/57 L 93 Room Air 12/12/24 14:26 84 12/12/24 11:29 36.5 C 98 H 18 137/84 93 Room Air 12/12/24 07:49 Room Air 12/12/24 07:00 72 12/12/24 06:54 78 18 94 Room Air PG Care Time/CCT Total # of Minutes Spent Total Time Spent with Patient: Total time spent is greater than 50% in coordination of care (as documented) at patient's floor/unit and/or counseling patient: Coding Level of Care Code 66323 SUB INP/OBS CARE 3/50MIN Diagnoses Acute hypoxic respiratory failure J96.01 Septic shock A41.9; R65.21 Catheter-associated urinary tract infection T83.511A; N39.0 History of CVA (cerebrovascular accident) Z86.73 S/P CABG (coronary artery bypass graft) Z95.1 H/O mitral valve replacement Z95.2 Hx of deep venous thrombosis Z86.718 Acute metabolic encephalopathy G93.41 Benign prostatic hyperplasia without lower urinary tract symptoms N40.0 Lower urinary tract symptom presence: symptoms absent Hypertension I10 HFrEF (heart failure with reduced ejection fraction) I50.20 Cardiomyopathy I42.9 S/P percutaneous endoscopic gastrostomy (PEG) tube placement Z93.1 (9) BPH (benign prostatic hyperplasia) Lower urinary tract symptom presence: symptoms absent Qualified Code(s): N40.0 - Benign prostatic hyperplasia without lower urinary tract symptoms
[2024-12-12] MEDS: PIPERACILLIN/TAZOBACTAM 4.5 GM/100 ML BAG IV SCH (21:34)
--- NOTE | 2024-12-13 07:37 | Hospitalist Progress Note ---
Date of Service December 13, 2024 Assessment & Plan (1) Acute hypoxic respiratory failure: (2) Septic shock: (3) Catheter-associated urinary tract infection: (4) History of CVA (cerebrovascular accident): (5) S/P CABG (coronary artery bypass graft): (6) H/O mitral valve replacement: (7) Hx of deep venous thrombosis: (8) Acute metabolic encephalopathy: (9) BPH (benign prostatic hyperplasia): (10) Hypertension: (11) HFrEF (heart failure with reduced ejection fraction): (12) Cardiomyopathy: (13) S/P percutaneous endoscopic gastrostomy (PEG) tube placement: Plan Complicated and ill 79yo male with PMHx of CAD s/p CABG (09/24/24), moderate mitral valve regurgitation, h/o CVA, chronic HFrEF (EF: 25-30%), right DVT peroneal DVT (01/2024), HTN, HLD, carotid artery stenosis s/p L CEA and R TCAR, BPH with LUTS, asthma. He has had prolonged hospitalization at [facility] from to 10/31. He underwent 2-vessel CABG and MVR on 09/24, but unfortunately on 09/25 he developed right-sided weakness and aphasia. Imaging showed b/l occipital & cerebellar strokes. His hospitalization was further complicated by GI bleeding, need for transient dialysis, delirium, and need for PEG tube placement. He was discharged with harris catheter in place. 12/05 - presented to [facility] ER after he pulled out his PEG tube while at [facility]. It was replaced and he was d/c back to [facility]. Unfortunately he returned early AM of 12/06 with worsening mentation and hypotension. U/a was suggestive of UTI. He was admitted to the ICU for pressor support. Pressors weaned off later in the day on 12/06. #acute hypoxic resp failure - -2nd to combination of acute/chronic HFrEF + b/l pneumonia -antibiotics course of zosyn and doxy (completed on 12/13) -respiratory status has improved, however overall status has been poor. -MRSA swab neg thus defer on MRSA Coverage #hypernatremia/LASHON/metabolic encephalopathy -Na today improving to 146 from 150 - defer on diuretics today -increased free water, consulted palliative care to discuss goals of care. -cont supportive care -despite this, LASHON is worsened and patient is not eating much. -will cut back stress steroids to daily #b/l lower lobe pneumonia - -aspiration vs gram negative vs typical, etc -cont zosyn and doxy (completed abx on 12/13) -on room air. #septic shock - resolved -source - catheter-associated UTI 2nd to e.coli +/- pneumonia -required pressors for part of the day on 12/06 -cont Zosyn IV -patient with recurrent hypotension on 12/07 to 12/08 -in light of sepsis and recurrent hypotension checked cortisol level - only 12 - you would expect cortisol to be much higher in the setting of the severity of this illness -thus added solumedrol 20mg IV q12h initially, then increased to 40mg q8h in preparation for giving IV contrast for a CTA (has contrast allergy) -however, has mild LASHON today and thus will defer on CTA for now -perhaps attempt to get CTA chest on 12/10 if creatinine will allow #catheter-associated UTI - -2nd to e.coli -cont IV zosyn #acute metabolic encephalopathy - -2nd to septic shock / UTI / pneumonia / etc. -waxing/waning -needing low-dose zyprexa prn and soft mitts due to him pulling at IVs, not following commands, trying to hit staff, etc -consider repeat head imaging in light of known stroke history to r/o stroke but doubt such #acute/chronic HFrEF - -echo with EF 25-30% -he is multiple liters of fluid + since admission -JVD+ on exam with rales thus gave bumex on 12/08 -Na level 146 and o2 requirement is improved thus defer on diuretics today -typically on bumex 1mg BID -meto tartrate (low-dose) resumed and titrated again today to 37.5mg BID due to ongoing tachycardia #recent CABG, 2-vessel - September 2024 at [facility] [place] -cont plavix -cont statin -cont meto tartrate -complicated by severe stroke 24 hours post-op #recent MVR - September 2024 at [facility] [place] - -echo this admission with intact valve function #h/o b/l occipital lobe and cerebellar CVAs - complication of his thoracic surgery at [facility] [place] - -with resulting dysphagia, aphasia, weakness #dysphagia - -s/p PEG tube placement at [facility] -PEG self-removed a few days ago while rehabbing at [facility] -replaced on 12/05, and tube study showed proper position -attempted to resume tube feedings at low rate of 20ml/hr on 12/07 but ?aspiration event from such; tube feedings off since that time -strict NPO; use PEG only for meds at this time and free water flushes -with Na level 146 today will increase free water to 150ml q4h -on 12/10, if stable, attempt to resume Peptamen 1.5 feedings #T2DM - -a1c 6.6% -novolog SSI #DVT proph - -heparin 5000 TID # LASHON - -admission Cr 1.49 -now above 2.5, increased free water -baseline Cr 1 to 1.1 -sepsis-associated, cardiorenal, diuresis, etc. -cont harris #anemia - -b12/folate wnl -Fe studies c/w Fe deficiency -H/H low but acceptable -later in the stay could consider IV venofer but defer for now #elevated troponin - -likely myocardial demand ischemia in setting of severe sepsis/shock/UTI/pneumonia #tachycardia - improved -sinus with ?atrial arrhythmia as well -I have not been able to tell if there are runs of a tach vs a fib interspersed with the sinus tach -repeat echo this admission with EF 25-30% -TSH level wnl -mag/k wnl -cont tele -adjusting meto tartrate 12/12: Dr. Montse updated pt's daughter, Oxana Cruz, by phone, still undecided, but no longer wants artificial feeding, appears to be leaning towards a comfort route, but this has not pavel decided.. Oxana and her family cont to voice that they understand how poorly their father is doing. 12/13: Spoke with Oxana at length. She already has a lot going on with her immediate family and she is struggling to make the right decision for her dad. She wants to make sure she is doing the right thing for him. We discussed end of life and the dying process. She wants one more set of labs to be done tomorrow, so she can make better decision. She does have family in the medical field who is supporting her and helping her guide her in the process. Admission and Anticipated Discharge Date Admission Date: December 06, 2024 Subjective No acute events overnight Currently not offering any complaints. Did request to be readjusted in bed. Review of Systems Review of Systems: No able to complete full ROS Physical Exam Physical Exam: Gen: no acute distress, lying in bed comfortable HEENT: NC/AT, dry MM Lungs: nonlabored breathing, congested cough CVS: s1s2nl, RRR Abd: nl bowel sounds, soft, NT / ND : + harris Ext: no edema, arms in soft mitts Neuro: awake and alert Psych: calm cooperative Results & Data Results & Data Vital Signs (Past 12 Hours) Vital Signs Temp Pulse Pulse Resp BP Pulse Ox O2 Del Method 12/13/24 07:08 36.4 C L 95 H 26 H 153/97 H 12/13/24 04:05 36.6 C 88 20 133/83 99 Room Air 12/13/24 00:39 Room Air 12/12/24 23:10 36.8 C 89 25 H 117/58 L 97 Room Air 12/12/24 21:43 109 H 12/12/24 20:01 95 H 26 H 98 Room Air 12/12/24 19:30 36.7 C 106 H 26 H 154/90 H 100 Room Air PG Care Time/CCT Total # of Minutes Spent Total Time Spent with Patient: Total time spent is greater than 50% in coordination of care (as documented) at patient's floor/unit and/or counseling patient: Coding Level of Care Code 10649 SUB INP/OBS CARE 3/50MIN Diagnoses Acute hypoxic respiratory failure J96.01 Septic shock A41.9; R65.21 Catheter-associated urinary tract infection T83.511A; N39.0 History of CVA (cerebrovascular accident) Z86.73 S/P CABG (coronary artery bypass graft) Z95.1 H/O mitral valve replacement Z95.2 Hx of deep venous thrombosis Z86.718 Acute metabolic encephalopathy G93.41 Benign prostatic hyperplasia without lower urinary tract symptoms N40.0 Lower urinary tract symptom presence: symptoms absent Hypertension I10 HFrEF (heart failure with reduced ejection fraction) I50.20 Cardiomyopathy I42.9 S/P percutaneous endoscopic gastrostomy (PEG) tube placement Z93.1 (9) BPH (benign prostatic hyperplasia) Lower urinary tract symptom presence: symptoms absent Qualified Code(s): N40.0 - Benign prostatic hyperplasia without lower urinary tract symptoms
--- NOTE | 2024-12-13 10:47 | Nephrology Progress Note ---
Date of Service December 13, 2024 Assessment & Plan (1) Acute kidney injury: (2) Hypernatremia: (3) Weakness: Plan 79 year old male with baseline serum creatinine 1.01.4 mg/dl admitted to hospital on 12/06/24 with urosepsis, aspiration pneumonia and required pressor support. Developed LASHON with progressive worsening of kidney function over last few days. Mr. Salamanca was hospitalized at [facility] 09/24/2024 - 10/31/2024 and underwent two-vessel CABG and MVR, complicated by b/l occipital and cerebellar CVA resulting in right-sided weakness and aphasia. He also developed GI bleeding, need for PEG tube placement and was transiently on hemodialysis. He was discharged to [facility] with a both a PEG tube and Garcia catheter in place. His medical history is also significant for diastolic heart failure, anemia, prior DVT of the right peroneal vein, carotid artery stenosis status post left CEA and R TCAR, BPH with LUTS and asthma. Lab yesterday showed progressive worsening of kidney function, creatinine up to 2.4, sodium was 152. Currently on free water and sodium improved to 146 mmol/L. --Continue on free water 200 mL every 2 hours via PEG tube. --Overall prognosis guarded, appreciate ongoing discussion regarding goals of care. Admission and Anticipated Discharge Date Admission Date: December 06, 2024 Subjective Mr. Salamanca was seen and evaluated this morning. He remained quite lethargic, but seemed comfortable, did not communicate in any meaningful way. Blood pressure elevated. No lab done this morning but kidney function has been progressively worsening. Sodium improved to 146, getting free water. Review of Systems Review of Systems: Unobtainable due to reduced consciousness Physical Exam Constitutional: WD/WN, vitals as above + ill appearing, + altered mental status, + lethargic and + underweight; no acute distress Respiratory: Auscultation: lungs clear to auscultation bilaterally Cardiovascular: Rate/Rhythm: regular rate and regular rhythm Heart Sounds: normal S1 and normal S2 Extremities: no edema Neurologic: + obtunded Results & Data Vital Signs (Past 12 Hours) Vital Signs Temp Pulse Pulse Resp BP Pulse Ox O2 Del Method 12/13/24 08:58 84 12/13/24 08:00 Room Air 12/13/24 07:08 36.4 C L 95 H 26 H 153/97 H 12/13/24 04:05 36.6 C 88 20 133/83 99 Room Air 12/13/24 00:39 Room Air 12/12/24 23:10 36.8 C 89 25 H 117/58 L 97 Room Air PG Care Time/CCT Total # of Minutes Spent Total Time Spent with Patient: Total time spent is greater than 50% in coordination of care (as documented) at patient's floor/unit and/or counseling patient: Coding Level of Care Code 46155 SUB INP/OBS CARE 2/35MIN Diagnoses Acute kidney injury N17.9 Hypernatremia E87.0 Weakness R53.1
[2024-12-13] MEDS: ACETAMINOPHEN 1,000 MG/100 ML VIAL IV PRN (23:47)
[2024-12-14 06:09] LABS: Hematocrit (blood only) 32.3 % (42.0-52.0); Hemoglobin 10.7 g/dl (14.0-18.0); Mean Corpuscular Hemoglobin 28.8 pg (25.0-34.0); Mean Corpuscular Volume 86.8 fL (80.0-100.0); Platelet Count 231 K/uL (130-400); RDW Standard Deviation 46.7 fL (36.4-46.3); Red Blood Count 3.72 M/uL (4.70-6.10); White Blood Count 9.07 K/ul (4.8-10.8)
[2024-12-14 06:44] LABS: Anion Gap 9.0 (3-11); Blood Urea Nitrogen 55.0 mg/dl (6-23); Calcium 9.0 mg/dl (8.6-10.3); Carbon Dioxide 22.0 mmol/L (21-32); Chloride 110.0 mmol/L (98-107); Creatinine Clr Calc Pharmacy 44.2 ml/min; Glucose 115.0 mg/dl (70-99(Fasting)); Magnesium 2.3 mg/dl (1.7-2.4); Potassium 3.4 mmol/L (3.5-5.1); Sodium 141.0 mmol/L (136-145)
[2024-12-14 07:37] VITALS: RESP 28
--- NOTE | 2024-12-14 10:12 | Nephrology Progress Note ---
Date of Service December 14, 2024 Assessment & Plan (1) Acute kidney injury: (2) Hypernatremia: (3) Weakness: Plan 79 year old male with baseline serum creatinine 1.01.4 mg/dl admitted to hospital on 12/06/24 with urosepsis, aspiration pneumonia and required pressor support. Developed LASHON with progressive worsening of kidney function over last few days. Mr. Salamanca was hospitalized at [facility] 09/24/2024 - 10/31/2024 and underwent two-vessel CABG and MVR, complicated by b/l occipital and cerebellar CVA resulting in right-sided weakness and aphasia. He also developed GI bleeding, need for PEG tube placement and was transiently on hemodialysis. He was discharged to [facility] with a both a PEG tube and Garcia catheter in place. His medical history is also significant for diastolic heart failure, anemia, prior DVT of the right peroneal vein, carotid artery stenosis status post left CEA and R TCAR, BPH with LUTS and asthma. Lab this morning showed improvement in kidney function, creatinine down to 1.3, serum sodium improved to 141 mmol/L. --Decrease free water to 150 mL every 2 hours via PEG tube. --Overall prognosis guarded, appreciate ongoing discussion regarding goals of care. -- Admission and Anticipated Discharge Date Admission Date: December 06, 2024 Subjective Mr. Salamanca was seen and evaluated this morning. He remained quite lethargic, awake but did not answer any question or communicate in any meaningful way. Blood pressure fair.labs this morning was notable for improvement in kidney function, creatinine down to 1.3, sodium improved to 141 on free water. Review of Systems Review of Systems: Unobtainable due to mental health condition Physical Exam Constitutional: WD/WN, vitals as above + ill appearing, + altered mental status, + lethargic and + underweight; no acute distress Respiratory: Auscultation: lungs clear to auscultation bilaterally Cardiovascular: Rate/Rhythm: regular rate and regular rhythm Heart Sounds: normal S1 and normal S2 Extremities: no edema Results & Data Vital Signs (Past 12 Hours) Vital Signs Temp Pulse Pulse Resp BP Pulse Ox O2 Del Method 12/14/24 09:27 121/65 12/14/24 07:53 95 H 12/14/24 07:53 Room Air 12/14/24 07:35 37.1 C 103 H 28 H 150/105 H 94 Room Air 12/14/24 06:52 108 H 18 94 Room Air 12/14/24 04:14 36.5 C 96 H 27 H 150/86 H 92 Room Air 12/13/24 23:58 Room Air 12/13/24 23:41 36.4 C L 73 21 137/77 98 Room Air PG Care Time/CCT Total # of Minutes Spent Total Time Spent with Patient: Total time spent is greater than 50% in coordination of care (as documented) at patient's floor/unit and/or counseling patient: Coding Level of Care Code 36210 SUB INP/OBS CARE 2/35MIN Diagnoses Acute kidney injury N17.9 Hypernatremia E87.0 Weakness R53.1
[2024-12-14 14:47] VITALS: BP 172/105; PULSE 86; TEMP 98.2
[2024-12-14] MEDS: POTASSIUM CHLORIDE / WTR 10 MEQ/100 ML PLCT IV SCH (15:17)
[2024-12-14] MEDS: TUBE FEEDING WATER FLUSH PEG SCH (15:45)
[2024-12-14] MEDS: POTASSIUM CHLORIDE 20 MEQ/15 ML UDC PEG STA (15:45)
[2024-12-14 16:00] VITALS: O2SAT 98
[2024-12-14] MEDS ORDERED: HALOPERIDOL ORAL SOLN 2 MG/ML PO PRN (18:41)
[2024-12-14] MEDS ORDERED: ONDANSETRON INJ 2 MG/ML 2 ML VIAL IV PRN (18:41)
--- NOTE | 2024-12-14 19:01 | Hospitalist Progress Note ---
Date of Service December 14, 2024 Assessment & Plan (1) Acute hypoxic respiratory failure: (2) Septic shock: (3) Catheter-associated urinary tract infection: (4) History of CVA (cerebrovascular accident): (5) S/P CABG (coronary artery bypass graft): (6) H/O mitral valve replacement: (7) Hx of deep venous thrombosis: (8) Acute metabolic encephalopathy: (9) BPH (benign prostatic hyperplasia): (10) Hypertension: (11) HFrEF (heart failure with reduced ejection fraction): (12) Cardiomyopathy: (13) S/P percutaneous endoscopic gastrostomy (PEG) tube placement: Plan Complicated and ill 79yo male with PMHx of CAD s/p CABG (09/24/24), moderate mitral valve regurgitation, h/o CVA, chronic HFrEF (EF: 25-30%), right DVT peroneal DVT (01/2024), HTN, HLD, carotid artery stenosis s/p L CEA and R TCAR, BPH with LUTS, asthma. He has had prolonged hospitalization at [facility] from to 10/31. He underwent 2-vessel CABG and MVR on 09/24, but unfortunately on 09/25 he developed right-sided weakness and aphasia. Imaging showed b/l occipital & cerebellar strokes. His hospitalization was further complicated by GI bleeding, need for transient dialysis, delirium, and need for PEG tube placement. He was discharged with harris catheter in place. 12/05 - presented to [facility] ER after he pulled out his PEG tube while at [facility]. It was replaced and he was d/c back to [facility]. Unfortunately he returned early AM of 12/06 with worsening mentation and hypotension. U/a was suggestive of UTI. He was admitted to the ICU for pressor support. Pressors weaned off later in the day on 12/06. #acute hypoxic resp failure - #hypernatremia/LASHON/acute metabolic encephalopathy #b/l lower lobe pneumonia - #septic shock - resolved #catheter-associated UTI - #acute/chronic HFrEF - #[place] [facility] [place] [facility] [place]h/o b/l occipital lobe and cerebellar CVAs - complication of his thoracic [place] [facility] [place] - comfort measures - all non essential medications discontinued #Uncontrolled pain - hydromorphone 0.5-1mg IV q2h prn for mod to severe pain - adjuvant lorazepam 0.5mg IV q4h prn #Uncontrolled dyspnea - hydromorphone and lorazepam as above - supplemental oxygen prn for comfort, not to be titrated to pulse ox #Terminal Agitation - haloperidol prn - d/c olanzapine - TADA method - r/o urinary retention (ensure harris is flowing) or constipation #Bowel regimen - prn bisacodyl #Secretions - glycopyrrolate IV 12/12: Dr. Montes updated pt's daughter, Oxana Cruz, by phone, still undecided, but no longer wants artificial feeding, appears to be leaning towards a comfort route, but this has not pavel decided.. Oxana and her family cont to voice that they understand how poorly their father is doing. 12/13: Spoke with Oxana at length. She already has a lot going on with her immediate family and she is struggling to make the right decision for her dad. She wants to make sure she is doing the right thing for him. We discussed end of life and the dying process. She wants one more set of labs to be done tomorrow, so she can make better decision. She does have family in the medical field who is supporting her and helping her guide her in the process. 12/14: Two big conversations held with patient today with RN at bedside. 1. regarding tube feeds, he stated he does not want any more tube feeds. 2. regarding how to take care of him. discussed either doing comfort focused treatment and letting nature take its course and be at peace OR focus on aggressively getting better. He chose "peace". Discussed with patient's daughter Oxana. She saw him at bedside later in the day. She requested FULL comfort measures. She wants to stop all non comfort medications. No PEG tube use. She is requesting full comfort for him. Admission and Anticipated Discharge Date Admission Date: December 06, 2024 Subjective No acute events overnight Two big conversations held with patient today with RN at bedside. 1. regarding tube feeds, he stated he does not want any more tube feeds. 2. regarding how to take care of him. discussed either doing comfort focused treatment and letting nature take its course and be at peace OR focus on aggressively getting better. He chose "peace". Discussed with patient's daughter Oxana. She saw him at bedside later in the day. She requested FULL comfort measures. She wants to stop all non comfort medications. No PEG tube use. She is requesting full comfort for him. Review of Systems Review of Systems: No able to complete full ROS Physical Exam Physical Exam: Gen: no acute distress, lying in bed comfortable HEENT: NC/AT, dry MM Lungs: nonlabored breathing, congested cough CVS: s1s2nl, RRR Abd: nl bowel sounds, soft, NT / ND : + harris Ext: no edema, arms in soft mitts Neuro: awake and alert Psych: calm cooperative Results & Data Results & Data Vital Signs (Past 12 Hours) Vital Signs Temp Pulse Pulse Resp BP Pulse Ox O2 Del Method 12/14/24 14:42 36.8 C 86 28 H 172/105 H 98 Room Air 12/14/24 11:44 97 Room Air 12/14/24 11:40 36.0 C L 77 28 H 128/77 Room Air 12/14/24 09:27 121/65 12/14/24 07:53 95 H 12/14/24 07:53 Room Air 12/14/24 07:35 37.1 C 103 H 28 H 150/105 H 94 Room Air PG Care Time/CCT Total # of Minutes Spent Total Time Spent with Patient: Total time spent is greater than 50% in coordination of care (as documented) at patient's floor/unit and/or counseling patient: Coding Level of Care Code 74043 SUB INP/OBS CARE 3/50MIN Diagnoses Acute hypoxic respiratory failure J96.01 Septic shock A41.9; R65.21 Catheter-associated urinary tract infection T83.511A; N39.0 History of CVA (cerebrovascular accident) Z86.73 S/P CABG (coronary artery bypass graft) Z95.1 H/O mitral valve replacement Z95.2 Hx of deep venous thrombosis Z86.718 Acute metabolic encephalopathy G93.41 Benign prostatic hyperplasia without lower urinary tract symptoms N40.0 Lower urinary tract symptom presence: symptoms absent Hypertension I10 HFrEF (heart failure with reduced ejection fraction) I50.20 Cardiomyopathy I42.9 S/P percutaneous endoscopic gastrostomy (PEG) tube placement Z93.1 (9) BPH (benign prostatic hyperplasia) Lower urinary tract symptom presence: symptoms absent Qualified Code(s): N40.0 - Benign prostatic hyperplasia without lower urinary tract symptoms
[2024-12-14] MEDS ORDERED: METOPROLOL TARTRATE 50 MG TAB PEG SCH (21:00)
[2024-12-15] MEDS: HYDROmorphone INJ 0.5 MG/0.5 ML SYR IV PRN (03:23)
[2024-12-15] MEDS: GLYCOPYRROLATE 0.2 MG/ML VIAL IV PRN (03:23)
[2024-12-15] MEDS: HYDROmorphone INJ 1 MG/ML SYRINGE IV PRN (09:55)
--- NOTE | 2024-12-16 09:56 | Hospitalist Progress Note ---
Date of Service December 15, 2024 Assessment & Plan (1) Acute hypoxic respiratory failure: (2) Septic shock: (3) Catheter-associated urinary tract infection: (4) History of CVA (cerebrovascular accident): (5) S/P CABG (coronary artery bypass graft): (6) H/O mitral valve replacement: (7) Hx of deep venous thrombosis: (8) Acute metabolic encephalopathy: (9) BPH (benign prostatic hyperplasia): (10) Hypertension: (11) HFrEF (heart failure with reduced ejection fraction): (12) Cardiomyopathy: (13) S/P percutaneous endoscopic gastrostomy (PEG) tube placement: Plan Complicated and ill 79yo male with PMHx of CAD s/p CABG (09/24/24), moderate mitral valve regurgitation, h/o CVA, chronic HFrEF (EF: 25-30%), right DVT peroneal DVT (01/2024), HTN, HLD, carotid artery stenosis s/p L CEA and R TCAR, BPH with LUTS, asthma. He has had prolonged hospitalization at [facility] from to 10/31. He underwent 2-vessel CABG and MVR on 09/24, but unfortunately on 09/25 he developed right-sided weakness and aphasia. Imaging showed b/l occipital & cerebellar strokes. His hospitalization was further complicated by GI bleeding, need for transient dialysis, delirium, and need for PEG tube placement. He was discharged with harris catheter in place. 12/05 - presented to [facility] ER after he pulled out his PEG tube while at [facility]. It was replaced and he was d/c back to [facility]. Unfortunately he returned early AM of 12/06 with worsening mentation and hypotension. U/a was suggestive of UTI. He was admitted to the ICU for pressor support. Pressors weaned off later in the day on 12/06. #acute hypoxic resp failure - #hypernatremia/LASHON/acute metabolic encephalopathy #b/l lower lobe pneumonia - #septic shock - resolved #catheter-associated UTI - #acute/chronic HFrEF - #recent CABG, [place]essel [place] [facility] [place] [facility] [place] #h/o b/l occipital lobe and cerebellar CVAs - complication of his thoracic surgery at [facility] [place] - comfort measures - all non essential medications discontinued #Uncontrolled pain - hydromorphone 0.5-1mg IV q2h prn for mod to severe pain - adjuvant lorazepam 0.5mg IV q4h prn #Uncontrolled dyspnea - hydromorphone and lorazepam as above - supplemental oxygen prn for comfort, not to be titrated to pulse ox #Terminal Agitation - haloperidol prn - d/c olanzapine - TADA method - r/o urinary retention (ensure harris is flowing) or constipation #Bowel regimen - prn bisacodyl #Secretions - glycopyrrolate IV 12/12: Dr. Montes updated pt's daughter, Oxana Cruz, by phone, still undecided, but no longer wants artificial feeding, appears to be leaning towards a comfort route, but this has not pavel decided.. Oxana and her family cont to voice that they understand how poorly their father is doing. 12/13: Spoke with Oxana at length. She already has a lot going on with her immediate family and she is struggling to make the right decision for her dad. She wants to make sure she is doing the right thing for him. We discussed end of life and the dying process. She wants one more set of labs to be done tomorrow, so she can make better decision. She does have family in the medical field who is supporting her and helping her guide her in the process. 12/14: Two big conversations held with patient today with RN at bedside. 1. regarding tube feeds, he stated he does not want any more tube feeds. 2. regarding how to take care of him. discussed either doing comfort focused treatment and letting nature take its course and be at peace OR focus on aggressively getting better. He chose "peace". Discussed with patient's daughter Oxana. She saw him at bedside later in the day. She requested FULL comfort measures. She wants to stop all non comfort medications. No PEG tube use. She is requesting full comfort for him. Admission and Anticipated Discharge Date Admission Date: December 06, 2024 Subjective pt was transitioned to comfort on 12/14/24 pt is groaning and moaning and does not appear comfortable this morning. Review of Systems Review of Systems: Not able to complete full ROS Physical Exam Physical Exam: Gen: no acute distress, lying in bed HEENT: NC/AT, dry MM, furrowing of the brows Lungs: nonlabored breathing, gurgling CVS: s1s2nl, RRR Abd: nl bowel sounds, soft, NT / ND : + harris Ext: no edema Neuro: not responsive Psych: calm Results & Data Results & Data Vital Signs (Past 12 Hours) Vital Signs O2 Del Method 12/16/24 07:23 Room Air PG Care Time/CCT Total # of Minutes Spent Total Time Spent with Patient: Total time spent is greater than 50% in coordination of care (as documented) at patient's floor/unit and/or counseling patient: Coding Level of Care Code 17525 SUB INP/OBS CARE 2/35MIN Diagnoses Acute hypoxic respiratory failure J96.01 Septic shock A41.9; R65.21 Catheter-associated urinary tract infection T83.511A; N39.0 History of CVA (cerebrovascular accident) Z86.73 S/P CABG (coronary artery bypass graft) Z95.1 H/O mitral valve replacement Z95.2 Hx of deep venous thrombosis Z86.718 Acute metabolic encephalopathy G93.41 Benign prostatic hyperplasia without lower urinary tract symptoms N40.0 Lower urinary tract symptom presence: symptoms absent Hypertension I10 HFrEF (heart failure with reduced ejection fraction) I50.20 Cardiomyopathy I42.9 S/P percutaneous endoscopic gastrostomy (PEG) tube placement Z93.1 (9) BPH (benign prostatic hyperplasia) Lower urinary tract symptom presence: symptoms absent Qualified Code(s): N40.0 - Benign prostatic hyperplasia without lower urinary tract symptoms
--- NOTE | 2024-12-16 10:00 | Hospitalist Progress Note ---
Date of Service December 16, 2024 Assessment & Plan (1) Acute hypoxic respiratory failure: (2) Septic shock: (3) Catheter-associated urinary tract infection: (4) History of CVA (cerebrovascular accident): (5) S/P CABG (coronary artery bypass graft): (6) H/O mitral valve replacement: (7) Hx of deep venous thrombosis: (8) Acute metabolic encephalopathy: (9) BPH (benign prostatic hyperplasia): (10) Hypertension: (11) HFrEF (heart failure with reduced ejection fraction): (12) Cardiomyopathy: (13) S/P percutaneous endoscopic gastrostomy (PEG) tube placement: Plan Complicated and ill 79yo male with PMHx of CAD s/p CABG (09/24/24), moderate mitral valve regurgitation, h/o CVA, chronic HFrEF (EF: 25-30%), right DVT peroneal DVT (01/2024), HTN, HLD, carotid artery stenosis s/p L CEA and R TCAR, BPH with LUTS, asthma. He has had prolonged hospitalization at [facility] from to 10/31. He underwent 2-vessel CABG and MVR on 09/24, but unfortunately on 09/25 he developed right-sided weakness and aphasia. Imaging showed b/l occipital & cerebellar strokes. His hospitalization was further complicated by GI bleeding, need for transient dialysis, delirium, and need for PEG tube placement. He was discharged with harris catheter in place. 12/05 - presented to [facility] ER after he pulled out his PEG tube while at [facility]. It was replaced and he was d/c back to [facility]. Unfortunately he returned early AM of 12/06 with worsening mentation and hypotension. U/a was suggestive of UTI. He was admitted to the ICU for pressor support. Pressors weaned off later in the day on 12/06. 12/16: Pt has required 5.5mg IV hydromorphone over the past 24 hours (8a-8a), which is about 0.9mg q4h. #acute hypoxic resp failure - #hypernatremia/LASHON/acute metabolic encephalopathy #b/l lower lobe pneumonia - #septic shock - resolved #catheter-associated UTI - #acute/chronic HFrEF - #recent CABG, 2-vessel - [place] [address] [facility] [place]recent MVR - [place] [address] [facility] [place] - #h/o b/l occipital lobe and cerebellar CVAs - complication of his thoracic surgery at [facility] [place] - - comfort measures - all non essential medications discontinued #Uncontrolled pain - pt has required 5.5mg of IV hydromorphone over the last 24 hours. Will schedule hydromorphone 0.5mg q4h scheduled, cont hydromorphone 0.5-1mg IV q2h prn for mod to severe pain - adjuvant lorazepam 0.5mg IV q4h prn #Uncontrolled dyspnea - hydromorphone and lorazepam as above - supplemental oxygen prn for comfort, not to be titrated to pulse ox #Terminal Agitation - haloperidol prn - d/c olanzapine - TADA method - r/o urinary retention (ensure harris is flowing) or constipation #Bowel regimen - prn bisacodyl #Secretions - glycopyrrolate IV 12/12: Dr. Montes updated pt's daughter, Oxana Cruz, by phone, still undecided, but no longer wants artificial feeding, appears to be leaning towards a comfort route, but this has not pavel decided.. Oxana and her family cont to voice that they understand how poorly their father is doing. 12/13: Spoke with Oxana at length. She already has a lot going on with her immediate family and she is struggling to make the right decision for her dad. She wants to make sure she is doing the right thing for him. We discussed end of life and the dying process. She wants one more set of labs to be done tomorrow, so she can make better decision. She does have family in the medical field who is supporting her and helping her guide her in the process. 12/14: Two big conversations held with patient today with RN at bedside. 1. regarding tube feeds, he stated he does not want any more tube feeds. 2. regarding how to take care of him. discussed either doing comfort focused treatment and letting nature take its course and be at peace OR focus on a ggressively getting better. He chose "peace". Discussed with patient's daughter Oxana. She saw him at bedside later in the day. She requested FULL comfort measures. She wants to stop all non comfort medications. No PEG tube use. She is requesting full comfort for him. 12/16: spoke with pt's daughter Oxana and provided update. discussed scheduling hydromorphone and she is agreeable. Admission and Anticipated Discharge Date Admission Date: December 06, 2024 Subjective pt was transitioned to comfort on 12/14/24 No acute events overnight pt appears more comfortable this morning Review of Systems Review of Systems: Not able to complete full ROS Physical Exam Physical Exam: Gen: no acute distress, lying in bed HEENT: NC/AT, dry MM, furrowing of the brows Lungs: nonlabored breathing, gurgling CVS: s1s2nl, RRR Abd: nl bowel sounds, soft, NT / ND : + harris Ext: no edema Neuro: not responsive Psych: calm Results & Data Results & Data Vital Signs (Past 12 Hours) Vital Signs O2 Del Method 12/16/24 07:23 Room Air PG Care Time/CCT Total # of Minutes Spent Total Time Spent with Patient: Total time spent is greater than 50% in coordination of care (as documented) at patient's floor/unit and/or counseling patient: Coding Level of Care Code 62961 SUB INP/OBS CARE 2/35MIN Diagnoses Acute hypoxic respiratory failure J96.01 Septic shock A41.9; R65.21 Catheter-associated urinary tract infection T83.511A; N39.0 History of CVA (cerebrovascular accident) Z86.73 S/P CABG (coronary artery bypass graft) Z95.1 H/O mitral valve replacement Z95.2 Hx of deep venous thrombosis Z86.718 Acute metabolic encephalopathy G93.41 Benign prostatic hyperplasia without lower urinary tract symptoms N40.0 Lower urinary tract symptom presence: symptoms absent Hypertension I10 HFrEF (heart failure with reduced ejection fraction) I50.20 Cardiomyopathy I42.9 S/P percutaneous endoscopic gastrostomy (PEG) tube placement Z93.1 (9) BPH (benign prostatic hyperplasia) Lower urinary tract symptom presence: symptoms absent Qualified Code(s): N40.0 - Benign prostatic hyperplasia without lower urinary tract symptoms
--- NOTE | 2024-12-16 10:27 | Palliative Care Progress Note ---
Date of Service December 16, 2024 Assessment & Plan (1) Palliative care by specialist: Plan: Palliative care will continue to follow for ongoing EOL pt care and family support. (2) Comfort measures only status: Plan: On family request, pt was transitioned to INSTRUMENT TECHNICIAN on 12/14/24. (3) Need for comfort care: Plan: Comfort plan of care parameters: 1. Patient/Family want hospice added to their care. 2. NO rehab/PT/OT 3. Strictly End of Life care only 4. NO escalation of care: do not increase oxygen, escalate therapies, etc. The focus is on comfort through end of life, assure this is accomplished with aggressive symptom management (i.e. relief of dyspnea, pain, etc.) 5. NO return to hospital 6. NO labs, imaging, surgery 7. Oral intake as desired for comfort and pleasure: NO dietary restriction, Allow permissive aspiration, do not withhold food or drink for concern of aspiration and allow PO for pleasure and comfort. 8. If difficulty urinating/commode/bedpan, ok to place Garcia catheter for comfort/hygiene/skin protection AND/OR Continue Garcia catheter for comfort/hygiene/skin protection 9. NO: calorie counts, artificial nutrition, feeding tubes or IV fluids EOL Symptom manamgement: Pain/dyspnea/tachypnea continue scheduled/PRN dilaudid as above Consider titratable morphine drip if pt requires >3 PRN doses in under two consecutive hours. Nausea/vomitting zofran 4mg IVP q4h PRN Agitation ativan 0.5mg IVP q4h PRN Hyperactive delirium haldol 5mg IVP q6h PRN Secretions - if repositioning not effective robinul 0.4mg IV q4h PRN atropine SL 3 drops Q1h PRN Nursing care: Discontinue all medications not directed towards comfort. Detether pt from IV tubing, monitor cables, and check vitals once per shift. Please continue HFNC and titrate down as able for patient comfort. Use medications above PRN for dyspnea/tachypnea and do not increase oxygen once titrated down. Assess q1h for pain/dyspnea and treat accordingly. Plan as above Admission and Anticipated Discharge Date Admission Date: December 06, 2024 Subjective Assessed pt at bedside, he was transitioned to INSTRUMENT TECHNICIAN on 12/14/24. Pt is unresponsive to verbal and gentle tactile stimuli, did not attempt to awaken in concert with comfort directed care. He appears comfortable, pale skin, extremities remain warm and well perfused. Respiratory effort decreased, rate 14/min, NAD on RA. No visitors at bedside. Review of Systems Review of Systems: Unobtainable due to cognitive status Physical Exam Constitutional: + ill appearing, + thin and comfortable; not in distress ENMT: external ear and nose normal, oropharynx normal dry MM Neck: trachea midline, no thyromegaly Respiratory: no respiratory distress Auscultation: + diminished lung sounds and + vesicular breath sounds Cardiovascular: RRR, no murmur, no edema Gastrointestinal (Abdomen): normal bowel sounds, soft, nontender, no hepatosplenomegaly Skin: no rashes, warm and dry Neurologic: Pt is unresponsive to verbal and gentle tactile stimuli, did not attempt to awaken in concert with comfort directed care Results & Data Vital Signs (Past 12 Hours) Vital Signs O2 Del Method 12/16/24 07:23 Room Air Laboratory Results No further labs or diagnostics in concert with comfort directed care. Diagnostic Findings No further labs or diagnostics in concert with comfort directed care. Medications Administered Current Inpatient Medications Bisacodyl (Bisacodyl 10 Mg Supp) 10 mg AZ QAM PRN PRN Reason: Constipation Stop: 01/13/25 18:57 Glycopyrrolate (Glycopyrrolate 0.2 Mg/Ml Vial) 0.4 mg IV Q4H PRN PRN Reason: Rattling Secretions or Pulm Congestion Stop: 01/13/25 18:40 Last Admin: 12/16/24 07:57 Dose: 0.4 mg Haloperidol (Haloperidol Oral Soln 2 Mg/Ml) 0.5 mg PO Q4H PRN PRN Reason: Anxiety/Agitation/N/V Stop: 01/13/25 18:40 Hydromorphone HCl (Hydromorphone Inj 0.5 Mg/0.5 Ml Syr) 0.5 mg IV Q2H PRN PRN Reason: Pain or Respiratory Distress Stop: 12/28/24 18:40 Last Admin: 12/16/24 03:37 Dose: 0.5 mg Hydromorphone HCl (Hydromorphone Inj 1 Mg/Ml Syringe) 1 mg IV Q2H PRN PRN Reason: for severe pain and dyspnea Stop: 12/28/24 18:55 Last Admin: 12/16/24 07:19 Dose: 1 mg Hydromorphone HCl (Hydromorphone Inj 0.5 Mg/0.5 Ml Syr) 0.5 mg IV Q4H ROBERT Stop: 12/30/24 11:59 Lorazepam (Lorazepam 2 Mg/1 Ml Vial) 0.5 mg IV Q4H PRN PRN Reason: Anxiety/Agitation Stop: 01/13/25 18:40 Last Admin: 12/15/24 09:44 Dose: 0.5 mg Ondansetron HCl (Ondansetron Inj 2 Mg/Ml 2 Ml Vial) 4 mg IV Q4H PRN PRN Reason: Nausea &/or Vomiting Stop: 01/13/25 18:40 PG Care Time/CCT Total # of Minutes Spent Total Time Spent with Patient: Total time spent is greater than 50% in coordination of care (as documented) at patient's floor/unit and/or counseling patient: Coding [place] [address] SUB INP/OBS CARE 2/35MIN Patient Type Established History Expanded Problem Focused Exam Expanded Problem Focused Medical Decision Making Moderate Complexity Diagnoses Palliative care by specialist Z51.5 Comfort measures only status Z51.5 Need for comfort care
[2024-12-16] MEDS: HYDROmorphone INJ 0.5 MG/0.5 ML SYR IV SCH (11:50)
[2024-12-17] MEDS: HYDROmorphone INJ 0.5 MG/0.5 ML SYR IV SCH (18:13)
--- NOTE | 2024-12-17 21:08 | Hospitalist Progress Note ---
Date of Service December 17, 2024 Assessment & Plan (1) Comfort measures only status: (2) Palliative care patient: (3) Acute hypoxic respiratory failure: (4) Septic shock: (5) Catheter-associated urinary tract infection: (6) History of CVA (cerebrovascular accident): (7) S/P CABG (coronary artery bypass graft): (8) H/O mitral valve replacement: (9) Hx of deep venous thrombosis: (10) Acute metabolic encephalopathy: (11) BPH (benign prostatic hyperplasia): (12) Hypertension: (13) HFrEF (heart failure with reduced ejection fraction): (14) Cardiomyopathy: (15) S/P percutaneous endoscopic gastrostomy (PEG) tube placement: Plan Complicated and ill 79yo male with prolonged hospitalization at [facility] from 09/24 to 10/31. He underwent 2-vessel CABG and MVR on 09/24, but unfortunately on 09/25 he developed right-sided weakness and aphasia. Imaging showed b/l occipital & cerebellar strokes. His hospitalization was further complicated by GI bleeding, need for transient dialysis, delirium, and need for PEG tube placement. He was discharged with harris catheter in place. In addition to the above he has chronic HFrEF, anemia, prior DVT of right peroneal vein, carotid artery stenosis s/p L CEA and R TCAR, BPH with LUTS, asthma. 12/05 - presented to [facility] ER after he pulled out his PEG tube while at [facility]. It was replaced and he was d/c back to [facility]. Unfortunately he returned early AM of 12/06 with worsening mentation and hypotension. Had evidence of UTI. He was admitted to the ICU for pressor support. Pressors weaned off later in the day on 12/06. #comfort care pathway / palliative care patient - -transitioned to comfort care measures only pathway on 12/14/24 -largely obtunded today -mild tachypnea but otherwise comfortable -scheduled IV dilaudid has been effective since starting this schedule yesterday -cont scheduled dilaudid + dilaudid prn -cont ativan prn -cont other comfort care measures -candidate for inpatient hospice status? #acute hypoxic resp failure - -2nd to combination of acute/chronic HFrEF + b/l pneumonia -completed course of IV abx therapy for pneumonia; did receive some diuresis early in the stay as well #b/l lower lobe pneumonia - -aspiration vs gram negative vs typical -as above #septic shock - -source - catheter-associated UTI 2nd to e.coli +/- pneumonia -required pressors for part of the day on 12/06 #catheter-associated UTI - -2nd to e.coli -off all abx therapy; transitioned to comfort care measures only #acute metabolic encephalopathy - -multifactorial - infectious, hospital psychosis, etc. -now obtunded #acute/chronic HFrEF - -echo with EF 25-30% -all cardiac meds stopped #recent CABG, 2-vessel - September 2024 at [facility] [place] #recent MVR - September 2024 at [facility] [place] #h/o b/l occipital lobe and cerebellar CVAs - complication of his thoracic surgery at [facility] [place] - -with resulting dysphagia, aphasia, weakness #dysphagia - -s/p PEG tube placement at [facility] earlier this summer -transitioned to comfort care measures only -tube feedings stopped #T2DM - -a1c 6.6% #mild LASHON - -admission Cr 1.49 -then worsened to 2.7 later in the stay -repeat BMPs stopped; transitioned to comfort care measures only #anemia - #elevated troponin - -likely myocardial demand ischemia in setting of severe sepsis/shock/UTI/pneumonia support given to pt's daughter, Oxana Cruz, at bedside today along with pt's sister and pt's grand-daughter offered to consult our hospital weigher alloy if desired cont comfort care measures pathway Admission and Anticipated Discharge Date Admission Date: December 06, 2024 Subjective patient remains on comfort care pathway pt's daughter, grand-daughter, and sister at bedside daughter notes that he seems to be more agitated and uncomfortable at the 4-hour florentino after receiving dilaudid largely unresponsive rare occasion of opening eyes Review of Systems Review of Systems: Unobtainable due to reduced consciousness Physical Exam Physical Exam: gen - obtunded; mild tachypnea but without retractions/increased work of breathing neck - mild JVD heart - tachy, s1 s2, no murmur lungs - mild tachypnea, otherwise CTA b/l abd - soft NT ND ext - cool to touch left foot; warm to touch right foot PG Care Time/CCT Total # of Minutes Spent Total Time Spent with Patient: Total time spent is greater than 50% in coordination of care (as documented) at patient's floor/unit and/or counseling patient: Coding Level of Care Code 30008 SUB INP/OBS CARE Diagnoses Comfort measures only status Z51.5 Palliative care patient Z51.5 Acute hypoxic respiratory failure J96.01 Septic shock A41.9; R65.21 Catheter-associated urinary tract infection T83.511A; N39.0 History of CVA (cerebrovascular accident) Z86.73 S/P CABG (coronary artery bypass graft) Z95.1 H/O mitral valve replacement Z95.2 Hx of deep venous thrombosis Z86.718 Acute metabolic encephalopathy G93.41 Benign prostatic hyperplasia without lower urinary tract symptoms N40.0 Lower urinary tract symptom presence: symptoms absent Hypertension I10 HFrEF (heart failure with reduced ejection fraction) I50.20 Cardiomyopathy I42.9 S/P percutaneous endoscopic gastrostomy (PEG) tube placement Z93.1 (11) BPH (benign prostatic hyperplasia) Lower urinary tract symptom presence: symptoms absent Qualified Code(s): N40.0 - Benign prostatic hyperplasia without lower urinary tract symptoms
[2024-12-18] MEDS ORDERED: STAT IV Infusion **Titration per Protocol STA (11:04)
--- NOTE | 2024-12-18 11:06 | Hospitalist Progress Note ---
Date of Service December 18, 2024 Assessment & Plan (1) Comfort measures only status: (2) Palliative care patient: (3) Acute hypoxic respiratory failure: (4) Septic shock: (5) Catheter-associated urinary tract infection: (6) History of CVA (cerebrovascular accident): (7) S/P CABG (coronary artery bypass graft): (8) H/O mitral valve replacement: (9) Hx of deep venous thrombosis: (10) Acute metabolic encephalopathy: (11) BPH (benign prostatic hyperplasia): (12) Hypertension: (13) HFrEF (heart failure with reduced ejection fraction): (14) Cardiomyopathy: (15) S/P percutaneous endoscopic gastrostomy (PEG) tube placement: Plan Complicated and ill 79yo male with prolonged hospitalization at [facility] from 09/24 to 10/31. He underwent 2-vessel CABG and MVR on 09/24, but unfortunately on 09/25 he developed right-sided weakness and aphasia. Imaging showed b/l occipital & cerebellar strokes. His hospitalization was further complicated by GI bleeding, need for transient dialysis, delirium, and need for PEG tube placement. He was discharged with harris catheter in place. In addition to the above he has chronic HFrEF, anemia, prior DVT of right peroneal vein, carotid artery stenosis s/p L CEA and R TCAR, BPH with LUTS, asthma. 12/05 - presented to [facility] ER after he pulled out his PEG tube while at [facility]. It was replaced and he was d/c back to [facility]. Unfortunately he returned early AM of 12/06 with worsening mentation and hypotension. Had evidence of UTI. He was admitted to the ICU for pressor support. Pressors weaned off later in the day on 12/06. #comfort care pathway / palliative care patient - -transitioned to comfort care measures only pathway on 12/14/24 -respiratory distress is much worse today despite scheduled IV dilaudid q3h and prn dilaudid -thus, change q3h dilaudid to dilaudid infusion with following parameters -- -1mg bolus IV x 1 -then start drip at 0.5mg/hr -titrate by 0.2mg increments as needed for optimal patient comfort -increase ativan to 1mg IV prn #acute hypoxic resp failure - -2nd to combination of acute/chronic HFrEF + b/l pneumonia -completed course of IV abx therapy for pneumonia; did receive some diuresis early in the stay as well #b/l lower lobe pneumonia - -aspiration vs gram negative vs typical #septic shock - -source - catheter-associated UTI 2nd to e.coli +/- pneumonia -required pressors for part of the day on 12/06 #catheter-associated UTI - -2nd to e.coli -off all abx therapy; transitioned to comfort care measures only #acute metabolic encephalopathy - -multifactorial - infectious, hospital psychosis, etc. -now obtunded #acute/chronic HFrEF - -echo with EF 25-30% #recent CABG, 2-vessel - September 2024 at [facility] [place] #recent MVR - September 2024 at [facility] [place] #h/o b/l occipital lobe and cerebellar CVAs - complication of his thoracic surgery at [facility] [place] - -with resulting dysphagia, aphasia, weakness #dysphagia - -s/p PEG tube placement at [facility] earlier this summer -transitioned to comfort care measures only -tube feedings stopped #T2DM - -a1c 6.6% #mild LASHON - -admission Cr 1.49 -then worsened to 2.7 later in the stay #anemia #elevated troponin - -likely myocardial demand ischemia in setting of severe sepsis/shock/UTI/pneumonia support given to pt's daughter, Oxana Cruz, at bedside again today discussed dying process see above re: pain meds/comfort med adjustments anticipate pt's passing next 1-2 days Admission and Anticipated Discharge Date Admission Date: December 06, 2024 Subjective obtunded daughter stayed the night at bedside he was more tachypneic and using accessory muscles thru the night per daughter Review of Systems Review of Systems: Unobtainable due to reduced consciousness Physical Exam Physical Exam: gen - obtunded; severe tachypnea; +increased work of breathing neck - mild JVD heart - tachy, s1 s2, no murmur lungs - severe tachypnea, +crackles R lung anteriorly, left lung clear abd - soft NT ND ext - cool extremities b/l Results & Data Results & Data Vital Signs (Past 12 Hours) Vital Signs O2 Del Method 12/18/24 09:05 Room Air 12/18/24 00:11 Room Air PG Care Time/CCT Total # of Minutes Spent Total Time Spent with Patient: Total time spent is greater than 50% in coordination of care (as documented) at patient's floor/unit and/or counseling patient: Coding Level of Care Code 61860 SUB INP/OBS CARE Diagnoses Comfort measures only status Z51.5 Palliative care patient Z51.5 Acute hypoxic respiratory failure J96.01 Septic shock A41.9; R65.21 Catheter-associated urinary tract infection T83.511A; N39.0 History of CVA (cerebrovascular accident) Z86.73 S/P CABG (coronary artery bypass graft) Z95.1 H/O mitral valve replacement Z95.2 Hx of deep venous thrombosis Z86.718 Acute metabolic encephalopathy G93.41 Benign prostatic hyperplasia without lower urinary tract symptoms N40.0 Lower urinary tract symptom presence: symptoms absent Hypertension I10 HFrEF (heart failure with reduced ejection fraction) I50.20 Cardiomyopathy I42.9 S/P percutaneous endoscopic gastrostomy (PEG) tube placement Z93.1 (11) BPH (benign prostatic hyperplasia) Lower urinary tract symptom presence: symptoms absent Qualified Code(s): N40.0 - Benign prostatic hyperplasia without lower urinary tract symptoms
[2024-12-18] MEDS: HYDROmorphone 100 MG/100 ML BAG IV SCH (12:29)
[2024-12-18] MEDS: HYDROmorphone BOLUS from BAG IV PRN (12:34)
--- NOTE | 2024-12-19 06:03 | Death Pronouncement Note ---
Date of Service December 19, 2024 Pronouncement Note Admission Date Admission Date: December 06, 2024 Date and Time of Date of : 12/19/24 Time of : 05:05 Contributing Factors (1) Acute hypoxic respiratory failure: (2) Septic shock: (3) Catheter-associated urinary tract infection: (4) History of CVA (cerebrovascular accident): (5) S/P CABG (coronary artery bypass graft): (6) H/O mitral valve replacement: (7) Hx of deep venous thrombosis: (8) Acute metabolic encephalopathy: (9) BPH (benign prostatic hyperplasia): (10) Hypertension: (11) HFrEF (heart failure with reduced ejection fraction): (12) Cardiomyopathy: (13) S/P percutaneous endoscopic gastrostomy (PEG) tube placement: Summary Additional details: I was called to pronounce the of Pranav Salamanca ( []) by Jennifer Koroma on 12/19/24. Upon entering the room, patient was found to be in a terminal state. They were unresponsive to, and did not withdrawal from, verbal or tactile stimuli. They were unresponsive to corneal and pupillary reflexes. On cardiopulmonary exam, they were found to be without detectable carotid or radial pulses, and without spontaneous heart beats or respirations. Time of was pronounced by me on 12/19/24 at 5:05 am. Attending physician was notified was notified. Daughter was notified officially by myself, although she was already at bedside. Additional Data Confirmation of : no pulse, no respirations, no heart sounds and pupils fixed and dilated Family: at bedside Attending/PCP notified?: Yes Attending physician: Oumar Dc MD Was code activated?: No Autopsy requested?: No elevator examiner and adjuster notified?: No Organ bank notified?: No Advance directives: No
--- NOTE | 2024-12-19 10:12 | Discharge Summary ---
Discharge Summary Date of Service December 19, 2024 Principal Dx & Hospital Course #1 = Principal Diagnosis (1) Comfort measures only status: (2) Palliative care patient: (3) Acute hypoxic respiratory failure: (4) Septic shock: (5) Catheter-associated urinary tract infection: (6) History of CVA (cerebrovascular accident): (7) S/P CABG (coronary artery bypass graft): (8) H/O mitral valve replacement: (9) Hx of deep venous thrombosis: (10) Acute metabolic encephalopathy: (11) BPH (benign prostatic hyperplasia): (12) Hypertension: (13) HFrEF (heart failure with reduced ejection fraction): (14) Cardiomyopathy: (15) S/P percutaneous endoscopic gastrostomy (PEG) tube placement: Plan Complicated and ill 79yo male with prolonged hospitalization at [facility] from 09/24 to 10/31. He underwent 2-vessel CABG and MVR on 09/24, but unfortunately on 09/25 he developed right-sided weakness and aphasia. Imaging showed b/l occipital & cerebellar strokes. His hospitalization was further complicated by GI bleeding, need for transient dialysis, delirium, and need for PEG tube placement. He was discharged with harris catheter in place. In addition to the above he has chronic HFrEF, anemia, prior DVT of right peroneal vein, carotid artery stenosis s/p L CEA and R TCAR, BPH with LUTS, asthma. 12/05 - presented to [facility] ER after he pulled out his PEG tube while at [facility]. It was replaced and he was d/c back to [facility]. Unfortunately he returned early AM of 12/06 with worsening mentation and hypotension. Had evidence of UTI. He was admitted to the ICU for pressor support. Pressors weaned off later in the day on 12/06. #comfort care pathway / palliative care patient - -transitioned to comfort care measures only pathway on 12/14/24 -respiratory distress is much worse today despite scheduled IV dilaudid q3h and prn dilaudid -thus, change q3h dilaudid to dilaudid infusion with following parameters -- -1mg bolus IV x 1 -then start drip at 0.5mg/hr -titrate by 0.2mg increments as needed for optimal patient comfort -increase ativan to 1mg IV prn #acute hypoxic resp failure - -2nd to combination of acute/chronic HFrEF + b/l pneumonia -completed course of IV abx therapy for pneumonia; did receive some diuresis early in the stay as well #b/l lower lobe pneumonia - -aspiration vs gram negative vs typical #septic shock - -source - catheter-associated UTI 2nd to e.coli +/- pneumonia -required pressors for part of the day on 12/06 #catheter-associated UTI - -2nd to e.coli -off all abx therapy; transitioned to comfort care measures only #acute metabolic encephalopathy - -multifactorial - infectious, hospital psychosis, etc. -now obtunded #acute/chronic HFrEF - -echo with EF 25-30% #recent CABG, 2-[place]essel - September [place]24 [place] [facility] [place]recent MVR - September [place]24 [place] [facility] [place] #h/o b/l occipital lobe and cerebellar CVAs - complication of his thoracic surgery at [facility] [place] - -with resulting dysphagia, aphasia, weakness #dysphagia - -s/p PEG tube placement at [facility] earlier this summer -transitioned to comfort care measures only -tube feedings stopped #T2DM - -a1c 6.6% #mild LASHON - -admission Cr 1.49 -then worsened to 2.7 later in the stay #anemia #elevated troponin - -likely myocardial demand ischemia in setting of severe sepsis/shock/UTI/pneumonia support given to pt's daughter, Oxana Cruz, at bedside again today discussed dying process see above re: pain meds/comfort med adjustments anticipate pt's passing next 1-2 days Admission HPI Per Admitting Provider The patient is an 79-year-old male with a past medical history including a stro ke with residual aphasia and dementia, that occurred in September 2024, when he was undergoing a CABG and mitral valve replacement. He later on had a lower GI bleed, and had a PEG tube placed. There was an interval where he was on dialysis and had some delirium during that interval as well. He has had a history of E. coli UTI, chronic indwelling Harris catheter. Past medical history also includes CAD, HFrEF, anemia, moderate mitral regurgitation, DVT of right peroneal vein, cardiomyopathy, carotid artery stenosis, BPH with LUTS and now chronic indwelling Harris catheter, asthma, and allergic rhinitis. Workup in the emergency department included a UA that was abnormal suggestive of urinary tract infection. CT chest noted a pneumonia noted which is likely due to aspiration. The patient did become hypotensive while in the emergency department, with blood pressure as low as 66/47, and was started on Levophed at that time. Patient was determined to be septic, secondary to urinary tract infection and aspiration pneumonia. In the emergency department he received Levophed as noted, normal saline 500 mL bolus, Zosyn 4.5 g IV. He then had addition of albumin 50 g IV, and additional normal saline 1 L bolus, hydrocortisone 100 mg IV, linezolid 6 mg IV every 12 hours, and was then transferred to the ICU. Discharge Exam gen - obtunded; severe tachypnea; +increased work of breathing neck - mild JVD heart - tachy, s1 s2, no murmur lungs - severe tachypnea, +crackles R lung anteriorly, left lung clear abd - soft NT ND ext - cool extremities b/l Discharge Plan Discharge Items Patient Disposition: Other Date/Time: 12/19/24 06:06 Hospital Stay Data Consultations 12/06/24 02:14 ED Decision to Admit Stat 12/06/24 02:16 Consult Agency Sales Representative Routine 12/06/24 03:56 Consult Agency Sales Representative Routine 12/10/24 12:20 Consult Nephrology Routine 12/10/24 17:52 Consult Palliative Care Routine Diagnostic Imagining Performed 12/06/24 00:47 CT head/brain wo con Stat 12/06/24 00:50 CT abd pelvis wo con Stat CT chest diagnostic wo con Stat 12/09/24 14:16 US venous doppler LE BI Urgent Coding Diagnoses Comfort measures only status Z51.5 Palliative care patient Z51.5 Acute hypoxic respiratory failure J96.01 Septic shock A41.9; R65.21 Catheter-associated urinary tract infection T83.511A; N39.0 History of CVA (cerebrovascular accident) Z86.73 S/P CABG (coronary artery bypass graft) Z95.1 H/O mitral valve replacement Z95.2 Hx of deep venous thrombosis Z86.718 Acute metabolic encephalopathy G93.41 Benign prostatic hyperplasia without lower urinary tract symptoms N40.0 Lower urinary tract symptom presence: symptoms absent Hypertension I10 HFrEF (heart failure with reduced ejection fraction) I50.20 Cardiomyopathy I42.9 S/P percutaneous endoscopic gastrostomy (PEG) tube placement Z93.1
== END 2024-12-19 06:07 | disposition expired | DRG 871 ==
LOC: ED 00:33 → SUATTDRO 02:56 → 1E 02:56 → 2E 12-07 13:47 → 3E 12-15 15:52
DX: I24.89 Other forms of acute ischemic heart disease; G93.41 Metabolic encephalopathy; N40.0 Benign prostatic hyperplasia without lower urinary tract symptoms; Z99.3 Dependence on wheelchair; F05 Delirium due to known physiological condition; N17.9 Acute kidney failure, unspecified; E11.00 Type 2 diabetes mellitus with hyperosmolarity without nonketotic hyperglycemic-hyperosmolar coma (NKHHC); N39.0 Urinary tract infection, site not specified; D64.9 Anemia, unspecified; Z79.4 Long term (current) use of insulin; Z51.5 Encounter for palliative care; Z87.891 Personal history of nicotine dependence; F03.90 Unspecified dementia, unspecified severity, without behavioral disturbance, psychotic disturbance, mood disturbance, and anxiety; Z88.1 Allergy status to other antibiotic agents; Z86.718 Personal history of other venous thrombosis and embolism; R13.10 Dysphagia, unspecified; R45.1 Restlessness and agitation; I25.10 Atherosclerotic heart disease of native coronary artery without angina pectoris; E87.0 Hyperosmolality and hypernatremia; I42.9 Cardiomyopathy, unspecified; Z93.1 Gastrostomy status; I50.22 Chronic systolic (congestive) heart failure; T83.511A Infection and inflammatory reaction due to indwelling urethral catheter, initial encounter; Z66 Do not resuscitate; J69.0 Pneumonitis due to inhalation of food and vomit; I50.23 Acute on chronic systolic (congestive) heart failure; I13.0 Hypertensive heart and chronic kidney disease with heart failure and stage 1 through stage 4 chronic kidney disease, or unspecified chronic kidney disease; F10.239 Alcohol dependence with withdrawal, unspecified; I69.320 Aphasia following cerebral infarction; I44.7 Left bundle-branch block, unspecified; A41.9 Sepsis, unspecified organism; R65.21 Severe sepsis with septic shock; Z79.02 Long term (current) use of antithrombotics/antiplatelets; B96.20 Unspecified Escherichia coli [E. coli] as the cause of diseases classified elsewhere; Z95.2 Presence of prosthetic heart valve; Z95.1 Presence of aortocoronary bypass graft; N18.30 Chronic kidney disease, stage 3 unspecified; E87.1 Hypo-osmolality and hyponatremia